=== PATIENT | female | born 1935 | race Caucasian/White ===

== ENCOUNTER 2016-07-21 21:31 | Inpatient (IN) | payer OTHER ==
[~2016-07-21] VITALS: Ht 167.6 cm; Wt 58.0 kg
--- NOTE | 2016-07-21 22:38 | EMERGENCY ROOM VISIT NOTE ---
History Report prepared by Frederick: Claude Sarmiento Under the Supervision of: Dr. Aris Graham M.D. First contact with patient: 22:30 Chief Complaint: GI ASSESSMENT Stated Complaint: BLOOD IN STOOL, HEMORRHOIDS Nursing Triage Summary: pt reports she has been getting pressure to have BM, uses bathroom Reports bright red blood in the toilet. Has hermorrhoids. denies abd pain. History of Present Illness The patient is an 81 year old female who presents to the Emergency Room with complaints of persistent rectal bleeding for the past two weeks. The patient has been noticing bright red blood in her stools and on the toilet paper when she wipes. She denies rectal pain. The patient does have a history of hemorrhoids. The patient had her blood counts checked for a regular checkup two weeks ago, which showed that her hemoglobin dropped from 10 down to 8 range she thinks. The patient is not on any blood thinners. She denies any history of colon or blood problems. The patient denies fevers, chills, shortness of breath , nausea, vomiting, or abdominal pain. She denies increased weakness or fatigue. Source of History: patient, family Onset: two weeks ago Position: other (rectal) Quality: other (right red blood) Timing: other (persistent) Associated Symptoms: No SOB, No abdominal pain, No chills, No fatigue, No fevers, No nausea, No vomiting, No weakness Review of Systems See HPI for pertinent positives & negatives. A total of 10 systems reviewed and were otherwise negative. Past Medical & Surgical Medical Problems: (1) Anemia (2) Broken wrist (3) Rectal bleeding Old medical records were reviewed. Nurse's notes were reviewed and I agree with. Family History Patient reports no known family medical history. Social History Smoking Status: Never Smoker Alcohol Use: none Drug Use: none Occupation Status: retired Current/Historical Medications Scheduled Metoprolol Tartrate (Lopressor) (Lopressor), 50 MG PO BID Allergies Coded Allergies: No Known Allergies (Unverified , 07/21/16) Physical Exam Vital Signs Date Time Temp Pulse Resp B/P Pulse Ox O2 Delivery O2 Flow Rate FiO2 07/22/16 00:22 65 20 150/83 96 Room Air 07/21/16 22:50 84 20 185/110 96 Room Air 07/21/16 21:39 36.7 115 18 205/112 99 Room Air Physical Exam General: Non ill appearing older female in no acute distress, breathing comfortably on room air. Normal speech HEENT: Normal cephalic atraumatic. Pupils are equal round and reactive to light. Sclerae anicteric. Extraocular movements are intact. Oropharynx is pink with moist mucous membranes. No swelling of the mouth lips or tongue. Neck: Supple with a midline trachea. No meningeal signs or stiffness, no JVD or bruits. No Stridor. Chest: Clear to auscultation bilaterally. No wheezes or rhonchi. No increased work of breathing. Heart: Mildly tachycardic, regular rhythm. Abdomen: Soft nontender, nondistended without rebound guarding or rigidity. Extremities: No cyanosis clubbing or edema. No calf tenderness or assymetry Spine/Back. Non tender to palpation. No CVA tenderness Skin: Good turgor without rashes. Neurologic exam: Cranial nerves two through 12 are intact. Motor and sensation are intact and symmetrical throughout. Rectal: External hemorrhoids with no active bleeding at present, nontender. Internal examination reviewed brownish red stool that is guaiac positive. 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 Medical Decision & Procedures Laboratory Results 07/21/16 22:46 Red Blood Count 3.32, Mean Corpuscular Volume 87.3, Mean Corpuscular Hemoglobin 26.5, Mean Corpuscular Hemoglobin Concent 30.3, Mean Platelet Volume 8.6, Neutrophils (%) (Auto) 83.1, Lymphocytes (%) (Auto) 9.9, Monocytes (%) (Auto) 5.9, Eosinophils (%) (Auto) 1.1, Basophils (%) (Auto) 0.0, Neutrophils # (Auto) 3.77, Lymphocytes # (Auto) 0.45, Monocytes # (Auto) 0.27, Eosinophils # (Auto) 0.05, Basophils # (Auto) 0.00 07/21/16 22:46 Test 07/21/16 22:46 White Blood Count 4.54 K/uL (4.8-10.8) Red Blood Count 3.32 M/uL (4.2-5.4) Hemoglobin 8.8 g/dL (12.0-16.0) Hematocrit 29.0 % (37-47) Mean Corpuscular Volume 87.3 fL (80-100) Mean Corpuscular Hemoglobin 26.5 pg (25-34) Mean Corpuscular Hemoglobin Concent 30.3 g/dl (32-36) Platelet Count 171 K/uL (130-400) Mean Platelet Volume 8.6 fL (7.4-10.4) Neutrophils (%) (Auto) 83.1 % Lymphocytes (%) (Auto) 9.9 % Monocytes (%) (Auto) 5.9 % Eosinophils (%) (Auto) 1.1 % Basophils (%) (Auto) 0.0 % Neutrophils # (Auto) 3.77 K/uL (1.4-6.5) Lymphocytes # (Auto) 0.45 K/uL (1.2-3.4) Monocytes # (Auto) 0.27 K/uL (0.11-0.59) Eosinophils # (Auto) 0.05 K/uL (0-0.5) Basophils # (Auto) 0.00 K/uL (0-0.2) RDW Standard Deviation 48.7 fL (36.4-46.3) RDW Coefficient of Variation 15.2 % (11.5-14.5) Immature Granulocyte % (Auto) 0.0 % Immature Granulocyte # (Auto) 0.00 K/uL (0.00-0.02) Tear Drop Cells 1+ Prothrombin Time 10.5 SECONDS (9.0-12.0) Prothromb Time International Ratio 1.0 (0.9-1.1) Activated Partial Thromboplast Time 23.7 SECONDS (21.0-31.0) Partial Thromboplastin Ratio 0.9 Anion Gap 7.0 mmol/L (3-11) Est Creatinine Clear Calc Drug Dose 33.2 ml/min Estimated GFR () 48.4 Estimated GFR (Non- 41.8 BUN/Creatinine Ratio 12.9 (10-20) Calcium Level 9.3 mg/dl (8.5-10.1) Total Bilirubin 0.5 mg/dl (0.2-1) Direct Bilirubin 0.1 mg/dl (0-0.2) Aspartate Amino Transf (AST/SGOT) 12 U/L (15-37) Alanine Aminotransferase (ALT/SGPT) 20 U/L (12-78) Alkaline Phosphatase 133 U/L (45-117) Total Protein 7.3 gm/dl (6.4-8.2) Albumin 3.7 gm/dl (3.4-5.0) Lipase 144 U/L (73-393) Laboratory studies as stated above per my review. ED Course 2231: Past medical records reviewed. The patient was evaluated in room A11b, and a complete history and physical examination were performed. 2354: Rectal examination performed. 0010: Discussed the case with Dr. Ramirez [facility] Hospitalist. The patient will be evaluated. Medical Decision Differential diagnosis includes GI bleed, anemia, hemorrhoids, electrolyte or metabolic abnormality. This patient comes in as described above. She was placed in room A 11. She's been having increasing rectal bleeding. She feels okay at present was concerned. She has some mild rectal discomfort she tells me she hasn't some hemorrhoids however is scheduled for scope and about a week because is concern for further bleeding. On exam, she does have hemorrhoids but stool is actually reddish-brown above the hemorrhoids and I think most likely this is a bleeding source proximal to hemorrhoids. It was guaiac positive. Hemoglobin here is 8.8 which is low. I do not have any documentation of her previous hemoglobins. She was tachycardic initially. She has no electrode or metabolic abnormalities. She is not on any blood thinners and her coags are normal. I do think she needs be admitted for further treatment and evaluation monitoring and GI consultation. I have consulted Dr. Godinez, who saw the patient ER, and will admit her for these measures. Consults Time Called: 0000 Consulting Physician: Dr. Ramirez [facility]. Returned Call: 9 0010: Discussed the case with Dr. Ramirez [facility]. The patient will be evaluated. Impression Primary Impression: GI bleed Scribe Attestation The scribe's documentation has been prepared under my direction and personally reviewed by me in its entirety. I confirm that the note above accurately reflects all work, treatment, procedures, and medical decision making performed by me. Departure Information Dispostion Being Evaluated By Hospitalist Referrals No Doctor, Assigned (PCP) Patient Instructions [facility]
[2016-07-21 23:00] LABS: EOS % 1.1 %; LYMPH % 9.9 %; LYMPH ABS # 0.45 K/uL (1.2-3.4); MEAN CELL VOLUME 87.3 fL (80-100); MEAN CORPUSCULAR HEMOGLOBIN 26.5 pg (25-34); MEAN CORPUSCULAR HGB CONC 30.3 g/dl (32-36); MEAN PLATELET VOLUME 8.6 fL (7.4-10.4); MONO % 5.9 %; NEUT % 83.1 %; PLATELET COUNT 171 K/uL (130-400); RED BLOOD COUNT 3.32 M/uL (4.2-5.4); WHITE BLOOD COUNT 4.54 K/uL (4.8-10.8)
[2016-07-21 23:06] LABS: PARTIAL THROMBOPLASTIN RATIO 0.9; PROTHROMBIN TIME (PATIENT) 10.5 SECONDS (9.0-12.0)
[2016-07-21 23:15] LABS: BUN/CREATININE RATIO 12.9 (10-20); CALCIUM 9.3 mg/dl (8.5-10.1); CREATININE 1.2 mg/dl (0.60-1.20); POTASSIUM 3.9 mmol/L (3.5-5.1)
[2016-07-21 23:27] LABS: COMPLETE YES; TEAR DROP CELLS 1+
[2016-07-22] VITALS (7 sets, daily range): BP systolic 136–187; BP diastolic 67–92; PULSE 82–108; TEMP 36.6; O2SAT 97–98; Ht 167.6 cm; Wt 58.0 kg
[2016-07-22] MEDS ORDERED: NSS + 20MEQ KCL 1000ML 1,000 ML IV SCH (00:05)
[2016-07-22] MEDS ORDERED: ONDANSETRON INJ 2 MG/ML 2 ML VIAL IV PRN (00:15)
[2016-07-22] MEDS ORDERED: ACETAMINOPHEN IV 100 ML IV PRN (00:15)
[2016-07-22] MEDS ORDERED: METO50TA16 PO (00:28)
[2016-07-22 00:57] LABS: HEMATOCRIT 26.5 % (37-47)
[2016-07-22] MEDS ORDERED: IV FLUIDS COMPLETED PRN (01:00)
[2016-07-22] MEDS: SODIUM CHLOR 0.45% + 20MEQ KCL 1,000 ML IV SCH ×3 (02:10→21:19)
--- NOTE | 2016-07-22 05:50 | History and Physical ---
History & Physical Date & Time of Service: Jul 22, 2016 at 05:43 Chief Complaint: Anemia, Rectal Bleeding Primary Care Physician: Ethan Dick History of Present Illness Source: patient, family The patient is a 80-year-old female presents emergency department with complaint of persistent painless rectal bleeding over the past 2-3 weeks. She notes bright red blood in his stools and on the toilet paper when she wipes. She has a known history of hemorrhoids. She reportedly had blood tests done a few weeks ago and had a drop in hemoglobin and she's unsure of the exact number. She is not take any antiplatelet agents for blood thinners. She reports her bowel movements have been normal. Past Medical/Surgical History Medical Problems: (1) Broken wrist Status: Resolved Family History Patient reports no known family medical history. Social History Smoking Status: Never Smoker Smokeless Tobacco Use: No Alcohol Use: none Drug Use: none Marital Status: Occupational Status: retired Multi-Drug Resistant Organisms History of MDRO: No Allergies Coded Allergies: No Known Allergies (Unverified , 07/21/16) Home Medications Scheduled Metoprolol Tartrate (Lopressor) (Lopressor), 50 MG PO BID Review of Systems The patient denies chest pain, palpitations, shortness of breath, cough, lower extremity swelling, vision change, hearing change, sore throat, fevers, chills, sweats, weight change, fatigue, nausea, vomiting, abdominal pain, pelvic pain, blood in urine, dysuria, urinary frequency or urgency, lightheadedness, dizziness, headache, memory loss, rash, abnormal bruising, imbalance, focal or generalized weakness, numbness or tingling in arms or legs, arthralgias or myalgias, back or neck pain, night sweats, or allergy symptoms. The review of systems is otherwise negative other than for that already noted above, and at least 10 systems have been reviewed. Physical Exam Vital Signs Date Time Temp Pulse Resp B/P Pulse Ox O2 Delivery O2 Flow Rate FiO2 07/22/16 02:35 94 161/79 07/22/16 01:48 174/77 07/22/16 01:15 Room Air 07/22/16 01:13 36.6 99 16 187/80 98 Room Air 07/22/16 00:22 65 20 150/83 96 Room Air 07/21/16 22:50 84 20 185/110 96 Room Air 07/21/16 21:39 36.7 115 18 205/112 99 Room Air The patient is awake, well-developed and adequately nourished, alert and oriented 3, normocephalic and atraumatic, lying in bed and in no acute distress. HEENT--PERRL, EOMI, mucous membranes and oropharynx normal. Neck--supple, no JVD or bruits, thyroid normal, trachea midline, no adenopathy. Heart--normal S1 and S2, no extra beats, no murmurs, rubs or gallops. Lungs--clear bilaterally with good air movement, no respiratory distress, no accessory muscle use. Abdomen--normal bowel sounds and soft, nontender and nondistended, no hernias or masses, no organomegaly. Extremities--no cyanosis, clubbing or edema. There are good distal pulses b/l. Dermatologic--normal skin turgor, normal color, warm and dry, no abnormal lymph nodes, no rash. Neurologic--cranial nerves II through XII grossly intact, motor and sensory examination normal. Rheumatologic--normal range of motion, nontender, muscles and joints. Rectal exam per ED--brown stool Hemoccult positive. Psychiatric--normal affect. Diagnostics Laboratory Results Results Past 24 Hours Test 07/21/16 22:46 07/22/16 00:48 Range/Units White Blood Count 4.54 4.8-10.8 K/uL Red Blood Count 3.32 4.2-5.4 M/uL Hemoglobin 8.8 8.0 12.0-16.0 g/dL Hematocrit 29.0 26.5 37-47 % Mean Corpuscular Volume 87.3 80-100 fL Mean Corpuscular Hemoglobin 26.5 25-34 pg Mean Corpuscular Hemoglobin Concent 30.3 32-36 g/dl Platelet Count 171 130-400 K/uL Mean Platelet Volume 8.6 7.4-10.4 fL Neutrophils (%) (Auto) 83.1 % Lymphocytes (%) (Auto) 9.9 % Monocytes (%) (Auto) 5.9 % Eosinophils (%) (Auto) 1.1 % Basophils (%) (Auto) 0.0 % Neutrophils # (Auto) 3.77 1.4-6.5 K/uL Lymphocytes # (Auto) 0.45 1.2-3.4 K/uL Monocytes # (Auto) 0.27 0.11-0.59 K/uL Eosinophils # (Auto) 0.05 0-0.5 K/uL Basophils # (Auto) 0.00 0-0.2 K/uL RDW Standard Deviation 48.7 36.4-46.3 fL RDW Coefficient of Variation 15.2 11.5-14.5 % Immature Granulocyte % (Auto) 0.0 % Immature Granulocyte # (Auto) 0.00 0.00-0.02 K/uL Tear Drop Cells 1+ Prothrombin Time 10.5 9.0-12.0 SECONDS Prothromb Time International Ratio 1.0 0.9-1.1 Activated Partial Thromboplast Time 23.7 21.0-31.0 SECONDS Partial Thromboplastin Ratio 0.9 Sodium Level 146 136-145 mmol/L Potassium Level 3.9 3.5-5.1 mmol/L Chloride Level 110 98-107 mmol/L Carbon Dioxide Level 29 21-32 mmol/L Anion Gap 7.0 3-11 mmol/L Blood Urea Nitrogen 15 7-18 mg/dl Creatinine 1.20 0.60-1.20 mg/dl Est Creatinine Clear Calc Drug Dose 33.2 ml/min Estimated GFR () 48.4 Estimated GFR (Non- 41.8 BUN/Creatinine Ratio 12.9 10-20 Random Glucose 122 70-99 mg/dl Calcium Level 9.3 8.5-10.1 mg/dl Total Bilirubin 0.5 0.2-1 mg/dl Direct Bilirubin 0.1 0-0.2 mg/dl Aspartate Amino Transf (AST/SGOT) 12 15-37 U/L Alanine Aminotransferase (ALT/SGPT) 20 12-78 U/L Alkaline Phosphatase 133 45-117 U/L Total Protein 7.3 6.4-8.2 gm/dl Albumin 3.7 3.4-5.0 gm/dl Lipase 144 73-393 U/L Impression Assessment and Plan Rectal bleeding with known history of hemorrhoids/anemia/ but has never had a colonoscopy--the patient will be admitted to the medical floor and kept nothing by mouth except meds and sips. We'll place her on IV fluids, Zofran IV, Protonix IV and we'll consult gastroenterology. We will follow H&H's every 6 hours for the next 48 hours. Hypertension--continue metoprolol tartrate 50 mg by mouth twice a day with hold parameters. Hypernatremia--sodium was [address] on normal saline with KCl 20 mEq at 100 ML's per hour, and then repeat labs. Level of Care Med/Surg Advanced Directives Existing Advance Directive: No Existing Living Will: Yes Existing Power of [employer] Leak Tester: Yes Resuscitation Status FULL RESUSCITATION VTE Prophylaxis VTE Risk Assessment Done? Y/N: Yes Risk Level: Moderate Given or contraindicated: SCD's
[2016-07-22 06:27] LABS: HEMATOCRIT 24.8 % (37-47)
[2016-07-22] MEDS ORDERED: PNEUMOCOCCAL POLYSACCHARIDES 25 MCG/0.5 ML VIAL/SYR IM. ONE (08:00)
[2016-07-22] MEDS ORDERED: PNEUMOCOCCAL ADMINISTRATION CHARGE ONE (08:00)
[2016-07-22] MEDS ORDERED: INFLUENZA VIRUS QUAD VACCINE 0.5 ML SYR IM. ONE (08:00)
[2016-07-22] MEDS ORDERED: INFLUENZA ADMINISTRATION CHARGE ONE (08:00)
[2016-07-22] MEDS: METOPROLOL TARTRATE 50 MG TAB PO SCH ×2 (09:04→20:52)
[2016-07-22] MEDS: PANTOprazole INJ 40 MG in SYRINGE 0 ML IV SCH (11:32)
[2016-07-22 12:42] LABS: HEMATOCRIT 24.9 % (37-47)
--- NOTE | 2016-07-22 14:10 | Medical Consult ---
Consultation Note Date of Service Jul 22, 2016. Consultation Note Reason for consult: rectal bleeding. HPI: 80 yo F with no PMH admit with painless rectal bleeding for the past several weeks. Pt reports sensation of tenesmus, followed by passage of red blood and clot that stains toilet water. Denies abdominal pain. She denies constipation , straining. She was seen by her PCP recently - told that she had bleeding hemorrhoids, and that she was anemic. She presented to hospital because of continued bleeding. In ER, had brown stool, normal VS, Hgb 8.8, MCV 87 She denies anginal symptoms or symptoms of anemia. Denies NSAIDs, fish oil. Past Medical/Surgical History HTN Family History Patient reports no known family medical history. Social History Smoking Status: Never Smoker Smokeless Tobacco Use: No Alcohol Use: none Drug Use: none Marital Status: Occupational Status: retired Multi-Drug Resistant Organisms History of MDRO: No Allergies Coded Allergies: No Known Allergies (Unverified , 07/21/16) Home Medications Scheduled Metoprolol Tartrate (Lopressor) (Lopressor), 50 MG PO BID Review of Systems The patient denies chest pain, palpitations, shortness of breath, cough, lower extremity swelling, vision change, hearing change, sore throat, fevers, chills, sweats, weight change, fatigue, nausea, vomiting, abdominal pain, pelvic pain, blood in urine, dysuria, urinary frequency or urgency, lightheadedness, dizziness, headache, memory loss, rash, abnormal bruising, imbalance, focal or generalized weakness, numbness or tingling in arms or legs, arthralgias or myalgias, back or neck pain, night sweats, or allergy symptoms. The review of systems is otherwise negative other than for that already noted above, and at least 10 systems have been reviewed. Physical Ex - H&P Physical Exam Date Time Temp Pulse Resp B/P Pulse Ox O2 Delivery O2 Flow Rate FiO2 07/22/16 07:30 Room Air 07/22/16 07:24 36.6 87 18 158/73 97 Room Air 07/22/16 02:35 94 161/79 07/22/16 01:48 174/77 07/22/16 01:15 Room Air 07/22/16 01:13 36.6 99 16 187/80 98 Room Air 07/22/16 00:22 65 20 150/83 96 Room Air 07/21/16 22:50 84 20 185/110 96 Room Air 07/21/16 21:39 36.7 115 18 205/112 99 Room Air HEENT: oc clear, pale, moist CV: RRR Resp: CTA Abd: Mildly protuberant, tympanic Extrem: no edema, 2+ pulses, mild pallor Rectal: NO stool in vault, small hemorrhoids without clot or apparent trauma Diagnostics - H&P Diagnostics Laboratory Results Results Past 24 Hours Test 07/21/16 22:46 07/22/16 00:48 Range/Units White Blood Count 4.54 4.8-10.8 K/uL Red Blood Count 3.32 4.2-5.4 M/uL Hemoglobin 8.8 8.0 12.0-16.0 g/dL Hematocrit 29.0 26.5 37-47 % Mean Corpuscular Volume 87.3 80-100 fL Mean Corpuscular Hemoglobin 26.5 25-34 pg Mean Corpuscular Hemoglobin Concent 30.3 32-36 g/dl Platelet Count 171 130-400 K/uL Mean Platelet Volume 8.6 7.4-10.4 fL Neutrophils (%) (Auto) 83.1 % Lymphocytes (%) (Auto) 9.9 % Monocytes (%) (Auto) 5.9 % Eosinophils (%) (Auto) 1.1 % Basophils (%) (Auto) 0.0 % Neutrophils # (Auto) 3.77 1.4-6.5 K/uL Lymphocytes # (Auto) 0.45 1.2-3.4 K/uL Monocytes # (Auto) 0.27 0.11-0.59 K/uL Eosinophils # (Auto) 0.05 0-0.5 K/uL Basophils # (Auto) 0.00 0-0.2 K/uL RDW Standard Deviation 48.7 36.4-46.3 fL RDW Coefficient of Variation 15.2 11.5-14.5 % Immature Granulocyte % (Auto) 0.0 % Immature Granulocyte # (Auto) 0.00 0.00-0.02 K/uL Tear Drop Cells 1+ Prothrombin Time 10.5 9.0-12.0 SECONDS Prothromb Time International Ratio 1.0 0.9-1.1 Activated Partial Thromboplast Time 23.7 21.0-31.0 SECONDS Partial Thromboplastin Ratio 0.9 Sodium Level 146 136-145 mmol/L Potassium Level 3.9 3.5-5.1 mmol/L Chloride Level 110 98-107 mmol/L Carbon Dioxide Level 29 21-32 mmol/L Anion Gap 7.0 3-11 mmol/L Blood Urea Nitrogen 15 7-18 mg/dl Creatinine 1.20 0.60-1.20 mg/dl Est Creatinine Clear Calc Drug Dose 33.2 ml/min Estimated GFR () 48.4 Estimated GFR (Non- 41.8 BUN/Creatinine Ratio 12.9 10-20 Random Glucose 122 70-99 mg/dl Calcium Level 9.3 8.5-10.1 mg/dl Total Bilirubin 0.5 0.2-1 mg/dl Direct Bilirubin 0.1 0-0.2 mg/dl Aspartate Amino Transf (AST/SGOT) 12 15-37 U/L Alanine Aminotransferase (ALT/SGPT) 20 12-78 U/L Alkaline Phosphatase 133 45-117 U/L Total Protein 7.3 6.4-8.2 gm/dl Albumin 3.7 3.4-5.0 gm/dl Lipase 144 73-393 U/L Impression - H&P Impression Assessment and Plan LGIB - DDX = outlet bleeding, colon cancer. Plan for colonoscopy tomorrow.
[2016-07-22] MEDS ORDERED: BISACODYL 5 MG TABEC PO ONE (14:15)
[2016-07-22] MEDS: LAVAGE SOLUTION 4000ML PO SCH ×7 (15:11→16:40)
--- NOTE | 2016-07-22 15:48 | Progress Note ---
Subjective Date of Service: Jul 22, 2016. Subjective pt is doing well slight slowing of bloody stool has never had a colonoscopy, set for prep tonight and c scope 07/23 Problem List Medical Problems: (1) GI bleed Status: Acute Review of Systems Constitutional: + weakness, No chills, No fever Respiratory: No cough, No sputum Cardiac: No chest pain, No orthopnea Abdomen: No nausea, No pain Female : No dysuria, No urinary frequency Neurologic: No memory loss, No paralysis Objective Vital Signs Date Time Temp Pulse Resp B/P Pulse Ox O2 Delivery O2 Flow Rate FiO2 07/22/16 07:24 36.6 87 18 158/73 97 Room Air 07/22/16 02:35 94 161/79 07/22/16 01:48 174/77 07/22/16 01:15 Room Air 07/22/16 01:13 36.6 99 16 187/80 98 Room Air 07/22/16 00:22 65 20 150/83 96 Room Air 07/21/16 22:50 84 20 185/110 96 Room Air 07/21/16 21:39 36.7 115 18 205/112 99 Room Air Physical Exam General Appearance: WD/WN, + mild distress Neck: supple, no JVD Respiratory/Chest: chest non-tender, lungs clear, normal breath sounds Cardiovascular: regular rate, rhythm, no murmur Abdomen: normal bowel sounds, non tender, soft Extremities: no pedal edema, no calf tenderness Neurologic/Psychiatric: alert, oriented x 3 Laboratory Results Last 24 Hours Test 07/21/16 22:46 07/22/16 00:48 07/22/16 06:00 White Blood Count 4.54 K/uL Red Blood Count 3.32 M/uL Hemoglobin 8.8 g/dL 8.0 g/dL 7.5 g/dL Hematocrit 29.0 % 26.5 % 24.8 % Mean Corpuscular Volume 87.3 fL Mean Corpuscular Hemoglobin 26.5 pg Mean Corpuscular Hemoglobin Concent 30.3 g/dl Platelet Count 171 K/uL Mean Platelet Volume 8.6 fL Neutrophils (%) (Auto) 83.1 % Lymphocytes (%) (Auto) 9.9 % Monocytes (%) (Auto) 5.9 % Eosinophils (%) (Auto) 1.1 % Basophils (%) (Auto) 0.0 % Neutrophils # (Auto) 3.77 K/uL Lymphocytes # (Auto) 0.45 K/uL Monocytes # (Auto) 0.27 K/uL Eosinophils # (Auto) 0.05 K/uL Basophils # (Auto) 0.00 K/uL RDW Standard Deviation 48.7 fL RDW Coefficient of Variation 15.2 % Immature Granulocyte % (Auto) 0.0 % Immature Granulocyte # (Auto) 0.00 K/uL Tear Drop Cells 1+ Prothrombin Time 10.5 SECONDS Prothromb Time International Ratio 1.0 Activated Partial Thromboplast Time 23.7 SECONDS Partial Thromboplastin Ratio 0.9 Sodium Level 146 mmol/L Potassium Level 3.9 mmol/L Chloride Level 110 mmol/L Carbon Dioxide Level 29 mmol/L Anion Gap 7.0 mmol/L Blood Urea Nitrogen 15 mg/dl Creatinine 1.20 mg/dl Est Creatinine Clear Calc Drug Dose 33.2 ml/min Estimated GFR () 48.4 Estimated GFR (Non- 41.8 BUN/Creatinine Ratio 12.9 Random Glucose 122 mg/dl Calcium Level 9.3 mg/dl Total Bilirubin 0.5 mg/dl Direct Bilirubin 0.1 mg/dl Aspartate Amino Transf (AST/SGOT) 12 U/L Alanine Aminotransferase (ALT/SGPT) 20 U/L Alkaline Phosphatase 133 U/L Total Protein 7.3 gm/dl Albumin 3.7 gm/dl Lipase 144 U/L Assessment and Plan Rectal bleeding with known history of hemorrhoids/anemia/ but has never had a colonoscopy- IV fluids, Zofran IV, Protonix IV pending consult gastroenterology. acute blood loss anemia, hgb down to 7.5 will likely transfuse if lower, for colonoscopy 07/23 Hypertension-- metoprolol tartrate 50 mg by mouth twice a day with hold parameters. Hypernatremia--sodium was [address] on normal saline with KCl 20 mEq at 100 ML's per hour, and then repeat labs.
[2016-07-23] VITALS (17 sets, daily range): BP systolic 121–183; BP diastolic 54–83; PULSE 69–109; TEMP 36.4–36.9; O2SAT 94–99
[2016-07-23 06:10] LABS: EOS % 1.1 %; LYMPH ABS # 0.44 K/uL (1.2-3.4); MEAN CELL VOLUME 86.6 fL (80-100); MEAN CORPUSCULAR HEMOGLOBIN 27.1 pg (25-34); MEAN CORPUSCULAR HGB CONC 31.3 g/dl (32-36); MEAN PLATELET VOLUME 8.2 fL (7.4-10.4); MONO % 8.4 %; NEUT % 74.5 %; PLATELET COUNT 116 K/uL (130-400); RED BLOOD COUNT 2.77 M/uL (4.2-5.4); WHITE BLOOD COUNT 2.75 K/uL (4.8-10.8)
[2016-07-23 06:38] LABS: COMPLETE YES; OVALOCYTES 1+; TEAR DROP CELLS 2+
[2016-07-23 06:56] LABS: BUN/CREATININE RATIO 18.9 (10-20); CALCIUM 8.9 mg/dl (8.5-10.1); CREATININE 0.62 mg/dl (0.60-1.20); MAGNESIUM 2.2 mg/dl (1.8-2.4); POTASSIUM 4.4 mmol/L (3.5-5.1)
[2016-07-23] MEDS: SODIUM CHLOR 0.45% + 20MEQ KCL 1,000 ML IV SCH ×2 (07:49→18:11)
[2016-07-23] MEDS: METOPROLOL TARTRATE 50 MG TAB PO SCH ×2 (07:50→21:00)
[2016-07-23] MEDS ORDERED: LIDOCAINE HCL 2% 2 ML VIAL (20MG/ML) ONE (10:09)
[2016-07-23] MEDS ORDERED: PROPOFOL IV EMULSION 10 MG/ML 20 ML VIAL IV ONE (10:09)
[2016-07-23] MEDS ORDERED: PHENYLEPHRINE HCL INJ 10 MG/ML VIAL ONE (10:42)
--- NOTE | 2016-07-23 10:47 | Anesthesiology Progress Note ---
Anesthesia Post Op Note Date & Time Jul 23, 2016 at 10:46 Vital Signs Pain Intensity: 0.0 Vital Signs Past 12 Hours Date Time Temp Pulse Resp B/P Pulse Ox O2 Delivery O2 Flow Rate FiO2 07/23/16 10:38 82 20 126/53 100 Room Air 07/23/16 09:50 36.8 86 20 195/80 98 Room Air 07/23/16 08:57 36.8 90 18 170/77 97 Room Air 07/23/16 07:20 36.8 90 18 170/77 97 Room Air 07/23/16 07:20 Room Air 07/23/16 00:30 Room Air 07/23/16 00:30 Room Air 07/22/16 22:59 36.6 82 16 136/67 97 Room Air Notes Mental Status: alert / awake / arousable, participated in evaluation Pt Amnestic to Procedure: Yes Nausea / Vomiting: adequately controlled Pain: adequately controlled Airway Patency, RR, SpO2: stable & adequate BP & HR: stable & adequate Hydration State: stable & adequate Anesthetic Complications: no major complications apparent
--- NOTE | 2016-07-23 10:51 | GI REPORT ---
Procedure Date: 07/23/2016 9:59 AM Procedure: Colonoscopy Indications: Rectal bleeding, Anemia Medicines: See the Anesthesia note for documentation of the administered medications Complications: No immediate complications. Estimated Blood Loss: Estimated blood loss was minimal. Procedure: Pre-Anesthesia Assessment: - Prior to the procedure, a History and Physical was performed, and patient medications, allergies and sensitivities were reviewed. The patient's tolerance of previous anesthesia was reviewed. - The risks and benefits of the procedure and the sedation options and risks were discussed with the patient. All questions were answered and informed consent was obtained. - Patient identification and proposed procedure were verified prior to the procedure by the physician and the nurse. The procedure was verified in the pre-procedure area. - Pre-procedure physical examination revealed no contraindications to sedation. - After reviewing the risks and benefits, the patient was deemed in satisfactory condition to undergo the procedure. After I obtained informed consent, the scope was passed under direct vision. Throughout the procedure, the patient's blood pressure, pulse, and oxygen saturations were monitored continuously. The scope was introduced through the anus with the intention of advancing to the cecum. The scope was advanced to the sigmoid colon before the procedure was aborted because the scope could not pass through the lesion. Medications were given. The colonoscopy was performed without difficulty. The patient tolerated the procedure well. The quality of the bowel preparation was good. Findings: The perianal and digital rectal examinations were normal. A fungating partially obstructing large mass was found at 15 cm proximal to the anus. The mass was circumferential. Biopsies were taken with a cold forceps for histology. Verification of patient identification for the specimen was done by the physician and nurse using the patient's name and medical record number. Estimated blood loss was minimal. Area was tattooed with an injection of 3 mL of Fannie ink. No additional abnormalities were found on retroflexion. 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 Biopsied. Tattooed. Recommendation: - Await pathology results. - I will contact Dr. Marshall for surgery ( Family requested). - [facility]. Luis Yu M.D. Luis Yu MD 07/23/2016 10:50:20 AM This report has been signed electronically. Note Initiated On: 07/23/2016 9:59 AM I attest to the content of the Intraoperative Record and orders documented therein, exceptions below
[2016-07-23] MEDS ORDERED: ENDOSCOPIC MARKER 5 ML SYR ONE (10:54)
[2016-07-23] MEDS: PANTOprazole INJ 40 MG in SYRINGE 0 ML IV SCH (11:23)
[2016-07-23 12:59] LABS: HEMATOCRIT 25.5 % (37-47)
--- NOTE | 2016-07-23 14:35 | Medical Consult ---
Consultation Date of Consultation: Jul 23, 2016. Attending Physician: Andrey Hernandez M.D. Reason for Consultation: colon cancer History of Present Illness pt adm with ongoing rectal bleeding and significant anemia. EGD today negative for source- colonoscopy showed rectosigmoid tumor path pending. last H/H 7.9 25.5 no other abd operations Past Medical/Surgical History Medical Problems: (1) GI bleed Status: Acute Family History Patient reports no known family medical history. Social History Smoking Status: Never Smoker Smokeless Tobacco Use: No Alcohol Use: none Drug Use: none Marital Status: Occupation Status: retired Allergies Coded Allergies: No Known Allergies (Unverified , 07/21/16) Current Inpatient Medications Current Inpatient Medications Medications (Trade) Dose Ordered Sig/Gladis Route Start Time Stop Time Status Last Admin Dose Admin Ondansetron HCl 4 mg 4 mg Q6H PRN IV 07/22/16 00:15 08/21/16 00:14 Acetaminophen 100 ml @ 400 mls/hr Q8H PRN IV 07/22/16 00:15 08/21/16 00:14 Pantoprazole Sodium/Syringe (Protonix Inj/ Syringe) 10 ml @ 5 mls/min DAILY@11 IV 07/22/16 11:00 08/21/16 10:59 07/23/16 11:23 5 MLS/MIN Metoprolol Tartrate 50 mg 50 mg BID PO 07/22/16 09:00 08/21/16 08:59 07/23/16 07:50 50 MG Potassium Chloride/Sodium Chloride (1/2 Nss + 20meq KCl 1000ml) 1,000 ml @ 100 mls/hr Q10H IV 07/22/16 01:45 08/21/16 01:44 07/23/16 07:49 100 MLS/HR Miscellaneous (Iv Fluids Completed) 1 ea PRN PRN N/A 07/22/16 01:00 07/22/17 00:59 Review of Systems Constitutional: No chills, No fever, No sweats Eyes: No eye pain Respiratory: No cough, No shortness of breath, No sputum Cardiovascular: No chest pain Abdomen: + GI bleeding, No pain Genitourinary - Female: No dysuria Endocrine: No fatigue Integumentary: No rash Physical Exam Date Time Temp Pulse Resp B/P Pulse Ox O2 Delivery O2 Flow Rate FiO2 07/23/16 11:19 36.4 87 16 180/78 94 Room Air 07/23/16 11:00 82 20 147/73 100 Room Air 07/23/16 10:47 88 20 151/70 100 Room Air 07/23/16 10:38 82 20 126/53 100 Room Air 07/23/16 09:50 36.8 86 20 195/80 98 Room Air 07/23/16 08:57 36.8 90 18 170/77 97 Room Air 07/23/16 07:20 36.8 90 18 170/77 97 Room Air 07/23/16 07:20 Room Air 07/23/16 00:30 Room Air 07/23/16 00:30 Room Air 07/22/16 22:59 36.6 82 16 136/67 97 Room Air 07/22/16 20:49 108 175/92 07/22/16 15:47 36.6 93 17 174/81 97 Room Air 07/22/16 15:35 Room Air General Appearance: WD/WN, no apparent distress Head: atraumatic Eyes: sclerae normal ENT: hearing grossly normal Neck: supple Respiratory/Chest: normal breath sounds, no respiratory distress Cardiovascular: regular rate, rhythm Abdomen/GI: non tender, soft Extremities/Musculoskelatal: no pedal edema Neurologic/Psych: alert Skin: warm/dry Laboratory Results Last 24 Hours Test 07/23/16 05:39 07/23/16 12:00 07/23/16 12:12 White Blood Count 2.75 K/uL Red Blood Count 2.77 M/uL Hemoglobin 7.5 g/dL 7.9 g/dL Hematocrit 24.0 % 25.5 % Mean Corpuscular Volume 86.6 fL Mean Corpuscular Hemoglobin 27.1 pg Mean Corpuscular Hemoglobin Concent 31.3 g/dl Platelet Count 116 K/uL Mean Platelet Volume 8.2 fL Neutrophils (%) (Auto) 74.5 % Lymphocytes (%) (Auto) 16.0 % Monocytes (%) (Auto) 8.4 % Eosinophils (%) (Auto) 1.1 % Basophils (%) (Auto) 0.0 % Neutrophils # (Auto) 2.05 K/uL Lymphocytes # (Auto) 0.44 K/uL Monocytes # (Auto) 0.23 K/uL Eosinophils # (Auto) 0.03 K/uL Basophils # (Auto) 0.00 K/uL RDW Standard Deviation 48.7 fL RDW Coefficient of Variation 15.2 % Immature Granulocyte % (Auto) 0.0 % Immature Granulocyte # (Auto) 0.00 K/uL Tear Drop Cells 2+ Ovalocytes 1+ Sodium Level 142 mmol/L Potassium Level 4.4 mmol/L Chloride Level 110 mmol/L Carbon Dioxide Level 24 mmol/L Anion Gap 8.0 mmol/L Blood Urea Nitrogen 12 mg/dl Creatinine 0.62 mg/dl Est Creatinine Clear Calc Drug Dose 64.3 ml/min Estimated GFR () 96.6 Estimated GFR (Non- 83.4 BUN/Creatinine Ratio 18.9 Random Glucose 90 mg/dl Calcium Level 8.9 mg/dl Magnesium Level 2.2 mg/dl Bedside Glucose 79 mg/dl Assessment & Plan colon tumor- likely cancer- discussed with pt/ family need for eventual operation- possibly Wed am. Will order CT abd/ pelvis and also discuss transfusion with medical service- 2 units would be helpful. Will order clear liquids for now to try to avoid additional bowel prep
[2016-07-23] MEDS ORDERED: OPTIRAY 320 IV PRN (17:45)
--- NOTE | 2016-07-23 18:07 | DIAGNOSTIC IMAGING REPORT ---
CT SCAN OF THE ABDOMEN AND PELVIS WITH IV CONTRAST CLINICAL HISTORY: Rectosigmoid tumor. Rectal bleeding. COMPARISON STUDY: No priors. TECHNIQUE: Following the IV administration of 119 cc of Optiray 320, CT scan of the abdomen and pelvis is performed from the lung bases to the proximal femora. Images are reviewed in the axial, sagittal, and coronal planes. IV contrast was administered without complication. Automated dose control exposure was utilized. The examination is significantly degraded by motion artifact. CT DOSE: 271.81 mGy.cm FINDINGS: Lung bases: The heart is normal in size and without pericardial effusion. There is a 3.2 cm groundglass lesion at the left lung base with small central cystic foci seen on image #25. The lung bases are otherwise clear. Liver: Evaluation of the liver is significant degraded by motion artifact. The contrast-enhanced liver is normal in size, contour, and attenuation. There is no intrahepatic biliary ductal dilatation. The hepatic veins and portal veins are patent. There is an indeterminant low-attenuation lesion in the right lobe of liver seen on image #79. This measures approximately 4 x 2.5 cm. At least 2 additional low-density lesions are seen in the right lobe on images #70 and #75. These measure up to 11 mm. A 9 mm hypervascular liver lesion is seen on image #58. Gallbladder: Unremarkable. Spleen: Normal in size and attenuation. Pancreas: Moderately atrophic and grossly unremarkable. Adrenal glands: Unremarkable. Kidneys: The contrast enhanced kidneys are atrophic and without hydronephrosis. The kidneys enhance symmetrically. Numerous parapelvic cysts are seen bilaterally. Abdominal vasculature: The abdominal aorta is normal in course and caliber noting moderate atherosclerotic calcification. Bowel: There is a questionable mucosal lesion within the sigmoid colon on image 3. A 1025. This is not well delineated by CT. No bowel obstruction is seen. The appendix is well-visualized and normal. Peritoneum: There is no intraperitoneal free air or abdominal ascites. Lymphadenopathy: None. Pelvic viscera: The bladder is normal as visualized. The uterus is infiltrated by numerous mixed density mass lesions. There is a right ovarian mass lesion seen on image #340. This measures 3.5 x 3.3 cm. A left ovarian lesion seen on image #327 measures 3.2 x 2.2 cm. Skeletal structures: The skeletal structures are osteopenic. No lytic or blastic lesions are seen. Hemangiomas are seen in the bodies of T9, T10, T12, L2, and L3. IMPRESSION: 1. Motion degraded examination. 2. A mucosal lesion is suggested in the sigmoid colon. This is not well assessed by CT. Correlation with endoscopy results will be required. 3. No bowel obstruction is seen. 4. There are bilateral ovarian mass lesions. These could represent ovarian metastases versus primary ovarian neoplasms. 5. There is a 3.2 cm groundglass lesion at the left lung base with central cystic foci. This should be considered a primary lung cancer until proven otherwise. The appearance is not typical for metastatic disease. 6. There are indeterminant low density liver lesions measuring up to 4 cm. Metastatic disease is not excluded. 7. The uterus is infiltrated by numerous lesions. Although these could represent fibroids, neoplasm is not excluded. 8. Additional findings as above. Electronically signed by: Carlos Adams M.D. 07/23/2016 6:05 PM Dictated Date/Time: 07/23/2016 5:54 PM
--- NOTE | 2016-07-23 19:25 | Hospitalist Progress Note ---
Hospitalist Progress Note Date of Service Jul 23, 2016. Subjective Pt evaluation today including: conversation w/ patient, conversation w/ family , physical exam, chart review, review of studies Underwent colonoscopy today. No abd pain. Objective Vital Signs Date Time Temp Pulse Resp B/P Pulse Ox O2 Delivery O2 Flow Rate FiO2 07/23/16 19:14 36.6 90 16 145/74 96 07/23/16 19:06 155/75 07/23/16 18:57 36.6 109 18 183/83 99 07/23/16 15:40 36.5 95 18 157/74 98 Room Air 07/23/16 11:19 36.4 87 16 180/78 94 Room Air 07/23/16 11:00 82 20 147/73 100 Room Air 07/23/16 10:47 88 20 151/70 100 Room Air 07/23/16 10:38 82 20 126/53 100 Room Air 07/23/16 09:50 36.8 86 20 195/80 98 Room Air 07/23/16 08:57 36.8 90 18 170/77 97 Room Air 07/23/16 07:20 36.8 90 18 170/77 97 Room Air 07/23/16 07:20 Room Air 07/23/16 00:30 Room Air 07/23/16 00:30 Room Air 07/22/16 22:59 36.6 82 16 136/67 97 Room Air 07/22/16 20:49 108 175/92 Physical Exam General Appearance: WD/WN, no apparent distress, + pertinent finding (pale) ENT: normal ENT inspection Neck: supple, no adenopathy, no JVD Respiratory/Chest: chest non-tender, lungs clear, normal breath sounds Cardiovascular: regular rate, rhythm, no edema, no murmur Abdomen: normal bowel sounds, non tender, soft Extremities: normal range of motion 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, alert, normal mood/affect, oriented x 3 Laboratory Results Last 24 Hours Test 07/23/16 05:39 07/23/16 12:00 07/23/16 12:12 White Blood Count 2.75 K/uL Red Blood Count 2.77 M/uL Hemoglobin 7.5 g/dL 7.9 g/dL Hematocrit 24.0 % 25.5 % Mean Corpuscular Volume 86.6 fL Mean Corpuscular Hemoglobin 27.1 pg Mean Corpuscular Hemoglobin Concent 31.3 g/dl Platelet Count 116 K/uL Mean Platelet Volume 8.2 fL Neutrophils (%) (Auto) 74.5 % Lymphocytes (%) (Auto) 16.0 % Monocytes (%) (Auto) 8.4 % Eosinophils (%) (Auto) 1.1 % Basophils (%) (Auto) 0.0 % Neutrophils # (Auto) 2.05 K/uL Lymphocytes # (Auto) 0.44 K/uL Monocytes # (Auto) 0.23 K/uL Eosinophils # (Auto) 0.03 K/uL Basophils # (Auto) 0.00 K/uL RDW Standard Deviation 48.7 fL RDW Coefficient of Variation 15.2 % Immature Granulocyte % (Auto) 0.0 % Immature Granulocyte # (Auto) 0.00 K/uL Tear Drop Cells 2+ Ovalocytes 1+ Sodium Level 142 mmol/L Potassium Level 4.4 mmol/L Chloride Level 110 mmol/L Carbon Dioxide Level 24 mmol/L Anion Gap 8.0 mmol/L Blood Urea Nitrogen 12 mg/dl Creatinine 0.62 mg/dl Est Creatinine Clear Calc Drug Dose 64.3 ml/min Estimated GFR () 96.6 Estimated GFR (Non- 83.4 BUN/Creatinine Ratio 18.9 Random Glucose 90 mg/dl Calcium Level 8.9 mg/dl Magnesium Level 2.2 mg/dl Bedside Glucose 79 mg/dl Diagnostic Results 07/23/16 05:39 Red Blood Count 2.77, Mean Corpuscular Volume 86.6, Mean Corpuscular Hemoglobin 27.1, Mean Corpuscular Hemoglobin Concent 31.3, Mean Platelet Volume 8.2, Neutrophils (%) (Auto) 74.5, Lymphocytes (%) (Auto) 16.0, Monocytes (%) (Auto) 8.4, Eosinophils (%) (Auto) 1.1, Basophils (%) (Auto) 0.0, Neutrophils # (Auto) 2.05, Lymphocytes # (Auto) 0.44, Monocytes # (Auto) 0.23, Eosinophils # (Auto) 0.03, Basophils # (Auto) 0.00 07/23/16 12:12 07/23/16 05:39 Test 07/23/16 05:39 07/23/16 12:00 White Blood Count 2.75 K/uL (4.8-10.8) Red Blood Count 2.77 M/uL (4.2-5.4) Hemoglobin 7.5 g/dL (12.0-16.0) Hematocrit 24.0 % (37-47) Mean Corpuscular Volume 86.6 fL (80-100) Mean Corpuscular Hemoglobin 27.1 pg (25-34) Mean Corpuscular Hemoglobin Concent 31.3 g/dl (32-36) Platelet Count 116 K/uL (130-400) Mean Platelet Volume 8.2 fL (7.4-10.4) Neutrophils (%) (Auto) 74.5 % Lymphocytes (%) (Auto) 16.0 % Monocytes (%) (Auto) 8.4 % Eosinophils (%) (Auto) 1.1 % Basophils (%) (Auto) 0.0 % Neutrophils # (Auto) 2.05 K/uL (1.4-6.5) Lymphocytes # (Auto) 0.44 K/uL (1.2-3.4) Monocytes # (Auto) 0.23 K/uL (0.11-0.59) Eosinophils # (Auto) 0.03 K/uL (0-0.5) Basophils # (Auto) 0.00 K/uL (0-0.2) RDW Standard Deviation 48.7 fL (36.4-46.3) RDW Coefficient of Variation 15.2 % (11.5-14.5) Immature Granulocyte % (Auto) 0.0 % Immature Granulocyte # (Auto) 0.00 K/uL (0.00-0.02) Tear Drop Cells 2+ Ovalocytes 1+ Anion Gap 8.0 mmol/L (3-11) Est Creatinine Clear Calc Drug Dose 64.3 ml/min Estimated GFR () 96.6 Estimated GFR (Non- 83.4 BUN/Creatinine Ratio 18.9 (10-20) Calcium Level 8.9 mg/dl (8.5-10.1) Magnesium Level 2.2 mg/dl (1.8-2.4) Bedside Glucose 79 mg/dl (70-90) Assessment and Plan Rectal bleeding with known history of hemorrhoids/anemia/colonic mass: Appreciate GI and Surgery input. For OR on Saturday (tentative) acute blood loss anemia, hgb down to 7.5. Will transfuse two units of pRBC. Hypertension-- metoprolol tartrate 50 mg by mouth twice a day with hold parameters. Hypernatremia-- Improved serum sodium.
[2016-07-24] VITALS (8 sets, daily range): BP systolic 136–163; BP diastolic 69–80; PULSE 67–93; TEMP 36.5–36.8; O2SAT 96–98
[2016-07-24] MEDS: SODIUM CHLOR 0.45% + 20MEQ KCL 1,000 ML IV SCH ×2 (04:58→21:54)
--- NOTE | 2016-07-24 06:32 | Surgery Progress Note ---
Surgery Progress Note Date of Service Jul 24, 2016. Subjective feels ok, rec [address]- Lt lung mass, Hepatic masses, ovarian masses- likely metastatic disease Objective Vital Signs: Date Time Temp Pulse Resp B/P Pulse Ox O2 Delivery O2 Flow Rate FiO2 07/24/16 03:15 36.8 81 16 156/69 97 Room Air 07/24/16 01:50 36.8 79 18 136/79 96 Room Air 07/24/16 00:41 36.8 79 16 158/80 98 07/24/16 00:39 36.8 81 16 158/80 98 07/24/16 00:30 Room Air 07/23/16 23:55 36.7 79 16 127/71 99 07/23/16 23:24 36.8 78 16 135/69 99 07/23/16 22:50 36.9 71 16 134/54 98 07/23/16 22:35 36.6 78 16 147/55 96 07/23/16 22:16 36.6 70 18 121/69 97 0.0 07/23/16 22:08 36.7 69 16 131/63 96 07/23/16 21:31 36.6 90 16 153/82 98 07/23/16 20:30 36.8 82 14 150/72 97 07/23/16 19:58 36.9 84 16 135/76 97 07/23/16 19:31 36.9 83 16 153/70 97 07/23/16 19:14 36.6 90 16 145/74 96 07/23/16 19:06 155/75 07/23/16 18:57 36.6 109 18 183/83 99 07/23/16 15:45 Room Air 07/23/16 15:40 36.5 95 18 157/74 98 Room Air 07/23/16 11:19 36.4 87 16 180/78 94 Room Air 07/23/16 11:00 82 20 147/73 100 Room Air 07/23/16 10:47 88 20 151/70 100 Room Air 07/23/16 10:38 82 20 126/53 100 Room Air 07/23/16 09:50 36.8 86 20 195/80 98 Room Air 07/23/16 08:57 36.8 90 18 170/77 97 Room Air 07/23/16 07:20 36.8 90 18 170/77 97 Room Air 07/23/16 07:20 Room Air General Appearance: no apparent distress Respiratory/Chest: no respiratory distress Abdomen: soft Laboratory Results: Results Past 24 Hours Test 07/23/16 12:00 07/23/16 12:12 07/24/16 04:44 Range/Units Bedside Glucose 79 70-90 mg/dl Hemoglobin 7.9 12.0-16.0 g/dL Hematocrit 25.5 37-47 % Assessment & Plan 07/24/16- pt with colon tumor- likely cancer- path pending. Possible liver mets and to ovary. Lung mass could be primary vs met. Will ask other services to see pt. Colon operation is not an emergency, tentatively on schedule for tomorrow. Would plan for ureteral stents at operation
[2016-07-24 06:49] LABS: BASO % 0.3 %; BASO ABS # 0.01 K/uL (0-0.2); COMPLETE YES; HEMATOCRIT 31.1 % (37-47); IG% 0.3 %; LYMPH % 12.8 %; LYMPH ABS # 0.51 K/uL (1.2-3.4); MEAN CELL VOLUME 84.7 fL (80-100); MEAN CORPUSCULAR HEMOGLOBIN 27.2 pg (25-34); MEAN CORPUSCULAR HGB CONC 32.2 g/dl (32-36); MEAN PLATELET VOLUME 8.5 fL (7.4-10.4); MONO % 8.5 %; NEUT % 77.1 %; PLATELET COUNT 114 K/uL (130-400); RED BLOOD COUNT 3.67 M/uL (4.2-5.4); WHITE BLOOD COUNT 3.99 K/uL (4.8-10.8)
[2016-07-24 07:45] LABS: BUN/CREATININE RATIO 9.1 (10-20); CALCIUM 8.9 mg/dl (8.5-10.1); CREATININE 0.66 mg/dl (0.60-1.20); MAGNESIUM 2.2 mg/dl (1.8-2.4); POTASSIUM 4.1 mmol/L (3.5-5.1)
--- NOTE | 2016-07-24 08:21 | Urology Consultation ---
History General Date of Service: Jul 24, 2016. Chief Complaint: rectal bleeding Primary Care Physician: Ethan Dick History of Present Illness 81 yo female presents to [facility] with c/o rectal bleeding. Reports she was otherwise healthy with no previous hospital admissions or surgeries in her lifetime. CT showing suspected metastatic disease with colon mass. Scheduled for surgery with Dr. Marshall tomorrow. requested to place bilateral ureteral stents at time of surgery. Pt denies any pain this morning. Imaging Imaging: CT Laboratory Last 24 Hours Test 07/23/16 12:00 07/23/16 12:12 07/24/16 06:10 Bedside Glucose 79 mg/dl Hemoglobin 7.9 g/dL 10.0 g/dL Hematocrit 25.5 % 31.1 % White Blood Count 3.99 K/uL Red Blood Count 3.67 M/uL Mean Corpuscular Volume 84.7 fL Mean Corpuscular Hemoglobin 27.2 pg Mean Corpuscular Hemoglobin Concent 32.2 g/dl Platelet Count 114 K/uL Mean Platelet Volume 8.5 fL Neutrophils (%) (Auto) 77.1 % Lymphocytes (%) (Auto) 12.8 % Monocytes (%) (Auto) 8.5 % Eosinophils (%) (Auto) 1.0 % Basophils (%) (Auto) 0.3 % Neutrophils # (Auto) 3.08 K/uL Lymphocytes # (Auto) 0.51 K/uL Monocytes # (Auto) 0.34 K/uL Eosinophils # (Auto) 0.04 K/uL Basophils # (Auto) 0.01 K/uL RDW Standard Deviation 47.2 fL RDW Coefficient of Variation 15.3 % Immature Granulocyte % (Auto) 0.3 % Immature Granulocyte # (Auto) 0.01 K/uL Sodium Level 143 mmol/L Potassium Level 4.1 mmol/L Chloride Level 113 mmol/L Carbon Dioxide Level 25 mmol/L Anion Gap 5.0 mmol/L Blood Urea Nitrogen 6 mg/dl Creatinine 0.66 mg/dl Est Creatinine Clear Calc Drug Dose 60.4 ml/min Estimated GFR () 94.7 Estimated GFR (Non- 81.7 BUN/Creatinine Ratio 9.1 Random Glucose 92 mg/dl Calcium Level 8.9 mg/dl Magnesium Level 2.2 mg/dl Problem List Medical Problems: (1) GI bleed Status: Acute Past History other (fractured wrist) Past Surgical History: no surgical history Family History Patient reports no known family medical history. Social History Hx Tobacco Use In Past Year?: No Smoking: non-smoker Alcohol: never Drug use: none Marital status: Occupation status: retired History of MDRO No Allergies Coded Allergies: No Known Allergies (Unverified , 07/21/16) Medications Home Medications: Home Meds and Scripts Medications Dose Route/Sig Max Daily Dose Days Date Category Lopressor (Metoprolol Tartrate) 50 Mg Tab 50 Mg PO BID 07/22/16 Reported Inpatient Medications: Current Inpatient Medications Medications (Trade) Dose Ordered Sig/Gladis Route Start Time Stop Time Status Last Admin Dose Admin Ondansetron HCl 4 mg 4 mg Q6H PRN IV 07/22/16 00:15 08/21/16 00:14 Acetaminophen 100 ml @ 400 mls/hr Q8H PRN IV 07/22/16 00:15 08/21/16 00:14 Pantoprazole Sodium/Syringe (Protonix Inj/ Syringe) 10 ml @ 5 mls/min DAILY@11 IV 07/22/16 11:00 08/21/16 10:59 07/23/16 11:23 5 MLS/MIN Metoprolol Tartrate 50 mg 50 mg BID PO 07/22/16 09:00 08/21/16 08:59 07/23/16 21:00 50 MG Potassium Chloride/Sodium Chloride (1/2 Nss + 20meq KCl 1000ml) 1,000 ml @ 50 mls/hr Q20H IV 07/22/16 01:45 07/24/16 04:58 100 MLS/HR Miscellaneous (Iv Fluids Completed) 1 ea PRN PRN N/A 07/22/16 01:00 07/22/17 00:59 Ioversol (Optiray 320) 100 ml UD PRN IV 07/23/16 17:45 07/27/16 17:44 Review of Systems Review of Systems Constitutional: No chills, No fever Eyes: No double vision Neurological: No dizzy Endocrine: No excessive thirst Gastrointestinal: No abdominal pain, No nausea, No vomiting Cardiovascular: No chest pain Respiratory: No shortness of breath Skin: No rash Musculoskeletal: No back pain Female : No blood in urine, No painful urination Physical Exam Vital Signs: Vital Signs Past 12 Hours Date Time Temp Pulse Resp B/P Pulse Ox O2 Delivery O2 Flow Rate FiO2 07/24/16 07:21 36.6 93 18 163/80 96 Room Air 07/24/16 03:15 36.8 81 16 156/69 97 Room Air 07/24/16 01:50 36.8 79 18 136/79 96 Room Air 07/24/16 00:41 36.8 79 16 158/80 98 07/24/16 00:39 36.8 81 16 158/80 98 07/24/16 00:30 Room Air 07/23/16 23:55 36.7 79 16 127/71 99 07/23/16 23:24 36.8 78 16 135/69 99 07/23/16 22:50 36.9 71 16 134/54 98 07/23/16 22:35 36.6 78 16 147/55 96 07/23/16 22:16 36.6 70 18 121/69 97 0.0 07/23/16 22:08 36.7 69 16 131/63 96 07/23/16 21:31 36.6 90 16 153/82 98 07/23/16 20:30 36.8 82 14 150/72 97 Physical Exam: General Appearance: no apparent distress Eyes: bilateral eyes normal inspection ENT: hearing grossly normal Neck: no JVD Respiratory/Chest: no respiratory distress, no accessory muscle use Cardiovascular: no JVD Extremities: normal inspection Neurologic/Psychiatric: alert, normal mood/affect, oriented x 3 Skin: normal color Assessment & Plan Assessment & Plan Treatment Planned: cystoscopy w/ stent Will plan for cysto with bilateral ureteral stent placement at time of surgery with Dr. Marshall tomorrow morning. Risks and benefits of the procedure discussed with the pt. All questions answered. Pt agrees to the procedure at this time. Consent obtained. Thanks for the consult. Will continue to follow along with primary service.
[2016-07-24] MEDS: METOPROLOL TARTRATE 50 MG TAB PO SCH ×2 (08:52→21:51)
--- NOTE | 2016-07-24 09:37 | GYNECOLOGICAL CONSULTATION ---
DATE OF CONSULTATION: 07/24/2016 DATE OF CONSULTATION: 07/24/2016. HISTORY OF PRESENT ILLNESS: I was asked by Dr. Marshall to assess Mrs. Israel for pelvic, specifically ovarian masses. The patient is known to have a colonic problem and is being prepped for surgery tomorrow for colectomy. The finding was incidentally noted on CT scan. The patient clinically reports no significant abdominal pain and no vaginal bleeding. She does report having rectal bleeding and has been anemic and has been treated for this. She says she also has some bloating but really described no other worrisome symptoms at this time. 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 She states her Paps were normal, but has not been seen by a butcher all round in many, many years. 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 PAST MEDICAL HISTORY: Essentially healthy. SOCIAL HISTORY: Nonsmoker, nondrinker. She is . MEDICATIONS: Metoprolol. DRUG ALLERGIES: None. PHYSICAL EXAMINATION: VITAL SIGNS: Stable. She is afebrile. ABDOMINAL EXAMINATION: She is somewhat distended, possibly some ascites as well. On percussion no obvious masses palpated. No hernias and no liver or spleen enlargement. PELVIC EXAMINATION: Is done with nurse Courtney and is a bimanual only. Her external genitalia is normal. The cervix feels smooth without lesion. Bimanual is somewhat difficult as her belly is distended and I actually was unable to palpate either ovary discrete on itself. IMPRESSION AND PLAN: Her bleeding has been going on for the last 2-3 weeks and has been significant. This has been all rectal bleeding. Imaging revealed on CT scan a lesion in the sigmoid colon. There is no bowel obstruction. Bilateral ovarian masses are present. The right ovarian mass is 3.5 x 3.3 cm and left ovarian mass is 3.2 x 2.2 cm. The patient is being prepped for surgery tomorrow for resection of bowel. Dr. Marshall is wishing [employer]ASS RIB[employer] MACHINE OPERATOR ASSISTANT assessment to see if her ovaries need removed and specifically is feeling like they likely do. I will assess with ultrasound as a better tool for assessing the adnexa. The patient is having surgery tomorrow. Did discuss with Dr. 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 Pending the results of the ultrasound too is whether the cysts are even pathological or simple. 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 Reviewed with the patient potential risks of surgery including bleeding, infection, injury to the ureters. Discussed in depth and will make arrangements pending ultrasound. Update, U/S reveals bilateral ovarian cysts. Unlikely the primary issue, but spoke with Dr. Seals who is on tomorrow who agrees to do BSO at time of surgery. WENDY
--- NOTE | 2016-07-24 09:51 | Oncology Consultation ---
Oncology/Heme Consultation Date of Consultation: Jul 24, 2016. Attending Physician: Andrey Hernandez M.D. Reason for Consultation: Rectal bleeding Sigmoid colon mass History of Present Illness Ms. Israel is an otherwise healthy 81 year old woman who presents with worsening rectal bleeding over the last few weeks. She has never had a colonoscopy or mammogram and states she's "not a doctor person." Aside from the rectal bleeding , she has no real complaints. She denies pain, fatigue, weakness, anorexia, weight loss, vaginal bleeding, headaches, nausea, or vomiting. Prior to the last few weeks, she was a very active person. She lives alone and mows her lawn with a push mower. Past Medical/Surgical History Medical Problems: (1) GI bleed Status: Acute Family History Patient reports no known family medical history. Social History Smoking Status: Never Smoker Smokeless Tobacco Use: No Alcohol Use: none Drug Use: none Marital Status: Occupation Status: retired Allergies Coded Allergies: No Known Allergies (Unverified , 07/21/16) Home Medications Scheduled Metoprolol Tartrate (Lopressor) (Lopressor), 50 MG PO BID Current Inpatient Medications Current Inpatient Medications Medications (Trade) Dose Ordered Sig/Gladis Route Start Time Stop Time Status Last Admin Dose Admin Ondansetron HCl 4 mg 4 mg Q6H PRN IV 07/22/16 00:15 08/21/16 00:14 Acetaminophen 100 ml @ 400 mls/hr Q8H PRN IV 07/22/16 00:15 08/21/16 00:14 Pantoprazole Sodium/Syringe (Protonix Inj/ Syringe) 10 ml @ 5 mls/min DAILY@11 IV 07/22/16 11:00 08/21/16 10:59 07/23/16 11:23 5 MLS/MIN Metoprolol Tartrate 50 mg 50 mg BID PO 07/22/16 09:00 08/21/16 08:59 07/24/16 08:52 50 MG Potassium Chloride/Sodium Chloride (1/2 Nss + 20meq KCl 1000ml) 1,000 ml @ 50 mls/hr Q20H IV 07/22/16 01:45 07/24/16 04:58 100 MLS/HR Miscellaneous (Iv Fluids Completed) 1 ea PRN PRN N/A 07/22/16 01:00 07/22/17 00:59 Ioversol (Optiray 320) 100 ml UD PRN IV 07/23/16 17:45 07/27/16 17:44 Review of Systems Constitutional: No chills, No fatigue, No fever, No weight loss Eyes: No worsening of vision Respiratory: No cough, No hemoptysis, No shortness of breath Cardiovascular: No chest pain Abdomen: + GI bleeding, No nausea, No pain, No vomiting Musculoskeletal: No joint pain, No muscle pain Genitourinary - Female: No vaginal bleeding, No vaginal discharge Neurologic: No numbness/tingling, No weakness Hematologic / Lymphatic: No abnormal bleeding/bruising, No swollen lymph nodes Integumentary: No rash Physical Exam Date Time Temp Pulse Resp B/P Pulse Ox O2 Delivery O2 Flow Rate FiO2 07/24/16 07:21 36.6 93 18 163/80 96 Room Air 07/24/16 03:15 36.8 81 16 156/69 97 Room Air 07/24/16 01:50 36.8 79 18 136/79 96 Room Air 07/24/16 00:41 36.8 79 16 158/80 98 07/24/16 00:39 36.8 81 16 158/80 98 07/24/16 00:30 Room Air 07/23/16 23:55 36.7 79 16 127/71 99 07/23/16 23:24 36.8 78 16 135/69 99 07/23/16 22:50 36.9 71 16 134/54 98 07/23/16 22:35 36.6 78 16 147/55 96 07/23/16 22:16 36.6 70 18 121/69 97 0.0 07/23/16 22:08 36.7 69 16 131/63 96 07/23/16 21:31 36.6 90 16 153/82 98 07/23/16 20:30 36.8 82 14 150/72 97 07/23/16 19:58 36.9 84 16 135/76 97 07/23/16 19:31 36.9 83 16 153/70 97 07/23/16 19:14 36.6 90 16 145/74 96 07/23/16 19:06 155/75 07/23/16 18:57 36.6 109 18 183/83 99 07/23/16 15:45 Room Air 07/23/16 15:40 36.5 95 18 157/74 98 Room Air 07/23/16 11:19 36.4 87 16 180/78 94 Room Air 07/23/16 11:00 82 20 147/73 100 Room Air 07/23/16 10:47 88 20 151/70 100 Room Air 07/23/16 10:38 82 20 126/53 100 Room Air 07/23/16 09:50 36.8 86 20 195/80 98 Room Air General Appearance: WD/WN, no apparent distress Eyes: sclerae normal ENT: pharynx normal Respiratory/Chest: chest non-tender, lungs clear Cardiovascular: regular rate, rhythm, no murmur Abdomen/GI: normal bowel sounds, non tender, soft Extremities/Musculoskelatal: no pedal edema, non-tender Neurologic/Psych: alert, oriented x 3 Skin: warm/dry, no rash Lymphatic: no adenopathy Laboratory Results Last 24 Hours Test 07/23/16 12:00 07/23/16 12:12 07/24/16 06:10 Bedside Glucose 79 mg/dl Hemoglobin 7.9 g/dL 10.0 g/dL Hematocrit 25.5 % 31.1 % White Blood Count 3.99 K/uL Red Blood Count 3.67 M/uL Mean Corpuscular Volume 84.7 fL Mean Corpuscular Hemoglobin 27.2 pg Mean Corpuscular Hemoglobin Concent 32.2 g/dl Platelet Count 114 K/uL Mean Platelet Volume 8.5 fL Neutrophils (%) (Auto) 77.1 % Lymphocytes (%) (Auto) 12.8 % Monocytes (%) (Auto) 8.5 % Eosinophils (%) (Auto) 1.0 % Basophils (%) (Auto) 0.3 % Neutrophils # (Auto) 3.08 K/uL Lymphocytes # (Auto) 0.51 K/uL Monocytes # (Auto) 0.34 K/uL Eosinophils # (Auto) 0.04 K/uL Basophils # (Auto) 0.01 K/uL RDW Standard Deviation 47.2 fL RDW Coefficient of Variation 15.3 % Immature Granulocyte % (Auto) 0.3 % Immature Granulocyte # (Auto) 0.01 K/uL Sodium Level 143 mmol/L Potassium Level 4.1 mmol/L Chloride Level 113 mmol/L Carbon Dioxide Level 25 mmol/L Anion Gap 5.0 mmol/L Blood Urea Nitrogen 6 mg/dl Creatinine 0.66 mg/dl Est Creatinine Clear Calc Drug Dose 60.4 ml/min Estimated GFR () 94.7 Estimated GFR (Non- 81.7 BUN/Creatinine Ratio 9.1 Random Glucose 92 mg/dl Calcium Level 8.9 mg/dl Magnesium Level 2.2 mg/dl Assessment & Plan Ms. Israel is a very pleasant 81 year old woman who appears to have a cancer. She has a large mass in the sigmoid colon and Dr. Marshall is concerned both about bleeding and impending obstruction. As a result, I agree that surgery to remove the mass is appropriate. She also has suspicious-appearing CT findings in her ovaries bilaterally, liver, and lung. Dr. Marshall will remove her ovaries during the colon surgery, but doubts he can sample the liver during that procedure. If identifying the origin of the liver disease is diagnostically important, such as multiple primaries, we can arrange a percutaneous biopsy. The lung changes are also somewhat unusual. I will review her scan with radiology and discuss approaches to sample that area.
[2016-07-24] MEDS ORDERED: IV FLUIDS COMPLETED PRN (10:45)
--- NOTE | 2016-07-24 11:05 | DIAGNOSTIC IMAGING REPORT ---
EXAMINATION: PELVIC ULTRASOUND CLINICAL HISTORY: Pelvic mass COMPARISON STUDY: CT scan dated 07/23/2016 FINDINGS: The uterus measured 7.1 x 2.6 x 5.4 cm. There are multiple small fibroids, the largest of which measures 2 cm.. There is fluid within the endometrial cavity measuring 5 mm in thickness. The right ovary measured 36 x 36 x 32 mm. There is a complex 26 mm right ovarian cyst.. The left ovary measured 32 x 25 x 19 mm.. There is no ultrasonographic evidence of ovarian torsion. It should be noted that ovarian torsion can be present with normal Doppler ultrasonographic findings. There was no evidence of pathologic free pelvic fluid. IMPRESSION: 1. Multiple uterine fibroids including a 2 cm exophytic right-sided fibroid 2. Fluid within the endometrial cavity 3. Complex 26 mm right ovarian cyst Electronically signed by: Bebo Reinoso M.D. 07/24/2016 11:03 AM Dictated Date/Time: 07/24/2016 11:01 AM
[2016-07-24] MEDS: PANTOprazole INJ 40 MG in SYRINGE 0 ML IV SCH (11:23)
[2016-07-24] MEDS: NEOMYCIN SULFATE 500 MG TAB PO SCH ×3 (13:07→21:51)
[2016-07-24] MEDS: ERYTHROMYCIN ETHYLSUCCINATE 400 MG TAB PO SCH ×3 (13:07→21:51)
--- NOTE | 2016-07-24 13:09 | Hospitalist Progress Note ---
Hospitalist Progress Note Date of Service Jul 24, 2016. Subjective Pt evaluation today including: conversation w/ patient, physical exam, chart review, lab review No complaints this am. Objective Vital Signs Date Time Temp Pulse Resp B/P Pulse Ox O2 Delivery O2 Flow Rate FiO2 07/24/16 07:50 Room Air 07/24/16 07:21 36.6 93 18 163/80 96 Room Air 07/24/16 03:15 36.8 81 16 156/69 97 Room Air 07/24/16 01:50 36.8 79 18 136/79 96 Room Air 07/24/16 00:41 36.8 79 16 158/80 98 07/24/16 00:39 36.8 81 16 158/80 98 07/24/16 00:30 Room Air 07/23/16 23:55 36.7 79 16 127/71 99 07/23/16 23:24 36.8 78 16 135/69 99 07/23/16 22:50 36.9 71 16 134/54 98 07/23/16 22:35 36.6 78 16 147/55 96 07/23/16 22:16 36.6 70 18 121/69 97 0.0 07/23/16 22:08 36.7 69 16 131/63 96 07/23/16 21:31 36.6 90 16 153/82 98 07/23/16 20:30 36.8 82 14 150/72 97 07/23/16 19:58 36.9 84 16 135/76 97 07/23/16 19:31 36.9 83 16 153/70 97 07/23/16 19:14 36.6 90 16 145/74 96 07/23/16 19:06 155/75 07/23/16 18:57 36.6 109 18 183/83 99 07/23/16 15:45 Room Air 07/23/16 15:40 36.5 95 18 157/74 98 Room Air Physical Exam ENT: normal ENT inspection Neck: supple, no adenopathy Respiratory/Chest: chest non-tender, lungs clear Cardiovascular: regular rate, rhythm, no edema, no murmur Abdomen: normal bowel sounds, non tender, soft Extremities: normal range of motion Neurologic/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: 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, normal mood/affect, oriented x 3 Skin: normal color, + pallor Laboratory Results Last 24 Hours Test 07/24/16 06:10 White Blood Count 3.99 K/uL Red Blood Count 3.67 M/uL Hemoglobin 10.0 g/dL Hematocrit 31.1 % Mean Corpuscular Volume 84.7 fL Mean Corpuscular Hemoglobin 27.2 pg Mean Corpuscular Hemoglobin Concent 32.2 g/dl Platelet Count 114 K/uL Mean Platelet Volume 8.5 fL Neutrophils (%) (Auto) 77.1 % Lymphocytes (%) (Auto) 12.8 % Monocytes (%) (Auto) 8.5 % Eosinophils (%) (Auto) 1.0 % Basophils (%) (Auto) 0.3 % Neutrophils # (Auto) 3.08 K/uL Lymphocytes # (Auto) 0.51 K/uL Monocytes # (Auto) 0.34 K/uL Eosinophils # (Auto) 0.04 K/uL Basophils # (Auto) 0.01 K/uL RDW Standard Deviation 47.2 fL RDW Coefficient of Variation 15.3 % Immature Granulocyte % (Auto) 0.3 % Immature Granulocyte # (Auto) 0.01 K/uL Sodium Level 143 mmol/L Potassium Level 4.1 mmol/L Chloride Level 113 mmol/L Carbon Dioxide Level 25 mmol/L Anion Gap 5.0 mmol/L Blood Urea Nitrogen 6 mg/dl Creatinine 0.66 mg/dl Est Creatinine Clear Calc Drug Dose 60.4 ml/min Estimated GFR () 94.7 Estimated GFR (Non- 81.7 BUN/Creatinine Ratio 9.1 Random Glucose 92 mg/dl Calcium Level 8.9 mg/dl Magnesium Level 2.2 mg/dl Assessment and Plan Rectal bleeding with known history of hemorrhoids/anemia/colonic mass: Appreciate GI, Oncology and Surgery input. For OR on Saturday (tentative). CT scan findings concerning for metastatic disease. acute blood loss anemia, hgb improved s/p prbc transfusion Hypertension-- metoprolol tartrate 50 mg by mouth twice a day with hold parameters. Hypernatremia-- Improved serum sodium.
[2016-07-24] MEDS: CEFOXITIN IV 1,000 MG in DEXTROSE 5% 50ML 50 ML IV SCH ×2 (14:04→21:54)
--- NOTE | 2016-07-24 15:36 | Anesthesiology Progress Note ---
Anesthesia Progress Note Date of Service Jul 24, 2016. Progress Notes Ms. Israel is scheduled for a bowel resection on 07/25/[address] Marshall. She was in her usual state of health until she noted blood per rectum for the last 2-3 weeks. Patient went to ER and found to be anemic and subsequently a colonoscopy confirmed a rectosigmoid tumor. She has NKDA. PSH consisted of left wrist surgery, b/l cataracts and colonoscopy without anesthesia problems. PMH significant for HTN and newly found anemia. She is a never smoker and is able to walk stairs and even mow her lawn (push mower). CT of the abdomen showed b/l ovarian masses, liver lesions and a sigmoid colon mass. Per notes, urology is to place b/l ureteral stents in the OR with Dr. Marshall and patient is also to have a BSO done intraoperatively. EKG showed HR 76, sinus rhythm is occasional PVC's. Labs showed H/H of 10/31 (this is after 2 units pRBC's transfused) with platelets of 114. She has two additional units of pRBC's available. Airway exam MP 2 with upper dentures and lower missing molars. Plan for GETA and +/- invasive monitoring. All questions were answered and consent was obtained. Patient appears optimized prior to surgery tomorrow.
--- NOTE | 2016-07-24 18:31 | HISTORY & PHYSICAL EXAMINATION ---
DATE OF ADMISSION: 07/25/2016 DATE OF ADMISSION: 07/21/2016. DATE OF INITIAL GYNECOLOGIC CONSULTATION: 07/24/2016. PLANNED DATE OF SURGERY: 07/25/2016. CHIEF COMPLAINT ON PRESENTATION: Bright red blood per rectum. HISTORY OF PRESENT ILLNESS: Sofiya Israel is an 81-year-old 3, para 3, all spontaneous vaginal deliveries, who presented to the Emergency Room on the evening of Saturday the with a complaint of persistent rectal bleeding as well as anemia. She was evaluated in the Emergency Department, ultimately admitted and a workup for her GI issues revealed via colonoscopy a rectosigmoid tumor. Dr. 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 Israel in the morning of July 24. Dr. Marshall is planning to perform a laparotomy on the with a colectomy as he is concerned that the patient's mass likely represents a cancer that may in the near future become obstructive and should therefore be removed urgently. Of note, during the patient's workup, on imaging, bilateral ovarian findings were noted on a CAT scan and were further explored by a pelvic ultrasound. That ultrasound done this morning showed a 7 cm uterus with multiple small fibroids up to 2 cm in size. There is a 5 mm wide stripe of fluid within the endometrial cavity. The right ovary which is overall 3.6 cm in size with a complex 2.6 cm cyst and the left ovary which is overall 3.2 cm in size with no abnormal findings. Dr. Marshall expressed to Dr. Montoya, the initial consulting topography technician, his opinion that the ovaries should be removed at the time of surgery and had requested gynecologic assistance in the operating room for removal of same. GYNECOLOGIC HISTORY: Notable for 3 pregnancies and 3 full-term spontaneous vaginal deliveries. 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 PAST MEDICAL HISTORY: Hypertension. PAST SURGICAL HISTORY: Repair of a left wrist fracture with pins and cataract removal bilaterally. SOCIAL HISTORY: This is an extraordinarily pleasant and vital female who currently lives alone in a large home which she feels she is able to maintain by herself. She even mows her own grass with a push mower. She has never been a smoker nor a user of alcohol and she has not used any recreational drugs. She is surrounded in her exam room tonight by her family including her children who are all in good humor and extremely supportive of Sofiya. FAMILY HISTORY: Notable for a mother who is of stomach cancer and a father who is of a myocardial infarction. Additionally, Sofiya has 13 siblings. She notes that although some of them are , none have any known cancers. MEDICATIONS: Currently Toprol 50 mg p.o. b.i.d. She does not take any vitamins or supplements and as her family notes, she is reluctant even to use Tylenol and typically avoids p.r.n. and [id number] medicines. ALLERGIES: She has no known drug or other allergies. PHYSICAL EXAMINATION: CURRENT VITAL SIGNS: Temperature 36.6, pulse 78, respiration rate 18, blood pressure 152/77, pulse ox 96% on room air. GENERAL: She is alert and in no acute distress. I witnessed her ambulate from the bathroom to the bed without assistance successfully. She is pleasantly conversant. LUNGS: Show nonlabored respirations and a normal pulse ox. CARDIOVASCULAR: Shows a regular rhythm and a normal pulse rate. ABDOMEN: Exam is currently deferred as she has items on her lab and I have reviewed her imaging and do not feel the exam will add to my evaluation of the patient at this time. GENITOURINARY: Similarly deferred. Again, I have reviewed her ultrasound. EXTREMITIES: Currently in SCDs which are plugged in and being used appropriately. NEUROLOGICAL: The patient is fluently conversant in Turkmen and does not have any obvious gross motor defects. However, when asked to sign a consent form, the patient had some trouble writing a correct date, initially writing 05/22/2024 for the date. When she was asked what the year is, she correctly responded 2017, laughed and corrected the date she had written on the paper. I did ask the patient's son who is present at the bedside if this appeared consistent with difficulties that the patient has at home and he said that yes, she does occasionally have difficulty remembering things but usually corrects herself quickly. Importantly, he notes that she is currently in her usual state of health and he feels that she is able to make decisions for herself and that she is not currently in a clouded or unusual state of mind. Multiple family members were present through the discussion of the risks and benefits of surgery. The patient asked appropriate questions and I do feel confident that she is making a conscious and well informed decision to proceed. ASSESSMENT AND PLAN: An 81-year-old female with a colonic mass on imaging and bright red rectal bleeding causing anemia with additional incidentally identified ovarian complex cyst. The patient is planned for a laparotomy and colectomy with Dr. Marshall tomorrow morning and he has asked that I provide oophorectomy as well. I have discussed this with the patient. She relates that Dr. Marshall had previously recommended to her the removal of the ovaries and she is in complete agreement with this. She understands that she is already menopausal. She will likely not feel any particular symptoms due to the removal of ovaries at this time. Additionally, I have noted on the patient's consent form possible hysterectomy. As I discussed with Ms. Israel, I have no intentions of performing a hysterectomy, given that the imaging shows a normal uterus with likely fibroids and a small amount of fluid in the canal which is common and not alarming in a woman of her age. However, in the event that we do find metastasis throughout the abdomen involving the uterus at the time of surgery, a decision might best be made intraoperatively to remove the uterus with any disease present upon it. She states understanding of this and feels that if that is considered in her best interest, that she would consent to removal of the uterus at the time of surgery tomorrow as well. She understands that this decision is not expected and will be made intraoperatively. After all the patient's questions were answered, she gave consent for proceeding with bilateral oophorectomy and possible hysterectomy as a part of her surgery with Dr. Marshall tomorrow. Her family members additionally asked appropriate questions, expressed their understanding and her son elected to sign as the witness for her consent. I will look forward to seeing her tomorrow morning. She understands that I may not see her preoperatively, but that I will check in on her postoperatively.
[2016-07-25] VITALS (23 sets, daily range): BP systolic 114–194; BP diastolic 54–89; PULSE 72–114; TEMP 36.3–37; O2SAT 95–100
[2016-07-25] MEDS: CEFOXITIN IV 1,000 MG in DEXTROSE 5% 50ML 50 ML IV SCH ×3 (05:22→22:00)
--- NOTE | 2016-07-25 06:22 | Surgery Progress Note ---
Surgery Progress Note Date of Service Jul 25, 2016. Subjective No nausea, No vomiting awake, alert Objective Vital Signs: Date Time Temp Pulse Resp B/P Pulse Ox O2 Delivery O2 Flow Rate FiO2 07/25/16 00:50 Room Air 07/24/16 23:30 36.5 67 16 137/71 97 Room Air 07/24/16 21:49 84 158/75 07/24/16 15:46 36.6 78 18 152/77 96 Room Air 07/24/16 15:40 Room Air 0.0 07/24/16 07:50 Room Air 07/24/16 07:21 36.6 93 18 163/80 96 Room Air General Appearance: no apparent distress Respiratory/Chest: no respiratory distress Abdomen: normal bowel sounds, soft Laboratory Results: Results Past 24 Hours Test 07/25/16 04:44 Range/Units Assessment & Plan 07/25/16- for OR this am- colon resection, possible oophorectomy. 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 Possible liver mets and to ovary. Lung mass could be primary vs met. Will ask other services to see pt. Colon operation is not an emergency, tentatively on schedule for tomorrow. Would plan for ureteral stents at operation 07/24/16- pt with colon tumor- likely cancer- path pending. Possible liver mets and to ovary. Lung mass could be primary vs met. Will ask other services to see pt. Colon operation is not an emergency, tentatively on schedule for tomorrow. Would plan for ureteral stents at operation
[2016-07-25 06:27] LABS: COMPLETE YES; EOS % 1.8 %; HEMATOCRIT 35.4 % (37-47); IG% 0.3 %; LYMPH % 17.3 %; LYMPH ABS # 0.58 K/uL (1.2-3.4); MEAN CELL VOLUME 85.1 fL (80-100); MEAN CORPUSCULAR HEMOGLOBIN 26.4 pg (25-34); MEAN CORPUSCULAR HGB CONC 31.1 g/dl (32-36); MEAN PLATELET VOLUME 8.6 fL (7.4-10.4); MONO % 7.7 %; NEUT % 72.9 %; PLATELET COUNT 120 K/uL (130-400); RED BLOOD COUNT 4.16 M/uL (4.2-5.4); WHITE BLOOD COUNT 3.36 K/uL (4.8-10.8)
[2016-07-25] MEDS ORDERED: ROCURONIUM BROMIDE 10 MG/ML 5 ML VIAL ONE ×2 (06:47→09:30)
[2016-07-25] MEDS ORDERED: DEXAMETHASONE SOD INJ 4 MG/ML VIAL ONE (06:47)
[2016-07-25] MEDS ORDERED: NEOSTIGMINE METHYLSULFATE 5 MG/5 ML SYR ONE (06:47)
[2016-07-25] MEDS ORDERED: LIDOCAINE HCL 2% 2 ML VIAL (20MG/ML) ONE (06:47)
[2016-07-25] MEDS ORDERED: FENTANYL CITRATE INJ 50 MCG/1 ML 2 ML VIAL ONE (06:47)
[2016-07-25] MEDS ORDERED: GLYCOPYRROLATE INJ 0.2 MG/ML VIAL ONE ×2 (06:47→09:46)
[2016-07-25] MEDS ORDERED: MIDAZOLAM HCL 1 MG/ML 2ML VIAL ONE (06:47)
[2016-07-25] MEDS ORDERED: ONDANSETRON INJ 2 MG/ML 2 ML VIAL ONE (06:47)
[2016-07-25] MEDS ORDERED: PROPOFOL IV EMULSION 10 MG/ML 20 ML VIAL IV ONE (06:47)
[2016-07-25] MEDS ORDERED: CEFOXITIN SOD 2 GM VIAL ONE (06:59)
[2016-07-25] MEDS ORDERED: CONRAY 30% 150ML BOTTLE ONE (06:59)
[2016-07-25 07:04] LABS: BUN/CREATININE RATIO 4.4 (10-20); CALCIUM 9.1 mg/dl (8.5-10.1); CREATININE 1.2 mg/dl (0.60-1.20)
[2016-07-25] MEDS ORDERED: ATROPINE SULFATE 0.1 MG/ML 5ML SYR IV PRN (07:30)
[2016-07-25] MEDS ORDERED: ONDANSETRON INJ 2 MG/ML 2 ML VIAL IV PRN (07:30)
[2016-07-25] MEDS ORDERED: FENTANYL CITRATE INJ 50 MCG/1 ML 2 ML VIAL IV PRN (07:30)
[2016-07-25] MEDS ORDERED: HYDROmorphone INJ 1 MG/ML SYR IV PRN (07:30)
[2016-07-25] MEDS ORDERED: EpHEDrine SULFATE INJ 50 MG/ML AMP IV PRN (07:30)
--- NOTE | 2016-07-25 07:55 | DIAGNOSTIC IMAGING REPORT ---
INTRAOPERATIVE KUB 2 VIEWS CLINICAL HISTORY: Bilateral stents COMPARISON STUDY: No previous studies for comparison. FINDINGS: 2 fluoroscopic spot images are provided for interpretation. The first image demonstrates a catheter within the right ureter with its tip at the level the renal pelvis. There is faint contrast opacification the right renal collecting system. The second film demonstrates a catheter within the left ureter with its tip at the level the renal pelvis. There is partial opacification the left collecting system. There is contrast within colon. 20 seconds of fluoroscopic time was utilized. IMPRESSION: 2 intraoperative fluoroscopic spot images were acquired during placement of bilateral ureteral stents. Electronically signed by: Bebo Reinoso M.D. 07/25/2016 7:53 AM Dictated Date/Time: 07/25/2016 7:51 AM
[2016-07-25] MEDS ORDERED: HYDROmorphone INJ 2 MG/ML SYR/VIAL ONE (07:57)
[2016-07-25] MEDS ORDERED: PHENYLEPHRINE 100MCG/ML 5ML SYR ONE (09:17)
--- NOTE | 2016-07-25 09:48 | OPERATIVE REPORT ---
DATE OF OPERATION: 07/25/2016 PREOPERATIVE DIAGNOSES: Colonic tumor, rectal bleeding, anemia, abnormal ovaries and uterus on imaging, suspected pelvic metastasis. POSTOPERATIVE DIAGNOSES: Same. PROCEDURE: Total abdominal hysterectomy, bilateral salpingo-oophorectomy. SURGEON: Dr. Seals. THERAPEUTIC ACTIVITIES SERVICES WORKER: Rolando. ESTIMATED BLOOD LOSS: For this portion of the total procedure roughly 15 mL FINDINGS: Ovaries grossly enlarged and multicystic bilaterally with a cluster of grapes appearance on their external surface. Uterus with small overall size but palpable lumps consistent with the fibroids seen on ultrasound. A white 1 x 1 cm plaque on the fundus of the uterus, slightly anterior of midline. Once the uterine cavity was entered, a milky white mucoid fluid emitting from the endometrial cavity. SPECIMENS: Uterus, cervix, bilateral fallopian tubes. COMPLICATIONS: None. DISPOSITION: Stable in the operating room under the care of Dr. Marshall. DESCRIPTION: I presented to operating room 7 at 8:[address] Marshall and his certified surgical first assistant opening the patient's abdomen and beginning to pack and mobilize the bowel. I scrubbed in briefly in order to examine the pelvic organs. I was able to identify both ovaries and fallopian tubes which were mobile; however, unfortunately, both ovaries were enlarged with a multicystic cluster of grapes type appearance on their surface, which is abnormal. Additionally, the uterus, while small and overall fairly normally shaped, had a white plaque on its serosal surface, near the fundus, which in the setting of suspected abdominal cancer is concerning for possible metastasis. Dr. Marshall and I discussed the plan for DEE-BSO. I then scrubbed out to allow him to continue working on the upper abdomen. I returned shortly after 8:30 and scrubbed back in. At that point, it was an appropriate place in surgery for the pelvic organs to be addressed. The patient was placed in a Trendelenburg position and the bowel was gently packed out of the field by Dr. Marshall. We began by elevating the right ovary. Two Swathi clamps were applied to the IP ligament. Bovie electrocautery was used to divide the ligament between these clamps and 0 Vicryl pop-off was used as a stick tie with a Swathi suture to ligate the infundibulopelvic and a second free tie was placed to create a double ligature before the Swathi clamp was removed. Dissection proceeded anteriorly to the round ligament where a right-angle clamp was placed. The round ligament was divided using Bovie electrocautery and a free tie was used to ligate the stump of the round ligament. This tie was then held with a hemostat. A right-angle clamp and Metzenbaum scissors were used to dissect the anterior peritoneum to begin creating a bladder flap. Attention was then returned to the patient's left side where the procedure was essentially repeated with placement of 2 Swathi clamps on the IP ligament which was ligated doubly using a pop-off suture and then a free tie and then released. Dissection proceeded to the round ligament which was held with a right-angle clamp while it was divided using Bovie electrocautery and then a tie was applied to the stump which was then held in a hemostat. Dissection of the broad leaflet was then undertaken again with Metzenbaum scissors in order to complete the bladder flap. A sponge on a stick was used to gently mobilize the bladder inferiorly and Bovie electrocautery was used to address a few small surface bleeders created in this process. Posterior peritoneum was skeletonized. Hysterectomy then began in earnest with placement of a straight and curved Swathi along the left lateral aspect of the uterus. A long-handled knife was used to divide the uterine arteries and the cardinal ligament between the clamps and then a pop-off suture was used in a Swathi manner in order to ligate the pedicle. The straight and curved clamps were walked down the left side of the uterus with serial clamping, cutting and ligature, each suture being placed medial to the one before it until the lower portion of the cervix was reached. This procedure was then repeated identically on the right side of the uterus with a straight and curved Swathi being placed, the uterine artery and cardinal ligaments being divided, and then a pop-off suture being used to create a Swathi suture on the pedicle. Once the uterus had been detached and mobilized down to the lower half of the cervix, the decision was made to proceed with a supracervical hysterectomy as there was not felt to be any disease evident on the cervix. Two curved Swathi clamps were placed across the cervix meeting in the middle and electrocautery was used to amputate the cervix, fundus, tubes and ovaries as an en bloc specimen which will be sent for pathology. As the endometrial cavity was encountered, a milky-white mucoid fluid was encountered, which was quickly suctioned and then the area was irrigated. This likely represents the cavitary fluid seen on preop imaging. By the end of the amputation, it was apparent that most, if not all, of the cervix had in fact been removed; some stroma likely remained at the L angle but the cuff appeared essentially open at the R angle. Therefore, the decision was made to close the cuff as for a total abdominal hysterectomy instead of what we intended as a supracervical hysterectomy. Angle sutures were placed at each of the remaining Swathi clamps in a Swathi suture manner. The Heaneys were then removed. Two Allis were used to elevate the anterior and posterior portion of the vaginal cuff and a small amount of remaining cervical stroma and this was oversewn using [id number] pop-off Vicryls from one side to the other to achieve complete closure and hemostasis of the cuff/remaining cervical stroma. All these sutures were then cut. Examination of all working sites in the pelvis was undertaken and good hemostasis was seen at all sites. At this point, my portion of the procedure was completed and I broke scrub, leaving the patient in stable, intubated condition under the care of Dr. Marshall for the remainder of her procedure. I attest to the content of the Intraoperative Record and any orders documented therein. Any exceptions are noted below. WENDY
--- NOTE | 2016-07-25 10:41 | [facility] Post Operative Brief Note ---
Immediate Operative Summary Operative Date Jul 25, 2016. Pre-Operative Diagnosis colon cancer, ovarian masses Post-Operative Diagnosis same Procedure(s) Performed laparotomy, rectosigmoid resection with colorectal anastomosis pelvic washings DEE/BSO- Dr Seals also stent placement- Dr Marquez Surgeon Dr. Augustine Marshall Barge Engineer Surgeon(s) Dr. Leonidas Marquez, Dr. Bruce Seals, and Dony Rabago PA-C Estimated Blood Loss 150 cc Findings Lg colon tumor, abnormal ovaries and uterus Lt hepatic masses- could not visualize- able to palpate Specimens Cytology: pelvic washing out of room to lab at 0809 Permanent Specimen A: rectal sigmoid staple line proximal. sent to pathology for evaluation of gross margins at 0929. B: uterus, cervix, bilateral fallopian tubes and bilateral ovaries Drains [address] BEVERLY to pelvis, oziel to subcu Anesthesia gen Complication(s) None Disposition Recovery Room / PACU
[2016-07-25 11:17] LABS: HEMATOCRIT 31.4 % (37-47); MEAN CELL VOLUME 85.1 fL (80-100); MEAN CORPUSCULAR HEMOGLOBIN 27.1 pg (25-34); MEAN CORPUSCULAR HGB CONC 31.8 g/dl (32-36); RED BLOOD COUNT 3.69 M/uL (4.2-5.4); WHITE BLOOD COUNT 4.96 K/uL (4.8-10.8)
--- NOTE | 2016-07-25 11:21 | Anesthesiology Progress Note ---
Anesthesia Post Op Note Date & Time Jul 25, 2016 at 11:20 Vital Signs Pain Intensity: 0 Vital Signs Past 12 Hours Date Time Temp Pulse Resp B/P Pulse Ox O2 Delivery O2 Flow Rate FiO2 07/25/16 11:10 65 18 166/73 100 Nasal Cannula 2 07/25/16 11:00 68 18 165/76 100 Mask 10 07/25/16 10:50 72 18 163/76 100 Mask 10 07/25/16 10:42 37.0 80 18 176/77 100 Mask 10 07/25/16 06:10 36.6 100 16 194/89 96 Room Air 07/25/16 00:50 Room Air 07/24/16 23:30 36.5 67 16 137/71 97 Room Air Notes Mental Status: alert / awake / arousable, participated in evaluation Pt Amnestic to Procedure: Yes Nausea / Vomiting: adequately controlled Pain: adequately controlled Airway Patency, RR, SpO2: stable & adequate BP & HR: stable & adequate Hydration State: stable & adequate Anesthetic Complications: no major complications apparent
--- NOTE | 2016-07-25 11:43 | OPERATIVE REPORT ---
DATE OF OPERATION: 07/25/2016 NAME OF OPERATION: Laparotomy with rectosigmoid resection, stent placement, colorectal anastomosis and TAHBSO by Dr. Seals. STAFF SURGEON: Dr. Augustine Marshall. STEEL HANGER: LEONOR Hammonds Dr. performed TAHBSO, Dr. Marquez the stent placement and I assisted Dr. Seals with the hysterectomy. ANESTHESIA: General. DESCRIPTION OF PROCEDURE: The patient was brought into the operating room and placed on the operating table in the lithotomy position. Dr. Marquez went ahead with his portion of the procedure, which was bilateral ureteral stent placement. We then prepped her abdomen and perineum. A midline incision was made below the umbilicus, carrying dissection down into the abdomen. The patient did have relatively redundant sigmoid colon and on inspection, she had a relatively large tumor at the rectosigmoid, which did not appear to extend outside the colon. The colon was transected at the mid sigmoid using a GOLDIE stapler and then, the mesentery was dissected with vessels ligated using the LigaSure and 2-0 silk suture and 0 chromic catgut suture down to the level of the rectum. At this point, Dr. Seals came in and performed a hysterectomy with bilateral salpingo-oophorectomy and then, Dony Rabago and I proceeded with the colon resection. We transected the rectum. It appeared that we were 2-3 cm distal to the tumor with good margin. I did have the pathologist checklist and confirm. The rectum and colon were then anastomosed in an end-to-end fashion using 2 layers with a mucosal layer of 2-0 chromic catgut suture in a running fashion and a seromuscular layer of interrupted 3-0 silk suture. The patient had significant adipose tissue in the mesentery and epiploic appendices, which allowed us to cover the anastomosis and it from the area of the hysterectomy dissection. At this point, we were able to continue to identify the ureters using the stents. We placed a #19 round Ryan-Wade drain through the left abdominal wall into the pelvis and secured it using 3-0 nylon suture. The abdomen was irrigated with antibiotic solution and then the posterior fascia and peritoneum were reapproximated using running #1 chromic catgut suture and then, the anterior fascia reapproximated using both running and interrupted #1 PDS suture. Quarter inch Yolie drain placed in the subcutaneous space, secured to the skin using 4-0 nylon suture, and then the skin reapproximated using beata. The stents were removed and the Miller left in place. The patient also had SCDs during the operation and an orogastric tube. I attest to the content of the Intraoperative Record and any orders documented therein. Any exceptio ns are noted below.
[2016-07-25 11:47] LABS: MEAN PLATELET VOLUME 8.1 fL (7.4-10.4); PLATELET COUNT 89 K/uL (130-400)
[2016-07-25 11:54] LABS: BUN/CREATININE RATIO 7.4 (10-20); CALCIUM 8.6 mg/dl (8.5-10.1); CREATININE 0.72 mg/dl (0.60-1.20)
--- NOTE | 2016-07-25 12:23 | Critical Care Consultation ---
Critical Care Consultation Date of Consultation: Jul 25, 2016. Attending Physician: Andrey Hernandez M.D. Reason for Consultation: Postoperative management status post partial colon resection, hysterectomy with bilateral oophorectomy, ureteral stent placement and subsequent removal bilaterally History of Present Illness Patient is an 80-year-old female with significant past medical history for hypertension, hemorrhoids, and anemia. She initially presented on July 22 2 [facility] emergency department for rectal bleeding. She was found to have a colon tumor with possible liver metastases as well as ovarian metastases. There is a lung mass that could be malignancy related as well. She has also been seen by hematology oncology and will likely need to undergo biopsies of the liver as well as possibly the lung. I have been consult did for postoperative management and observation. She had approximately 150 ML's of blood loss, was transfused 2 units prior to the OR, and given about 2 L worth of crystalloid. In the PACU she was complaining of mild pain and recovering uneventfully. Family History Patient reports no known family medical history. Social History Smoking Status: Never Smoker Smokeless Tobacco Use: No Alcohol Use: none Drug Use: none Marital Status: Occupation Status: retired Allergies Coded Allergies: No Known Allergies (Unverified , 07/21/16) Home Medications Scheduled Metoprolol Tartrate (Lopressor) (Lopressor), 50 MG PO BID Current Inpatient Medications Current Inpatient Medications Medications (Trade) Dose Ordered Sig/Gladis Route Start Time Stop Time Status Last Admin Dose Admin Ondansetron HCl 4 mg 4 mg Q6H PRN IV 07/22/16 00:15 08/21/16 00:14 Acetaminophen 100 ml @ 400 mls/hr Q8H PRN IV 07/22/16 00:15 08/21/16 00:14 Pantoprazole Sodium/Syringe (Protonix Inj/ Syringe) 10 ml @ 5 mls/min DAILY@11 IV 07/22/16 11:00 08/21/16 10:59 07/24/16 11:23 5 MLS/MIN Miscellaneous (Iv Fluids Completed) 1 ea PRN PRN N/A 07/22/16 01:00 07/22/17 00:59 Ioversol 100 ml 100 ml UD PRN IV 07/23/16 17:45 07/27/16 17:44 Cefoxitin Sodium/ Dextrose (Mefoxin IV/D5 50ml) 60 ml @ 100 mls/hr Q8 IV 07/24/16 14:00 07/25/16 13:59 07/25/16 05:22 100 MLS/HR Fentanyl Citrate (Fentanyl Inj) 25 mcg Q5M PRN IV 07/25/16 07:30 07/25/16 12:30 Ondansetron HCl (Zofran Inj) 4 mg ONE PRN IV 07/25/16 07:30 07/25/16 12:30 Ephedrine Sulfate (EpHEDrine SULFATE INJ) 5 mg Q5M PRN IV 07/25/16 07:30 07/25/16 12:30 Atropine Sulfate 0.5 mg 0.5 mg Q1M PRN IV 07/25/16 07:30 07/25/16 12:30 Cefoxitin Sodium 1000 mg/Dextrose 60 ml @ 100 mls/hr Q8 IV 07/25/16 14:00 08/04/16 13:59 Potassium Chloride/Dextrose/ Sod Cl (D5W And 1/2nss + 20meq KCl) 1,000 ml @ 125 mls/hr Q8H IV 07/25/16 12:00 08/24/16 11:59 Hydromorphone HCl (Dilaudid Inj) 0.5 mg Q3H PRN IV 07/25/16 10:45 08/08/16 10:44 Hydromorphone HCl (Dilaudid Inj) 1 mg Q3H PRN IV 07/25/16 10:45 08/08/16 10:44 Ondansetron HCl (Zofran Inj) 4 mg Q6H PRN IV 07/25/16 10:45 08/24/16 10:44 Heparin Sodium (Porcine) (Heparin Sq 5000 Unit/0.5ml) 5,000 unit Q12H SQ 07/26/16 08:00 08/25/16 07:59 Physical Exam Date Time Temp Pulse Resp B/P Pulse Ox O2 Delivery O2 Flow Rate FiO2 07/25/16 12:00 36.4 75 18 165/76 100 Nasal Cannula 2 07/25/16 11:45 73 18 161/74 99 Nasal Cannula 2 07/25/16 11:30 88 18 157/77 99 Nasal Cannula 2 07/25/16 11:20 36.4 64 18 170/74 99 Nasal Cannula 2 07/25/16 11:10 65 18 166/73 100 Nasal Cannula 2 07/25/16 11:00 68 18 165/76 100 Mask 10 07/25/16 10:50 72 18 163/76 100 Mask 10 07/25/16 10:42 37.0 80 18 176/77 100 Mask 10 07/25/16 06:10 36.6 100 16 194/89 96 Room Air 07/25/16 00:50 Room Air 07/24/16 23:30 36.5 67 16 137/71 97 Room Air 07/24/16 21:49 84 158/75 07/24/16 15:46 36.6 78 18 152/77 96 Room Air 07/24/16 15:40 Room Air 0.0 General Appearance: uncomfortable Head: normocephalic, atraumatic Neck: no tenderness, trachea midline Respiratory: breath sounds normal, clear to auscultation Cardiovasular: regular rate/rhythm, normal S1S2 Abdomen: other (dressing in place mild shadowing in the inferior aspect) Genitourinary - Female: external genitalia normal (Miller in place with mild hematuria) Upper Extremities: no edema Pulses: radial (R) (2+), radial (L) (2+) Neuro: alert, normal motor exam, normal sensation Laboratory Results Last 24 Hours Test 07/25/16 06:19 07/25/16 11:08 White Blood Count 3.36 K/uL 4.96 K/uL Red Blood Count 4.16 M/uL 3.69 M/uL Hemoglobin 11.0 g/dL 10.0 g/dL Hematocrit 35.4 % 31.4 % Mean Corpuscular Volume 85.1 fL 85.1 fL Mean Corpuscular Hemoglobin 26.4 pg 27.1 pg Mean Corpuscular Hemoglobin Concent 31.1 g/dl 31.8 g/dl Platelet Count 120 K/uL 89 K/uL Mean Platelet Volume 8.6 fL 8.1 fL Neutrophils (%) (Auto) 72.9 % Lymphocytes (%) (Auto) 17.3 % Monocytes (%) (Auto) 7.7 % Eosinophils (%) (Auto) 1.8 % Basophils (%) (Auto) 0.0 % Neutrophils # (Auto) 2.45 K/uL Lymphocytes # (Auto) 0.58 K/uL Monocytes # (Auto) 0.26 K/uL Eosinophils # (Auto) 0.06 K/uL Basophils # (Auto) 0.00 K/uL RDW Standard Deviation 47.0 fL 47.6 fL RDW Coefficient of Variation 15.3 % 15.1 % Immature Granulocyte % (Auto) 0.3 % Immature Granulocyte # (Auto) 0.01 K/uL Sodium Level 143 mmol/L 143 mmol/L Potassium Level 4.0 mmol/L 4.0 mmol/L Chloride Level 113 mmol/L 112 mmol/L Carbon Dioxide Level 24 mmol/L 24 mmol/L Anion Gap 6.0 mmol/L 7.0 mmol/L Blood Urea Nitrogen 5 mg/dl 5 mg/dl Creatinine 1.20 mg/dl 0.72 mg/dl Est Creatinine Clear Calc Drug Dose 33.2 ml/min 55.4 ml/min Estimated GFR () 48.4 89.8 Estimated GFR (Non- 41.8 77.4 BUN/Creatinine Ratio 4.4 7.4 Random Glucose 101 mg/dl 130 mg/dl Calcium Level 9.1 mg/dl 8.6 mg/dl Diagnostic Results CT SCAN OF THE ABDOMEN AND PELVIS WITH IV CONTRAST CLINICAL HISTORY: Rectosigmoid tumor. Rectal bleeding. COMPARISON STUDY: No priors. TECHNIQUE: Following the IV administration of 119 cc of Optiray 320, CT scan of the abdomen and pelvis is performed from the lung bases to the proximal femora. Images are reviewed in the axial, sagittal, and coronal planes. IV contrast was administered without complication. Automated dose control exposure was utilized. The examination is significantly degraded by motion artifact. CT DOSE: 271.81 mGy.cm FINDINGS: Lung bases: The heart is normal in size and without pericardial effusion. There is a 3.2 cm groundglass lesion at the left lung base with small central cystic foci seen on image #25. The lung bases are otherwise clear. Liver: Evaluation of the liver is significant degraded by motion artifact. The contrast-enhanced liver is normal in size, contour, and attenuation. There is no intrahepatic biliary ductal dilatation. The hepatic veins and portal veins are patent. There is an indeterminant low-attenuation lesion in the right lobe of liver seen on image #79. This measures approximately 4 x 2.5 cm. At least 2 additional low-density lesions are seen in the right lobe on images #70 and #75. These measure up to 11 mm. A 9 mm hypervascular liver lesion is seen on image #58. Gallbladder: Unremarkable. Spleen: Normal in size and attenuation. Pancreas: Moderately atrophic and grossly unremarkable. Adrenal glands: Unremarkable. Kidneys: The contrast enhanced kidneys are atrophic and without hydronephrosis. The kidneys enhance symmetrically. Numerous parapelvic cysts are seen bilaterally. Abdominal vasculature: The abdominal aorta is normal in course and caliber noting moderate atherosclerotic calcification. Bowel: There is a questionable mucosal lesion within the sigmoid colon on image 3. A 1025. This is not well delineated by CT. No bowel obstruction is seen. The appendix is well-visualized and normal. Peritoneum: There is no intraperitoneal free air or abdominal ascites. Lymphadenopathy: None. Pelvic viscera: The bladder is normal as visualized. The uterus is infiltrated by numerous mixed density mass lesions. There is a right ovarian mass lesion seen on image #340. This measures 3.5 x 3.3 cm. A left ovarian lesion seen on image #327 measures 3.2 x 2.2 cm. Skeletal structures: The skeletal structures are osteopenic. No lytic or blastic lesions are seen. Hemangiomas are seen in the bodies of T9, T10, T12, L2, and L3. IMPRESSION: 1. Motion degraded examination. 2. A mucosal lesion is suggested in the sigmoid colon. This is not well assessed by CT. Correlation with endoscopy results will be required. 3. No bowel obstruction is seen. 4. There are bilateral ovarian mass lesions. These could represent ovarian metastases versus primary ovarian neoplasms. 5. There is a 3.2 cm groundglass lesion at the left lung base with central cystic foci. This should be considered a primary lung cancer until proven otherwise. The appearance is not typical for metastatic disease. 6. There are indeterminant low density liver lesions measuring up to 4 cm. Metastatic disease is not excluded. 7. The uterus is infiltrated by numerous lesions. Although these could represent fibroids, neoplasm is not excluded. 8. Additional findings as above. Electronically signed by: Carlos Adams M.D. 07/23/2016 6:05 PM Dictated Date/Time: 07/23/2016 5:54 PM Assessment & Plan (1) HTN (hypertension) (2) Colonic mass (3) Lesion of liver (4) Lesion of uterus (5) Left pulmonary lesion (6) Anemia (7) GI bleed Reason Critically Ill: Patient critically ill due to multiple staged surgery, concern for fluid and electrolyte shifts in setting of resolving acute kidney injury. PLAN: Neuro: Pain control status post laparotomy Resp: Tolerating nasal cannula CV: Attention controlled with 50 mg metoprolol twice a day Fluids/Renal: Continue IV fluids, mild hyperchloremia, resolving acute kidney injury ID: Continue cefoxitin per Dr. Marshall GI/Nutrition: Nothing by mouth Heme: Acute blood loss anemia Endocrine: But sugars within acceptable range I have personally spent 40 minutes of critical care time in the direct management of this patient. This is a life/limb threatening event. This includes time spent evaluating patient, direct bedside care, chart review, placing orders, interpretation of diagnostic studies, discussion with consultants, patient, and family members, as well as other required patient management activities. This time is exclusive of all separately billable procedures, and teaching time and separate from and in addition to any other critical care service time. CODE STATUS: Full
[2016-07-25] MEDS: PANTOprazole INJ 40 MG in SYRINGE 0 ML IV SCH (12:42)
[2016-07-25] MEDS: D5W AND 1/2NSS + 20MEQ KCL 1,000 ML IV SCH ×2 (12:43→20:51)
[2016-07-25] MEDS: HYDROmorphone INJ 0.5 MG/0.5 ML SYR IV PRN (12:45)
--- NOTE | 2016-07-25 12:48 | OPERATIVE REPORT ---
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 POSTOPERATIVE DIAGNOSIS: Same. PROCEDURES: Cystoscopy, bilateral retrograde pyelograms, placement of bilateral blunt-tipped ureteral stents. FINDINGS: Cystoscopic exam revealed normal urethra. Bladder showed no mucosal abnormalities. Retrograde showed no hydronephrosis. SURGEON: Edi Marquez MD ANESTHESIA: General. DRAINS: Miller catheter in the bladder and two 5-Belgian blunt-tipped stents in the left ureter and right ureter. COMPLICATIONS: None. SPECIMENS: None. INDICATIONS: The patient is an 81-year-old white female who is going to be undergoing what appears to be a sigmoid resection by the general surgeons. They asked that we place preoperative stents to help identify the ureter. DESCRIPTION OF PROCEDURE: After the induction of adequate general anesthetic and appropriate time-out, patient was placed in the dorsal lithotomy position, lower abdomen and genitalia were prepped with Hibiclens and draped in sterile fashion. Using a 22-Belgian cystoscope, routine cystoscopic exam was performed with the above noted findings with the 30 and 70 degree lenses. Next, a blunt-tipped stent was passed up the ureter on the right side under fluoroscopic guidance. A retrograde was then performed to identify the renal pelvis. The stent was advanced to the level of the renal pelvis. An identical procedure was then performed on the right hand side after placing both blunt-tipped stents. The cystoscope was removed. A Miller catheter was inserted per urethra and hooked to gravity drainage. The externalized stents were then tied to the Miller so that they would not slip out. After completing this, the case was handed over to the general surgeon. I attest to the content of the Intraoperative Record and any orders documented therein. Any exceptio ns are noted below.
--- NOTE | 2016-07-25 14:19 | Hospitalist Progress Note ---
Hospitalist Progress Note Date of Service Jul 25, 2016. Subjective Pt evaluation today including: conversation w/ patient, conversation w/ family , physical exam, chart review Returned from OR. Medications Medications (Trade) Dose Ordered Sig/Gladis Route Start Time Stop Time Status Last Admin Dose Admin Iothalamate Meglumine (Conray 30%) 150 ml STK-MED ONCE .ROUTE 07/25/16 06:59 07/25/16 07:00 DC 07/25/16 07:36 16 ML Cefoxitin Sodium 2000 mg 2,000 mg STK-MED ONCE .ROUTE 07/25/16 06:59 07/25/16 07:00 DC 07/25/16 10:00 2,000 MG Cefoxitin Sodium 1000 mg/Dextrose 60 ml @ 100 mls/hr Q8 IV 07/25/16 14:00 08/04/16 13:59 07/25/16 13:55 100 MLS/HR Potassium Chloride/Dextrose/ Sod Cl (D5W And 1/2nss + 20meq KCl) 1,000 ml @ 125 mls/hr Q8H IV 07/25/16 12:00 08/24/16 11:59 07/25/16 12:43 125 MLS/HR Hydromorphone HCl (Dilaudid Inj) 0.5 mg Q3H PRN IV 07/25/16 10:45 08/08/16 10:44 07/25/16 12:45 0.5 MG Objective Vital Signs Date Time Temp Pulse Resp B/P Pulse Ox O2 Delivery O2 Flow Rate FiO2 07/25/16 12:26 100 Nasal Cannula 2.0 07/25/16 12:26 36.3 72 18 170/77 100 Nasal Cannula 2.0 07/25/16 12:00 36.4 75 18 165/76 100 Nasal Cannula 2 07/25/16 11:45 73 18 161/74 99 Nasal Cannula 2 07/25/16 11:30 88 18 157/77 99 Nasal Cannula 2 07/25/16 11:20 36.4 64 18 170/74 99 Nasal Cannula 2 07/25/16 11:10 65 18 166/73 100 Nasal Cannula 2 07/25/16 11:00 68 18 165/76 100 Mask 10 07/25/16 10:50 72 18 163/76 100 Mask 10 07/25/16 10:42 37.0 80 18 176/77 100 Mask 10 07/25/16 06:10 36.6 100 16 194/89 96 Room Air 07/25/16 00:50 Room Air 07/24/16 23:30 36.5 67 16 137/71 97 Room Air 07/24/16 21:49 84 158/75 07/24/16 15:46 36.6 78 18 152/77 96 Room Air 07/24/16 15:40 Room Air 0.0 Physical Exam Neck: supple, no adenopathy Respiratory/Chest: chest non-tender, lungs clear Cardiovascular: + tachycardia, + systolic murmur Abdomen: + pertinent finding (dressing over the center of the abdomen, (+) drain.) Extremities: no pedal edema Neurologic/Psychiatric: alert, oriented x 3 Skin: normal color Laboratory Results Last 24 Hours Test 07/25/16 06:19 07/25/16 11:08 White Blood Count 3.36 K/uL 4.96 K/uL Red Blood Count 4.16 M/uL 3.69 M/uL Hemoglobin 11.0 g/dL 10.0 g/dL Hematocrit 35.4 % 31.4 % Mean Corpuscular Volume 85.1 fL 85.1 fL Mean Corpuscular Hemoglobin 26.4 pg 27.1 pg Mean Corpuscular Hemoglobin Concent 31.1 g/dl 31.8 g/dl Platelet Count 120 K/uL 89 K/uL Mean Platelet Volume 8.6 fL 8.1 fL Neutrophils (%) (Auto) 72.9 % Lymphocytes (%) (Auto) 17.3 % Monocytes (%) (Auto) 7.7 % Eosinophils (%) (Auto) 1.8 % Basophils (%) (Auto) 0.0 % Neutrophils # (Auto) 2.45 K/uL Lymphocytes # (Auto) 0.58 K/uL Monocytes # (Auto) 0.26 K/uL Eosinophils # (Auto) 0.06 K/uL Basophils # (Auto) 0.00 K/uL RDW Standard Deviation 47.0 fL 47.6 fL RDW Coefficient of Variation 15.3 % 15.1 % Immature Granulocyte % (Auto) 0.3 % Immature Granulocyte # (Auto) 0.01 K/uL Sodium Level 143 mmol/L 143 mmol/L Potassium Level 4.0 mmol/L 4.0 mmol/L Chloride Level 113 mmol/L 112 mmol/L Carbon Dioxide Level 24 mmol/L 24 mmol/L Anion Gap 6.0 mmol/L 7.0 mmol/L Blood Urea Nitrogen 5 mg/dl 5 mg/dl Creatinine 1.20 mg/dl 0.72 mg/dl Est Creatinine Clear Calc Drug Dose 33.2 ml/min 55.4 ml/min Estimated GFR () 48.4 89.8 Estimated GFR (Non- 41.8 77.4 BUN/Creatinine Ratio 4.4 7.4 Random Glucose 101 mg/dl 130 mg/dl Calcium Level 9.1 mg/dl 8.6 mg/dl Assessment and Plan Rectal bleeding with known history of hemorrhoids/anemia/colonic mass: Now s/p laparotomy, rectosigmoid resection with colorectal anastomosis pelvic washings DEE/BSO- Dr Seals also stent placement- Dr Marquez Appreciate GI, Oncology and Surgery input. Await pathology report acute blood loss anemia, hgb improved s/p prbc transfusion Hypertension-- was on metoprolol tartrate 50 mg by mouth twice a day with hold parameters.Will switch to IV lopressor while Npo. Hypernatremia-- Improved serum sodium.
[2016-07-25 17:27] LABS: HEMATOCRIT 32.5 % (37-47)
[2016-07-25] MEDS: ONDANSETRON INJ 2 MG/ML 2 ML VIAL IV PRN (18:24)
[2016-07-25] MEDS: HYDROmorphone INJ 1 MG/ML SYR IV PRN (18:54)
[2016-07-26] VITALS (12 sets, daily range): BP systolic 123–168; BP diastolic 54–90; PULSE 88–116; TEMP 36.7–37.2; O2SAT 93–98
[2016-07-26] MEDS: ONDANSETRON INJ 2 MG/ML 2 ML VIAL IV PRN ×2 (02:55→12:11)
[2016-07-26] MEDS: HYDROmorphone INJ 0.5 MG/0.5 ML SYR IV PRN ×3 (02:55→18:30)
[2016-07-26] MEDS: D5W AND 1/2NSS + 20MEQ KCL 1,000 ML IV SCH ×2 (05:10→13:43)
[2016-07-26] MEDS: CEFOXITIN IV 1,000 MG in DEXTROSE 5% 50ML 50 ML IV SCH ×3 (05:45→22:09)
[2016-07-26 06:03] LABS: BUN/CREATININE RATIO 9.7 (10-20); CALCIUM 8.6 mg/dl (8.5-10.1); CREATININE 0.78 mg/dl (0.60-1.20); MAGNESIUM 1.8 mg/dl (1.8-2.4); PHOSPHORUS 2.7 mg/dl (2.5-4.9); POTASSIUM 4.4 mmol/L (3.5-5.1)
--- NOTE | 2016-07-26 06:06 | Surgery Progress Note ---
Surgery Progress Note Date of Service Jul 26, 2016. Subjective No nausea, No vomiting pt is awake, alert, in no distress afeb, BP stable, HR- tachy, UO- 575cc overnight, pink tinged drain- mostly serous, normal expected amount labs came back- H/H with no chg from last pm Objective Vital Signs: Date Time Temp Pulse Resp B/P Pulse Ox O2 Delivery O2 Flow Rate FiO2 07/26/16 04:00 Nasal Cannula 2.0 07/26/16 04:00 37.1 116 23 123/54 97 Nasal Cannula 2.0 07/26/16 01:55 36.8 110 17 153/73 96 Nasal Cannula 2.0 07/26/16 01:00 112 19 157/70 96 Nasal Cannula 2.0 07/26/16 00:00 Nasal Cannula 2.0 07/26/16 00:00 36.8 114 22 137/61 96 Nasal Cannula 2.0 07/25/16 23:00 112 19 114/55 95 Nasal Cannula 2.0 07/25/16 22:00 114 16 115/54 97 Nasal Cannula 2.0 07/25/16 20:00 100 Nasal Cannula 2.0 07/25/16 20:00 37.0 102 16 132/57 100 Nasal Cannula 2.0 07/25/16 18:00 106 18 170/78 100 Nasal Cannula 2.0 07/25/16 16:00 36.8 89 20 171/80 100 Nasal Cannula 2.0 07/25/16 16:00 100 Nasal Cannula 2.0 07/25/16 14:11 88 19 97 07/25/16 14:02 91 18 159/68 97 07/25/16 14:00 36.4 72 18 159/68 100 Nasal Cannula 2.0 07/25/16 13:56 98 19 98 07/25/16 13:47 91 18 157/70 98 07/25/16 13:41 85 18 97 07/25/16 13:32 85 18 162/72 98 07/25/16 13:26 94 17 97 07/25/16 13:17 96 21 154/76 95 07/25/16 13:11 87 19 97 07/25/16 13:02 83 19 162/72 97 07/25/16 12:56 80 19 96 07/25/16 12:47 100 16 168/84 97 07/25/16 12:41 73 20 97 07/25/16 12:32 78 23 170/77 97 07/25/16 12:30 74 19 168/82 97 07/25/16 12:26 100 Nasal Cannula 2.0 07/25/16 12:26 36.3 72 18 170/77 100 Nasal Cannula 2.0 07/25/16 12:00 36.4 75 18 165/76 100 Nasal Cannula 2 07/25/16 11:45 73 18 161/74 99 Nasal Cannula 2 07/25/16 11:30 88 18 157/77 99 Nasal Cannula 2 07/25/16 11:20 36.4 64 18 170/74 99 Nasal Cannula 2 07/25/16 11:10 65 18 166/73 100 Nasal Cannula 2 07/25/16 11:00 68 18 165/76 100 Mask 10 07/25/16 10:50 72 18 163/76 100 Mask 10 07/25/16 10:42 37.0 80 18 176/77 100 Mask 10 07/25/16 06:10 36.6 100 16 194/89 96 Room Air General Appearance: no apparent distress Respiratory/Chest: no respiratory distress Cardiovascular: + tachycardia Abdomen: + distended (some pain to palpation) Incision(s): intact, drainage (has subcu oziel) Extremities: no pedal edema (extremities- warm, dry) Laboratory Results: Results Past 24 Hours Test 07/25/16 06:19 07/25/16 11:08 07/25/16 17:20 07/26/16 05:12 Range/Units White Blood Count 3.36 4.96 4.8-10.8 K/uL Red Blood Count 4.16 3.69 4.2-5.4 M/uL Hemoglobin 11.0 10.0 10.6 12.0-16.0 g/dL Hematocrit 35.4 31.4 32.5 37-47 % Mean Corpuscular Volume 85.1 85.1 80-100 fL Mean Corpuscular Hemoglobin 26.4 27.1 25-34 pg Mean Corpuscular Hemoglobin Concent 31.1 31.8 32-36 g/dl Platelet Count 120 89 130-400 K/uL Mean Platelet Volume 8.6 8.1 7.4-10.4 fL Neutrophils (%) (Auto) 72.9 % Lymphocytes (%) (Auto) 17.3 % Monocytes (%) (Auto) 7.7 % Eosinophils (%) (Auto) 1.8 % Basophils (%) (Auto) 0.0 % Neutrophils # (Auto) 2.45 1.4-6.5 K/uL Lymphocytes # (Auto) 0.58 1.2-3.4 K/uL Monocytes # (Auto) 0.26 0.11-0.59 K/uL Eosinophils # (Auto) 0.06 0-0.5 K/uL Basophils # (Auto) 0.00 0-0.2 K/uL RDW Standard Deviation 47.0 47.6 36.4-46.3 fL RDW Coefficient of Variation 15.3 15.1 11.5-14.5 % Immature Granulocyte % (Auto) 0.3 % Immature Granulocyte # (Auto) 0.01 0.00-0.02 K/uL Sodium Level 143 143 136-145 mmol/L Potassium Level 4.0 4.0 3.5-5.1 mmol/L Chloride Level 113 112 98-107 mmol/L Carbon Dioxide Level 24 24 21-32 mmol/L Anion Gap 6.0 7.0 3-11 mmol/L Blood Urea Nitrogen 5 5 7-18 mg/dl Creatinine 1.20 0.72 0.60-1.20 mg/dl Est Creatinine Clear Calc Drug Dose 33.2 55.4 ml/min Estimated GFR () 48.4 89.8 Estimated GFR (Non- 41.8 77.4 BUN/Creatinine Ratio 4.4 7.4 10-20 Random Glucose 101 130 70-99 mg/dl Calcium Level 9.1 8.6 8.5-10.1 mg/dl Test 07/26/16 05:20 Range/Units Assessment & Plan 07/26/16- s/p laparotomy, rectosigmoid resection, DEE/BSO- pt is tachy- check H/H - clinically doesn't appear to be acutely bleeding- alert, extrem warm, good urine output pt normally on Beta blockers. pts H/H may drift down and she may need 1-2 u RBCs H/H stable, HR now 97, monitor for now , may be related to pt normally on Metoprolol will leave addn of IV med to med/ICU team PT 07/25/16- for OR this am- colon resection, possible oophorectomy. 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 Possible liver mets and to ovary. Lung mass could be primary vs met. Will ask other services to see pt. Colon operation is not an emergency, tentatively on schedule for tomorrow. Would plan for ureteral stents at operation 07/25/16- for OR this am- colon resection, possible oophorectomy. 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 Possible liver mets and to ovary. Lung mass could be primary vs met. Will ask other services to see pt. Colon operation is not an emergency, tentatively on schedule for tomorrow. Would plan for ureteral stents at operation
[2016-07-26 06:16] LABS: HEMATOCRIT 31.5 % (37-47); MEAN CELL VOLUME 85.1 fL (80-100); MEAN CORPUSCULAR HEMOGLOBIN 27.6 pg (25-34); MEAN CORPUSCULAR HGB CONC 32.4 g/dl (32-36); PLATELET COUNT 138 K/uL (130-400); WHITE BLOOD COUNT 8.98 K/uL (4.8-10.8)
--- NOTE | 2016-07-26 07:31 | Progress Note ---
Subjective Date of Service: Jul 26, 2016. Subjective Pt evaluation today including: conversation w/ patient, physical exam Pain: "I don't have much pain." PO Intake: "I was very happy to have ice chips." Voiding: kilpatrick catheter in place (Feels urge to void and wants catheter out jai.) Problem List Medical Problems: (1) GI bleed Status: Acute Review of Systems Constitutional: No chills, No fever Respiratory: No cough, No shortness of breath Cardiac: No chest pain Abdomen: No nausea, No pain, No vomiting Female : No problem reported Objective Vital Signs Date Time Temp Pulse Resp B/P Pulse Ox O2 Delivery O2 Flow Rate FiO2 07/26/16 06:00 37.2 114 14 144/90 96 Nasal Cannula 2.0 07/26/16 04:00 Nasal Cannula 2.0 07/26/16 04:00 37.1 116 23 123/54 97 Nasal Cannula 2.0 07/26/16 01:55 36.8 110 17 153/73 96 Nasal Cannula 2.0 07/26/16 01:00 112 19 157/70 96 Nasal Cannula 2.0 07/26/16 00:00 Nasal Cannula 2.0 07/26/16 00:00 36.8 114 22 137/61 96 Nasal Cannula 2.0 07/25/16 23:00 112 19 114/55 95 Nasal Cannula 2.0 07/25/16 22:00 114 16 115/54 97 Nasal Cannula 2.0 07/25/16 20:00 100 Nasal Cannula 2.0 07/25/16 20:00 37.0 102 16 132/57 100 Nasal Cannula 2.0 07/25/16 18:00 106 18 170/78 100 Nasal Cannula 2.0 07/25/16 16:00 36.8 89 20 171/80 100 Nasal Cannula 2.0 07/25/16 16:00 100 Nasal Cannula 2.0 07/25/16 14:11 88 19 97 07/25/16 14:02 91 18 159/68 97 07/25/16 14:00 36.4 72 18 159/68 100 Nasal Cannula 2.0 07/25/16 13:56 98 19 98 07/25/16 13:47 91 18 157/70 98 07/25/16 13:41 85 18 97 07/25/16 13:32 85 18 162/72 98 4/26/17 13:26 94 17 97 07/25/16 13:17 96 21 154/76 95 07/25/16 13:11 87 19 97 07/25/16 13:02 83 19 162/72 97 07/25/16 12:56 80 19 96 07/25/16 12:47 100 16 168/84 97 07/25/16 12:41 73 20 97 07/25/16 12:32 78 23 170/77 97 07/25/16 12:30 74 19 168/82 97 07/25/16 12:26 100 Nasal Cannula 2.0 07/25/16 12:26 36.3 72 18 170/77 100 Nasal Cannula 2.0 07/25/16 12:00 36.4 75 18 165/76 100 Nasal Cannula 2 07/25/16 11:45 73 18 161/74 99 Nasal Cannula 2 07/25/16 11:30 88 18 157/77 99 Nasal Cannula 2 07/25/16 11:20 36.4 64 18 170/74 99 Nasal Cannula 2 07/25/16 11:10 65 18 166/73 100 Nasal Cannula 2 07/25/16 11:00 68 18 165/76 100 Mask 10 07/25/16 10:50 72 18 163/76 100 Mask 10 07/25/16 10:42 37.0 80 18 176/77 100 Mask 10 Physical Exam General Appearance: WD/WN, no apparent distress (resting supine, moving well in bed) ENT: hearing grossly normal Neck: supple Respiratory/Chest: normal breath sounds, no respiratory distress, no accessory muscle use Cardiovascular: no edema (SCD's in place) Abdomen: non tender, soft (Largely obscured by ABD pads and tape of dressing, which is c/d/i.) Extremities: non-tender Neurologic/Psychiatric: alert, normal mood/affect Skin: normal color Comments: Kilpatrick in place Laboratory Results Last 24 Hours Test 07/25/16 11:08 07/25/16 17:20 07/26/16 05:12 07/26/16 05:20 White Blood Count 4.96 K/uL 8.98 K/uL Red Blood Count 3.69 M/uL 3.70 M/uL Hemoglobin 10.0 g/dL 10.6 g/dL 10.2 g/dL Hematocrit 31.4 % 32.5 % 31.5 % Mean Corpuscular Volume 85.1 fL 85.1 fL Mean Corpuscular Hemoglobin 27.1 pg 27.6 pg Mean Corpuscular Hemoglobin Concent 31.8 g/dl 32.4 g/dl RDW Standard Deviation 47.6 fL 46.5 fL RDW Coefficient of Variation 15.1 % 15.1 % Platelet Count 89 K/uL 138 K/uL Mean Platelet Volume 8.1 fL 9.0 fL Sodium Level 143 mmol/L 139 mmol/L Potassium Level 4.0 mmol/L 4.4 mmol/L Chloride Level 112 mmol/L 109 mmol/L Carbon Dioxide Level 24 mmol/L 26 mmol/L Anion Gap 7.0 mmol/L 4.0 mmol/L Blood Urea Nitrogen 5 mg/dl 8 mg/dl Creatinine 0.72 mg/dl 0.78 mg/dl Est Creatinine Clear Calc Drug Dose 55.4 ml/min 51.1 ml/min Estimated GFR () 89.8 81.5 Estimated GFR (Non- 77.4 70.3 BUN/Creatinine Ratio 7.4 9.7 Random Glucose 130 mg/dl 130 mg/dl Calcium Level 8.6 mg/dl 8.6 mg/dl Phosphorus Level 2.7 mg/dl Magnesium Level 1.8 mg/dl Assessment and Plan POD#1 from DEE/BSO during laparotomy for colectomy with Dr. Marshall. Patient informed this morning of my intraoperative findings and the decision to remove both ovaries and uterus. She is aware I do not have final pathology to share yet. Appears to have well-controlled pain, incisional dressing intact and dry, and appetite is present. Postoperative management of diet, activity, drains, etc will be per primary surgical team and would not require specific adjustments from the standpoint of the DEE/BSO portion of her procedure. We will sign off of her care at this point and remain available if any further assistance is needed.
[2016-07-26] MEDS ORDERED: METOPROLOL TARTRATE 1 MG/ML VIAL IV STA (08:28)
[2016-07-26] MEDS: HEPARIN SOD 5000 UNIT/0.5 ML CARP SQ SCH ×2 (09:54→19:43)
--- NOTE | 2016-07-26 10:14 | Critical Care Progress Note ---
Critical Care Progress Note Date of Service Jul 26, 2016. Attending Subjective I spoke with Dr. Marshall. Surgery went well. Preoperatively required beta edwar. Given the NPO status will dose with Metoprolol. Pain control is good. PT/OT consults to implement. Assessment & Plan (1) HTN (hypertension) Metoprolol 5mg IV every 4 (2) Colonic mass (3) Lesion of liver (4) Lesion of uterus (5) Left pulmonary lesion (6) Anemia (7) GI bleed Consults & Procedures Consultants: none Procedures: none Data Medications: Current Inpatient Medications Medications (Trade) Dose Ordered Sig/Gladis Route Start Time Stop Time Status Last Admin Dose Admin Acetaminophen 100 ml @ 400 mls/hr Q8H PRN IV 07/22/16 00:15 08/21/16 00:14 07/26/16 09:07 400 MLS/HR Pantoprazole Sodium/Syringe (Protonix Inj/ Syringe) 10 ml @ 5 mls/min DAILY@11 IV 07/22/16 11:00 08/21/16 10:59 07/25/16 12:42 5 MLS/MIN Miscellaneous (Iv Fluids Completed) 1 ea PRN PRN N/A 07/22/16 01:00 07/22/17 00:59 Ioversol 100 ml 100 ml UD PRN IV 07/23/16 17:45 07/27/16 17:44 Cefoxitin Sodium 1000 mg/Dextrose 60 ml @ 100 mls/hr Q8 IV 07/25/16 14:00 08/04/16 13:59 07/26/16 05:45 100 MLS/HR Potassium Chloride/Dextrose/ Sod Cl (D5W And 1/2nss + 20meq KCl) 1,000 ml @ 100 mls/hr Q10H IV 07/25/16 12:00 08/24/16 11:59 07/26/16 05:10 125 MLS/HR Hydromorphone HCl (Dilaudid Inj) 0.5 mg Q3H PRN IV 07/25/16 10:45 08/08/16 10:44 07/26/16 02:55 0.5 MG Hydromorphone HCl (Dilaudid Inj) 1 mg Q3H PRN IV 07/25/16 10:45 08/08/16 10:44 4/26/17 18:54 1 MG Ondansetron HCl (Zofran Inj) 4 mg Q6H PRN IV 07/25/16 10:45 08/24/16 10:44 07/26/16 02:55 4 MG Heparin Sodium (Porcine) (Heparin Sq 5000 Unit/0.5ml) 5,000 unit Q12H SQ 07/26/16 08:00 08/25/16 07:59 07/26/16 09:54 5,000 UNIT Metoprolol Tartrate (Lopressor Iv) 5 mg Q4 IV. 07/26/16 12:00 08/25/16 11:59 I & O: 24-Hour Column 07/26/16 08:00 Intake Total 4727 ml Output Total 2255 ml Balance 2472 ml Vital Signs: Date Time Temp Pulse Resp B/P Pulse Ox O2 Delivery O2 Flow Rate FiO2 07/26/16 09:36 108 140/69 07/26/16 06:00 37.2 114 14 144/90 96 Nasal Cannula 2.0 07/26/16 04:00 Nasal Cannula 2.0 07/26/16 04:00 37.1 116 23 123/54 97 Nasal Cannula 2.0 07/26/16 01:55 36.8 110 17 153/73 96 Nasal Cannula 2.0 07/26/16 01:00 112 19 157/70 96 Nasal Cannula 2.0 07/26/16 00:00 Nasal Cannula 2.0 07/26/16 00:00 36.8 114 22 137/61 96 Nasal Cannula 2.0 07/25/16 23:00 112 19 114/55 95 Nasal Cannula 2.0 07/25/16 22:00 114 16 115/54 97 Nasal Cannula 2.0 07/25/16 20:00 100 Nasal Cannula 2.0 07/25/16 20:00 37.0 102 16 132/57 100 Nasal Cannula 2.0 07/25/16 18:00 106 18 170/78 100 Nasal Cannula 2.0 07/25/16 16:00 36.8 89 20 171/80 100 Nasal Cannula 2.0 07/25/16 16:00 100 Nasal Cannula 2.0 07/25/16 14:11 88 19 97 07/25/16 14:02 91 18 159/68 97 07/25/16 14:00 36.4 72 18 159/68 100 Nasal Cannula 2.0 07/25/16 13:56 98 19 98 07/25/16 13:47 91 18 157/70 98 07/25/16 13:41 85 18 97 07/25/16 13:32 85 18 162/72 98 07/25/16 13:26 94 17 97 07/25/16 13:17 96 21 154/76 95 07/25/16 13:11 87 19 97 07/25/16 13:02 83 19 162/72 97 07/25/16 12:56 80 19 96 07/25/16 12:47 100 16 168/84 97 07/25/16 12:41 73 20 97 07/25/16 12:32 78 23 170/77 97 07/25/16 12:30 74 19 168/82 97 07/25/16 12:26 100 Nasal Cannula 2.0 07/25/16 12:26 36.3 72 18 170/77 100 Nasal Cannula 2.0 07/25/16 12:00 36.4 75 18 165/76 100 Nasal Cannula 2 07/25/16 11:45 73 18 161/74 99 Nasal Cannula 2 07/25/16 11:30 88 18 157/77 99 Nasal Cannula 2 07/25/16 11:20 36.4 64 18 170/74 99 Nasal Cannula 2 07/25/16 11:10 65 18 166/73 100 Nasal Cannula 2 07/25/16 11:00 68 18 165/76 100 Mask 10 07/25/16 10:50 72 18 163/76 100 Mask 10 07/25/16 10:42 37.0 80 18 176/77 100 Mask 10 Laboratory Results: Last 24 Hours Test 07/25/16 11:08 07/25/16 17:20 07/26/16 05:12 07/26/16 05:20 White Blood Count 4.96 K/uL 8.98 K/uL Red Blood Count 3.69 M/uL 3.70 M/uL Hemoglobin 10.0 g/dL 10.6 g/dL 10.2 g/dL Hematocrit 31.4 % 32.5 % 31.5 % Mean Corpuscular Volume 85.1 fL 85.1 fL Mean Corpuscular Hemoglobin 27.1 pg 27.6 pg Mean Corpuscular Hemoglobin Concent 31.8 g/dl 32.4 g/dl RDW Standard Deviation 47.6 fL 46.5 fL RDW Coefficient of Variation 15.1 % 15.1 % Platelet Count 89 K/uL 138 K/uL Mean Platelet Volume 8.1 fL 9.0 fL Sodium Level 143 mmol/L 139 mmol/L Potassium Level 4.0 mmol/L 4.4 mmol/L Chloride Level 112 mmol/L 109 mmol/L Carbon Dioxide Level 24 mmol/L 26 mmol/L Anion Gap 7.0 mmol/L 4.0 mmol/L Blood Urea Nitrogen 5 mg/dl 8 mg/dl Creatinine 0.72 mg/dl 0.78 mg/dl Est Creatinine Clear Calc Drug Dose 55.4 ml/min 51.1 ml/min Estimated GFR () 89.8 81.5 Estimated GFR (Non- 77.4 70.3 BUN/Creatinine Ratio 7.4 9.7 Random Glucose 130 mg/dl 130 mg/dl Calcium Level 8.6 mg/dl 8.6 mg/dl Phosphorus Level 2.7 mg/dl Magnesium Level 1.8 mg/dl
[2016-07-26] MEDS: PANTOprazole INJ 40 MG in SYRINGE 0 ML IV SCH (12:32)
[2016-07-26] MEDS: METOPROLOL TARTRATE 1 MG/ML VIAL IV. SCH ×3 (13:41→19:32)
--- NOTE | 2016-07-26 13:55 | Progress Note ---
Subjective Date of Service: Jul 26, 2016. Subjective Pt evaluation today including: conversation w/ patient, chart review, lab review Voiding: kilpatrick catheter in place (patent, draining yellow urine) 81 yo female s/p colon resection and TAHBSO. Bilateral ureteral stents placed by Dr. Marquez during the procedure. Removed at the end of the case. Kilpatrick draining yellow urine this morning. Pt denies pain, and reports she feels well this afternoon. Problem List Medical Problems: (1) GI bleed Status: Acute Review of Systems Constitutional: No chills, No fever Respiratory: No shortness of breath Cardiac: No chest pain Abdomen: No nausea, No pain, No vomiting Female : No hematuria Heme: No abnormal bleeding/bruising Objective Vital Signs Date Time Temp Pulse Resp B/P Pulse Ox O2 Delivery O2 Flow Rate FiO2 07/26/16 13:41 101 128/71 07/26/16 12:00 Room Air 07/26/16 10:00 95 21 135/63 95 Room Air 07/26/16 09:36 108 140/69 07/26/16 08:00 Nasal Cannula 2.0 07/26/16 08:00 36.8 102 16 139/68 98 Nasal Cannula 2.0 07/26/16 06:00 37.2 114 14 144/90 96 Nasal Cannula 2.0 07/26/16 04:00 Nasal Cannula 2.0 07/26/16 04:00 37.1 116 23 123/54 97 Nasal Cannula 2.0 07/26/16 01:55 36.8 110 17 153/73 96 Nasal Cannula 2.0 07/26/16 01:00 112 19 157/70 96 Nasal Cannula 2.0 07/26/16 00:00 Nasal Cannula 2.0 07/26/16 00:00 36.8 114 22 137/61 96 Nasal Cannula 2.0 07/25/16 23:00 112 19 114/55 95 Nasal Cannula 2.0 07/25/16 22:00 114 16 115/54 97 Nasal Cannula 2.0 07/25/16 20:00 100 Nasal Cannula 2.0 07/25/16 20:00 37.0 102 16 132/57 100 Nasal Cannula 2.0 07/25/16 18:00 106 18 170/78 100 Nasal Cannula 2.0 07/25/16 16:00 36.8 89 20 171/80 100 Nasal Cannula 2.0 07/25/16 16:00 100 Nasal Cannula 2.0 07/25/16 14:11 88 19 97 07/25/16 14:02 91 18 159/68 97 07/25/16 14:00 36.4 72 18 159/68 100 Nasal Cannula 2.0 07/25/16 13:56 98 19 98 Physical Exam General Appearance: no apparent distress Eyes: normal inspection ENT: hearing grossly normal Neck: no JVD Respiratory/Chest: no respiratory distress, no accessory muscle use Cardiovascular: no JVD Abdomen: + pertinent finding (abdominal incisions c/d/i; BEVERLY draining sanguinous fluid) Extremities: normal inspection Neurologic/Psychiatric: alert, normal mood/affect, oriented x 3 Skin: normal color Laboratory Results Last 24 Hours Test 07/25/16 17:20 07/26/16 05:12 07/26/16 05:20 Hemoglobin 10.6 g/dL 10.2 g/dL Hematocrit 32.5 % 31.5 % Sodium Level 139 mmol/L Potassium Level 4.4 mmol/L Chloride Level 109 mmol/L Carbon Dioxide Level 26 mmol/L Anion Gap 4.0 mmol/L Blood Urea Nitrogen 8 mg/dl Creatinine 0.78 mg/dl Est Creatinine Clear Calc Drug Dose 51.1 ml/min Estimated GFR () 81.5 Estimated GFR (Non- 70.3 BUN/Creatinine Ratio 9.7 Random Glucose 130 mg/dl Calcium Level 8.6 mg/dl Phosphorus Level 2.7 mg/dl Magnesium Level 1.8 mg/dl White Blood Count 8.98 K/uL Red Blood Count 3.70 M/uL Mean Corpuscular Volume 85.1 fL Mean Corpuscular Hemoglobin 27.6 pg Mean Corpuscular Hemoglobin Concent 32.4 g/dl RDW Standard Deviation 46.5 fL RDW Coefficient of Variation 15.1 % Platelet Count 138 K/uL Mean Platelet Volume 9.0 fL Assessment and Plan POD #1 s/p colon resection with TAHBSO and bilateral ureteral stent placement AFVSS. Stents removed at end of procedure. No further management at this time. Trial of void per primary service. Will sign off for now. Recall PRN issues. Thanks for allowing us to participate in this pt's care.
--- NOTE | 2016-07-26 16:47 | Hospitalist Progress Note ---
Hospitalist Progress Note Date of Service Jul 26, 2016. Subjective Pt evaluation today including: conversation w/ patient, physical exam, chart review Doing fairly well. No CP or SOB. Started on ice chips by Gen.Surg Objective Vital Signs Date Time Temp Pulse Resp B/P Pulse Ox O2 Delivery O2 Flow Rate FiO2 07/26/16 16:27 102 156/67 07/26/16 14:00 88 18 147/67 94 Room Air 07/26/16 13:41 101 128/71 07/26/16 12:00 36.7 96 19 163/75 97 Room Air 07/26/16 12:00 Room Air 07/26/16 10:00 95 21 135/63 95 Room Air 07/26/16 09:36 108 140/69 07/26/16 08:00 Nasal Cannula 2.0 07/26/16 08:00 36.8 102 16 139/68 98 Nasal Cannula 2.0 07/26/16 06:00 37.2 114 14 144/90 96 Nasal Cannula 2.0 07/26/16 04:00 Nasal Cannula 2.0 07/26/16 04:00 37.1 116 23 123/54 97 Nasal Cannula 2.0 07/26/16 01:55 36.8 110 17 153/73 96 Nasal Cannula 2.0 07/26/16 01:00 112 19 157/70 96 Nasal Cannula 2.0 07/26/16 00:00 Nasal Cannula 2.0 07/26/16 00:00 36.8 114 22 137/61 96 Nasal Cannula 2.0 07/25/16 23:00 112 19 114/55 95 Nasal Cannula 2.0 07/25/16 22:00 114 16 115/54 97 Nasal Cannula 2.0 07/25/16 20:00 100 Nasal Cannula 2.0 07/25/16 20:00 37.0 102 16 132/57 100 Nasal Cannula 2.0 07/25/16 18:00 106 18 170/78 100 Nasal Cannula 2.0 Physical Exam General Appearance: WD/WN Eyes: normal inspection ENT: normal ENT inspection Neck: supple Respiratory/Chest: chest non-tender, normal breath sounds Cardiovascular: regular rate, rhythm, no edema, + systolic murmur Abdomen: normal bowel sounds, soft, + pertinent finding (Incision in dressing. 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, normal mood/affect, oriented x 3 Skin: normal color Laboratory Results Last 24 Hours Test 07/25/16 17:20 07/26/16 05:12 07/26/16 05:20 Hemoglobin 10.6 g/dL 10.2 g/dL Hematocrit 32.5 % 31.5 % Sodium Level 139 mmol/L Potassium Level 4.4 mmol/L Chloride Level 109 mmol/L Carbon Dioxide Level 26 mmol/L Anion Gap 4.0 mmol/L Blood Urea Nitrogen 8 mg/dl Creatinine 0.78 mg/dl Est Creatinine Clear Calc Drug Dose 51.1 ml/min Estimated GFR () 81.5 Estimated GFR (Non- 70.3 BUN/Creatinine Ratio 9.7 Random Glucose 130 mg/dl Calcium Level 8.6 mg/dl Phosphorus Level 2.7 mg/dl Magnesium Level 1.8 mg/dl White Blood Count 8.98 K/uL Red Blood Count 3.70 M/uL Mean Corpuscular Volume 85.1 fL Mean Corpuscular Hemoglobin 27.6 pg Mean Corpuscular Hemoglobin Concent 32.4 g/dl RDW Standard Deviation 46.5 fL RDW Coefficient of Variation 15.1 % Platelet Count 138 K/uL Mean Platelet Volume 9.0 fL Assessment and Plan Rectal bleeding with known history of hemorrhoids/anemia/colonic mass: s/p laparotomy, rectosigmoid resection with colorectal anastomosis pod#1 pelvic washings DEE/BSO- Dr Seals also stent placement- Dr Marquez Doing fairly well post op. Appreciate GI, Oncology and Surgery input. Await pathology report acute blood loss anemia, hgb improved s/p prbc transfusion Hypertension-- was on metoprolol tartrate 50 mg by mouth twice a day with hold parameters.Will switch to IV lopressor while Npo. Hypernatremia-- Improved serum sodium.
[2016-07-27] MEDS: D5W AND 1/2NSS + 20MEQ KCL 1,000 ML IV SCH ×3 (00:05→20:29)
[2016-07-27] MEDS: METOPROLOL TARTRATE 1 MG/ML VIAL IV. SCH ×7 (00:06→23:43)
[2016-07-27] MEDS: HYDROmorphone INJ 0.5 MG/0.5 ML SYR IV PRN ×3 (02:58→20:28)
[2016-07-27 03:07] VITALS: BP 149/72; PULSE 85; TEMP 36.8; O2SAT 95
[2016-07-27 05:19] LABS: HEMATOCRIT 28.9 % (37-47); MEAN CELL VOLUME 86.5 fL (80-100); MEAN CORPUSCULAR HEMOGLOBIN 27.2 pg (25-34); MEAN CORPUSCULAR HGB CONC 31.5 g/dl (32-36); RED BLOOD COUNT 3.34 M/uL (4.2-5.4); WHITE BLOOD COUNT 4.64 K/uL (4.8-10.8)
[2016-07-27] MEDS: CEFOXITIN IV 1,000 MG in DEXTROSE 5% 50ML 50 ML IV SCH ×3 (05:39→21:48)
[2016-07-27 05:49] LABS: BUN/CREATININE RATIO 9.3 (10-20); CALCIUM 8.5 mg/dl (8.5-10.1); CREATININE 0.67 mg/dl (0.60-1.20); MAGNESIUM 2.1 mg/dl (1.8-2.4)
[2016-07-27 05:53] LABS: MEAN PLATELET VOLUME 8.9 fL (7.4-10.4); PLATELET COUNT 109 K/uL (130-400); PLT ESTIMATE NORMAL
[2016-07-27 05:57] LABS: PHOSPHORUS 1.6 mg/dl (2.5-4.9)
--- NOTE | 2016-07-27 06:08 | Surgery Progress Note ---
Surgery Progress Note Date of Service Jul 27, 2016. Subjective No bowel movement, No flatus, No nausea, No vomiting alert, no acute chgs- HR- mild tachy-receiving IV betablocker expected drop in H/H Objective Vital Signs: Date Time Temp Pulse Resp B/P Pulse Ox O2 Delivery O2 Flow Rate FiO2 07/27/16 04:00 Room Air 07/27/16 03:07 36.8 85 20 149/72 95 Room Air 07/27/16 00:01 Room Air 07/26/16 23:58 36.8 101 18 168/80 96 Room Air 07/26/16 20:00 Room Air 07/26/16 19:32 112 153/72 07/26/16 19:00 37.1 105 18 168/73 93 Room Air 07/26/16 16:27 102 156/67 07/26/16 16:15 Room Air 07/26/16 16:00 36.7 96 18 156/67 96 Room Air 07/26/16 14:00 88 18 147/67 94 Room Air 07/26/16 13:41 101 128/71 07/26/16 12:00 36.7 96 19 163/75 97 Room Air 07/26/16 12:00 Room Air 07/26/16 10:00 95 21 135/63 95 Room Air 07/26/16 09:36 108 140/69 07/26/16 08:00 Nasal Cannula 2.0 07/26/16 08:00 36.8 102 16 139/68 98 Nasal Cannula 2.0 General Appearance: no apparent distress Respiratory/Chest: no respiratory distress Abdomen: + distended (softer, some bowel sounds) Incision(s): intact, drainage (serosang BEVERLY output) Laboratory Results: Results Past 24 Hours Test 07/26/16 18:08 07/27/16 05:00 Range/Units Bedside Glucose 117 70-90 mg/dl White Blood Count 4.64 4.8-10.8 K/uL Red Blood Count 3.34 4.2-5.4 M/uL Hemoglobin 9.1 12.0-16.0 g/dL Hematocrit 28.9 37-47 % Mean Corpuscular Volume 86.5 80-100 fL Mean Corpuscular Hemoglobin 27.2 25-34 pg Mean Corpuscular Hemoglobin Concent 31.5 32-36 g/dl RDW Standard Deviation 47.2 36.4-46.3 fL RDW Coefficient of Variation 15.1 11.5-14.5 % Platelet Count 109 130-400 K/uL Mean Platelet Volume 8.9 7.4-10.4 fL Platelet Estimate NORMAL Sodium Level 140 136-145 mmol/L Potassium Level 4.0 3.5-5.1 mmol/L Chloride Level 108 98-107 mmol/L Carbon Dioxide Level 28 21-32 mmol/L Anion Gap 4.0 3-11 mmol/L Blood Urea Nitrogen 6 7-18 mg/dl Creatinine 0.67 0.60-1.20 mg/dl Est Creatinine Clear Calc Drug Dose 57.5 ml/min Estimated GFR () 94.2 Estimated GFR (Non- 81.3 BUN/Creatinine Ratio 9.3 10-20 Random Glucose 133 70-99 mg/dl Calcium Level 8.5 8.5-10.1 mg/dl Phosphorus Level 1.6 2.5-4.9 mg/dl Magnesium Level 2.1 1.8-2.4 mg/dl Assessment & Plan 07/27/16- overall stable, cont PCU status- monitor HR, H/H may drift down over weekend- may need 1-2 u RBCs- will monitor. Cont ice only today- possible sips tomorrow. Leave kilpatrick for now. mobilize 07/26/16- s/p laparotomy, rectosigmoid resection, DEE/BSO- pt is tachy- check H/H - clinically doesn't appear to be acutely bleeding- alert, extrem warm, good urine output pt normally on Beta blockers. pts H/H may drift down and she may need 1-2 u RBCs H/H stable, HR now 97, monitor for now , may be related to pt normally on Metoprolol will leave addn of IV med to med/ICU team PT 07/25/16- for OR this am- colon resection, possible oophorectomy. 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 Possible liver mets and to ovary. Lung mass could be primary vs met. Will ask other services to see pt. Colon operation is not an emergency, tentatively on schedule for tomorrow. Would plan for ureteral stents at operation 07/26/16- s/p laparotomy, rectosigmoid resection, DEE/BSO- pt is tachy- check H/H - clinically doesn't appear to be acutely bleeding- alert, extrem warm, good urine output pt normally on Beta blockers. pts H/H may drift down and she may need 1-2 u RBCs H/H stable, HR now 97, monitor for now , may be related to pt normally on Metoprolol will leave addn of IV med to med/ICU team PT 07/25/16- for OR this am- colon resection, possible oophorectomy. 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 Possible liver mets and to ovary. Lung mass could be primary vs met. Will ask other services to see pt. Colon operation is not an emergency, tentatively on schedule for tomorrow. Would plan for ureteral stents at operation
[2016-07-27] MEDS ORDERED: SODIUM PHOSPHATE INJ 15 MMOL in SODIUM CHLORIDE 0.9% 250ML 250 ML IV ONE (06:30)
[2016-07-27] MEDS: HEPARIN SOD 5000 UNIT/0.5 ML CARP SQ SCH ×2 (07:33→20:30)
[2016-07-27 07:36] VITALS: BP 148/66; PULSE 96; TEMP 36.8; O2SAT 96
[2016-07-27] MEDS: ONDANSETRON INJ 2 MG/ML 2 ML VIAL IV PRN ×2 (07:50→20:28)
[2016-07-27] MEDS: PANTOprazole INJ 40 MG in SYRINGE 0 ML IV SCH (10:31)
[2016-07-27 11:25] VITALS: BP 166/78; PULSE 108; TEMP 36.9; O2SAT 93
--- NOTE | 2016-07-27 13:59 | Hospitalist Progress Note ---
Hospitalist Progress Note Date of Service Jul 27, 2016. Subjective Pt evaluation today including: conversation w/ patient, physical exam, chart review Doing OK. No fever;chills. On IVFs. Medications Medications (Trade) Dose Ordered Sig/Gladis Route Start Time Stop Time Status Last Admin Dose Admin Metoprolol Tartrate 5 mg 5 mg Q4 IV. 07/26/16 12:00 08/25/16 11:59 07/27/16 07:33 5 MG Sodium Phosphate/ Sodium Chloride (Sodium Phosphate Inj/Nss 250ml) 255 ml @ 100 mls/hr TODAY@0630 ONCE IV 07/27/16 06:30 07/27/16 09:02 07/27/16 07:31 100 MLS/HR Objective Vital Signs Date Time Temp Pulse Resp B/P Pulse Ox O2 Delivery O2 Flow Rate FiO2 07/27/16 07:36 36.8 96 18 148/66 96 Room Air 07/27/16 07:33 102 07/27/16 04:00 Room Air 07/27/16 03:07 36.8 85 20 149/72 95 Room Air 07/27/16 00:01 Room Air 07/26/16 23:58 36.8 101 18 168/80 96 Room Air 07/26/16 20:00 Room Air 07/26/16 19:32 112 153/72 07/26/16 19:00 37.1 105 18 168/73 93 Room Air 07/26/16 16:27 102 156/67 07/26/16 16:15 Room Air 07/26/16 16:00 36.7 96 18 156/67 96 Room Air 07/26/16 14:00 88 18 147/67 94 Room Air 07/26/16 13:41 101 128/71 07/26/16 12:00 36.7 96 19 163/75 97 Room Air 07/26/16 12:00 Room Air 07/26/16 10:00 95 21 135/63 95 Room Air 07/26/16 09:36 108 140/69 Physical Exam General Appearance: WD/WN Eyes: normal inspection ENT: normal ENT inspection Neck: supple Respiratory/Chest: chest non-tender, normal breath sounds Cardiovascular: regular rate, rhythm, no edema, no murmur Abdomen: normal bowel sounds, non tender, soft, + pertinent finding (dressing over incision site in the lower abdomen) 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, alert, oriented x 3 Skin: + pallor Laboratory Results Last 24 Hours Test 07/26/16 18:08 07/27/16 05:00 Bedside Glucose 117 mg/dl White Blood Count 4.64 K/uL Red Blood Count 3.34 M/uL Hemoglobin 9.1 g/dL Hematocrit 28.9 % Mean Corpuscular Volume 86.5 fL Mean Corpuscular Hemoglobin 27.2 pg Mean Corpuscular Hemoglobin Concent 31.5 g/dl RDW Standard Deviation 47.2 fL RDW Coefficient of Variation 15.1 % Platelet Count 109 K/uL Mean Platelet Volume 8.9 fL Platelet Estimate NORMAL Sodium Level 140 mmol/L Potassium Level 4.0 mmol/L Chloride Level 108 mmol/L Carbon Dioxide Level 28 mmol/L Anion Gap 4.0 mmol/L Blood Urea Nitrogen 6 mg/dl Creatinine 0.67 mg/dl Est Creatinine Clear Calc Drug Dose 57.5 ml/min Estimated GFR () 94.2 Estimated GFR (Non- 81.3 BUN/Creatinine Ratio 9.3 Random Glucose 133 mg/dl Calcium Level 8.5 mg/dl Phosphorus Level 1.6 mg/dl Magnesium Level 2.1 mg/dl Assessment and Plan Rectal bleeding with known history of hemorrhoids/anemia/colonic mass: s/p laparotomy, rectosigmoid resection with colorectal anastomosis pod#1 pelvic washings DEE/BSO- Dr Seals also stent placement- Dr Marquez Doing fairly well post op. Advance diet per Surgical recommendations Appreciate GI, Oncology and Surgery input. Await pathology report acute blood loss anemia, hgb improved s/p prbc transfusion Hypertension-- was on metoprolol tartrate 50 mg by mouth twice a day with hold parameters.Will switch to IV lopressor while Npo. Hypernatremia-- Improved serum sodium.
[2016-07-27 15:21] VITALS: BP 148/71; PULSE 93; TEMP 36.9; O2SAT 96
[2016-07-27 19:27] VITALS: BP 172/76; PULSE 96; TEMP 36.7; O2SAT 96
[2016-07-27 23:41] VITALS: BP 173/71; PULSE 95; TEMP 36.7; O2SAT 97
[2016-07-28] VITALS (7 sets, daily range): BP systolic 139–164; BP diastolic 70–87; PULSE 85–112; TEMP 36.6–36.8; O2SAT 93–99
[2016-07-28] MEDS: METOPROLOL TARTRATE 1 MG/ML VIAL IV. SCH ×5 (04:15→19:37)
[2016-07-28 05:20] LABS: HEMATOCRIT 28.5 % (37-47); MEAN CELL VOLUME 86.4 fL (80-100); MEAN CORPUSCULAR HEMOGLOBIN 27.6 pg (25-34); MEAN CORPUSCULAR HGB CONC 31.9 g/dl (32-36); MEAN PLATELET VOLUME 8.2 fL (7.4-10.4); PLATELET COUNT 101 K/uL (130-400); WHITE BLOOD COUNT 3.63 K/uL (4.8-10.8)
[2016-07-28 05:38] LABS: BUN/CREATININE RATIO 7.3 (10-20); CALCIUM 8.8 mg/dl (8.5-10.1); CREATININE 0.68 mg/dl (0.60-1.20); MAGNESIUM 2.1 mg/dl (1.8-2.4); POTASSIUM 4.1 mmol/L (3.5-5.1)
[2016-07-28] MEDS: CEFOXITIN IV 1,000 MG in DEXTROSE 5% 50ML 50 ML IV SCH ×3 (06:04→22:38)
[2016-07-28] MEDS: D5W AND 1/2NSS + 20MEQ KCL 1,000 ML IV SCH ×2 (06:05→17:17)
[2016-07-28] MEDS: HEPARIN SOD 5000 UNIT/0.5 ML CARP SQ SCH ×2 (08:18→19:38)
[2016-07-28] MEDS: HYDROmorphone INJ 0.5 MG/0.5 ML SYR IV PRN (08:28)
--- NOTE | 2016-07-28 09:02 | SURGERY PROGRESS NOTE ---
DATE: 07/28/2016 COVERING FOR: Dr. Marshall. Sofiya is third postoperative day of sigmoid resection, total abdominal hysterectomy, and bilateral salpingo-oophorectomy. Overall, she is saying that she is feeling comfortable in no acute distress. Her last temperature showed a 36.8, pulse 85, respirations 18, blood pressure 148/75 and O2 sats 98%. She has been up and around and does not feel lightheaded. Her I\T\O; she had 925 urine overnight, 3 liters yesterday. Laboratory [place], her hemoglobin is stable at 9.1, WBC is 3.63. BUN is 5, creatinine 0.68. The abdomen is softly distended, it is nontender. The dressing is dry. The Jayesh drainage had 20 mL of serosanguineous. At this point, we will go slow with oral intake, increase her activity and leave with the medical service as far as transferring her to the floor at their discretion.
--- NOTE | 2016-07-28 11:29 | Hematology/Oncology Prog Note ---
Hematology/Onc Progress Note Date of Service Jul 28, 2016. Diagnoses Colon adenocarcinoma CT evidence of possible liver and lung metastases Medications Medications Administered Medications (Trade) Dose Ordered Sig/Gladis Route Start Time Stop Time Status Last Admin Dose Admin Ondansetron HCl 4 mg 4 mg Q6H PRN IV 07/22/16 00:15 07/25/16 15:22 DC 07/25/16 12:48 4 MG Acetaminophen 100 ml @ 400 mls/hr Q8H PRN IV 07/22/16 00:15 08/21/16 00:14 07/26/16 09:07 400 MLS/HR Pantoprazole Sodium/Syringe (Protonix Inj/ Syringe) 10 ml @ 5 mls/min DAILY@11 IV 07/22/16 11:00 08/21/16 10:59 07/27/16 10:31 5 MLS/MIN Metoprolol Tartrate 50 mg 50 mg BID PO 07/22/16 09:00 07/25/16 10:47 DC 07/24/16 21:51 50 MG Potassium Chloride/Sodium Chloride (1/2 Nss + 20meq KCl 1000ml) 1,000 ml @ 50 mls/hr Q20H IV 07/22/16 01:45 07/25/16 10:47 DC 07/24/16 21:54 50 MLS/HR Polyethylene Glycol/ Electrolytes (Golytely Soln) 1 dose Q15M PO 07/22/16 14:30 07/22/16 17:00 DC 07/22/16 16:40 1 DOSE Neomycin Sulfate (Neomycin Sulfate Tab) 500 mg TID@1300,1400,2200 PO 07/24/16 13:00 07/24/16 23:59 DC 07/24/16 21:51 500 MG Erythromycin Ethylsuccinate 400 mg 400 mg TID@1300,1400,2200 PO 07/24/16 13:00 07/24/16 23:59 DC 07/24/16 21:51 400 MG Cefoxitin Sodium/ Dextrose (Mefoxin IV/D5 50ml) 60 ml @ 100 mls/hr Q8 IV 07/24/16 14:00 07/25/16 13:59 DC 07/25/16 05:22 100 MLS/HR Iothalamate Meglumine (Conray 30%) 150 ml STK-MED ONCE .ROUTE 07/25/16 06:59 07/25/16 07:00 DC 07/25/16 07:36 16 ML Cefoxitin Sodium 2000 mg 2,000 mg STK-MED ONCE .ROUTE 07/25/16 06:59 07/25/16 07:00 DC 07/25/16 10:00 2,000 MG Cefoxitin Sodium 1000 mg/Dextrose 60 ml @ 100 mls/hr Q8 IV 07/25/16 14:00 08/04/16 13:59 07/28/16 06:04 100 MLS/HR Potassium Chloride/Dextrose/ Sod Cl (D5W And 1/2nss + 20meq KCl) 1,000 ml @ 100 mls/hr Q10H IV 07/25/16 12:00 08/24/16 11:59 07/28/16 06:05 100 MLS/HR Hydromorphone HCl (Dilaudid Inj) 0.5 mg Q3H PRN IV 07/25/16 10:45 08/08/16 10:44 07/28/16 08:28 0.5 MG Hydromorphone HCl (Dilaudid Inj) 1 mg Q3H PRN IV 07/25/16 10:45 08/08/16 10:44 07/25/16 18:54 1 MG Ondansetron HCl (Zofran Inj) 4 mg Q6H PRN IV 07/25/16 10:45 08/24/16 10:44 07/27/16 20:28 4 MG Heparin Sodium (Porcine) (Heparin Sq 5000 Unit/0.5ml) 5,000 unit Q12H SQ 07/26/16 08:00 08/25/16 07:59 07/28/16 08:18 5,000 UNIT Metoprolol Tartrate (Lopressor Iv) 5 mg Q4 IV. 07/26/16 12:00 08/25/16 11:59 07/28/16 08:18 5 MG Metoprolol Tartrate 5 mg 5 mg NOW STAT IV 07/26/16 08:28 07/26/16 08:29 DC 07/26/16 09:36 5 MG Sodium Phosphate/ Sodium Chloride (Sodium Phosphate Inj/Nss 250ml) 255 ml @ 100 mls/hr TODAY@0630 ONCE IV 07/27/16 06:30 07/27/16 09:02 DC 07/27/16 07:31 100 MLS/HR Subjective Ms. Israel is resting comfortably today. She has no pain or other complaints. Review of Systems: Constitutional: No chills, No fever Respiratory: No cough, No hemoptysis Cardiovascular: No chest pain Abdomen: No nausea, No pain, No vomiting Musculoskeletal: No joint pain, No muscle pain Heme: No abnormal bleeding/bruising Vital Signs Vital Signs Past 12 Hours Date Time Temp Pulse Resp B/P Pulse Ox O2 Delivery O2 Flow Rate FiO2 07/28/16 10:51 Room Air 07/28/16 08:18 85 148/75 07/28/16 08:00 Room Air 07/28/16 07:31 36.8 85 18 148/75 98 07/28/16 04:15 97 164/82 07/28/16 04:05 36.7 97 18 164/82 94 Room Air 07/28/16 04:00 Room Air 07/27/16 23:59 Room Air 07/27/16 23:43 95 173/71 07/27/16 23:41 36.7 95 17 173/71 97 Room Air Physical Exam Constitutional: General Apperance: heathly-appearing Level of Distress: NAD Psychiatric: Mental Status: active & alert Orientation: oriented except where noted Lungs: Respiratory Effort: no dyspnea Auscuitation: CTA except as noted Cardiovascular: Heart Auscultation: RRR, no murmurs Abdomen: Inspection & Palpation: soft, no tenderness, guarding & rebound Extremities: no edema Laboratory Last 24 Hours Test 07/28/16 05:04 White Blood Count 3.63 K/uL Red Blood Count 3.30 M/uL Hemoglobin 9.1 g/dL Hematocrit 28.5 % Mean Corpuscular Volume 86.4 fL Mean Corpuscular Hemoglobin 27.6 pg Mean Corpuscular Hemoglobin Concent 31.9 g/dl RDW Standard Deviation 46.7 fL RDW Coefficient of Variation 15.0 % Platelet Count 101 K/uL Mean Platelet Volume 8.2 fL Sodium Level 142 mmol/L Potassium Level 4.1 mmol/L Chloride Level 107 mmol/L Carbon Dioxide Level 28 mmol/L Anion Gap 7.0 mmol/L Blood Urea Nitrogen 5 mg/dl Creatinine 0.68 mg/dl Est Creatinine Clear Calc Drug Dose 58.7 ml/min Estimated GFR () 93.8 Estimated GFR (Non- 80.9 BUN/Creatinine Ratio 7.3 Random Glucose 124 mg/dl Calcium Level 8.8 mg/dl Phosphorus Level 2.0 mg/dl Magnesium Level 2.1 mg/dl Pathology FINAL DIAGNOSIS A. COLON, RECTOSIGMOID, PARTIAL COLECTOMY: 1. INVASIVE ADENOCARCINOMA. SEE COMMENT AND SYNOPTIC REPORT. 2. TUMOR MEASURES 5 X 3.5 X 1 CM. 3. TUMOR INFILTRATES THROUGH ENTIRE THICKNESS OF BOWEL WALL INTO PERICOLIC SOFT TISSUE. 4. LYMPH-VASCULAR INVASION: NOT IDENTIFIED. 5. EXAMINED MARGINS OF RESECTION NEGATIVE FOR TUMOR. 6. NINE BENIGN LYMPH NODES IDENTIFIED. NEGATIVE FOR METASTATIC CARCINOMA (0/9). B. UTERUS, BILATERAL FALLOPIAN TUBES AND OVARIES; DEE, BSO: 1. LEFT OVARIAN SEROUS CYSTADENOMA. 2. RIGHT OVARIAN SEROUS CYSTADENOMA. 3. LOW-GRADE SEROUS PROLIFERATION CONSISTENT WITH ENDOSALPINGIOSIS INVOLVING LEFT OVARIAN LIGAMENT AND RIGHT MESOSALPINX. 4. BILATERAL FALLOPIAN TUBES WITHOUT PATHOLOGIC CHANGE. 5. CYSTIC ATROPHY OF ENDOMETRIUM. 6. LEIOMYOMATA. 7. ADENOMYOSIS. 8. SEROSAL ADHESIONS. 9. NEGATIVE FOR MALIGNANCY. Assessment & Plan Ms. Steven colon cancer, if the other radiographic findings do not represent malignancy, would be a stage II (pT3 pN0). Her only high risk feature is that a suboptimal number of lymph nodes were removed. As a result, in the absence of metastasis, she would not even require adjuvant chemotherapy. This makes determining her staging absolutely critical. I reviewed her scans with Dr. Alas from pulmonology and he suspects he could biopsy the lung lesion bronchoscopically. He will arrange to see her as an outpatient to discuss this further. Please order a high-res CT chest with contrast to better delineate this lesion and to identify any others. As far as the hepatic hypodensities, they represent more of a challenge. They are deep and in [id number] areas. She will likely need IR for biopsy, so we will need to make arrangements for this. However, this too does not need to take place in the hospital. Once she is stable and appropriate for discharge, she can follow up with me in clinic to arrange a PET/CT and a diagnostic procedure for her liver.
--- NOTE | 2016-07-28 12:00 | Hospitalist Progress Note ---
Hospitalist Progress Note Date of Service Jul 28, 2016. 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 Drain is still in place Surgery is following the patient The patient currently has no acute complaints and denies further bleeding The patient's daughter is present at bedside and understands need for follow-up to rule out metastatic disease Constitutional: No chills, No fever Respiratory: No cough, No hemoptysis, No sputum Cardiovascular: No chest pain Abdomen: No nausea, No vomiting Female : No hematuria, No vaginal discharge Psychiatric: No depression symptoms Skin: No itch, No rash All Other Systems: Reviewed and Negative (Carlos Wahl PA-C) Medications Current Inpatient Medications Medications (Trade) Dose Ordered Sig/Gladis Route Start Time Stop Time Status Last Admin Dose Admin Acetaminophen 100 ml @ 400 mls/hr Q8H PRN IV 07/22/16 00:15 08/21/16 00:14 07/26/16 09:07 400 MLS/HR Pantoprazole Sodium/Syringe (Protonix Inj/ Syringe) 10 ml @ 5 mls/min DAILY@11 IV 07/22/16 11:00 08/21/16 10:59 07/28/16 12:50 5 MLS/MIN Miscellaneous 1 ea 1 ea PRN PRN N/A 07/22/16 01:00 07/22/17 00:59 Cefoxitin Sodium 1000 mg/Dextrose 60 ml @ 100 mls/hr Q8 IV 07/25/16 14:00 08/04/16 13:59 07/28/16 14:40 100 MLS/HR Potassium Chloride/Dextrose/ Sod Cl (D5W And 1/2nss + 20meq KCl) 1,000 ml @ 100 mls/hr Q10H IV 07/25/16 12:00 08/24/16 11:59 07/28/16 17:17 100 MLS/HR Hydromorphone HCl (Dilaudid Inj) 0.5 mg Q3H PRN IV 07/25/16 10:45 08/08/16 10:44 07/28/16 08:28 0.5 MG Hydromorphone HCl (Dilaudid Inj) 1 mg Q3H PRN IV 07/25/16 10:45 08/08/16 10:44 07/25/16 18:54 1 MG Ondansetron HCl (Zofran Inj) 4 mg Q6H PRN IV 07/25/16 10:45 08/24/16 10:44 07/27/16 20:28 4 MG Heparin Sodium (Porcine) (Heparin Sq 5000 Unit/0.5ml) 5,000 unit Q12H SQ 07/26/16 08:00 08/25/16 07:59 07/28/16 19:38 5,000 UNIT Metoprolol Tartrate (Lopressor Iv) 5 mg Q4 IV. 07/26/16 12:00 08/25/16 11:59 07/28/16 19:37 5 MG Ioversol (Optiray 320) 100 ml UD PRN IV 07/28/16 13:00 08/01/16 12:59 (Carlos Wahl PA-C) Objective Vital Signs Date Time Temp Pulse Resp B/P Pulse Ox O2 Delivery O2 Flow Rate FiO2 07/28/16 11:15 36.7 87 16 139/70 99 07/28/16 10:51 Room Air 07/28/16 08:18 85 148/75 07/28/16 08:00 Room Air 07/28/16 07:31 36.8 85 18 148/75 98 07/28/16 04:15 97 164/82 07/28/16 04:05 36.7 97 18 164/82 94 Room Air 07/28/16 04:00 Room Air 07/27/16 23:59 Room Air 07/27/16 23:43 95 173/71 07/27/16 23:41 36.7 95 17 173/71 97 Room Air 07/27/16 20:29 107 172/76 07/27/16 20:00 Room Air 07/27/16 19:27 36.7 96 17 172/76 96 Room Air 07/27/16 16:00 Room Air 07/27/16 15:52 98 07/27/16 15:21 36.9 93 18 148/71 96 Room Air 07/27/16 12:00 Room Air (Carlos Wahl PA-C) Physical Exam Notes: GENERAL : No acute distress EYES: No icterus, gaze conjugate NOSE: No evidence of epistaxis MOUTH: No lesions or candidiasis NECK: Supple LUNGS: CTA B/L, no wheezes, rales or rhonchi HEART: Regular, rate controlled ABDOMEN: Soft, NT, ND, BS Present EXTREMITIES: No LE edema, pedal pulses intact NEURO: A&OX3 (Carlos Wahl PA-C) Laboratory Results Last 24 Hours Test 07/28/16 05:04 White Blood Count 3.63 K/uL Red Blood Count 3.30 M/uL Hemoglobin 9.1 g/dL Hematocrit 28.5 % Mean Corpuscular Volume 86.4 fL Mean Corpuscular Hemoglobin 27.6 pg Mean Corpuscular Hemoglobin Concent 31.9 g/dl RDW Standard Deviation 46.7 fL RDW Coefficient of Variation 15.0 % Platelet Count 101 K/uL Mean Platelet Volume 8.2 fL Sodium Level 142 mmol/L Potassium Level 4.1 mmol/L Chloride Level 107 mmol/L Carbon Dioxide Level 28 mmol/L Anion Gap 7.0 mmol/L Blood Urea Nitrogen 5 mg/dl Creatinine 0.68 mg/dl Est Creatinine Clear Calc Drug Dose 58.7 ml/min Estimated GFR () 93.8 Estimated GFR (Non- 80.9 BUN/Creatinine Ratio 7.3 Random Glucose 124 mg/dl Calcium Level 8.8 mg/dl Phosphorus Level 2.0 mg/dl Magnesium Level 2.1 mg/dl (Carlos Wahl-Arnold) Diagnostic Results CHEST CT WITH CONTRAST CT DOSE: 184.56 mGy.cm HISTORY: Left lower lobe nodule. TECHNIQUE: Multiaxial CT images of the chest were performed following the intravenous administration of contrast. COMPARISON: Abdomen and pelvis CT 07/23/2016. FINDINGS: The central airways are patent. No pneumothorax. Trace bilateral pleural effusions with associated densities suggesting compressive atelectasis. Punctate calcified granuloma within the right lower lobe. There are 2 subcentimeter nodules within the right middle lobe on image 201. The larger nodule measures 4 mm. Groundglass lesion within the central left lower lobe measures 3 cm. No mediastinal or hilar lymphadenopathy. Hepatic lesions are again noted. Calcification within the right breast. No pericardial effusion. The central pulmonary arteries are patent. Normal caliber thoracic aorta. 3.5 cm low-density lesion within the anterior mediastinum. This measures Hounsfield units consistent with a cyst. No suspicious lytic or blastic osseous lesions. IMPRESSION: 1. There is again noted a 3 cm groundglass focal opacity within the left lower lobe. This is considered a primary bronchus malignancy until proven otherwise. 2. Interval development of trace bilateral pleural effusions with mild compressive atelectasis within the lower lobes. 3. There are 2 subcentimeter indeterminate pulmonary nodule within the right middle lobe with the largest measuring 4 mm. 4. Hepatic lesions are better appreciated on the prior abdomen and pelvis CT. Electronically signed by: Sebastian Geiger M.D. 07/28/2016 1:43 PM Dictated Date/Time: 07/28/2016 1:34 PM (Carlos Wahl PA-C) Assessment and Plan GI BLEED S/P laparotomy with Dr. Marshall Sigmoid resection with pathology consistent with adenocarcinoma No further bleeding Last transfusion of packed red blood cells 07/23/16 Hemodynamically stable COLONIC MASS Pathology consistent with adenocarcinoma Dr. Jimenez consulted - appreciate his input Resection with Dr. Marshall Drain still in place Seen by Dr. Carbajal this morning Advance diet slowly per surgery No further intervention with the colon Patient with flatus but no bowel movement yet LEFT LOWER LOBE PULMONARY LESION No prior CT scans to compare Pulmonary consulted Suggests PET CT as an outpatient before further intervention as patient just had colectomy Appreciate Dr. Alas's input LIVER LESIONS Would require interventional radiology for further evaluation This point proceed with PET CT as an outpatient TACHYCARDIA Resume IV beta edwar Continue on telemetry HYPERNATREMIA Sodium 146 on admission Now stable at 142 Follow serial labs GI PROPHYLAXIS Continue pantoprazole daily DVT PROPHYLAXIS Heparin subcutaneous Thank you for including us in the care of this patient. Please refer to Dr. Lange's addendum for further recommendations Continued [facility] stay due to: other (postsurgical) Discharge planning: uncertain (Carlos Wahl PA-C) Reviewed: Pt Seen/Exam by Me (Marissa Lange MD) History Physician Director Of Creative Services Supervision Note: I interviewed and examined the patient. Discussed with DEWAYNE Wahl and agree with findings and plan as documented in the note. Any exceptions or clarifications are listed here: Patient doing well, pain controlled, passing some flatus but no stool. On ice chips and sips. Vitals reviewed, sinus tachycardia NAD, AAO 3 Tachycardia with regular rhythm, no murmurs gallops or rubs Clear to auscultation bilaterally, breathing unlabored Abdomen hypoactive bowel sounds, soft, minimal tenderness without guarding or rebound, large dressing in place is clean dry and intact Extremities no edema bilaterally Skin no rashes 81-year-old female here with anemia, rectal bleeding found to have colon cancer with possible metastases to the liver as well as a possible primary lung malignancy. -Postop surgical care as per surgery team is appreciated -Follow hemoglobin -PET/CT as an outpatient follow-up with pulmonology and oncology Documented By: Marissa Lange (Marissa Lange MD)
[2016-07-28] MEDS: PANTOprazole INJ 40 MG in SYRINGE 0 ML IV SCH (12:50)
[2016-07-28] MEDS ORDERED: OPTIRAY 320 IV PRN (13:00)
--- NOTE | 2016-07-28 13:44 | DIAGNOSTIC IMAGING REPORT ---
CHEST CT WITH CONTRAST CT DOSE: 184.56 mGy.cm HISTORY: Left lower lobe nodule. TECHNIQUE: Multiaxial CT images of the chest were performed following the intravenous administration of contrast. COMPARISON: Abdomen and pelvis CT 07/23/2016. FINDINGS: The central airways are patent. No pneumothorax. Trace bilateral pleural effusions with associated densities suggesting compressive atelectasis. Punctate calcified granuloma within the right lower lobe. There are 2 subcentimeter nodules within the right middle lobe on image 201. The larger nodule measures 4 mm. Groundglass lesion within the central left lower lobe measures 3 cm. No mediastinal or hilar lymphadenopathy. Hepatic lesions are again noted. Calcification within the right breast. No pericardial effusion. The central pulmonary arteries are patent. Normal caliber thoracic aorta. 3.5 cm low-density lesion within the anterior mediastinum. This measures Hounsfield units consistent with a cyst. No suspicious lytic or blastic osseous lesions. IMPRESSION: 1. There is again noted a 3 cm groundglass focal opacity within the left lower lobe. This is considered a primary bronchus malignancy until proven otherwise. 2. Interval development of trace bilateral pleural effusions with mild compressive atelectasis within the lower lobes. 3. There are 2 subcentimeter indeterminate pulmonary nodule within the right middle lobe with the largest measuring 4 mm. 4. Hepatic lesions are better appreciated on the prior abdomen and pelvis CT. Electronically signed by: Sebastian Geiger M.D. 07/28/2016 1:43 PM Dictated Date/Time: 07/28/2016 1:34 PM
[2016-07-28] MEDS: HYDROmorphone INJ 1 MG/ML SYR IV PRN (22:42)
[2016-07-29] MEDS: METOPROLOL TARTRATE 1 MG/ML VIAL IV. SCH ×4 (00:20→12:24)
[2016-07-29 03:28] VITALS: BP 135/74; PULSE 88; TEMP 36.5; O2SAT 97
[2016-07-29] MEDS: D5W AND 1/2NSS + 20MEQ KCL 1,000 ML IV SCH ×2 (04:25→12:24)
[2016-07-29] MEDS: CEFOXITIN IV 1,000 MG in DEXTROSE 5% 50ML 50 ML IV SCH (05:41)
[2016-07-29 07:29] VITALS: BP 148/79; PULSE 92; TEMP 36.7; O2SAT 93
[2016-07-29] MEDS: HEPARIN SOD 5000 UNIT/0.5 ML CARP SQ SCH ×2 (07:58→19:12)
[2016-07-29] MEDS ORDERED: OXYCODONE/ACETAMINOPHEN 5-325 TAB PO PRN (09:45)
[2016-07-29 11:40] VITALS: BP 164/81; PULSE 103; TEMP 36.5; O2SAT 95
[2016-07-29] MEDS: PANTOprazole INJ 40 MG in SYRINGE 0 ML IV SCH (12:25)
--- NOTE | 2016-07-29 12:27 | SURGERY PROGRESS NOTE ---
DATE: 07/29/2016 DATE: 07/29/2016. Sofiya is fourth postoperative day status post colon resection, total abdominal hysterectomy, bilateral salpingo-oophorectomy. She feels much better than she had. Last vitals showed temperature of 36.7, pulse 92, respirations 16, blood pressure 148/79, O2 sat 93 on 2 liters. Her abdomen is soft. She had multiple bowel movements. Laboratory [place] hemoglobin has been stable about 9.1, BUN 5, creatinine 0.68 yesterday. At this point we will advance a full liquid diet and decrease her IV fluids and increase more activity. I will leave it up to the medical service to transfer her to a regular floor. WENDY
--- NOTE | 2016-07-29 14:38 | Hospitalist Progress Note ---
Hospitalist Progress Note Date of Service Jul 29, 2016. (Carlos Wahl PA-C) Subjective Pt evaluation today including: conversation w/ patient, physical exam, chart review, lab review, review of studies Pain: none PO Intake: advanced to clear liquid diet today and tolerating well Patient is postoperative day #5 from a laparotomy with sigmoid colon resection, DEE/BSO, ureteral stent placement. She has a BEVERLY drain in place which is draining decreasing amounts daily. Surgery has been following daily and advance her diet to clear liquids today. She states that she is tolerating liquids well. She has no nausea or vomiting. She is having some flatus but no solid bowel movements but is having some liquid stool in scant amounts. She has no abdominal pain. She denies shortness of breath. She has no chest pain. She has no acute complaints. Additional Comments: A total of 12 systems was reviewed and is negative other than as listed above in the HPI All Other Systems: Reviewed and Negative (Carlos Wahl PA-C) Medications Current Inpatient Medications Medications (Trade) Dose Ordered Sig/Gladis Route Start Time Stop Time Status Last Admin Dose Admin Acetaminophen 100 ml @ 400 mls/hr Q8H PRN IV 07/22/16 00:15 08/21/16 00:14 07/26/16 09:07 400 MLS/HR Pantoprazole Sodium/Syringe (Protonix Inj/ Syringe) 10 ml @ 5 mls/min DAILY@11 IV 07/22/16 11:00 08/21/16 10:59 07/29/16 12:25 5 MLS/MIN Miscellaneous 1 ea 1 ea PRN PRN N/A 07/22/16 01:00 07/22/17 00:59 Potassium Chloride/Dextrose/ Sod Cl (D5W And 1/2nss + 20meq KCl) 1,000 ml @ 50 mls/hr Q20H IV 07/25/16 12:00 07/29/16 12:24 50 MLS/HR Hydromorphone HCl (Dilaudid Inj) 0.5 mg Q3H PRN IV 07/25/16 10:45 08/08/16 10:44 07/28/16 08:28 0.5 MG Hydromorphone HCl (Dilaudid Inj) 1 mg Q3H PRN IV 07/25/16 10:45 08/08/16 10:44 07/28/16 22:42 1 MG Ondansetron HCl (Zofran Inj) 4 mg Q6H PRN IV 07/25/16 10:45 08/24/16 10:44 07/27/16 20:28 4 MG Heparin Sodium (Porcine) (Heparin Sq 5000 Unit/0.5ml) 5,000 unit Q12H SQ 07/26/16 08:00 08/25/16 07:59 07/29/16 07:58 5,000 UNIT Metoprolol Tartrate (Lopressor Iv) 5 mg Q4 IV. 07/26/16 12:00 08/25/16 11:59 07/29/16 12:24 5 MG Ioversol (Optiray 320) 100 ml UD PRN IV 07/28/16 13:00 08/01/16 12:59 Oxycodone/ Acetaminophen (Percocet 5-325mg Tab) 1 tab Q4H PRN PO 07/29/16 09:45 08/12/16 09:44 (Carlos Wahl PA-C) Objective Vital Signs Date Time Temp Pulse Resp B/P Pulse Ox O2 Delivery O2 Flow Rate FiO2 07/29/16 12:24 103 164/81 07/29/16 11:40 36.5 103 16 164/81 95 Room Air 07/29/16 07:56 92 148/79 07/29/16 07:50 Room Air 07/29/16 07:29 36.7 92 16 148/79 93 Room Air 07/29/16 04:26 88 135/74 07/29/16 04:00 Room Air 07/29/16 03:28 36.5 88 16 135/74 97 Room Air 07/29/16 00:20 99 151/82 07/28/16 23:59 Room Air 07/28/16 23:50 36.7 99 17 151/82 94 Room Air 07/28/16 20:00 Room Air 07/28/16 19:45 36.7 20 93 Room Air 07/28/16 19:37 95 154/80 07/28/16 19:35 95 154/80 07/28/16 17:17 112 160/87 07/28/16 16:00 Room Air 07/28/16 16:00 36.6 112 20 160/87 96 Room Air (Carlos Wahl PA-C) Physical Exam Notes: Vital Signs - as noted below Laboratory Data - as noted below Physical Exam: General - NAD. Pleasant Eyes - No icterus, gaze conjugate ENT - Mucosa moist, no lesions or candidiasis. Neck - Supple, No JVD Lungs - No bronchospasm, rales, or rhonchi. Heart - Regular, rate controlled Abdomen - Soft, NT, ND, BS present. BEVERLY drain in place draining serous sanguinous fluid Extremities - No edema, pedal pulses intact Neuro - A&OX3 (Carlos Wahl PA-C) Assessment and Plan GI BLEED S/P laparotomy with Dr. Marshall. POD #5 Sigmoid resection with pathology consistent with adenocarcinoma No further bleeding Last transfusion of packed red blood cells 07/23/16 Hemodynamically stable COLONIC MASS Pathology consistent with adenocarcinoma Dr. Jimenez consulted - appreciate his input Resection with Dr. Marshall. POD #[address] and draining serosanguineous fluid Seen by Dr. Carbajal this weekend Advance diet slowly per surgery - advanced to clear liquids 07/29/16 No further intervention with the colon Patient with flatus and now reporting some liquid stool Postsurgical pain well controlled LEFT LOWER LOBE PULMONARY LESION No prior CT scans to compare Pulmonary consulted Suggests PET CT as an outpatient before further intervention as patient just had colectomy Appreciate Dr. Alas's input Outpatient follow-up with Dr. Alas's office suggested LIVER LESIONS Would require interventional radiology for further evaluation At this point will proceed with PET CT as an outpatient TACHYCARDIA Resumed IV beta edwar 07/28/16 Diet advanced today by surgery Resume oral beta edwar and transfer to [facility] floor HYPERNATREMIA Resolved GI PROPHYLAXIS Continue pantoprazole daily DVT PROPHYLAXIS Heparin subcutaneous Please refer to Dr. Lange's addendum for further recommendations Continued [facility] stay due to: inadequate po fluid intake Discharge planning: uncertain (Carlos Wahl PA-C) Reviewed: Pt Seen/Exam by Me (Marissa Lange MD) History Physician Waiter And Cashier Supervision Note: I interviewed and examined the patient. Discussed with DEWAYNE Wahl and agree with findings and plan as documented in the note. Any exceptions or clarifications are listed here: Patient doing well, pain controlled, passing stool. Tolerating a clear liquid diet, remains mildly tachycardic Vitals reviewed, mild sinus tachycardia NAD, AAO 3 Tachycardia with regular rhythm, no murmurs gallops or rubs Clear to auscultation bilaterally, breathing unlabored Abdomen hypoactive bowel sounds, soft, minimal tenderness without guarding or rebound, large dressing in place is clean dry and intact Extremities no edema bilaterally Skin no rashes 81-year-old female here with anemia, rectal bleeding found to have colon cancer with possible metastases to the liver as well as a possible primary lung malignancy. -Postop surgical care as per surgery team is appreciated -Follow hemoglobin -PET/CT as an outpatient follow-up with pulmonology and oncology-if liver and lung masses beater out leveling machine to not be metastases from the colon, she is considered cured. However, she may have a second primary malignancy in the lung as well as metastases from colon cancer to the liver. This will be further explored as an outpatient. Documented By: Marissa Lange (Marissa Lange MD)
[2016-07-29 15:47] VITALS: BP 121/74; PULSE 109; TEMP 37; O2SAT 95
[2016-07-29 15:52] VITALS: BP 164/81; PULSE 103; TEMP 36.5; O2SAT 95
[2016-07-29 16:32] VITALS: BP 121/76; PULSE 100; TEMP 37; O2SAT 93
[2016-07-29] MEDS: METOPROLOL TARTRATE 50 MG TAB PO SCH (18:57)
[2016-07-30 00:08] VITALS: BP 134/83; PULSE 91; TEMP 36.8; O2SAT 95
[2016-07-30] MEDS ORDERED: OXYCODONE/ACETAMINOPHEN 5-325 TAB PO PRN ×2 (06:15)
[2016-07-30] MEDS ORDERED: HYDROCODONE/ACETAMOPHEN 5/325MG TAB PO PRN ×2 (06:15)
--- NOTE | 2016-07-30 06:27 | Surgery Progress Note ---
Surgery Progress Note Date of Service July 30, 2016. Subjective + bowel movement, + flatus, No nausea, No vomiting alert, no acute changes, on po beta edwar kilpatrick still in place, good ur output Objective Vital Signs: Date Time Temp Pulse Resp B/P Pulse Ox O2 Delivery O2 Flow Rate FiO2 07/30/16 00:08 36.8 91 20 134/83 95 Room Air 07/30/16 00:00 Room Air 07/29/16 16:32 37.0 100 20 121/76 93 Room Air 07/29/16 16:32 93 Room Air 07/29/16 15:52 36.5 103 16 95 2.0 07/29/16 15:47 37.0 109 20 121/74 95 Room Air 07/29/16 12:24 103 164/81 07/29/16 12:05 Room Air 07/29/16 11:40 36.5 103 16 164/81 95 Room Air 07/29/16 07:56 92 148/79 07/29/16 07:50 Room Air 07/29/16 07:29 36.7 92 16 148/79 93 Room Air General Appearance: no apparent distress Respiratory/Chest: no respiratory distress Cardiovascular: + tachycardia Abdomen: + distended (softer) Incision(s): drainage (serous) Laboratory Results: Results Past 24 Hours Test 07/30/16 06:09 Range/Units Assessment & Plan 07/30/16- tolerating some liquids- full liquids ordered- d/c kilpatrick, hep lock IV po meds as tolerated, leave drain for now, atbx stopped check labs 07/27/16- overall stable, cont PCU status- monitor HR, H/H may drift down over weekend- may need 1-2 u RBCs- will monitor. Cont ice only today- possible sips tomorrow. Leave kilpatrick for now. mobilize 07/26/16- s/p laparotomy, rectosigmoid resection, DEE/BSO- pt is tachy- check H/H - clinically doesn't appear to be acutely bleeding- alert, extrem warm, good urine output pt normally on Beta blockers. pts H/H may drift down and she may need 1-2 u RBCs H/H stable, HR now 97, monitor for now , may be related to pt normally on Metoprolol will leave addn of IV med to med/ICU team PT 07/25/16- for OR this am- colon resection, possible oophorectomy. 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 Possible liver mets and to ovary. Lung mass could be primary vs met. Will ask other services to see pt. Colon operation is not an emergency, tentatively on schedule for tomorrow. Would plan for ureteral stents at operation 07/27/16- overall stable, cont PCU status- monitor HR, H/H may drift down over weekend- may need 1-2 u RBCs- will monitor. Cont ice only today- possible sips tomorrow. Leave kilpatrick for now. mobilize 07/26/16- s/p laparotomy, rectosigmoid resection, DEE/BSO- pt is tachy- check H/H - clinically doesn't appear to be acutely bleeding- alert, extrem warm, good urine output pt normally on Beta blockers. pts H/H may drift down and she may need 1-2 u RBCs H/H stable, HR now 97, monitor for now , may be related to pt normally on Metoprolol will leave addn of IV med to med/ICU team PT 07/25/16- for OR this am- colon resection, possible oophorectomy. 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 Possible liver mets and to ovary. Lung mass could be primary vs met. Will ask other services to see pt. Colon operation is not an emergency, tentatively on schedule for tomorrow. Would plan for ureteral stents at operation
[2016-07-30 07:02] LABS: HEMATOCRIT 31.2 % (37-47); MEAN CELL VOLUME 86.2 fL (80-100); MEAN CORPUSCULAR HEMOGLOBIN 27.9 pg (25-34); MEAN CORPUSCULAR HGB CONC 32.4 g/dl (32-36); MEAN PLATELET VOLUME 8.5 fL (7.4-10.4); PLATELET COUNT 134 K/uL (130-400); RED BLOOD COUNT 3.62 M/uL (4.2-5.4); WHITE BLOOD COUNT 3.79 K/uL (4.8-10.8)
[2016-07-30 07:27] VITALS: BP 118/72; PULSE 93; TEMP 36.5; O2SAT 94
[2016-07-30 07:51] LABS: BUN/CREATININE RATIO 10.7 (10-20); CALCIUM 9.3 mg/dl (8.5-10.1); CREATININE 0.64 mg/dl (0.60-1.20); MAGNESIUM 2.1 mg/dl (1.8-2.4)
[2016-07-30] MEDS: METOPROLOL TARTRATE 50 MG TAB PO SCH ×2 (08:01→19:53)
[2016-07-30] MEDS: HEPARIN SOD 5000 UNIT/0.5 ML CARP SQ SCH ×2 (08:04→19:54)
[2016-07-30 08:08] LABS: PHOSPHORUS 2.8 mg/dl (2.5-4.9)
--- NOTE | 2016-07-30 10:34 | Hematology/Oncology Prog Note ---
Hematology/Onc Progress Note Date of Service July 30, 2016. Diagnoses Colon carcinoma Medications A gym we be a Medications Administered Medications (Trade) Dose Ordered Sig/Gladis Route Start Time Stop Time Status Last Admin Dose Admin Ondansetron HCl 4 mg 4 mg Q6H PRN IV 07/22/16 00:15 07/25/16 15:22 DC 07/25/16 12:48 4 MG Acetaminophen 100 ml @ 400 mls/hr Q8H PRN IV 07/22/16 00:15 08/21/16 00:14 07/26/16 09:07 400 MLS/HR Pantoprazole Sodium/Syringe (Protonix Inj/ Syringe) 10 ml @ 5 mls/min DAILY@11 IV 07/22/16 11:00 08/21/16 10:59 07/29/16 12:25 5 MLS/MIN Metoprolol Tartrate 50 mg 50 mg BID PO 07/22/16 09:00 07/25/16 10:47 DC 07/24/16 21:51 50 MG Potassium Chloride/Sodium Chloride (1/2 Nss + 20meq KCl 1000ml) 1,000 ml @ 50 mls/hr Q20H IV 07/22/16 01:45 07/25/16 10:47 DC 07/24/16 21:54 50 MLS/HR Polyethylene Glycol/ Electrolytes (Golytely Soln) 1 dose Q15M PO 07/22/16 14:30 07/22/16 17:00 DC 07/22/16 16:40 1 DOSE Neomycin Sulfate (Neomycin Sulfate Tab) 500 mg TID@1300,1400,2200 PO 07/24/16 13:00 07/24/16 23:59 DC 07/24/16 21:51 500 MG Erythromycin Ethylsuccinate 400 mg 400 mg TID@1300,1400,2200 PO 07/24/16 13:00 07/24/16 23:59 DC 07/24/16 21:51 400 MG Cefoxitin Sodium/ Dextrose (Mefoxin IV/D5 50ml) 60 ml @ 100 mls/hr Q8 IV 07/24/16 14:00 07/25/16 13:59 DC 07/25/16 05:22 100 MLS/HR Iothalamate Meglumine (Conray 30%) 150 ml STK-MED ONCE .ROUTE 07/25/16 06:59 07/25/16 07:00 DC 07/25/16 07:36 16 ML Cefoxitin Sodium 2000 mg 2,000 mg STK-MED ONCE .ROUTE 07/25/16 06:59 07/25/16 07:00 DC 07/25/16 10:00 2,000 MG Cefoxitin Sodium 1000 mg/Dextrose 60 ml @ 100 mls/hr Q8 IV 07/25/16 14:00 07/29/16 09:39 DC 07/29/16 05:41 100 MLS/HR Potassium Chloride/Dextrose/ Sod Cl (D5W And 1/2nss + 20meq KCl) 1,000 ml @ 50 mls/hr Q20H IV 07/25/16 12:00 07/30/16 06:24 DC 07/29/16 12:24 50 MLS/HR Hydromorphone HCl (Dilaudid Inj) 0.5 mg Q3H PRN IV 07/25/16 10:45 08/08/16 10:44 07/28/16 08:28 0.5 MG Hydromorphone HCl (Dilaudid Inj) 1 mg Q3H PRN IV 07/25/16 10:45 08/08/16 10:44 07/28/16 22:42 1 MG Ondansetron HCl (Zofran Inj) 4 mg Q6H PRN IV 07/25/16 10:45 08/24/16 10:44 07/27/16 20:28 4 MG Heparin Sodium (Porcine) (Heparin Sq 5000 Unit/0.5ml) 5,000 unit Q12H SQ 07/26/16 08:00 08/25/16 07:59 07/30/16 08:04 5,000 UNIT Metoprolol Tartrate (Lopressor Iv) 5 mg Q4 IV. 07/26/16 12:00 07/29/16 14:42 DC 07/29/16 12:24 5 MG Metoprolol Tartrate 5 mg 5 mg NOW STAT IV 07/26/16 08:28 07/26/16 08:29 DC 07/26/16 09:36 5 MG Sodium Phosphate/ Sodium Chloride (Sodium Phosphate Inj/Nss 250ml) 255 ml @ 100 mls/hr TODAY@0630 ONCE IV 07/27/16 06:30 07/27/16 09:02 DC 07/27/16 07:31 100 MLS/HR Metoprolol Tartrate (Lopressor Tab) 50 mg BID PO 07/29/16 20:00 08/28/16 20:59 07/30/16 08:01 50 MG Subjective She seems to be doing well. Anticipate discharge very soon Review of Systems: Constitutional: Negative for night sweats, or fever Eyes: Negative for event change of vision ENT: Negative for epistaxis, nasal discharge, sore throat, or deafness Cardiovascular: Negative for chest pain, palpitations, dizziness, diaphoresis Respiratory: Negative for new shortness of breath,hemoptysis, or purulent cough Gastrointestinal: Negative for diarrhea, hematemesis, melena, nausea, vomiting , or dyspepsia Integumentary (skin): Negative for rash or jaundice discoloration Genitourinary: Negative for urinary frequency, hematuria, or dysuria Neurological: Negative for weakness, seizure activity, headache, or dizziness Lymphatic/Hematologic: Negative for petechiae, bleeding or new adenopathy Musculoskeletal: Negative for new joint or back pain Allergic/Immunologic: Negative for unusual rash or pruritis. Vital Signs Vital Signs Past 12 Hours Date Time Temp Pulse Resp B/P Pulse Ox O2 Delivery O2 Flow Rate FiO2 07/30/16 08:00 Room Air 07/30/16 07:27 36.5 93 16 118/72 94 Room Air 07/30/16 00:08 36.8 91 20 134/83 95 Room Air 07/30/16 00:00 Room Air Physical Exam Constitutional: vitals are stable. Eyes: Eyes are AASHISH EOMI without conjuctival erythema or icterus. ENT: External examination was negative for masses. Neck: Negative for masses or palpable thyromegaly Respiratory: Lung sounds were generally clear bilaterally Cardiovascular: Heart was tachycardic without significant murmur, gallops or rubs Gastrointestinal: No palpable hepatic or splenomegaly. The abdomen was soft with normal bowel sounds. Lymphatic system: there was no palpable peripheral lymphadenopathy Musculoskeletal System: The musculoskeletal system seemed concordant with age. Skin: The skin was negative for jaundice. Neurologic exam: The exam was negative for any focal findings. Deep tendon reflexes were equal and symmetrical. Psychiatric exam: Was essentially negative with normal mood and effect. Breast exam: Not done Extremities: Negative for significant edema Constitutional: General Apperance: heathly-appearing Level of Distress: NAD Psychiatric: Mental Status: active & alert Orientation: oriented except where noted Lungs: Respiratory Effort: no dyspnea Auscuitation: CTA except as noted Cardiovascular: Heart Auscultation: RRR, no murmurs Abdomen: Inspection & Palpation: soft, no tenderness, guarding & rebound Extremities: no edema Laboratory Last 24 Hours Test 07/30/16 06:44 White Blood Count 3.79 K/uL Red Blood Count 3.62 M/uL Hemoglobin 10.1 g/dL Hematocrit 31.2 % Mean Corpuscular Volume 86.2 fL Mean Corpuscular Hemoglobin 27.9 pg Mean Corpuscular Hemoglobin Concent 32.4 g/dl RDW Standard Deviation 46.6 fL RDW Coefficient of Variation 14.9 % Platelet Count 134 K/uL Mean Platelet Volume 8.5 fL Sodium Level 141 mmol/L Potassium Level 4.0 mmol/L Chloride Level 107 mmol/L Carbon Dioxide Level 28 mmol/L Anion Gap 6.0 mmol/L Blood Urea Nitrogen 7 mg/dl Creatinine 0.64 mg/dl Est Creatinine Clear Calc Drug Dose 61.0 ml/min Estimated GFR () 95.6 Estimated GFR (Non- 82.5 BUN/Creatinine Ratio 10.7 Random Glucose 111 mg/dl Calcium Level 9.3 mg/dl Phosphorus Level 2.8 mg/dl Magnesium Level 2.1 mg/dl Assessment & Plan Colon carcinoma status post resection. She seems to be almost ready for discharge. She will have a follow-up in our clinic. We will sign off for now but please reconsult us as needed.
[2016-07-30] MEDS: PANTOprazole INJ 40 MG in SYRINGE 0 ML IV SCH (11:21)
--- NOTE | 2016-07-30 13:12 | Hospitalist Progress Note ---
Hospitalist Progress Note Date of Service July 30, 2016. (Nicole La ., LEONOR) Subjective Pt evaluation today including: conversation w/ patient, conversation w/ family , physical exam, chart review, lab review, review of studies, review of inpatient medication list Patient states she is feeling well. Pain is well controlled. She is beginning feel hungry- surgery is slowing advancing diet. Patient denies any fever, chills , sweats, lightheadedness, dizziness, vision changes, CP, palpitations, edema, SOB, wheezing, cough, abdominal pain, nausea, vomiting, diarrhea, urinary symptoms, melena, numbness/tingling, weakness, muscle/joint pain, anxiety/ depression, active bleeding, or new skin discoloration/changes. (Nicole La ., WALLYC) Medications Current Inpatient Medications Medications (Trade) Dose Ordered Sig/Gladis Route Start Time Stop Time Status Last Admin Dose Admin Acetaminophen 100 ml @ 400 mls/hr Q8H PRN IV 07/22/16 00:15 08/21/16 00:14 07/26/16 09:07 400 MLS/HR Pantoprazole Sodium/Syringe (Protonix Inj/ Syringe) 10 ml @ 5 mls/min DAILY@11 IV 07/22/16 11:00 08/21/16 10:59 07/30/16 11:21 5 MLS/MIN Miscellaneous (Iv Fluids Completed) 1 ea PRN PRN N/A 07/22/16 01:00 07/22/17 00:59 Hydromorphone HCl (Dilaudid Inj) 0.5 mg Q3H PRN IV 07/25/16 10:45 08/08/16 10:44 07/28/16 08:28 0.5 MG Hydromorphone HCl (Dilaudid Inj) 1 mg Q3H PRN IV 07/25/16 10:45 08/08/16 10:44 07/28/16 22:42 1 MG Ondansetron HCl (Zofran Inj) 4 mg Q6H PRN IV 07/25/16 10:45 08/24/16 10:44 07/27/16 20:28 4 MG Heparin Sodium (Porcine) (Heparin Sq 5000 Unit/0.5ml) 5,000 unit Q12H SQ 07/26/16 08:00 08/25/16 07:59 5/1/17 08:04 5,000 UNIT Ioversol (Optiray 320) 100 ml UD PRN IV 07/28/16 13:00 08/01/16 12:59 Metoprolol Tartrate (Lopressor Tab) 50 mg BID PO 07/29/16 20:00 08/28/16 20:59 07/30/16 08:01 50 MG Oxycodone/ Acetaminophen (Percocet 5-325mg Tab) 2 tab Q4H PRN PO 07/30/16 06:15 08/13/16 06:14 Oxycodone/ Acetaminophen (Percocet 5-325mg Tab) 1 tab Q4H PRN PO 07/30/16 06:15 08/13/16 06:14 (Nicole La PA-C) Objective Vital Signs Date Time Temp Pulse Resp B/P Pulse Ox O2 Delivery O2 Flow Rate FiO2 07/30/16 08:00 Room Air 07/30/16 07:27 36.5 93 16 118/72 94 Room Air 07/30/16 00:08 36.8 91 20 134/83 95 Room Air 07/30/16 00:00 Room Air 07/29/16 16:32 37.0 100 20 121/76 93 Room Air 07/29/16 16:32 93 Room Air 07/29/16 15:52 36.5 103 16 95 2.0 07/29/16 15:47 37.0 109 20 121/74 95 Room Air (Nicole La PA-C) Physical Exam General Appearance: no apparent distress Eyes: normal inspection, PERRL ENT: hearing grossly normal Neck: supple Respiratory/Chest: lungs clear, no respiratory distress, no accessory muscle use Cardiovascular: regular rate, rhythm Abdomen: normal bowel sounds, soft Extremities: no pedal edema, no calf tenderness Neurologic/Psychiatric: alert, normal mood/affect, oriented x 3 Skin: normal color, warm/dry, no rash (Nicole La PA-C) Laboratory Results Last 24 Hours Test 07/30/16 06:44 White Blood Count 3.79 K/uL Red Blood Count 3.62 M/uL Hemoglobin 10.1 g/dL Hematocrit 31.2 % Mean Corpuscular Volume 86.2 fL Mean Corpuscular Hemoglobin 27.9 pg Mean Corpuscular Hemoglobin Concent 32.4 g/dl RDW Standard Deviation 46.6 fL RDW Coefficient of Variation 14.9 % Platelet Count 134 K/uL Mean Platelet Volume 8.5 fL Sodium Level 141 mmol/L Potassium Level 4.0 mmol/L Chloride Level 107 mmol/L Carbon Dioxide Level 28 mmol/L Anion Gap 6.0 mmol/L Blood Urea Nitrogen 7 mg/dl Creatinine 0.64 mg/dl Est Creatinine Clear Calc Drug Dose 61.0 ml/min Estimated GFR () 95.6 Estimated GFR (Non- 82.5 BUN/Creatinine Ratio 10.7 Random Glucose 111 mg/dl Calcium Level 9.3 mg/dl Phosphorus Level 2.8 mg/dl Magnesium Level 2.1 mg/dl (Nicole La, LEONOR) Assessment and Plan The patient is a 80-year-old female presents emergency department with complaint of persistent painless rectal bleeding over the past 2-3 weeks. She notes bright red blood in his stools and on the toilet paper when she wipes. She has a known history of hemorrhoids. She reportedly had blood tests done a few weeks ago and had a drop in hemoglobin and she's unsure of the exact number. She is not take any antiplatelet agents for blood thinners. She reports her bowel movements have been normal. GI BLEED with transfusion of 2 unit PRBC on 07/24: - H&H stable - s/p colonscopy on 07/24- Malignant partially obstructing tumor at 15 cm proximal to the anus. Biopsied- CONSISTENT WITH INFILTRATIVE ADENOCARCINOMA Colonic mass: - s/p laparotomy, rectosigmoid resection with colorectal anastomosis by Dr. Marshall on 07/25 -- Pathology consistent w/ adenocarcinoma -- Advance diet/surgical management per surgery - s/p cystoscopy, bilateral retrograde pyelograms, placement of bilateral blunt- tipped ureteral stents w/ removal of stents at end of surgery by Dr. Marquez on 42 - Oncology consulted, appreciate recommendations Bilateral ovarian masses: s/p total abdominal hysterectomy, bilateral salpingo- oophorectomy by Dr. Seals on 07/25 Left lower lobe pulmonary lesion identified on CT: - Pulmonary consulted, appreciate recommendations -- Follow-up outpt for PET scan/biopsy outpt Liver lesion identified on CT: Oncology recommends outpt f/u to arrange a PET/ CT and a diagnostic procedure for her liver HTN: Metoprolol 50 mg BID Hypernatremia- RESOLVED: Treated w/ IVF GI Prophylaxis: Protonix DVT Prophylaxis: Heparin Code Status: LEVEL I, FULL Dispo: Discharge uncertain at this time- home vs inpatient rehab; PT/OT- case management following (Nicole La ., LEONOR) PA Physician Supervision Note: I interviewed and examined the patient. Discussed with Nicole La PAC and agree with findings and plan as documented in the note. Any exceptions or clarifications are listed here: None pt with colonic resection for sigmoid malignancy found on colonoscopy, is tolerating advancing diet. vitals stable car is regular lungs are clear abdomen is soft advance diet with caution, will have out pt follow up with PCP, new pt apt in [place], also follow up with Dr Marshall with lung change seen, hysterectomy for uterine changes, will have outpt PET scan and follow up as outpt with oncology Documented By: Andrey Hernandez (Andrey eHrnandez M.D.)
[2016-07-30 15:28] VITALS: BP 116/75; PULSE 97; TEMP 36.6; O2SAT 96
[2016-07-30] MEDS ORDERED: HYDROmorphone INJ 1 MG/ML SYR IV PRN ×2 (17:30)
[2016-07-30 23:17] VITALS: BP 113/72; PULSE 73; TEMP 36.5; O2SAT 96
[2016-07-31 06:07] LABS: HEMATOCRIT 31.5 % (37-47); MEAN CELL VOLUME 85.8 fL (80-100); MEAN CORPUSCULAR HGB CONC 31.4 g/dl (32-36); MEAN PLATELET VOLUME 8.9 fL (7.4-10.4); PLATELET COUNT 153 K/uL (130-400); RED BLOOD COUNT 3.67 M/uL (4.2-5.4); WHITE BLOOD COUNT 4.13 K/uL (4.8-10.8)
[2016-07-31 07:40] VITALS: BP 112/71; PULSE 90; TEMP 36.6; O2SAT 93
[2016-07-31] MEDS: METOPROLOL TARTRATE 50 MG TAB PO SCH ×2 (08:32→20:16)
--- NOTE | 2016-07-31 08:34 | Surgery Progress Note ---
Surgery Progress Note Date of Service July 31, 2016. Subjective + bowel movement, + flatus, No nausea, No vomiting awake, alert, no acute chgs- voiding tolerating Full liquids, loose bms Objective Vital Signs: Date Time Temp Pulse Resp B/P Pulse Ox O2 Delivery O2 Flow Rate FiO2 07/31/16 07:40 36.6 90 18 112/71 93 Room Air 07/31/16 00:00 Room Air 07/30/16 23:17 36.5 73 20 113/72 96 Room Air 07/30/16 16:00 Room Air 07/30/16 15:28 36.6 97 18 116/75 96 Room Air General Appearance: no apparent distress Respiratory/Chest: no respiratory distress Abdomen: soft Incision(s): intact, drainage (drains in place) Laboratory Results: Results Past 24 Hours Test 07/31/16 05:40 Range/Units White Blood Count 4.13 4.8-10.8 K/uL Red Blood Count 3.67 4.2-5.4 M/uL Hemoglobin 9.9 12.0-16.0 g/dL Hematocrit 31.5 37-47 % Mean Corpuscular Volume 85.8 80-100 fL Mean Corpuscular Hemoglobin 27.0 25-34 pg Mean Corpuscular Hemoglobin Concent 31.4 32-36 g/dl RDW Standard Deviation 46.6 36.4-46.3 fL RDW Coefficient of Variation 15.0 11.5-14.5 % Platelet Count 153 130-400 K/uL Mean Platelet Volume 8.9 7.4-10.4 fL Assessment & Plan 07/31/16- doing well- loose bms expected- will adv to low residue diet- d/c drains. for probable d/c home tomorrow with daughter- dressing chgs as needed 07/30/16- tolerating some liquids- full liquids ordered- d/c kilpatrick, hep lock IV po meds as tolerated, leave drain for now, atbx stopped check labs 07/27/16- overall stable, cont PCU status- monitor HR, H/H may drift down over weekend- may need 1-2 u RBCs- will monitor. Cont ice only today- possible sips tomorrow. Leave kilpatrick for now. mobilize 07/26/16- s/p laparotomy, rectosigmoid resection, DEE/BSO- pt is tachy- check H/H - clinically doesn't appear to be acutely bleeding- alert, extrem warm, good urine output pt normally on Beta blockers. pts H/H may drift down and she may need 1-2 u RBCs H/H stable, HR now 97, monitor for now , may be related to pt normally on Metoprolol will leave addn of IV med to med/ICU team PT 07/25/16- for OR this am- colon resection, possible oophorectomy. 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 Possible liver mets and to ovary. Lung mass could be primary vs met. Will ask other services to see pt. Colon operation is not an emergency, tentatively on schedule for tomorrow. Would plan for ureteral stents at operation 07/30/16- tolerating some liquids- full liquids ordered- d/c kilpatrick, hep lock IV po meds as tolerated, leave drain for now, atbx stopped check labs 07/27/16- overall stable, cont PCU status- monitor HR, H/H may drift down over weekend- may need 1-2 u RBCs- will monitor. Cont ice only today- possible sips tomorrow. Leave kilpatrick for now. mobilize 07/26/16- s/p laparotomy, rectosigmoid resection, DEE/BSO- pt is tachy- check H/H - clinically doesn't appear to be acutely bleeding- alert, extrem warm, good urine output pt normally on Beta blockers. pts H/H may drift down and she may need 1-2 u RBCs H/H stable, HR now 97, monitor for now , may be related to pt normally on Metoprolol will leave addn of IV med to med/ICU team PT 07/25/16- for OR this am- colon resection, possible oophorectomy. 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 Possible liver mets and to ovary. Lung mass could be primary vs met. Will ask other services to see pt. Colon operation is not an emergency, tentatively on schedule for tomorrow. Would plan for ureteral stents at operation
[2016-07-31] MEDS: HEPARIN SOD 5000 UNIT/0.5 ML CARP SQ SCH ×2 (08:37→20:17)
[2016-07-31] MEDS ORDERED: HYDR-5688 PO (08:41)
--- NOTE | 2016-07-31 08:44 | Discharge Instructions ---
Discharge Instructions Date of Service July 31, 2016. Admission Reason for Admission: Anemia, Rectal Bleeding Discharge Discharge Diagnosis / Problem: colon cancer Discharge Goals Goal(s): Decrease discomfort, Improve function, Improve disease control Activity Recommendations Activity Limitations: as noted below Lifting Limitations: no more than 10 pounds Exercise/Sports Limitations: until after follow-up appointment May Resume Sexual Activity: after follow-up appointment Shower/Bathe: no limitations (may shower, no bath until beata removed) Driving or Machine Use: SPECIAL CARE INSTRUCTIONS: * Cover incisions and change daily for comfort/drainage. may leave uncovered if dry. * May use ibuprofen for pain as tolerated. * Expect some swelling and bruising. Call your doctor if: * Temperature above 101 degrees * Pain not relieved by pain medicine ordered * There is increased drainage or redness from any incision * You have any unanswered questions or concerns [phone]. FOLLOW UP VISIT: If not already scheduled, please call the office for a follow-up visit. for next week- staple removal OFFICE PHONE NUMBER: Dr. Marshall Office . Current Hospital Diet Patient's current hospital diet: Low Fiber Diet Discharge Diet Recommended Diet: Low Fiber Diet Procedures Procedures Performed: Rectosigmoid resection with anastomosis; total abdominal hysterectomy with bilateral salingooopherectomy; Temporary Ureteral Stent Placment Pending Studies Studies pending at discharge: no Medical Emergencies . Who to Call and When: Medical Emergencies: If at any time you feel your situation is an emergency, please call 911 immediately. . Non-Emergent Contact Non-Emergency issues call your: Primary Care Provider, Surgeon . "Provider Documentation" section prepared by Augustine Marshall. . VTE Core Measure Inpt VTE Proph given/why not?: Unfractionated heparin SQ, SCD's
--- NOTE | 2016-07-31 09:49 | Hospitalist Progress Note ---
Hospitalist Progress Note Date of Service July 31, 2016. (Nicole La ., LEONOR) Subjective Pt evaluation today including: conversation w/ patient, physical exam, chart review, lab review, review of inpatient medication list Voiding: no voiding problems Patient states she is feeling well this morning. Pain is well-controlled. Surgery advancing diet- tolerating well. Continues to have loose BMs. Patient denies any fever, chills, sweats, lightheadedness, dizziness, vision changes, CP , palpitations, edema, SOB, wheezing, cough, abdominal pain, nausea, vomiting, urinary symptoms, melena, numbness/tingling, weakness, muscle/joint pain, anxiety/depression, active bleeding, or new skin discoloration/changes. (Nicole La ., WALLYC) Medications Current Inpatient Medications Medications (Trade) Dose Ordered Sig/Gladis Route Start Time Stop Time Status Last Admin Dose Admin Acetaminophen 100 ml @ 400 mls/hr Q8H PRN IV 07/22/16 00:15 08/21/16 00:14 07/26/16 09:07 400 MLS/HR Pantoprazole Sodium/Syringe (Protonix Inj/ Syringe) 10 ml @ 5 mls/min DAILY@11 IV 07/22/16 11:00 08/21/16 10:59 07/30/16 11:21 5 MLS/MIN Miscellaneous (Iv Fluids Completed) 1 ea PRN PRN N/A 07/22/16 01:00 07/22/17 00:59 Ondansetron HCl (Zofran Inj) 4 mg Q6H PRN IV 07/25/16 10:45 08/24/16 10:44 07/27/16 20:28 4 MG Heparin Sodium (Porcine) (Heparin Sq 5000 Unit/0.5ml) 5,000 unit Q12H SQ 07/26/16 08:00 08/25/16 07:59 07/31/16 08:37 5,000 UNIT Ioversol (Optiray 320) 100 ml UD PRN IV 07/28/16 13:00 08/01/16 12:59 Metoprolol Tartrate (Lopressor Tab) 50 mg BID PO 07/29/16 20:00 08/28/16 20:59 07/31/16 08:32 50 MG Oxycodone/ Acetaminophen (Percocet 5-325mg Tab) 2 tab Q4H PRN PO 07/30/16 06:15 08/13/16 06:14 Oxycodone/ Acetaminophen (Percocet 5-325mg Tab) 1 tab Q4H PRN PO 07/30/16 06:15 08/13/16 06:14 Hydromorphone HCl (Dilaudid Inj) FOR PAIN 0.5-1MG 0.5MG ... Q3H PRN IV 07/30/16 17:30 08/13/16 17:29 (Nicole La, DEWAYNE-C) Objective Vital Signs Date Time Temp Pulse Resp B/P Pulse Ox O2 Delivery O2 Flow Rate FiO2 07/31/16 07:40 36.6 90 18 112/71 93 Room Air 07/31/16 00:00 Room Air 07/30/16 23:17 36.5 73 20 113/72 96 Room Air 07/30/16 16:00 Room Air 07/30/16 15:28 36.6 97 18 116/75 96 Room Air (Nicole La, DEWAYNE-C) Physical Exam General Appearance: no apparent distress Eyes: normal inspection, PERRL ENT: hearing grossly normal Neck: supple Respiratory/Chest: lungs clear, no respiratory distress, no accessory muscle use Cardiovascular: regular rate, rhythm Abdomen: normal bowel sounds, non tender, soft Extremities: no pedal edema, no calf tenderness Neurologic/Psychiatric: alert, normal mood/affect, oriented x 3 Skin: normal color, warm/dry, no rash (Nicole La PA-C) Laboratory Results Last 24 Hours Test 07/31/16 05:40 White Blood Count 4.13 K/uL Red Blood Count 3.67 M/uL Hemoglobin 9.9 g/dL Hematocrit 31.5 % Mean Corpuscular Volume 85.8 fL Mean Corpuscular Hemoglobin 27.0 pg Mean Corpuscular Hemoglobin Concent 31.4 g/dl RDW Standard Deviation 46.6 fL RDW Coefficient of Variation 15.0 % Platelet Count 153 K/uL Mean Platelet Volume 8.9 fL (Nicole La, DEWAYNE-C) Assessment and Plan The patient is a 80-year-old female presents emergency department with complaint of persistent painless rectal bleeding over the past 2-3 weeks. She notes bright red blood in his stools and on the toilet paper when she wipes. She has a known history of hemorrhoids. She reportedly had blood tests done a few weeks ago and had a drop in hemoglobin and she's unsure of the exact number. She is not take any antiplatelet agents for blood thinners. She reports her bowel movements have been normal. GI BLEED with transfusion of 2 unit PRBC on 07/24: - H&H stable - s/p colonscopy on 07/24- Malignant partially obstructing tumor at 15 cm proximal to the anus. Biopsied- CONSISTENT WITH INFILTRATIVE ADENOCARCINOMA Colonic mass: - s/p laparotomy, rectosigmoid resection with colorectal anastomosis by Dr. Marshall on 07/25 -- Pathology consistent w/ adenocarcinoma -- Advance diet/surgical management per surgery -- f/u outpatient w/ Dr. Marshall - s/p cystoscopy, bilateral retrograde pyelograms, placement of bilateral blunt- tipped ureteral stents w/ removal of stents at end of surgery by Dr. Marquez on 42 - Oncology consulted, appreciate recommendations Bilateral ovarian masses: s/p total abdominal hysterectomy, bilateral salpingo- oophorectomy by Dr. Seals on 07/25 Left lower lobe pulmonary lesion identified on CT: - Pulmonary consulted, appreciate recommendations -- Follow-up outpt for PET scan/biopsy outpt Liver lesion identified on CT: Oncology recommends outpt f/u to arrange a PET/ CT and a diagnostic procedure for her liver HTN: Metoprolol 50 mg BID Hypernatremia- RESOLVED: Treated w/ IVF GI Prophylaxis: Protonix DVT Prophylaxis: Heparin Code Status: LEVEL I, FULL Dispo: Hopeful discharge to ?home on 08/01 - pending PT/OT evaluations today - PCP appointment scheduled for 08/06 - Will need outpatient follow-up with Dr. Marshall, pulmonary, and oncology (Nicole La ., PA-C) PA Physician Supervision Note: I interviewed and examined the patient. Discussed with Nicole La PAC and agree with findings and plan as documented in the note. Any exceptions or clarifications are listed here: None pt with colonic resection for sigmoid malignancy found on colonoscopy, surgery is advancing diet. vitals stable, physical exam remains unchanged, no pain despite recent surgery car is regular lungs are clear abdomen is soft will have out pt follow up with PCP, new pt apt in [place], also follow up with Dr Marshall with lung change seen, hysterectomy for uterine changes, will have outpt PET scan and follow up as outpt with oncology htn on metoprolol Documented By: Andrey Hernandez (Andrey Hernandez M.D.)
[2016-07-31] MEDS: PANTOprazole INJ 40 MG in SYRINGE 0 ML IV SCH (11:09)
--- NOTE | 2016-07-31 15:02 | Pharmacy Progress Note ---
Automatic IV to PO Conversion Date of Service: July 31, 2016. [facility] identified patient as an appropriate candidate for automatic intravenous to oral conversion. Eligible medication: Protonix 40 mg IV every 24 hours. Day # 10 of IV therapy. Subjective The patient is a 81 year old female admitted on Jul 24, 2016 at 09:38 for Anemia , Rectal Bleeding. Objective Vital Signs: Vital Signs Past 12 Hours Date Time Temp Pulse Resp B/P Pulse Ox O2 Delivery O2 Flow Rate FiO2 07/31/16 08:00 Room Air 07/31/16 07:40 36.6 90 18 112/71 93 Room Air White Blood Count: Test 07/31/16 05:40 White Blood Count 4.13 K/uL (4.8-10.8) Height (Feet): 5 Height (Inches): 6.00 Weight (Kilograms): 58.000 Type of Diet: Soft Low Fiber Assessment & Plan The Infectious Disease Society and the [place] [employer] recommend conversion to oral therapy once a patient is determined to be clinically stable and are able to tolerate oral medications. Patient identified as appropriate candidate for IV to PO conversion of pantoprazole based on the following criteria: * Receiving oral medications and/or tolerating oral diet for greater than 24 hours * Patient does not meet criteria for use of intravenous proton pump inhibitors ( GI bleed has resolved (H&H stable), hypersecretory conditions, GERD associated with erosive esophagitis & unable to take PO) Automatic conversion to: Protonix 40 mg PO every 24 hours
[2016-07-31 15:29] VITALS: BP 129/80; PULSE 101; TEMP 36.4; O2SAT 97
[2016-07-31 16:11] VITALS: O2SAT 97
[2016-07-31 23:48] VITALS: BP 121/75; PULSE 85; TEMP 36.5; O2SAT 97
--- NOTE | 2016-08-01 06:27 | Surgery Progress Note ---
Surgery Progress Note Date of Service August 01, 2016. Subjective resting comfortably tolerating diet Objective Vital Signs: Date Time Temp Pulse Resp B/P Pulse Ox O2 Delivery O2 Flow Rate FiO2 08/01/16 00:00 Room Air 07/31/16 23:48 36.5 85 16 121/75 97 Room Air 07/31/16 16:11 97 Room Air 07/31/16 15:29 36.4 101 20 129/80 97 Room Air 07/31/16 08:00 Room Air 07/31/16 07:40 36.6 90 18 112/71 93 Room Air General Appearance: no apparent distress Respiratory/Chest: no respiratory distress Abdomen: soft Incision(s): intact Assessment & Plan 08/01/16- progressing well- ok for d/c from surgical standpoint- to come to office next week. Has visiting nurse for wound checks. 07/31/16- doing well- loose bms expected- will adv to low residue diet- d/c drains. for probable d/c home tomorrow with daughter- dressing chgs as needed 07/30/16- tolerating some liquids- full liquids ordered- d/c kilpatrick, hep lock IV po meds as tolerated, leave drain for now, atbx stopped check labs 07/27/16- overall stable, cont PCU status- monitor HR, H/H may drift down over weekend- may need 1-2 u RBCs- will monitor. Cont ice only today- possible sips tomorrow. Leave kilpatrick for now. mobilize 07/26/16- s/p laparotomy, rectosigmoid resection, DEE/BSO- pt is tachy- check H/H - clinically doesn't appear to be acutely bleeding- alert, extrem warm, good urine output pt normally on Beta blockers. pts H/H may drift down and she may need 1-2 u RBCs H/H stable, HR now 97, monitor for now , may be related to pt normally on Metoprolol will leave addn of IV med to med/ICU team PT 07/25/16- for OR this am- colon resection, possible oophorectomy. 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 Possible liver mets and to ovary. Lung mass could be primary vs met. Will ask other services to see pt. Colon operation is not an emergency, tentatively on schedule for tomorrow. Would plan for ureteral stents at operation 07/31/16- doing well- loose bms expected- will adv to low residue diet- d/c drains. for probable d/c home tomorrow with daughter- dressing chgs as needed 07/30/16- tolerating some liquids- full liquids ordered- d/c kilpatrick, hep lock IV po meds as tolerated, leave drain for now, atbx stopped check labs 07/27/16- overall stable, cont PCU status- monitor HR, H/H may drift down over weekend- may need 1-2 u RBCs- will monitor. Cont ice only today- possible sips tomorrow. Leave kilpatrick for now. mobilize 07/26/16- s/p laparotomy, rectosigmoid resection, DEE/BSO- pt is tachy- check H/H - clinically doesn't appear to be acutely bleeding- alert, extrem warm, good urine output pt normally on Beta blockers. pts H/H may drift down and she may need 1-2 u RBCs H/H stable, HR now 97, monitor for now , may be related to pt normally on Metoprolol will leave addn of IV med to med/ICU team PT 07/25/16- for OR this am- colon resection, possible oophorectomy. 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 Possible liver mets and to ovary. Lung mass could be primary vs met. Will ask other services to see pt. Colon operation is not an emergency, tentatively on schedule for tomorrow. Would plan for ureteral stents at operation
[2016-08-01 07:24] VITALS: BP 128/60; PULSE 78; TEMP 36.7; O2SAT 94
[2016-08-01] MEDS: HEPARIN SOD 5000 UNIT/0.5 ML CARP SQ SCH (08:00)
[2016-08-01] MEDS ORDERED: PANTOprazole SOD 40 MG TAB PO SCH (08:00)
[2016-08-01] MEDS: METOPROLOL TARTRATE 50 MG TAB PO SCH (08:01)
--- NOTE | 2016-08-01 08:03 | Discharge Instructions ---
Discharge Instructions Date of Service August 01, 2016. Admission Reason for Admission: Anemia, Rectal Bleeding Discharge Discharge Diagnosis / Problem: GI bleed; cancer Discharge Goals Goal(s): Decrease discomfort, Improve function, Learn about illness, Diagnostic testing, Therapeutic intervention, Prevent Disease Progression Activity Recommendations Activity Limitations: per Instructions/Follow-up section (As per Surgery's recommendations ) . Instructions / Follow-Up Instructions / Follow-Up Dr. Marshall has given you a prescription for Oxycodone 1-2 tablets every 6 hours as needed for pain control Resume all regular home medications as prescribed Please follow Dr. Marshall's instructions for continued surgical management Home Health services has been setup for you to continue to help with surgical wounds Please keep scheduled follow-up with your PCP on 08/06 Please call to schedule a follow-up with pulmonary and oncology to further evaluate/manage lesions found on your lung and liver Pulmonary- Dr. Alas; Office # [phone] Oncology- Dr. Jimenez; Office # [phone] Please follow-up/keep all of your subspecialty appointments Current Hospital Diet Patient's current hospital diet: Low Fiber Diet Discharge Diet Recommended Diet: Regular Diet Procedures Procedures Performed: Rectosigmoid resection with anastomosis; total abdominal hysterectomy with bilateral salingooopherectomy; Temporary Ureteral Stent Placment Pending Studies Studies pending at discharge: no Laboratory Results Test 07/21/16 22:46 07/23/16 05:39 07/25/16 06:19 07/26/16 18:08 Range/Units Prothrombin Time 10.5 9.0-12.0 SECONDS Prothromb Time International Ratio 1.0 0.9-1.1 Activated Partial Thromboplast Time 23.7 21.0-31.0 SECONDS Partial Thromboplastin Ratio 0.9 Total Bilirubin 0.5 0.2-1 mg/dl Direct Bilirubin 0.1 0-0.2 mg/dl Aspartate Amino Transf (AST/SGOT) 12 15-37 U/L Alanine Aminotransferase (ALT/SGPT) 20 12-78 U/L Alkaline Phosphatase 133 45-117 U/L Total Protein 7.3 6.4-8.2 gm/dl Albumin 3.7 3.4-5.0 gm/dl Lipase 144 73-393 U/L Tear Drop Cells 2+ Ovalocytes 1+ Immature Granulocyte % (Auto) 0.3 % White Blood Count 3.36 4.8-10.8 K/uL Red Blood Count 4.16 4.2-5.4 M/uL Hemoglobin 11.0 12.0-16.0 g/dL Hematocrit 35.4 37-47 % Mean Corpuscular Volume 85.1 80-100 fL Mean Corpuscular Hemoglobin 26.4 25-34 pg Mean Corpuscular Hemoglobin Concent 31.1 32-36 g/dl Platelet Count 120 130-400 K/uL Mean Platelet Volume 8.6 7.4-10.4 fL Neutrophils (%) (Auto) 72.9 % Lymphocytes (%) (Auto) 17.3 % Monocytes (%) (Auto) 7.7 % Eosinophils (%) (Auto) 1.8 % Basophils (%) (Auto) 0.0 % Neutrophils # (Auto) 2.45 1.4-6.5 K/uL Lymphocytes # (Auto) 0.58 1.2-3.4 K/uL Monocytes # (Auto) 0.26 0.11-0.59 K/uL Eosinophils # (Auto) 0.06 0-0.5 K/uL Basophils # (Auto) 0.00 0-0.2 K/uL Immature Granulocyte # (Auto) 0.01 0.00-0.02 K/uL Bedside Glucose 117 70-90 mg/dl Test 07/27/16 05:00 07/30/16 06:44 07/31/16 05:40 Range/Units Platelet Estimate NORMAL Sodium Level 141 136-145 mmol/L Potassium Level 4.0 3.5-5.1 mmol/L Chloride Level 107 98-107 mmol/L Carbon Dioxide Level 28 21-32 mmol/L Anion Gap 6.0 3-11 mmol/L Blood Urea Nitrogen 7 7-18 mg/dl Creatinine 0.64 0.60-1.20 mg/dl Est Creatinine Clear Calc Drug Dose 61.0 ml/min Estimated GFR () 95.6 Estimated GFR (Non- 82.5 BUN/Creatinine Ratio 10.7 10-20 Random Glucose 111 70-99 mg/dl Calcium Level 9.3 8.5-10.1 mg/dl Phosphorus Level 2.8 2.5-4.9 mg/dl Magnesium Level 2.1 1.8-2.4 mg/dl White Blood Count 4.13 4.8-10.8 K/uL Red Blood Count 3.67 4.2-5.4 M/uL Hemoglobin 9.9 12.0-16.0 g/dL Hematocrit 31.5 37-47 % Mean Corpuscular Volume 85.8 80-100 fL Mean Corpuscular Hemoglobin 27.0 25-34 pg Mean Corpuscular Hemoglobin Concent 31.4 32-36 g/dl RDW Standard Deviation 46.6 36.4-46.3 fL RDW Coefficient of Variation 15.0 11.5-14.5 % Platelet Count 153 130-400 K/uL Mean Platelet Volume 8.9 7.4-10.4 fL Medical Emergencies . Who to Call and When: Medical Emergencies: If at any time you feel your situation is an emergency, please call 911 immediately. . Non-Emergent Contact Non-Emergency issues call your: Primary Care Provider . . "Provider Documentation" section prepared by Nicole La. . VTE Core Measure Inpt VTE Proph given/why not?: Unfractionated heparin SQ, SCD's
--- NOTE | 2016-08-01 08:15 | Discharge Summary ---
Discharge Summary Date of Service August 01, 2016. (Nicole La, LEONOR) Discharge Summary Admission Date: Jul 24, 2016 at 09:38 Discharge Date: August 01, 2016 Discharge Disposition: Home with services Principal Diagnosis: GI bleed; colonic mass Problems/Secondary Diagnoses: GI BLEED Colonic mass Bilateral ovarian masses Left lower lobe pulmonary lesion identified on CT Liver lesion identified on CT HTN Hypernatremia Procedures: CT SCAN OF THE ABDOMEN AND PELVIS WITH IV CONTRAST CLINICAL HISTORY: Rectosigmoid tumor. Rectal bleeding. COMPARISON STUDY: No priors. TECHNIQUE: Following the IV administration of 119 cc of Optiray 320, CT scan of the abdomen and pelvis is performed from the lung bases to the proximal femora. Images are reviewed in the axial, sagittal, and coronal planes. IV contrast was administered without complication. Automated dose control exposure was utilized. The examination is significantly degraded by motion artifact. CT DOSE: 271.81 mGy.cm FINDINGS: Lung bases: The heart is normal in size and without pericardial effusion. There is a 3.2 cm groundglass lesion at the left lung base with small central cystic foci seen on image #25. The lung bases are otherwise clear. Liver: Evaluation of the liver is significant degraded by motion artifact. The contrast-enhanced liver is normal in size, contour, and attenuation. There is no intrahepatic biliary ductal dilatation. The hepatic veins and portal veins are patent. There is an indeterminant low-attenuation lesion in the right lobe of liver seen on image #79. This measures approximately 4 x 2.5 cm. At least 2 additional low-density lesions are seen in the right lobe on images #70 and #75. These measure up to 11 mm. A 9 mm hypervascular liver lesion is seen on image #58. Gallbladder: Unremarkable. Spleen: Normal in size and attenuation. Pancreas: Moderately atrophic and grossly unremarkable. Adrenal glands: Unremarkable. Kidneys: The contrast enhanced kidneys are atrophic and without hydronephrosis. The kidneys enhance symmetrically. Numerous parapelvic cysts are seen bilaterally. Abdominal vasculature: The abdominal aorta is normal in course and caliber noting moderate atherosclerotic calcification. Bowel: There is a questionable mucosal lesion within the sigmoid colon on image 3. A 1025. This is not well delineated by CT. No bowel obstruction is seen. The appendix is well-visualized and normal. Peritoneum: There is no intraperitoneal free air or abdominal ascites. Lymphadenopathy: None. Pelvic viscera: The bladder is normal as visualized. The uterus is infiltrated by numerous mixed density mass lesions. There is a right ovarian mass lesion seen on image #340. This measures 3.5 x 3.3 cm. A left ovarian lesion seen on image #327 measures 3.2 x 2.2 cm. Skeletal structures: The skeletal structures are osteopenic. No lytic or blastic lesions are seen. Hemangiomas are seen in the bodies of T9, T10, T12, L2, and L3. IMPRESSION: 1. Motion degraded examination. 2. A mucosal lesion is suggested in the sigmoid colon. This is not well assessed by CT. Correlation with endoscopy results will be required. 3. No bowel obstruction is seen. 4. There are bilateral ovarian mass lesions. These could represent ovarian metastases versus primary ovarian neoplasms. 5. There is a 3.2 cm groundglass lesion at the left lung base with central cystic foci. This should be considered a primary lung cancer until proven otherwise. The appearance is not typical for metastatic disease. 6. There are indeterminant low density liver lesions measuring up to 4 cm. Metastatic disease is not excluded. 7. The uterus is infiltrated by numerous lesions. Although these could represent fibroids, neoplasm is not excluded. 8. Additional findings as above. Electronically signed by: Carlos Adams M.D. 07/23/2016 6:05 PM Dictated Date/Time: 07/23/2016 5:54 PM The status of this report is Signed. Draft = Not yet reviewed or approved by Radiologist. Signed = Reviewed and approved by Radiologist. EXAMINATION: PELVIC ULTRASOUND CLINICAL HISTORY: Pelvic mass COMPARISON STUDY: CT scan dated 07/23/2016 FINDINGS: The uterus measured 7.1 x 2.6 x 5.4 cm. There are multiple small fibroids, the largest of which measures 2 cm.. There is fluid within the endometrial cavity measuring 5 mm in thickness. The right ovary measured 36 x 36 x 32 mm. There is a complex 26 mm right ovarian cyst.. The left ovary measured 32 x 25 x 19 mm.. There is no ultrasonographic evidence of ovarian torsion. It should be noted that ovarian torsion can be present with normal Doppler ultrasonographic findings. There was no evidence of pathologic free pelvic fluid. IMPRESSION: 1. Multiple uterine fibroids including a 2 cm exophytic right-sided fibroid 2. Fluid within the endometrial cavity 3. Complex 26 mm right ovarian cyst Electronically signed by: Bebo Reinoso M.D. 07/24/2016 11:03 AM Dictated Date/Time: 07/24/2016 11:01 AM The status of this report is Signed. Draft = Not yet reviewed or approved by Radiologist. Signed = Reviewed and approved by Radiologist. INTRAOPERATIVE KUB 2 VIEWS CLINICAL HISTORY: Bilateral stents COMPARISON STUDY: No previous studies for comparison. FINDINGS: 2 fluoroscopic spot images are provided for interpretation. The first image demonstrates a catheter within the right ureter with its tip at the level the renal pelvis. There is faint contrast opacification the right renal collecting system. The second film demonstrates a catheter within the left ureter with its tip at the level the renal pelvis. There is partial opacification the left collecting system. There is contrast within colon. 20 seconds of fluoroscopic time was utilized. IMPRESSION: 2 intraoperative fluoroscopic spot images were acquired during placement of bilateral ureteral stents. Electronically signed by: Bebo Reinoso M.D. 07/25/2016 7:53 AM Dictated Date/Time: 07/25/2016 7:51 AM The status of this report is Signed. Draft = Not yet reviewed or approved by Radiologist. Signed = Reviewed and approved by Radiologist. CHEST CT WITH CONTRAST CT DOSE: 184.56 mGy.cm HISTORY: Left lower lobe nodule. TECHNIQUE: Multiaxial CT images of the chest were performed following the intravenous administration of contrast. COMPARISON: Abdomen and pelvis CT 07/23/2016. FINDINGS: The central airways are patent. No pneumothorax. Trace bilateral pleural effusions with associated densities suggesting compressive atelectasis. Punctate calcified granuloma within the right lower lobe. There are 2 subcentimeter nodules within the right middle lobe on image 201. The larger nodule measures 4 mm. Groundglass lesion within the central left lower lobe measures 3 cm. No mediastinal or hilar lymphadenopathy. Hepatic lesions are again noted. Calcification within the right breast. No pericardial effusion. The central pulmonary arteries are patent. Normal caliber thoracic aorta. 3.5 cm low-density lesion within the anterior mediastinum. This measures Hounsfield units consistent with a cyst. No suspicious lytic or blastic osseous lesions. IMPRESSION: 1. There is again noted a 3 cm groundglass focal opacity within the left lower lobe. This is considered a primary bronchus malignancy until proven otherwise. 2. Interval development of trace bilateral pleural effusions with mild compressive atelectasis within the lower lobes. 3. There are 2 subcentimeter indeterminate pulmonary nodule within the right middle lobe with the largest measuring 4 mm. 4. Hepatic lesions are better appreciated on the prior abdomen and pelvis CT. Electronically signed by: Sebastian Geiger M.D. 07/28/2016 1:43 PM Dictated Date/Time: 07/28/2016 1:34 PM The status of this report is Signed. Draft = Not yet reviewed or approved by Radiologist. Signed = Reviewed and approved by Radiologist. CC: Lata Seals MD [facility] DICTATED BY: Lata Seals MD DATE OF OPERATION: 07/25/2016 PREOPERATIVE DIAGNOSES: Colonic tumor, rectal bleeding, anemia, abnormal ovaries and uterus on imaging, suspected pelvic metastasis. POSTOPERATIVE DIAGNOSES: Same. PROCEDURE: Total abdominal hysterectomy, bilateral salpingo-oophorectomy. SURGEON: Dr. Seals. QUALITY TESTER: Rolando. ESTIMATED BLOOD LOSS: For this portion of the total procedure roughly 15 mL FINDINGS: Ovaries grossly enlarged and multicystic bilaterally with a cluster of grapes appearance on their external surface. Uterus with small overall size but palpable lumps consistent with the fibroids seen on ultrasound. A white 1 x 1 cm plaque on the fundus of the uterus, slightly anterior of midline. Once the uterine cavity was entered, a milky white mucoid fluid emitting from the endometrial cavity. SPECIMENS: Uterus, cervix, bilateral fallopian tubes. COMPLICATIONS: None. DISPOSITION: Stable in the operating room under the care of Dr. Marshall. DESCRIPTION: I presented to operating room 7 at 8:[address] Marshall and his surgical instrument technician opening the patient's abdomen and beginning to pack and mobilize the bowel. I scrubbed in briefly in order to examine the pelvic organs. I was able to identify both ovaries and fallopian tubes which were mobile; however, unfortunately, both ovaries were enlarged with a multicystic cluster of grapes type appearance on their surface, which is abnormal. Additionally, the uterus, while small and overall fairly normally shaped, had a white plaque on its serosal surface, near the fundus, which in the setting of suspected abdominal cancer is concerning for possible metastasis. Dr. Marshall and I discussed the plan for DEE-BSO. I then scrubbed out to allow him to continue working on the upper abdomen. I returned shortly after 8:30 and scrubbed back in. At that point, it was an appropriate place in surgery for the pelvic organs to be addressed. The patient was placed in a Trendelenburg position and the bowel was gently packed out of the field by Dr. Marshall. We began by elevating the right ovary. Two Swathi clamps were applied to the IP ligament. Bovie electrocautery was used to divide the ligament between these clamps and 0 Vicryl pop-off was used as a stick tie with a Swathi suture to ligate the infundibulopelvic and a second free tie was placed to create a double ligature before the Swathi clamp was removed. Dissection proceeded anteriorly to the round ligament where a right-angle clamp was placed. The round ligament was divided using Bovie electrocautery and a free tie was used to ligate the stump of the round ligament. This tie was then held with a hemostat. A right-angle clamp and Metzenbaum scissors were used to dissect the anterior peritoneum to begin creating a bladder flap. Attention was then returned to the patient's left side where the procedure was essentially repeated with placement of 2 Swathi clamps on the IP ligament which was ligated doubly using a pop-off suture and then a free tie and then released. Dissection proceeded to the round ligament which was held with a right-angle clamp while it was divided using Bovie electrocautery and then a tie was applied to the stump which was then held in a hemostat. Dissection of the broad leaflet was then undertaken again with Metzenbaum scissors in order to complete the bladder flap. A sponge on a stick was used to gently mobilize the bladder inferiorly and Bovie electrocautery was used to address a few small surface bleeders created in this process. Posterior peritoneum was skeletonized. Hysterectomy then began in earnest with placement of a straight and curved Swathi along the left lateral aspect of the uterus. A long-handled knife was used to divide the uterine arteries and the cardinal ligament between the clamps and then a pop-off suture was used in a Swathi manner in order to ligate the pedicle. The straight and curved clamps were walked down the left side of the uterus with serial clamping, cutting and ligature, each suture being placed medial to the one before it until the lower portion of the cervix was reached. This procedure was then repeated identically on the right side of the uterus with a straight and curved Swathi being placed, the uterine artery and cardinal ligaments being divided, and then a pop-off suture being used to create a Swathi suture on the pedicle. Once the uterus had been detached and mobilized down to the lower half of the cervix, the decision was made to proceed with a supracervical hysterectomy as there was not felt to be any disease evident on the cervix. Two curved Swathi clamps were placed across the cervix meeting in the middle and electrocautery was used to amputate the cervix, fundus, tubes and ovaries as an en bloc specimen which will be sent for pathology. As the endometrial cavity was encountered, a milky-white mucoid fluid was encountered, which was quickly suctioned and then the area was irrigated. This likely represents the cavitary fluid seen on preop imaging. By the end of the amputation, it was apparent that most, if not all, of the cervix had in fact been removed; some stroma likely remained at the L angle but the cuff appeared essentially open at the R angle. Therefore, the decision was made to close the cuff as for a total abdominal hysterectomy instead of what we intended as a supracervical hysterectomy. Angle sutures were placed at each of the remaining Swathi clamps in a Swathi suture manner. The Heaneys were then removed. Two Allis were used to elevate the anterior and posterior portion of the vaginal cuff and a small amount of remaining cervical stroma and this was oversewn using [id number] pop-off Vicryls from one side to the other to achieve complete closure and hemostasis of the cuff/remaining cervical stroma. All these sutures were then cut. Examination of all working sites in the pelvis was undertaken and good hemostasis was seen at all sites. At this point, my portion of the procedure was completed and I broke scrub, leaving the patient in stable, intubated condition under the care of Dr. Marshall for the remainder of her procedure. I attest to the content of the Intraoperative Record and any orders documented therein. Any exceptions are noted below. Dictated: 07/25/16915 Transcribed: 07/25/16 0947 <Electronically signed by Lata Seals MD> Signed: 07/25/16 0955 ES Lata Seals MD The status of this report is Signed. Draft = Not yet reviewed or approved by Medical Physician. Signed = Reviewed and approved by Medical Physician. Operative Date Jul 25, 2016. Pre-Operative Diagnosis colon cancer, ovarian masses Post-Operative Diagnosis same Procedure(s) Performed laparotomy, rectosigmoid resection with colorectal anastomosis pelvic washings DEE/BSO- Dr Seals also stent placement- Dr Marquez Surgeon Dr. Augustine Marshall Emergency Department Surgeon(s) Dr. Leonidas Marquez, Dr. Bruce Seals, and WALLY HammondsC Estimated Blood Loss 150 cc Findings Lg colon tumor, abnormal ovaries and uterus Lt hepatic masses- could not visualize- able to palpate Specimens Cytology: pelvic washing out of room to lab at 0809 Permanent Specimen A: rectal sigmoid staple line proximal. sent to pathology for evaluation of gross margins at 0929. B: uterus, cervix, bilateral fallopian tubes and bilateral ovaries Drains [address] BEVER[place] to pelvis, oziel to subcu Anesthesia gen Complication(s) None Disposition Recovery Room / PACU <Electronically signed by Augustine Marshall M.D.> Signed: 07/25/16 1041 Signed: The status of this report is Signed Colonoscopy Impression: - Malignant partially obstructing tumor at 15 cm proximal to the anus. Biopsied. Tattooed. 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 CLERK (Nicole La, PA-C) Medication Reconciliation New Medications: Hydrocodone/Acetaminophen 5MG/325MG (Pryor 5MG/325MG) Tab 1-2 TABLET PO q 6 hrs PRN for Pain, #30 TAB PRN PAIN Continued Medications: Metoprolol Tartrate (Lopressor) (Lopressor) 50 Mg Tab 50 MG PO BID, TAB Referrals At Discharge Follow up Referrals: Oncology/Hematology Referral - Within a Month with Bang Jimenez MD Airborne Electronics Analyst Referral - Within a Month with Andrey Alas MD Discharge Exam Review of Systems: Constitutional: No chills, No fatigue, No fever, No sweats, No weakness Respiratory: No cough, No hemoptysis, No shortness of breath Cardiovascular: No chest pain, No edema, No palpitations Abdomen: + diarrhea, No constipation, No nausea, No pain, No vomiting Musculoskeletal: No calf pain, No joint pain, No muscle pain, No swelling Genitourinary - Female: No dysuria, No hematuria Neurologic: No numbness/tingling, No weakness Psychiatric: No anxiety, No depression symptoms Hematologic / Lymphatic: No abnormal bleeding/bruising Integumentary: No itch, No new/changing skin lesions, No rash Physical Exam: General Appearance: no apparent distress Eyes: normal inspection, PERRL ENT: hearing grossly normal Neck: supple Respiratory/Chest: lungs clear, no respiratory distress, no accessory muscle use Cardiovascular: regular rate, rhythm Abdomen / GI: normal bowel sounds, soft Extremities: no calf tenderness, no pedal edema Neurologic/Psychiatric: alert, normal mood/affect, oriented x 3 Skin: normal color, warm/dry, no rash (Nicole La, PAMargaritaC) Review of Systems: Constitutional: No chills, No fever Respiratory: No cough, No dyspnea on exertion, No shortness of breath, No sputum Cardiovascular: No chest pain, No edema, No orthopnea Abdomen: No diarrhea, No nausea, No pain, No vomiting Musculoskeletal: No joint pain, No muscle pain, No swelling Genitourinary - Female: No dysuria, No urinary frequency Psychiatric: No anhedonism, No depression symptoms Physical Exam: General Appearance: WD/WN, no apparent distress Neck: supple, no JVD Respiratory/Chest: chest non-tender, lungs clear, normal breath sounds Cardiovascular: regular rate, rhythm, no murmur Abdomen / GI: normal bowel sounds, non tender, soft (Andrey Hernandez M.D.) Hospital Course The patient is a 80-year-old female presents emergency department with complaint of persistent painless rectal bleeding over the past 2-3 weeks. She notes bright red blood in his stools and on the toilet paper when she wipes. She has a known history of hemorrhoids. She reportedly had blood tests done a few weeks ago and had a drop in hemoglobin and she's unsure of the exact number. She is not take any antiplatelet agents for blood thinners. She reports her bowel movements have been normal. GI BLEED with transfusion of 2 unit PRBC on 07/24: - H&H stable - s/p colonscopy on 07/24- Malignant partially obstructing tumor at 15 cm proximal to the anus. Biopsied- CONSISTENT WITH INFILTRATIVE ADENOCARCINOMA Colonic mass: - s/p laparotomy, rectosigmoid resection with colorectal anastomosis by Dr. Marshall on 07/25 -- Pathology consistent w/ adenocarcinoma -- Advance diet/surgical management per surgery -- f/u outpatient w/ Dr. Marshall - s/p cystoscopy, bilateral retrograde pyelograms, placement of bilateral blunt- tipped ureteral stents w/ removal of stents at end of surgery by Dr. Marquez on 426 - Oncology consulted, appreciate recommendations Bilateral ovarian masses: s/p total abdominal hysterectomy, bilateral salpingo- oophorectomy by Dr. Seals on 07/25 Left lower lobe pulmonary lesion identified on CT: - Pulmonary consulted, appreciate recommendations -- Follow-up outpt for PET scan/biopsy outpt Liver lesion identified on CT: Oncology recommends outpt f/u to arrange a PET/ CT and a diagnostic procedure for her liver HTN: Metoprolol 50 mg BID Hypernatremia- RESOLVED: Treated w/ IVF GI Prophylaxis: Protonix DVT Prophylaxis: Heparin Code Status: LEVEL I, FULL Dispo: Discharge to home w/ [facility] - PT/OT evaluations- return to home Total Time Spent: Greater than 30 minutes This includes examination of the patient, discharge planning, medication reconciliation, and communication with other providers. (Nicole La ., PA-C) PA Physician Supervision Note: I interviewed and examined the patient. Discussed with Nicole La PAC and agree with findings and plan as documented in the note. Any exceptions or clarifications are listed here: None pt with colonic resection for sigmoid malignancy found on colonoscopy, has done very well with post op diet and pain control, vitals stable, physical exam no pain despite recent surgery car is regular lungs are clear abdomen is soft will have out pt follow up with PCP, new pt apt in patten, also follow up with Dr Marshall with lung change seen, hysterectomy for uterine changes, will have outpt PET scan and follow up as outpt with oncology htn on metoprolol Documented By: Andrey Hernandez Total Time Spent: Greater than 30 minutes (Andrey Hernandez M.D.) Discharge Instructions Please refer to the electronic Patient Visit Report (Discharge Instructions) for additional information. (Nicole La ., PA-C) Follow-Up Please follow-up with your PCP as scheduled for you on 08/06 Please follow-up with Dr. Marshall as instructed by him Please call to schedule follow-up appointments with oncology and pulmonary Please follow-up/keep all of your subspecialty appointments (Nicole La ., PA-C) Additional Copies To Francia Wheeler ., WALLYC
[2016-08-01 10:45] VITALS: BP 128/60; PULSE 78; TEMP 36.7; O2SAT 94
== END 2016-08-01 12:20 | disposition home health service (06) | DRG 330 ==
LOC: ENRESERVTM → ENRESERVDT → C.EDB 21:35 → C.MSW 07-22 00:39 → OBSVTOIN 07-24 09:38 → C.MSICU 07-25 10:47 → EDBEDREQSVC 07-25 11:32 → C.MED 07-26 18:52 → C.2T 07-26 18:56 → C.4E 07-29 16:35 → UNDODISIN 07-31 15:10
PROVIDERS: ADMIT Hospitalist; ATTEND Family Medicine
PROC: 0DBN8ZX Excision of Sigmoid Colon, Via Natural or Artificial Opening Endoscopic, Diagnostic (ICD-10-PCS; 2016-07-23)
PROC: 0DBN0ZZ Excision of Sigmoid Colon, Open Approach (ICD-10-PCS; principal; 2016-07-25 07:00)
PROC: 0DBP0ZZ Excision of Rectum, Open Approach (ICD-10-PCS; principal; 2016-07-25 07:00)
PROC: 0UT20ZZ Resection of Bilateral Ovaries, Open Approach (ICD-10-PCS; 2016-07-25 07:00)
PROC: 0UT90ZZ Resection of Uterus, Open Approach (ICD-10-PCS; 2016-07-25 07:00)
PROC: 0UT70ZZ Resection of Bilateral Fallopian Tubes, Open Approach (ICD-10-PCS; 2016-07-25 07:00)
PROC: 0T788DZ Dilation of Bilateral Ureters with Intraluminal Device, Via Natural or Artificial Opening Endoscopic (ICD-10-PCS; 2016-07-25 07:00)
DX: C18.7 Malignant neoplasm of sigmoid colon (principal); D62 Acute posthemorrhagic anemia; E87.0 Hyperosmolality and hypernatremia; C79.89 Secondary malignant neoplasm of other specified sites; I10 Essential (primary) hypertension; D25.9 Leiomyoma of uterus, unspecified; R91.1 Solitary pulmonary nodule; K64.9 Unspecified hemorrhoids; K76.9 Liver disease, unspecified

== ENCOUNTER → 2016-08-20 | Outpatient (CLI) | payer OTHER ==
[~2016-08-20] MED LIST: HYDR-5688 PO; METO50TA16 PO
--- NOTE | 2016-08-20 11:18 | DIAGNOSTIC IMAGING REPORT ---
PET/CT HISTORY: Colorectal cancer. TECHNIQUE: PET/CT was performed from the base of the skull through the pelvis following the intravenous administration of 12.2 mCi of F18-FDG. Non-contrast CT imaging was performed over the same range without breath-hold for attenuation correction of PET images and anatomic correlation, but not for primary interpretation as it is not of standard diagnostic quality. CT DOSE: COMPARISON: Chest CT 07/28/2016. Abdomen and pelvis CT 07/23/2016. FINDINGS: HEAD AND NECK: Small fluid level within the left maxillary sinus with mild FDG uptake. This is consistent with acute sinusitis. No FDG avid or enlarged cervical lymph nodes. CHEST: There is again noted a 3 cm irregular groundglass masslike opacity within the left lower lobe. This demonstrates faint FDG uptake with an SUV max of 1. The subcentimeter pulmonary nodules within the right middle lobe are not well visualized due to motion artifact. No FDG avid or enlarged mediastinal hilar lymph nodes. Stable anterior mediastinal cyst. This does not demonstrate abnormal FDG uptake. ABDOMEN/PELVIS: Hypodense lesions within the right hepatic lobe do not demonstrate significant FDG uptake are likely benign. Mild splenomegaly which has increased in size. No adrenal gland nodules. Bilateral peripelvic renal cysts. No FDG avid or enlarged retroperitoneal lymphadenopathy. Patient is status post hysterectomy and bilateral oophorectomy. Multifocal areas of FDG uptake at the vaginal cuff and at the bilateral adnexa are nonspecific but favor postoperative change. These areas demonstrate an SUV max of 5.7. Moderate FDG uptake associated with the midline anterior abdominal wall incision also favors postoperative change. Small focus of fluid within the right perirectal space which does not demonstrate abnormal FDG uptake. This is likely postoperative. Mild FDG uptake within the pericolonic location at the rectosigmoid junction. This likely corresponds with the adjacent pericolonic fat stranding. This also favors postoperative change. There is a single focus of moderate FDG uptake within the right side of the abdomen fusing to a short segment of small bowel best seen on image 167. No corresponding abnormality by CT. Therefore, this is likely physiologic. MUSCULOSKELETAL: There is no FDG-avid or destructive bone lesion. IMPRESSION: 1. Minimal FDG uptake associated with the 3 cm irregular groundglass masslike opacity within the left lower lobe. Therefore, this is considered to be neoplastic until otherwise. Bronchoscopy should be considered for further evaluation. 2. Status post total hysterectomy and bilateral oophorectomy. Multifocal areas of moderate FDG uptake at the vaginal cuff, bilateral adnexa, and the distal pericolonic location favors postoperative change. Follow-up should be performed to ensure resolution of these findings. 3. No abnormal FDG uptake associated with the hypodense lesions within the right hepatic lobe. Therefore, these are likely benign. 4. Mild splenomegaly which has increased in size. This may be reactive. Electronically signed by: Sebastian Geiger M.D. 08/20/2016 11:16 AM Dictated Date/Time: 08/20/2016 10:43 AM
== END | disposition home or self-care (01) ==
LOC: C.PET 07:49
PROVIDERS: ATTEND Internal Medicine Hematology & Oncology
DX: C18.9 Malignant neoplasm of colon, unspecified (principal)

== ENCOUNTER → 2016-09-06 | Outpatient (CLI) | payer OTHER ==
[~2016-09-06] MED LIST changes: +GADOXETATE DISODIUM (NON-WT BASED PROCEDURE) IV PRN
--- NOTE | 2016-09-07 08:22 | DIAGNOSTIC IMAGING REPORT ---
MRI OF THE ABDOMEN WITH AND WITHOUT CONTRAST LIVER PROTOCOL CLINICAL HISTORY: Colon cancer. Hepatic mass. COMPARISON STUDY: CT of the abdomen and pelvis July 23, 2016 and PET/CT August 20, 2016. TECHNIQUE: Utilizing a 1.5 Marsha magnet and dedicated coil, multiplanar, multiecho imaging of the abdomen was performed pre and postcontrast administration. Injection of 10 cc of Eovist IV was uneventful. Post contrast imaging was performed utilizing dynamic enhancement with 20 minute delayed phase imaging. FINDINGS: Liver morphology is normal. There are multiple T2 hyperintense lesions within the liver which correspond to the lesions shown on prior CT and PET/CT. The largest is a 3.8 x 2.2 cm right hepatic lobe lesion. There are at least 7 hepatic lesions. The post contrast images are compromised by motion artifact. These lesions are hypointense on the 20 minute delayed phase images. The largest lesion demonstrates no definite enhancement. A few smaller lesions enhance on the more delayed phases and favor hemangiomas. These lesions are hyperintense on the diffusion-weighted sequences and also have increased signal intensity on the ADC map which favors T2 shinethrough. Proton splenomegaly is noted. There is no abdominal lymphadenopathy. Parapelvic cysts within the kidneys are noted. Suspected hemangiomas within the spine are noted. IMPRESSION: No change in multiple hepatic lesions since prior imaging studies. This exam is compromised by motion artifact which makes evaluation of these lesions difficult. Several smaller lesions appear to reflect hemangiomas while the largest right hepatic lobe lesion demonstrates no definite enhancement. This lesion remains indeterminate and could reflect a hemangioma. A metastasis is considered less likely given the lack of FDG uptake on recent PET but remains within the differential and short-term imaging follow-up to ensure stability is recommended. Electronically signed by: Sameer Sanz M.D. 09/07/2016 8:20 AM Dictated Date/Time: 09/06/2016 9:31 AM
== END | disposition home or self-care (01) ==
LOC: C.MRI 07:46
PROVIDERS: ATTEND Internal Medicine Hematology & Oncology
DX: C18.7 Malignant neoplasm of sigmoid colon (principal); K76.3 Infarction of liver; R91.8 Other nonspecific abnormal finding of lung field

== ENCOUNTER → 2016-09-06 | Outpatient (CLI) | payer OTHER ==
[~2016-09-06] MED LIST changes: -GADOXETATE DISODIUM (NON-WT BASED PROCEDURE) IV PRN
[2016-09-06 17:25] LABS: COMPLETE YES; HEMATOCRIT 34.5 % (37-47); LYMPH % 7.9 %; LYMPH ABS # 0.36 K/uL (1.2-3.4); MEAN CELL VOLUME 89.8 fL (80-100); MEAN CORPUSCULAR HEMOGLOBIN 27.9 pg (25-34); MEAN PLATELET VOLUME 8.9 fL (7.4-10.4); MONO % 4.2 %; NEUT % 87.9 %; PLATELET COUNT 193 K/uL (130-400); RED BLOOD COUNT 3.84 M/uL (4.2-5.4); WHITE BLOOD COUNT 4.54 K/uL (4.8-10.8)
[2016-09-06 17:43] LABS: PARTIAL THROMBOPLASTIN RATIO 1.1; PROTHROMBIN TIME (PATIENT) 10.7 SECONDS (9.0-12.0)
[2016-09-06 17:44] LABS: ALT/SGPT 14 U/L (12-78); AST/SGOT 12 U/L (15-37); BLOOD UREA NITROGEN 14 mg/dl (7-18); BUN/CREATININE RATIO 18.8 (10-20); CALCIUM 9.4 mg/dl (8.5-10.1); CARBON DIOXIDE 27 mmol/L (21-32); CHLORIDE 111 mmol/L (98-107); CREATININE 0.72 mg/dl (0.60-1.20); GLUCOSE 115 mg/dl (70-99); POTASSIUM 4.2 mmol/L (3.5-5.1); SODIUM 144 mmol/L (136-145)
[2016-09-06 17:46] LABS: ALB/GLOB RATIO 1.2 (0.9-2); ALKALINE PHOSPHATASE 137 U/L (45-117)
== END | disposition home or self-care (01) ==
LOC: C.LABPBG 12:00
PROVIDERS: ATTEND Physician Assistant
DX: R91.8 Other nonspecific abnormal finding of lung field (principal)

== ENCOUNTER → 2016-09-13 | Day surgery (SDC) | payer OTHER ==
[2016-09-13] VITALS (15 sets, daily range): BP systolic 130–205; BP diastolic 59–102; PULSE 69–100; TEMP 36.2–36.7; O2SAT 96–100; Ht 167.6 cm; Wt 58.5 kg
[~2016-09-13] VITALS: Ht 167.6 cm; Wt 58.5 kg
[~2016-09-13] MED LIST changes: +FENTANYL CITRATE INJ 50 MCG/1 ML 2 ML VIAL IV ONE; +FENTANYL CITRATE INJ 50 MCG/1 ML 2 ML VIAL IV SCH; +LIDOCAINE 4% INH SOLN 4 ML BTL ONE; +LIDOCAINE HCL 2% LOCAL 50ML VIAL INFIL ONE; +MIDAZOLAM HCL 5 MG/ML 1 ML VIAL IV ONE; +MIDAZOLAM HCL 5 MG/ML 1 ML VIAL IV SCH; +NURSING VERBAL MED ORDER ONE
--- NOTE | 2016-09-13 09:36 | History and Physical ---
History & Physical Date Sep 13, 2016. Chief Complaint GGO of the LLL History of Present Illness The patient is a 81 year old female with complaints of LLL GGO This is an 81-year-old female who presents the office for the 1st time. She was referred here by her PCP office. Apparently patient has a history of colon cancer. She was found to have a mass in the colon. She states that Dr. Marshall did the resection. This was done following a colonoscopy done by Dr. Yu for rectal bleeding and anemia. During the colonoscopy a fungating partially obstructing large mass was found at 15 centimeters proximal to the anus. Biopsies were taken with cold forceps at the time. The pathology showed changes consistent with infiltrate of adenocarcinoma. Patient then had surgical resection of the mass by Dr. Marshall. With cytology showing invasive adenocarcinoma the tumor infiltrates through the entire thickness of the bowel wall in the pericolic soft tissue. There is no identify the lymph vascular invasion. The exam a margins of resection were negative for tumor. There were 9 benign lymph nodes identified all negative for metastatic carcinoma. 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 During workup for this mass patient did have a CT of the abdomen which did pickle sorter a 3.2 centimeter ground-glass lesion at the left lung base with a central cystic foci with radiologist interpretation does not typical for metastatic disease patient subsequently had a CT of the chest which showed the 3 centimeter ground-glass focal opacity within the left lower lobe with radiologist feeling this consider primary bronchus malignancy until proven otherwise. There is also interval development trace bilateral pleural effusions. There is also a to subcentimeter indeterminate pulmonary nodules in the right middle lobe with the largest measuring 4 millimeters. Patient then underwent PET scan on August 20, 2016. PET scan showed minimal FDG uptake associated with the 3 centimeter regular ground-glass masslike opacity within the left lower lobe with recommendation for bronchoscopy for further evaluation. PET scan also showed multifocal areas of moderate FDG uptake at the vaginal cuff, bilateral adnexa, and the distal pericolonic location favoring postoperative changes. Therefore patient was referred to our office. Patient states that she did see Dr. oneil last week who wonder evaluated for the spot in her lung. Apparently there month the lung valuation prior to determining treatment. Patient reports that she has not really had any pulmonary problems. She states that she will have a cough on occasion. She states that is mostly seasonal. She states that it is typically nonproductive. She has had this for several years. She states that occasionally will take her breath away. She states that otherwise she feels good. She denies any wheezing. No increased shortness of breath. No dyspnea on exertion. She states that she is able to do steps without difficulty. She states that she has never been diagnosed or had any breathing problems prior to her current situation. She denies any cardiac issues. She has not had any previous problems with chest pain. No palpitations. No chest pressure heaviness. She states that she has not had any fever. No chills. No night sweats. She states that her weight is been stable prior to the procedures. She states that she is currently on metoprolol due to blood pressure she denies any GI issues. No nausea or vomiting. She states her appetite is doing well. States that is going back to normal following her recent colon resection partial colon resection. States her bowels are moving normally. There is no blood in her stool. She has no belly pain. She has no trouble voiding. She states that very occasionally she will have some swelling in her ankles which goes down over night. She denies any numbness, tingling, or weakness in her extremities. She is not sure if she snores or not. She states that she does feel rested in the a.m. when she gets up. Past medical history includes hypertension and colon cancer. Surgical history includes colon resection, complete hysterectomy with bilateral oophorectomy, 3 pins placed in her left wrist for fracture, and cataract surgery. Family history includes gallbladder and stomach cancer in her mother. PA in her father. Social history: No history of tobacco use. No history of alcohol use. 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 Past Medical/Surgical History Medical Problems: (1) Anemia (2) Broken wrist (3) Colonic mass (4) HTN (hypertension) (5) Left pulmonary lesion (6) Lesion of liver (7) Lesion of uterus (8) Rectal bleeding Additional History Endocrine Disorder: No Kidney Disease: No Hypertension: Yes Heart Disease: No Bleeding Tendencies: No Infectious Diseases: No Allergies Coded Allergies: No Known Allergies (Unverified , 6/15/17) Home Medications Scheduled Metoprolol Tartrate (Lopressor) (Lopressor), 50 MG PO BID Physical Examination Skin: warm/dry, no rash Eyes: normal inspection, EOMI, sclerae normal ENT: normal ENT inspection, pharynx normal Head: normocephalic, atraumatic Neck: supple, no adenopathy, trachea midline Respiratory/Chest: lungs clear, normal breath sounds, no respiratory distress Cardiovascular: regular rate, rhythm, no edema, no murmur Abdomen / GI: normal bowel sounds, non tender Back: normal inspection Extremities: normal inspection, normal range of motion Neurologic/Psych: no motor/sensory deficits, alert, normal reflexes, oriented x 3 Diagnosis LLL GGO ASA Classification: ASA Class III Plan of Treatment Bronchoscopy with BAL of the LLL and possible intra-bronchial bx and cytology brushing.
--- NOTE | 2016-09-13 09:37 | History & Physical Bridge Note ---
H&P Re-Evaluation Bridge Note: I have examined the patient, reviewed the History & Physical and in the interval since the performance of the History & Physical I have noted the following changes of clinical significance: No changes noted
--- NOTE | 2016-09-13 09:37 | Procedure Note ---
Pre-Mod Sedation Assessment General Date of Moderate Sedation: Sep 13, 2016. Vital Signs: Vital Signs Past 12 Hours Date Time Temp Pulse Resp B/P (MAP) Pulse Ox O2 Delivery O2 Flow Rate FiO2 09/13/16 08:35 36.4 100 18 167/61 (96) 96 Room Air Review Cardiovascular: regular rate, rhythm, no edema, no gallop, no JVD, no murmur, normal peripheral pulses Abdomen: normal bowel sounds, non tender, soft, no organomegaly, no pulsatile mass, normal rectal exam, occult blood negative Lungs: chest non-tender, lungs clear, normal breath sounds, no respiratory distress, no accessory muscle use Airway Class: II Pre-Sedation Airway Assessment Oral Cavity: Dentures Able to Visualize Vocal Cords: Yes Short Thick Neck: No Hx of Sleep Apnea: No Smoking Status: Never Smoker Mallampati Classification: Class II ASA Classification: Class III Procedure Planning Contraindications-for Mod Sed: None Yes Notes The planned sedation has been discussed with the patient and consent obtained. I have identified the patient, determined the appropriateness of sedation and have assessed the patient immediately prior to the procedure. All medicine(s) and interventions are by my order.
--- NOTE | 2016-09-13 10:42 | Bronchoscopy Procedure Note ---
Bronchoscopy Procedure Note Procedure: Bronchoscopy, conscious sedation, BAL (LLL) Consent: Obtained through the patient placed into the chart Pre-procedural diagnosis: LLL GGO with hx of Colonic Ca Post-procedural diagnosis: LLL GGO with hx of Colonic Ca Start time: 1014 End time: 1027 Total time: 13 minutes Analgesia: 2% liquid lidocaine: Via nebulizer 4% gel lidocaine: Via right naris 2% liquid lidocaine: Via bronchoscopy Sedation: Versed IV: 3 mg Fentanyl IV: 75 g Procedure: The Guide video bronchoscope was used for this procedure and passed down through the right naris Right naris/posterior naris/posterior oropharynx: Anatomically within normal limits Glottis: Anatomically within normal limits Vocal cords: Proper abduction and abduction, anatomically within normal limits Subglottis/trachea/Marlyn: Anatomically within normal limits Right bronchial tree: Right mainstem bronchus: Anatomically within normal limits Right upper lobe: Anatomically within normal limits Bronchus intermedius: Anatomically within normal limits Right middle lobe: Anatomically within normal limits Right lower lobe: Anatomically within normal limits Findings: No significant findings noted Left bronchial tree: Left mainstem bronchus: Anatomically within normal limits Left upper lobe: Anatomically within normal limits Lingula: Anatomically within normal limits Left lower lobe: Anatomically within normal limits Findings: No significant findings noted Bronchial alveolar lavage: LLL 80cc with 30cc returned EBL: none Complications: None Follow-up: In the [facility]
--- NOTE | 2016-09-13 10:42 | Procedure Note ---
Post-Moderate Sedation Plan General Date of Moderate Sedation Sep 13, 2016. Vital Signs: Vital Signs Past 12 Hours Date Time Temp Pulse Resp B/P (MAP) Pulse Ox O2 Delivery O2 Flow Rate FiO2 09/13/16 10:35 86 20 130/71 97 Mask 6.0 09/13/16 10:30 79 19 148/75 97 Mask 6.0 09/13/16 10:25 86 18 165/83 100 Mask 6.0 09/13/16 10:20 81 18 174/82 100 Mask 6.0 09/13/16 10:15 99 18 205/102 100 Mask 6.0 09/13/16 10:10 81 18 174/82 100 Mask 6.0 09/13/16 10:00 84 18 175/86 100 Mask 6.0 09/13/16 09:51 36.4 100 18 167/61 96 Room Air 09/13/16 08:35 36.4 100 18 167/61 (96) 96 Room Air Review - Discharge Plan Post Moderate Sedation Plan: On clinical assessment, the patient appears to have tolerated the conscious sedation without complications. Patient is recovering as anticipated. Patient will continue to be monitored by nursing and may be discharged when conscious sedation discharge criteria are met.
--- NOTE | 2016-09-13 10:46 | Discharge Instructions ---
Discharge Instructions Date of Service Sep 13, 2016. Admission Reason for Admission: Lung Mass, Chronic Cough, Adenocarcinoma Discharge Discharge Diagnosis / Problem: Left Lower lobe ground glass nodule Discharge Goals Goal(s): Diagnostic testing Activity Recommendations Activity Limitations: resume your previous activity . Instructions / Follow-Up Instructions / Follow-Up Follow-up in the [facility] Current Hospital Diet Patient's current hospital diet: Discharge Diet Recommended Diet: Regular Diet Procedures Procedures Performed: Bornchoscopy with conscious sedation and bronchial lavage of the left lower lobe Pending Studies Studies pending at discharge: yes List of pending studies: micorbiology and cytoligic analysis of the fluid Medical Emergencies . Who to Call and When: Medical Emergencies: If at any time you feel your situation is an emergency, please call 911 immediately. . Non-Emergent Contact Non-Emergency issues call your: Senior [employer] Adf Developer Call Non-Emergent contact if: temperature is above 101.5 . . "Provider Documentation" section prepared by Andrey Alas. . VTE Core Measure Inpt VTE Proph given/why not?: Treatment not indicated
[2016-10-11 16:18] LABS: HERPES SIMPLEX CULT SOURCE OTHER-BAL LLL; HERPES SIMPLEX VIRUS CULT ISOLATED (NOT ISOLATED)
[2016-10-12 17:01] LABS: HSVTYPE1REFLEX ONLY!DON'T ORDR ISOLATED (NOT ISOLATED); HSVTYPE2REFLEX ONLY!DON'T ORDR NOT ISOLATED (NOT ISOLATED)
== END | disposition home or self-care (01) ==
LOC: C.ACU 08:06
PROVIDERS: ATTEND Internal Medicine Critical Care Medicine
DX: R91.8 Other nonspecific abnormal finding of lung field (principal); Z85.038 Personal history of other malignant neoplasm of large intestine; I10 Essential (primary) hypertension; Z98.49 Cataract extraction status, unspecified eye; Z98.890 Other specified postprocedural states; Z90.710 Acquired absence of both cervix and uterus; Z90.722 Acquired absence of ovaries, bilateral; Z80.9 Family history of malignant neoplasm, unspecified; Z82.49 Family history of ischemic heart disease and other diseases of the circulatory system; Z80.0 Family history of malignant neoplasm of digestive organs

== ENCOUNTER → 2016-10-01 | Outpatient (CLI) | payer OTHER ==
[~2016-10-01] MED LIST changes: -FENTANYL CITRATE INJ 50 MCG/1 ML 2 ML VIAL IV ONE; -FENTANYL CITRATE INJ 50 MCG/1 ML 2 ML VIAL IV SCH; -HYDR-5688 PO; -LIDOCAINE 4% INH SOLN 4 ML BTL ONE; -LIDOCAINE HCL 2% LOCAL 50ML VIAL INFIL ONE; -MIDAZOLAM HCL 5 MG/ML 1 ML VIAL IV ONE; -MIDAZOLAM HCL 5 MG/ML 1 ML VIAL IV SCH; -NURSING VERBAL MED ORDER ONE
[2016-10-01 12:19] LABS: BASO % 0.3 %; BASO ABS # 0.01 K/uL (0-0.2); COMPLETE YES; EOS % 1.6 %; HEMATOCRIT 31.8 % (37-47); IG% 0.3 %; LYMPH % 19.7 %; LYMPH ABS # 0.61 K/uL (1.2-3.4); MEAN CELL VOLUME 90.1 fL (80-100); MEAN CORPUSCULAR HEMOGLOBIN 28.3 pg (25-34); MEAN CORPUSCULAR HGB CONC 31.4 g/dl (32-36); MEAN PLATELET VOLUME 8.4 fL (7.4-10.4); MONO % 7.4 %; NEUT % 70.7 %; PLATELET COUNT 154 K/uL (130-400); RED BLOOD COUNT 3.53 M/uL (4.2-5.4)
[2016-10-01 12:51] LABS: ALT/SGPT 13 U/L (12-78); AST/SGOT 13 U/L (15-37); BLOOD UREA NITROGEN 14 mg/dl (7-18); BUN/CREATININE RATIO 18.5 (10-20); CARBON DIOXIDE 27 mmol/L (21-32); CHLORIDE 110 mmol/L (98-107); CREATININE 0.76 mg/dl (0.60-1.20); GLUCOSE 94 mg/dl (70-99); POTASSIUM 4.1 mmol/L (3.5-5.1); SODIUM 142 mmol/L (136-145)
[2016-10-01 12:54] LABS: ALB/GLOB RATIO 1.2 (0.9-2); ALKALINE PHOSPHATASE 115 U/L (45-117)
== END | disposition home or self-care (01) ==
LOC: C.LABPBG 08:18
PROVIDERS: ATTEND Internal Medicine Hematology & Oncology
DX: C18.7 Malignant neoplasm of sigmoid colon (principal)

== ENCOUNTER → 2016-12-06 | Outpatient (CLI) | payer OTHER ==
[~2016-12-06] MED LIST changes: +GADOXETATE DISODIUM (NON-WT BASED PROCEDURE) IV PRN
[2016-12-06 08:58] LABS: ISTAT CREATININE 0.6 mg/dl (0.6-1.3); ISTAT HEMOGLOBIN 9.5 g/dl (12.0-16.0); ISTAT IONIZED CALCIUM 1.34 mmol/l (1.12-1.32)
--- NOTE | 2016-12-06 09:40 | DIAGNOSTIC IMAGING REPORT ---
LIVER COMBO CLINICAL HISTORY: Liver lesion. COMPARISON STUDY: 09/06/2016. TECHNIQUE: MRI of the abdomen is performed transverse T1 and T2-weighted sequences in the axial and coronal planes. Contrast enhanced sequences were acquired following the IV administration of 10 cc U list. FINDINGS: Lower chest: No pleural effusion is identified. The heart is normal in size. Liver.: Multiple hepatic foci of increased signal on T2-weighted images are identical compared to the prior study. Partial postcontrast enhancement. Both of these are consistent with that of benign hemangiomas. There are no new or interval findings. Mild stable splenomegaly. No evidence for biliary ductal distention. Gallbladder appears unremarkable. Signal characteristics of the pancreas are unremarkable. Kidneys negative for hydronephrosis. Several small peripelvic cysts are present. . IMPRESSION: 1. Stable exam with no change from the prior study. 2. Multiple hepatic lesions remain essentially unchanged suggestive of hemangiomas. 3. Moderate stable splenomegaly. 4. Several small renal parapelvic cysts unchanged from the prior exam. The above report was generated using voice recognition software. It may contain grammatical, syntax or spelling errors. Electronically signed by: Heriberto Moran M.D. 12/06/2016 9:38 AM Dictated Date/Time: 12/06/2016 9:33 AM
[2016-12-06 09:41] LABS: COMPLETE YES; EOS % 1.4 %; HEMATOCRIT 30.5 % (37-47); IG% 0.7 %; LYMPH % 19.3 %; LYMPH ABS # 0.57 K/uL (1.2-3.4); MEAN CORPUSCULAR HEMOGLOBIN 28.3 pg (25-34); MEAN CORPUSCULAR HGB CONC 31.5 g/dl (32-36); MEAN PLATELET VOLUME 8.9 fL (7.4-10.4); MONO % 6.4 %; NEUT % 72.2 %; PLATELET COUNT 130 K/uL (130-400); RED BLOOD COUNT 3.39 M/uL (4.2-5.4); WHITE BLOOD COUNT 2.95 K/uL (4.8-10.8)
[2016-12-06 10:02] LABS: ALT/SGPT 14 U/L (12-78); BLOOD UREA NITROGEN 10 mg/dl (7-18); BUN/CREATININE RATIO 12.7 (10-20); CALCIUM 9.4 mg/dl (8.5-10.1); CARBON DIOXIDE 25 mmol/L (21-32); CHLORIDE 109 mmol/L (98-107); CREATININE 0.79 mg/dl (0.60-1.20); GLUCOSE 103 mg/dl (70-99); POTASSIUM 4.2 mmol/L (3.5-5.1); SODIUM 141 mmol/L (136-145)
[2016-12-06 10:05] LABS: ALB/GLOB RATIO 1.2 (0.9-2); ALKALINE PHOSPHATASE 126 U/L (45-117); AST/SGOT 15 U/L (15-37)
== END | disposition home or self-care (01) ==
LOC: C.MRI 08:07
PROVIDERS: ATTEND Internal Medicine Hematology & Oncology
DX: C18.7 Malignant neoplasm of sigmoid colon (principal); K76.3 Infarction of liver; R16.1 Splenomegaly, not elsewhere classified

== ENCOUNTER → 2016-12-21 | Outpatient (CLI) | payer OTHER ==
[~2016-12-21] MED LIST changes: -GADOXETATE DISODIUM (NON-WT BASED PROCEDURE) IV PRN; +OPTIRAY 320 IV PRN
--- NOTE | 2016-12-21 14:45 | DIAGNOSTIC IMAGING REPORT ---
CT SCAN OF THE CHEST WITH IV CONTRAST CLINICAL HISTORY: Lung mass. COMPARISON STUDY: Chest CT dated 07/28/2016 PET/CT dated 08/20/2016. MRI of the liver dated 12/06/2016. TECHNIQUE: Following the IV administration of 93 cc of Optiray 320, CT scan of the thorax was performed from the thoracic inlet to the upper abdomen. Images are reviewed in the axial, sagittal, and coronal planes. IV contrast was administered without complication. A dose lowering technique was utilized adhering to the principles of ALARA. CT DOSE: 182.72 mGy.cm FINDINGS: Thyroid: Imaged portions of the thyroid gland are normal in size and attenuation. Thoracic aorta: There is atherosclerotic calcification of the thoracic aorta, which is normal in caliber and demonstrates standard 3-vessel arch anatomy. No dissection is seen. Pulmonary vasculature: The pulmonary trunk is normal in caliber. There are no filling defects identified in the central pulmonary vessels to indicate pulmonary embolus. Note that this examination was not protocoled for evaluation of the pulmonary arteries. Heart: The heart is top normal in size and without pericardial effusion. There are coronary artery calcifications. Lungs and pleural spaces: A small fat-containing Bochdalek hernia is seen at the right lung base. Biapical scarring is observed. The trachea and central airways are patent. There is an approximately 2.5 x 3 cm ill-defined groundglass lesion in the left lower lobe. This is similar to previous and contains central cystic foci. No additional pulmonary lesions are identified. There is no airspace consolidation typical for pneumonia or pleural effusion. Mediastinum: A 2.0 x 3.5 cm lobulated water attenuation lesion in the anterior mediastinum is unchanged from previous. This was not FDG avid on the 08/20/2016 PET examination and is of doubtful significance. There is no mediastinal lymphadenopathy. Lola: Clear. Axillae: There is no axillary lymphadenopathy. Upper abdomen: There is a tiny hiatal hernia. At least 5 low-attenuation hepatic lesions are unchanged from prior studies. These were better assessed by MRI on 12/06/2016 and may represent hemangiomas. Skeletal structures: The skeletal structures are osteopenic. No lytic or blastic bony lesions are seen. Hemangiomas are noted in the bodies of T5, T8, T12, and L1. IMPRESSION: 1. There is unchanged appearance of an approximately 2.5 x 3 cm ill-defined groundglass lesion in the left lower lobe. This should be considered low-grade neoplasm until proven otherwise. 2. No additional pulmonary lesions are identified. 3. There is no airspace consolidation or pleural effusion. 4. Low-attenuation hepatic lesions are unchanged from prior studies. 5. Additional findings as above. Electronically signed by: Carlos Adams M.D. 12/21/2016 2:43 PM Dictated Date/Time: 12/21/2016 2:35 PM
== END | disposition home or self-care (01) ==
LOC: C.CTS 14:08
PROVIDERS: ATTEND Physician Assistant
DX: R91.8 Other nonspecific abnormal finding of lung field (principal); R91.1 Solitary pulmonary nodule

== ENCOUNTER → 2016-12-27 | Outpatient (CLI) | payer OTHER ==
[~2016-12-27] MED LIST changes: -OPTIRAY 320 IV PRN
[2016-12-27 12:16] LABS: COMPLETE YES; EOS % 1.6 %; HEMATOCRIT 31.3 % (37-47); IG% 0.3 %; LYMPH % 19.8 %; LYMPH ABS # 0.61 K/uL (1.2-3.4); MEAN CELL VOLUME 88.7 fL (80-100); MEAN CORPUSCULAR HGB CONC 31.6 g/dl (32-36); MEAN PLATELET VOLUME 8.5 fL (7.4-10.4); MONO % 5.2 %; NEUT % 73.1 %; PLATELET COUNT 159 K/uL (130-400); RED BLOOD COUNT 3.53 M/uL (4.2-5.4); WHITE BLOOD COUNT 3.08 K/uL (4.8-10.8)
[2016-12-27 12:52] LABS: ALT/SGPT 15 U/L (12-78); BLOOD UREA NITROGEN 15 mg/dl (7-18); CALCIUM 9.4 mg/dl (8.5-10.1); CARBON DIOXIDE 25 mmol/L (21-32); CHLORIDE 109 mmol/L (98-107); CREATININE 0.83 mg/dl (0.60-1.20); GLUCOSE 96 mg/dl (70-99); POTASSIUM 4.4 mmol/L (3.5-5.1); SODIUM 140 mmol/L (136-145)
[2016-12-27 12:55] LABS: ALB/GLOB RATIO 1.1 (0.9-2); ALKALINE PHOSPHATASE 123 U/L (45-117); AST/SGOT 15 U/L (15-37)
== END | disposition home or self-care (01) ==
LOC: C.LABPBG 08:07
PROVIDERS: ATTEND Internal Medicine Hematology & Oncology
DX: C18.7 Malignant neoplasm of sigmoid colon (principal); R91.8 Other nonspecific abnormal finding of lung field

== ENCOUNTER → 2017-04-08 | Outpatient (CLI) | payer OTHER ==
[2017-04-08 13:03] LABS: EOS % 1.4 %; EOS ABS # 0.04 K/uL (0-0.5); HEMATOCRIT 29.7 % (37-47); IG# 0.02 K/uL (0.00-0.02); LYMPH % 19.1 %; LYMPH ABS # 0.56 K/uL (1.2-3.4); MEAN CELL VOLUME 91.4 fL (80-100); MEAN CORPUSCULAR HEMOGLOBIN 27.7 pg (25-34); MEAN CORPUSCULAR HGB CONC 30.3 g/dl (32-36); MEAN PLATELET VOLUME 8.9 fL (7.4-10.4); MONO % 5.8 %; MONO ABS # 0.17 K/uL (0.11-0.59); NEUT ABS # 2.14 K/uL (1.4-6.5); PLATELET COUNT 163 K/uL (130-400); RED CELL DISTRIBUTION WIDTH CV 14.9 % (11.5-14.5); RED CELL DISTRIBUTION WIDTH SD 50.2 fL (36.4-46.3); WHITE BLOOD COUNT 2.93 K/uL (4.8-10.8)
[2017-04-08 13:30] LABS: ALBUMIN 3.6 gm/dl (3.4-5.0); ALT/SGPT 16 U/L (12-78); BLOOD UREA NITROGEN 15 mg/dl (7-18); CARBON DIOXIDE 26 mmol/L (21-32); CREATININE 0.81 mg/dl (0.60-1.20); GLUCOSE 100 mg/dl (70-99); POTASSIUM 4.6 mmol/L (3.5-5.1); SODIUM 141 mmol/L (136-145)
[2017-04-08 13:33] LABS: ALKALINE PHOSPHATASE 126 U/L (45-117); AST/SGOT 15 U/L (15-37); TOTAL PROTEIN 6.9 gm/dl (6.4-8.2)
== END | disposition home or self-care (01) ==
LOC: C.LABPBG 08:03
PROVIDERS: ATTEND Internal Medicine Hematology & Oncology
DX: C18.7 Malignant neoplasm of sigmoid colon (principal)

== ENCOUNTER → 2017-07-04 | Outpatient (CLI) | payer OTHER ==
[~2017-07-04] MED LIST changes: +OPTIRAY 320 IV PRN
--- NOTE | 2017-07-04 15:07 | DIAGNOSTIC IMAGING REPORT ---
CT ABD/PELVIS IV AND ORAL CONT CLINICAL HISTORY: COLON CA COMPARISON STUDY: 07/23/2016, MRI the liver dated 12/06/2016 TECHNIQUE: Following the IV administration of 92 mL of Optiray-320, CT scan of the abdomen and pelvis was performed from the lung bases to the proximal femurs. Images are reviewed in the axial, sagittal, and coronal planes. IV contrast was administered without complication. A dose lowering technique was utilized adhering to the principles of ALARA. CT DOSE: FINDINGS: Lower chest: There is a 3 cm left lower lobe groundglass nodule, unchanged in size from the preceding study. Despite the stability, the lesion must be viewed as suspicious for a low-grade neoplasm Liver: There is a stable 3.5 cm right lobe hepatic hypodense lesion. There is a stable 1 cm lesion within the liver near the junction of the right and left lobe. Gallbladder: Unremarkable. Spleen: The spleen is borderline enlarged measuring 11.6 cm in length Pancreas: Unremarkable. Adrenal glands: Unremarkable. Kidneys: Parapelvic cysts remain similar to the prior study. No solid renal masses are visualized. There is no hydronephrosis. Bowel: There are no transition zones indicate bowel obstruction. There is no acute diverticulitis. The appendix appears normal. Peritoneum: There is no intraperitoneal free air or abdominal ascites. Vasculature: The abdominal aorta is normal in course and caliber. Adenopathy: None. Pelvic viscera: The previous identified ovarian lesions are no longer visualized. The patient appears to be status post a interval bilateral oophorectomy. Skeletal structures: There is a T12 vertebral body hemangioma. IMPRESSION: 1. No convincing evidence of intra-abdominal or pelvic metastatic disease. 2. Stable x1 year hypodense hepatic lesions. The largest reveal no evidence of pathologic FDG activity on a PET scan performed July 2016 3. Stable x1 year 3 cm left lower lobe groundglass pulmonary nodule. A low-grade carcinoma remains the diagnosis of exclusion. Electronically signed by: Beob Reinoso M.D. 07/04/2017 3:05 PM Dictated Date/Time: 07/04/2017 2:56 PM
--- NOTE | 2017-07-04 15:13 | DIAGNOSTIC IMAGING REPORT ---
CHEST CT WITH CONTRAST CT DOSE: 720.31 mGy.cm HISTORY: Colon cancer. TECHNIQUE: Multiaxial CT images of the chest were performed following the intravenous administration of contrast. A dose lowering technique was utilized adhering to the principles of ALARA. COMPARISON: Chest CT 12/21/2016. FINDINGS: Rest or motion artifact. 3.1 cm left lower lobe groundglass lesion is again noted. This is similar to the prior study. No pneumothorax. No pleural effusions. Linear density left lung base likely represent subsegmental atelectasis. Stable 2 mm pulmonary nodule within the right upper lobe on image 52. This is likely benign given the stability. No new pulmonary nodules identified. Punctate calcified granuloma within the right lower lobe. No suspicious lytic or blastic osseous lesions. No mediastinal or hilar lymphadenopathy. Normal caliber thoracic aorta. The central pulmonary arteries are patent. Stable low density circumscribed lesion within the anterior mediastinum. This measures 4.0 x 2.0 cm. This favors a thymic cyst. IMPRESSION: 1. No significant change in the 3 cm groundglass lesion within the left lower lobe. This is consistent with a low-grade primary bronchogenic malignancy. 2. No new pulmonary nodules to suggest metastatic disease. Electronically signed by: Sebastian Geiger M.D. 07/04/2017 3:12 PM Dictated Date/Time: 07/04/2017 3:05 PM
== END | disposition home or self-care (01) ==
LOC: C.CTS 12:33
PROVIDERS: ATTEND Internal Medicine Hematology & Oncology
DX: C18.7 Malignant neoplasm of sigmoid colon (principal); K76.9 Liver disease, unspecified; R91.1 Solitary pulmonary nodule

== ENCOUNTER → 2017-07-10 | Outpatient (CLI) | payer OTHER ==
[~2017-07-10] MED LIST changes: +ACETAMINOPHEN 325 MG TAB ONE; -OPTIRAY 320 IV PRN
[2017-07-10 12:56] LABS: ALBUMIN 3.6 gm/dl (3.4-5.0); ALT/SGPT 17 U/L (12-78); AST/SGOT 11 U/L (15-37); BLOOD UREA NITROGEN 14 mg/dl (7-18); CALCIUM 9.4 mg/dl (8.5-10.1); CARBON DIOXIDE 25 mmol/L (21-32); CREATININE 0.83 mg/dl (0.60-1.20); GLUCOSE 104 mg/dl (70-99); POTASSIUM 4.3 mmol/L (3.5-5.1); SODIUM 139 mmol/L (136-145)
[2017-07-10 12:57] LABS: ALKALINE PHOSPHATASE 131 U/L (45-117)
[2017-07-10 13:02] LABS: HEMOGLOBIN 7.2 g/dL (12.0-16.0); MEAN CELL VOLUME 87.3 fL (80-100); MEAN CORPUSCULAR HEMOGLOBIN 26.2 pg (25-34); MEAN PLATELET VOLUME 8.2 fL (7.4-10.4); PLATELET COUNT 162 K/uL (130-400); RED CELL DISTRIBUTION WIDTH SD 51.1 fL (36.4-46.3); WHITE BLOOD COUNT 2.66 K/uL (4.8-10.8)
[2017-07-10 13:04] LABS: EOS % 1.5 %; EOS ABS # 0.04 K/uL (0-0.5); IG# 0.01 K/uL (0.00-0.02); LYMPH ABS # 0.48 K/uL (1.2-3.4); MONO ABS # 0.16 K/uL (0.11-0.59); NEUT % 74.1 %; NEUT ABS # 1.97 K/uL (1.4-6.5)
== END | disposition home or self-care (01) ==
LOC: C.LABPBG 08:00
PROVIDERS: ATTEND Internal Medicine Hematology & Oncology
DX: C18.7 Malignant neoplasm of sigmoid colon (principal)

== ENCOUNTER 2019-03-11 11:32 | Inpatient (IN) ==
[2019-03-11] MEDS ORDERED: ONDANSETRON INJ 2 MG/ML 2 ML VIAL IV STA (12:11)
[2019-03-11] MEDS: HYDROmorphone INJ 0.5 MG/0.5 ML SYR IV PRN ×2 (12:23→13:07)
[2019-03-11 12:29] LABS: Eosinophils # (auto) 0.02 K/uL (0-0.5); Eosinophils % (auto) 0.8 %; Hematocrit (blood only) 24.4 % (37-47); Hemoglobin 7.4 g/dL (12.0-16.0); Immature Granulocytes # (auto) 0.03 K/uL (0.00-0.02); Immature Granulocytes % (auto) 1.2 %; Lymphocytes # (auto) 0.46 K/uL (1.2-3.4); Lymphocytes % (auto) 17.8 %; Mean Corpuscular Hemoglobin 26.6 pg (25-34); Mean Corpuscular Hgb Conc 30.3 g/dL (32-36); Mean Corpuscular Volume 87.8 fL (80-100); Mean Platelet Volume 8.7 fL (7.4-10.4); Monocytes # (auto) 0.12 K/uL (0.11-0.59); Monocytes % (auto) 4.6 %; Neutrophils # (auto) 1.96 K/uL (1.4-6.5); Neutrophils % (auto) 75.6 %; Platelet Count 137 K/uL (130-400); RDW Coefficient of Variation 14.8 % (11.5-14.5); RDW Standard Deviation 47.3 fL (36.4-46.3); Red Blood Count 2.78 M/uL (4.2-5.4); White Blood Count 2.59 K/uL (4.8-10.8)
[2019-03-11 12:37] LABS: BUN Creatinine Ratio 19.3 (10-20); Calcium 9.3 mg/dl (8.5-10.1); Est GFR (African American) 79.1; Est GFR (Non-African American) 68.3; Potassium 3.9 mmol/L (3.5-5.1)
[2019-03-11 12:45] LABS: INR 1.1 (0.9-1.1); Partial Thromboplastin Ratio 0.8; Partial Thromboplastin Time 21.5 Seconds (21.0-31.0); Prothrombin Time 10.8 Seconds (9.0-12.0)
[2019-03-11] MEDS ORDERED: SODIUM CHLORIDE 0.9% 250 ML IV PRN ×3 (12:50→17:04)
--- NOTE | 2019-03-11 12:50 | XRay Report ---
XR chest 1V portable CLINICAL HISTORY: 83 years-old Female presenting with Pt rt hip pain. TECHNIQUE: Portable upright AP view of the chest was obtained. COMPARISON: 02/12/[address] chest from 07/24/2018. FINDINGS: Atherosclerosis of the aortic arch. Cardiac silhouette borderline enlarged. Minimal basilar opacities . The underlying left lower lobe groundglass nodule is not apparent by radiograph. No pleural effusio n or pneumothorax. Osseous structures normal. Upper abdomen normal. IMPRESSION: 1. Minimal bibasilar opacities likely atelectasis or scarring. No acute cardiopulmonary disease. 2. Known underlying groundglass left lower lobe nodule not apparent by radiograph. Electronically signed by: Nilson Santiago M.D. 03/11/2019 12:49 PM
--- NOTE | 2019-03-11 12:50 | XRay Report ---
XR pelvis 1-2V routine CLINICAL HISTORY: Pt rt hip fracture TRAUMA COMPARISON: None. DISCUSSION: The bones are osteopenic. There is a subcapital right hip fracture. There is no dislocati on. No fractures are visualized on the left. There are soft tissue calcifications located lateral to the greater trochanter. IMPRESSION: Subcapital right hip fracture. Electronically signed by: Bebo Reinoso M.D. 03/11/2019 12:49 PM
[2019-03-11 12:52] LABS: Ovalocytes 1+
--- NOTE | 2019-03-11 12:52 | XRay Report ---
XR femur RT 2V routine CLINICAL HISTORY: Pt rt hip fracture COMPARISON: None. DISCUSSION: The bones are osteopenic. There is a subcapital right hip fracture. There is no dislocati on. There is a trace joint effusion at the level the knee. There are soft tissue calcifications locat ed lateral to the greater trochanter. IMPRESSION: Subcapital right hip fracture. Electronically signed by: Bebo Reinoso M.D. 03/11/2019 12:50 PM
--- NOTE | 2019-03-11 13:15 | Emergency Department Note ---
Entered by Deepti Hunt acting as a scribe for History of Present Illness General Chief complaint: Fall Time Seen by Provider: 03/11/19 11:58 Source: patient History of Present Illness Provider complaint: Fall Onset (ago): hour(s) 1 Location: hip and right Radiation: non-radiation Maximum Pain Intensity: 7 Relieved By: + none Exacerbated By: + movement The patient is a 83 year old female who presents to the Emergency Room with complaints of a fall on her right hip that occurred about 1 hour ago. The patient states the pain does not radiate anywhere else on her body and is exacerbated by movement but not relieved by anything specific. The patient denies hitting her head and notes that she is on blood pressure medication. 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 s/p resection in June 2016 possible metastatic disease to lung and liver. Anemia HX OF Cancer COLON CANCER; LAPAROTOMY WITH RECTOSIGMOID RESECTION, STENT PLACEMENT, COLORECTAL ANASTOMOSIS AND DEE BSO BY DR. CHAMBERS 07/25/16 DR. VILLAR, COUNTER ROLLER INGA LEY PA-C HTN (hypertension) Surgical History History of bowel resection History of cataract surgery RT/LEFT 2011 History of colonoscopy History of open reduction and internal fixation (ORIF) procedure LEFT WRIST (HARDWARE REMOVAL) History of tooth extraction History of total abdominal hysterectomy and bilateral salpingo-oophorectomy DURING BOWEL RESECTION Family History Father Cardiac disorder Myocardial infarction Family/Other Cardiac disorder PATERNAL COUSIN Cancer PATERNAL COUSIN Myocardial infarction PATERNAL COUSIN Mother Cancer Social History Preferred Language: Ukrainian Communication Ability: Impaired Visual Impairment: No Limitations Hearing Ability: Normal Transit Proof Machine Operator Required: No Beliefs That Will Affect Care: None marital status: / Current Living Situation: Alone Current Living Situation Comment: 2 story house, 20-25 steps stair current occupational status: retired Feels Safe at Home: Yes Smoking Status: Never smoker Second Hand Exposure: No ; Hx Alcohol Use: No Hx Substance Use: No Childhood Exposure to Second-Hand Smoke: No Dental Care, Regularly: No Physical Activity Frequency: Daily Review of Systems See HPI for pertinent positives & negatives. and A total of 10 systems reviewed and were otherwise negative Physical Exam Vital Signs Vital Signs - 24 hr 03/11/19 11:38 03/11/19 11:50 03/11/19 12:35 Temperature 36.4 C L Temperature Source Oral Pulse Rate 82 81 81 Pulse Rate from SpO2 Sensor 83 81 Respiratory Rate 16 20 16 Respiratory Effort / Characteristics Non-Labored Respiratory Depth Normal Blood Pressure 171/77 H 171/77 H Blood Pressure Mean 101 108 Blood Pressure Position Pulse Oximetry 96 98 93 Oxygen Delivery Method Room Air Sepsis Recent Fever Within 48 Hours No Sepsis Action Taken by Nursing No Action Required 03/11/19 12:40 03/11/19 12:50 03/11/19 13:00 Temperature Temperature Source Pulse Rate 90 83 82 Pulse Rate from SpO2 Sensor 90 82 Respiratory Rate 14 22 18 Respiratory Effort / Characteristics Respiratory Depth Blood Pressure Blood Pressure Mean Blood Pressure Position Pulse Oximetry 94 95 Oxygen Delivery Method Sepsis Recent Fever Within 48 Hours Sepsis Action Taken by Nursing 03/11/19 13:10 03/11/19 13:20 03/11/19 13:41 Temperature Temperature Source Pulse Rate 93 H 83 96 H Pulse Rate from SpO2 Sensor 93 H 82 Respiratory Rate 16 16 17 Respiratory Effort / Characteristics Respiratory Depth Blood Pressure Blood Pressure Mean Blood Pressure Position Pulse Oximetry 95 93 Oxygen Delivery Method Sepsis Recent Fever Within 48 Hours Sepsis Action Taken by Nursing 03/11/19 13:50 03/11/19 13:51 03/11/19 14:00 Temperature Temperature Source Pulse Rate 97 H 98 H 92 H Pulse Rate from SpO2 Sensor 98 H 98 H 92 H Respiratory Rate 21 17 15 Respiratory Effort / Characteristics Respiratory Depth Blood Pressure 174/78 H 160/77 H Blood Pressure Mean 124 113 Blood Pressure Position Pulse Oximetry 90 91 93 Oxygen Delivery Method Sepsis Recent Fever Within 48 Hours Sepsis Action Taken by Nursing 03/11/19 14:01 03/11/19 14:10 03/11/19 14:18 Temperature 36.7 C Temperature Source Oral Pulse Rate 88 93 H 94 H Pulse Rate from SpO2 Sensor 88 92 H 95 H Respiratory Rate 14 24 21 Respiratory Effort / Characteristics Respiratory Depth Blood Pressure 167/81 H Blood Pressure Mean 98 Blood Pressure Position Lying Pulse Oximetry 95 94 92 Oxygen Delivery Method Sepsis Recent Fever Within 48 Hours Sepsis Action Taken by Nursing 03/11/19 14:20 03/11/19 14:30 03/11/19 14:37 Temperature 36.8 C Temperature Source Oral Pulse Rate 96 H 90 87 Pulse Rate from SpO2 Sensor 97 H Respiratory Rate 16 18 24 Respiratory Effort / Characteristics Respiratory Depth Blood Pressure 162/75 H Blood Pressure Mean 104 Blood Pressure Position Pulse Oximetry 92 100 Oxygen Delivery Method Sepsis Recent Fever Within 48 Hours Sepsis Action Taken by Nursing 03/11/19 14:39 03/11/19 14:40 03/11/19 14:50 Temperature Temperature Source Pulse Rate 86 86 101 H Pulse Rate from SpO2 Sensor 86 86 101 H Respiratory Rate 18 18 25 H Respiratory Effort / Characteristics Respiratory Depth Blood Pressure 162/75 H Blood Pressure Mean 116 Blood Pressure Position Pulse Oximetry 100 100 100 Oxygen Delivery Method Sepsis Recent Fever Within 48 Hours Sepsis Action Taken by Nursing 03/11/19 14:52 03/11/19 14:58 03/11/19 15:00 Temperature 36.8 C Temperature Source Oral Pulse Rate 89 101 H 97 H Pulse Rate from SpO2 Sensor 101 H 98 H Respiratory Rate 20 21 22 Respiratory Effort / Characteristics Respiratory Depth Blood Pressure 165/91 H 165/91 H 178/85 H Blood Pressure Mean 115 100 135 Blood Pressure Position Lying Pulse Oximetry 100 98 98 Oxygen Delivery Method Sepsis Recent Fever Within 48 Hours Sepsis Action Taken by Nursing 03/11/19 15:01 03/11/19 15:10 03/11/19 15:20 Temperature Temperature Source Pulse Rate 94 H 95 H 95 H Pulse Rate from SpO2 Sensor 94 H 95 H 93 H Respiratory Rate 21 20 17 Respiratory Effort / Characteristics Respiratory Depth Blood Pressure Blood Pressure Mean Blood Pressure Position Pulse Oximetry 100 100 96 Oxygen Delivery Method Sepsis Recent Fever Within 48 Hours Sepsis Action Taken by Nursing 03/11/19 15:22 03/11/19 15:25 03/11/19 15:30 Temperature 36.8 C Temperature Source Oral Pulse Rate 90 94 H 94 H Pulse Rate from SpO2 Sensor 95 H 94 H Respiratory Rate 21 22 25 H Respiratory Effort / Characteristics Respiratory Depth Blood Pressure 173/84 H 173/84 H 164/77 H Blood Pressure Mean 113 137 95 Blood Pressure Position Pulse Oximetry 99 96 100 Oxygen Delivery Method Sepsis Recent Fever Within 48 Hours Sepsis Action Taken by Nursing 03/11/19 15:31 03/11/19 15:40 Temperature Temperature Source Pulse Rate 90 95 H Pulse Rate from SpO2 Sensor 90 95 H Respiratory Rate 18 24 Respiratory Effort / Characteristics Respiratory Depth Blood Pressure Blood Pressure Mean Blood Pressure Position Pulse Oximetry 100 100 Oxygen Delivery Method Sepsis Recent Fever Within 48 Hours Sepsis Action Taken by Nursing GENERAL: Awake, alert, well-appearing, in no acute distress HENT: Normocephalic, atraumatic. Oropharynx unremarkable. EYES: Normal conjunctiva. Sclera non-icteric. NECK: Supple. No nuchal rigidity. FROM. No JVD. RESPIRATORY: Clear to auscultation. CARDIAC: Regular rate, normal rhythm. Extremities warm and well perfused. Pulses equal. ABDOMEN: Soft, non-distended. No tenderness to palpation. No rebound or guarding. No masses. RECTAL: Deferred. MUSCULOSKELETAL: Chest examination reveals no tenderness. The back is symmetrical on inspection without obvious abnormality. There is no CVA tenderness to palpation. No joint edema. LOWER EXTREMITIES: Calves are equal size bilaterally and non-tender. No edema. No discoloration. Right leg is shortened and externally rotated. Neurovascularly intact right foot. RECTAL: Brown stool on exam that is heme positive. NEURO: Normal sensorium. No sensory or motor deficits noted. SKIN: No rash or jaundice noted. Course Course 1213: Past medical records reviewed. The patient was evaluated in room C07. A complete history and physical exam was performed. 1258: I spoke with Dr. Mitchell about the patient's case and he recommends we admit the patient to medicine. 1432: I spoke with Dr. Webster- Hospitalist about the patient's case and he will accept the patient for further evaluation. Administered Medications Pantoprazole Sodium 40 mg/ (Dextrose) 100 mls @ 20 mls/hr IV Q5H RAN Stop: 04/10/19 14:29 Last Admin: 03/11/19 15:26 Dose: 20 mls/hr Documented by: [id number] Potassium Chloride/Sodium Chloride (Normal Saline W/20 Meq Kcl) 20 meq in 1,000 mls @ 60 mls/hr IV .[id number] RAN Stop: 04/10/19 17:29 Last Admin: 03/11/19 17:59 Dose: 60 mls/hr Documented by: [id number] Ioversol (Optiray 320 100ml) 94 ml IV ONCE PRN PRN Reason: Interaction Checking Stop: 03/15/19 13:35 Last Admin: 03/11/19 13:36 Dose: 94 ml Documented by: [id number] Metoprolol Tartrate (Lopressor) 50 mg PO BID RAN Stop: 04/10/19 20:59 Last Admin: 03/11/19 20:03 Dose: 50 mg Documented by: [id number] Pantoprazole Sodium (Protonix) 40 mg PO DAILY RAN Stop: 04/10/19 15:59 Last Admin: 03/11/19 18:07 Dose: Not Given Documented by: [id number] Senna/Docusate Sodium (Senokot S) 2 tab PO HS RAN Stop: 04/10/19 20:59 Last Admin: 03/11/19 20:05 Dose: 2 tab Documented by: [id number] Discontinued Medications Furosemide (Lasix) 20 mg IV NOW ONE Stop: 03/11/19 17:13 Last Admin: 03/11/19 18:55 Dose: 20 mg Documented by: [id number] Hydromorphone HCl (Dilaudid) 0.25 mg IV Q20M PRN PRN Reason: Moderate Pain (Rating 3,4,5,6) Stop: 03/25/19 12:09 Last Admin: 03/11/19 13:07 Dose: 0.25 mg Documented by: [id number] Admin: 03/11/19 12:23 Dose: 0.25 mg Documented by: [id number] Pantoprazole Sodium 80 mg/ (Dextrose) 120 mls @ 480 mls/hr IV NOW STA Stop: 03/11/19 14:36 Last Infusion: 03/11/19 15:28 Dose: 0 mls/hr Documented by: [id number] Admin: 03/11/19 15:01 Dose: 480 mls/hr Documented by: [id number] Ondansetron HCl (Zofran) 4 mg IV NOW STA Stop: 03/11/19 12:12 Last Admin: 03/11/19 12:22 Dose: 4 mg Documented by: [id number] Critical Care Time I have personally spent greater than 90 minutes of critical care time in the direct management of this patient. This includes bedside care, interpretation of diagnostic studies, and testing, discussion with consultants, patient, and family members, and other required patient management activities. This 90 minutes is in excess of all separately billable procedures. Medical Decision Making Differential Diagnosis Differential diagnosis: Etiologies such as fracture, cervical/vertebral injury, dislocation, intra- abdominal process, pneumothorax, intrathoracic trauma, intracranial injury, soft tissue injury, neurologic process, as well as other traumatic pathologies were entertained. Medical Records Attestation: I reviewed the patient's medical records. Home Medications Current Medication List: was personally reviewed by me Laboratory Data Attestation: I reviewed the patient's lab results. Result diagrams: 03/11/19 11:46 03/11/19 11:46 Lab Results 03/11/19 03/11/19 03/11/19 Range/Units 11:46 11:46 11:46 WBC 2.59 L (4.8-10.8) K/uL RBC 2.78 L (4.2-5.4) M/uL Hgb 7.4 L (12.0-16.0) g/dL Hct 24.4 L (37-47) % MCV 87.8 (80-100) fL MCH 26.6 (25-34) pg MCHC 30.3 L (32-36) g/dL RDW Std Deviation 47.3 H (36.4-46.3) fL RDW Coeff of Ashwin 14.8 H (11.5-14.5) % Plt Count 137 (130-400) K/uL MPV 8.7 (7.4-10.4) fL Immature Gran % (Auto) 1.2 % Neut % (Auto) 75.6 % Lymph % (Auto) 17.8 % Mcdowell % (Auto) 4.6 % Eos % (Auto) 0.8 % Baso % (Auto) 0.0 % Reticulocyte % (Auto) (0.5-2.0) % Immature Gran # (Auto) 0.03 H (0.00-0.02) K/uL Neut # (Auto) 1.96 (1.4-6.5) K/uL Lymph # (Auto) 0.46 L (1.2-3.4) K/uL Mcdowell # (Auto) 0.12 (0.11-0.59) K/uL Eos # (Auto) 0.02 (0-0.5) K/uL Baso # (Auto) 0.00 (0-0.2) K/uL Reticulocyte # (0.02-0.10) 10^6/uL Ovalocytes 1+ PT 10.8 (9.0-12.0) Seconds INR 1.1 (0.9-1.1) APTT 21.5 (21.0-31.0) Seconds PTT Ratio 0.8 Sodium 142 (136-145) mmol/L Potassium 3.9 (3.5-5.1) mmol/L Chloride 113 H (98-107) mmol/L Carbon Dioxide 21 (21-32) mmol/L Anion Gap 8.0 (3-11) BUN 15 (7-18) mg/dl Creatinine 0.79 (0.6-1.2) mg/dl Est Cr Clr Drug Dosing 45.0 ml/min Est GFR ( Amer) 79.1 Est GFR (Non-Af Amer) 68.3 BUN/Creatinine Ratio 19.3 (10-20) Glucose 153 H (70-99) mg/dl Calcium 9.3 (8.5-10.1) mg/dl Iron (35-150) mcg/dl TIBC (250-450) mcg/dl Ferritin (8-388) ng/ml Urine Color Urine Appearance (Clear) Urine pH (4.5-7.5) Ur Specific [place] (1.000-1.030) Urine Protein (Negative) Urine Glucose (UA) (Negative) Urine Ketones (Negative) Urine Blood (Negative) Urine Nitrite (Negative) Urine Bilirubin (Negative) Urine Urobilinogen (Negative) Ur Leukocyte Esterase (Negative) Blood Type Antibody Screen Crossmatch 03/11/19 03/11/19 03/11/19 Range/Units 11:46 11:46 13:09 WBC (4.8-10.8) K/uL RBC (4.2-5.4) M/uL Hgb (12.0-16.0) g/dL Hct (37-47) % MCV (80-100) fL MCH (25-34) pg MCHC (32-36) g/dL RDW Std Deviation (36.4-46.3) fL RDW Coeff of Ashwin (11.5-14.5) % Plt Count (130-400) K/uL MPV (7.4-10.4) fL Immature Gran % (Auto) % Neut % (Auto) % Lymph % (Auto) % Mcdowell % (Auto) % Eos % (Auto) % Baso % (Auto) % Reticulocyte % (Auto) 1.2 (0.5-2.0) % Immature Gran # (Auto) (0.00-0.02) K/uL Neut # (Auto) (1.4-6.5) K/uL Lymph # (Auto) (1.2-3.4) K/uL Mcdowell # (Auto) (0.11-0.59) K/uL Eos # (Auto) (0-0.5) K/uL Baso # (Auto) (0-0.2) K/uL Reticulocyte # 0.03 (0.02-0.10) 10^6/uL Ovalocytes PT (9.0-12.0) Seconds INR (0.9-1.1) APTT (21.0-31.0) Seconds PTT Ratio Sodium (136-145) mmol/L Potassium (3.5-5.1) mmol/L Chloride (98-107) mmol/L Carbon Dioxide (21-32) mmol/L Anion Gap (3-11) BUN (7-18) mg/dl Creatinine (0.6-1.2) mg/dl Est Cr Clr Drug Dosing ml/min Est GFR ( Amer) Est GFR (Non-Af Amer) BUN/Creatinine Ratio (10-20) Glucose (70-99) mg/dl Calcium (8.5-10.1) mg/dl Iron 29 L (35-150) mcg/dl TIBC 389 (250-450) mcg/dl Ferritin 13.6 (8-388) ng/ml Urine Color Urine Appearance (Clear) Urine pH (4.5-7.5) Ur Specific [place] (1.000-1.030) Urine Protein (Negative) Urine Glucose (UA) (Negative) Urine Ketones (Negative) Urine Blood (Negative) Urine Nitrite (Negative) Urine Bilirubin (Negative) Urine Urobilinogen (Negative) Ur Leukocyte Esterase (Negative) Blood Type A Positive Antibody Screen NEGATIVE Crossmatch See Detail 03/11/19 Range/Units 15:04 WBC (4.8-10.8) K/uL RBC (4.2-5.4) M/uL Hgb (12.0-16.0) g/dL Hct (37-47) % MCV (80-100) fL MCH (25-34) pg MCHC (32-36) g/dL RDW Std Deviation (36.4-46.3) fL RDW Coeff of Ashwin (11.5-14.5) % Plt Count (130-400) K/uL MPV (7.4-10.4) fL Immature Gran % (Auto) % Neut % (Auto) % Lymph % (Auto) % Mcdowell % (Auto) % Eos % (Auto) % Baso % (Auto) % Reticulocyte % (Auto) (0.5-2.0) % Immature Gran # (Auto) (0.00-0.02) K/uL Neut # (Auto) (1.4-6.5) K/uL Lymph # (Auto) (1.2-3.4) K/uL Mcdowell # (Auto) (0.11-0.59) K/uL Eos # (Auto) (0-0.5) K/uL Baso # (Auto) (0-0.2) K/uL Reticulocyte # (0.02-0.10) 10^6/uL Ovalocytes PT (9.0-12.0) Seconds INR (0.9-1.1) APTT (21.0-31.0) Seconds PTT Ratio Sodium (136-145) mmol/L Potassium (3.5-5.1) mmol/L Chloride (98-107) mmol/L Carbon Dioxide (21-32) mmol/L Anion Gap (3-11) BUN (7-18) mg/dl Creatinine (0.6-1.2) mg/dl Est Cr Clr Drug Dosing ml/min Est GFR ( Amer) Est GFR (Non-Af Amer) BUN/Creatinine Ratio (10-20) Glucose (70-99) mg/dl Calcium (8.5-10.1) mg/dl Iron (35-150) mcg/dl TIBC (250-450) mcg/dl Ferritin (8-388) ng/ml Urine Color Yellow Urine Appearance Clear (Clear) Urine pH 7.0 (4.5-7.5) Ur Specific [place] 1.025 (1.000-1.030) Urine Protein Negative (Negative) Urine Glucose (UA) Negative (Negative) Urine Ketones Negative (Negative) Urine Blood Negative (Negative) Urine Nitrite Negative (Negative) Urine Bilirubin Negative (Negative) Urine Urobilinogen Negative (Negative) Ur Leukocyte Esterase Negative (Negative) Blood Type Antibody Screen Crossmatch Imaging Data Radiologist's Impression: Radiology results as stated below per my review and the radiologist's interpretation: XR chest 1V portable CLINICAL HISTORY: 83 years-old Female presenting with Pt rt hip pain. TECHNIQUE: Portable upright AP view of the chest was obtained. COMPARISON: 02/12/[address] chest from 07/24/2018. FINDINGS: Atherosclerosis of the aortic arch. Cardiac silhouette borderline enlarged. Minimal basilar opacities. The underlying left lower lobe groundglass nodule is not apparent by radiograph. No pleural effusion or pneumothorax. Osseous structures normal. Upper abdomen normal. IMPRESSION: 1. Minimal bibasilar opacities likely atelectasis or scarring. No acute cardiopulmonary disease. 2. Known underlying groundglass left lower lobe nodule not apparent by radiograph. Electronically signed by: Nilson Santiago M.D. 03/11/2019 12:49 PM XR femur RT 2V routine CLINICAL HISTORY: Pt rt hip fracture COMPARISON: None. DISCUSSION: The bones are osteopenic. There is a subcapital right hip fracture. There is no dislocation. There is a trace joint effusion at the level the knee. There are soft tissue calcifications located lateral to the greater trochanter. IMPRESSION: Subcapital right hip fracture. Electronically signed by: Bebo Reinoso M.D. 03/11/2019 12:50 PM XR pelvis 1-2V routine CLINICAL HISTORY: Pt rt hip fracture TRAUMA COMPARISON: None. DISCUSSION: The bones are osteopenic. There is a subcapital right hip fracture. There is no dislocation. No fractures are visualized on the left. There are soft tissue calcifications located lateral to the greater trochanter. IMPRESSION: Subcapital right hip fracture. Electronically signed by: Bebo Reinoso M.D. 03/11/2019 12:[address] OF THE ABDOMEN AND PELVIS WITH CONTRAST CLINICAL HISTORY: Fall. Right hip pain. Colon cancer. COMPARISON STUDY: CT of the abdomen and pelvis July 24, 2018. TECHNIQUE: Following IV administration of 94 mL of Optiray-320, axial images of the abdomen and pelvis were obtained from the lung bases to the proximal femurs. Images were reviewed in the axial, sagittal, and coronal planes. IV contrast was administered without complication. Automated exposure control was utilized for the study. A dose lowering technique was utilized adhering to the principles of ALARA. CT DOSE: 309.21 mGy.cm FINDINGS: Several hepatic lesions are unchanged since initial CT of July 23, 2016. These are benign given stability. Mild splenomegaly is unchanged. There is no evidence for traumatic injury to the liver, spleen, adrenal glands, kidneys or pancreas. Bilateral renal parapelvic cysts are noted. The bladder is moderately distended. No pneumatosis, free air or portal venous gas is present. There has been interval development of mild perirectal infiltration since CT of July 24, 2018. A 3.5 x 2.7 cm irregular mass along the left aspect of the proximal rectum has increased in size since CT of July 24, 2018 with measured 2.4 x 1.8 cm. There is no evidence for a bowel obstruction. Note is made of an acute displaced right femoral subcapital fracture. Associated angulation is noted. No additional fractures are noted on the study. Small gallstones are noted within the gallbladder. There is no biliary or pancreatic ductal dilatation. IMPRESSION: 1. Acute displaced right femoral subcapital fracture. 2. No additional traumatic findings within the abdomen or pelvis. 3. Increase in size of a 3.5 x 2.7 cm irregular mass along the left aspect of t he proximal rectum since CT of July 24, 2018. This is consistent with a neoplastic process and metastatic disease is favored given the history of colon cancer. 4. Interval development of mild nonspecific perirectal infiltration. Electronically signed by: Sameer Sanz M.D. 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 Patient was sent for x-rays which was concerning for right femoral neck fracture. In addition the patient was found to be anemic with a hemoglobin of 7. Based on her past medical history of colonic mass the patient was then sent for CAT scan of the abdomen pelvis. This is concerning for a large rectal mass. She is also heme positive on my physical examination. Based on this I did discuss the case with the hospitalist as well as the orthopedic service. The patient was started on a Protonix bolus and drip and given 1 unit of packed red blood cells. Patient signed blood consent and was placed on the chart. Patient and family were in agreement with the treatment plan. Impression & Plan Closed hip fracture, Anemia, Acute GI bleeding, Mass in rectum Discharge Plan Visit Data *Final* Discharge Date/Time: 03/11/19 16:42 Chief Complaint: Fall ED Provider: Leroy Gusman Discharge Problem: Closed hip fracture, Anemia, Acute GI bleeding, Mass in rectum Patient Disposition: Admitted As Inpatient Discharge Instructions Interventions: ED Discharge Assessment Last Done: 03/11/19 16:42 Discharge Problem: Closed hip fracture Qualifiers: Encounter type: initial encounter Laterality: right Qualified Code(s): S72.001A - Fracture of unspecified part of neck of right femur, initial encounter for bahman sed fracture Anemia Qualifiers: Anemia type: unspecified type Qualified Code(s): D64.9 - Anemia, unspecified The scribe's documentation has been prepared under my direction and personally reviewed by me in its entirety. I confirm that the note above accurately reflects all work, treatment, procedures, and medical decision making performed by me.
[2019-03-11] MEDS ORDERED: IOVERSOL 100ml IV PRN (13:36)
--- NOTE | 2019-03-11 14:07 | CT Scan Report ---
CT OF THE ABDOMEN AND PELVIS WITH CONTRAST CLINICAL HISTORY: Fall. Right hip pain. Colon cancer. COMPARISON STUDY: CT of the abdomen and pelvis July 24, 2018. TECHNIQUE: Following IV administration of 94 mL of Optiray-320, axial images of the abdomen and pelvi s were obtained from the lung bases to the proximal femurs. Images were reviewed in the axial, sagitt al, and coronal planes. IV contrast was administered without complication. Automated exposure contro l was utilized for the study. A dose lowering technique was utilized adhering to the principles of A BOYD. CT DOSE: 309.21 mGy.cm FINDINGS: Several hepatic lesions are unchanged since initial CT of July 23, 2016. These are benign given stability. Mild splenomegaly is unchanged. There is no evidence for traumatic injury to the garrett er, spleen, adrenal glands, kidneys or pancreas. Bilateral renal parapelvic cysts are noted. The blad dana is moderately distended. No pneumatosis, free air or portal venous gas is present. There has been interval development of mild perirectal infiltration since CT of July 24, 2018. A 3.5 x 2.7 cm irre gular mass along the left aspect of the proximal rectum has increased in size since CT of July 24 019 with measured 2.4 x 1.8 cm. There is no evidence for a bowel obstruction. Note is made of an acut e displaced right femoral subcapital fracture. Associated angulation is noted. No additional fracture s are noted on the study. Small gallstones are noted within the gallbladder. There is no biliary or p ancreatic ductal dilatation. IMPRESSION: 1. Acute displaced right femoral subcapital fracture. 2. No additional traumatic findings within the abdomen or pelvis. 3. Increase in size of a 3.5 x 2.7 cm irregular mass along the left aspect of the proximal rectum sin ce CT of July 24, 2018. This is consistent with a neoplastic process and metastatic disease is favor ed given the history of colon cancer. 4. Interval development of mild nonspecific perirectal infiltration. Electronically signed by: Sameer Sanz M.D. 03/11/2019 2:05 PM
[2019-03-11] MEDS ORDERED: PANTOprazole 80 MG in DEXTROSE 5% 100 ML IV STA (14:22)
[2019-03-11 15:20] LABS: Appearance Urine Clear (Clear); Bilirubin Urine Negative (Negative); Blood Urine Negative (Negative); Color Urine Yellow; Glucose Urine UA Negative (Negative); Ketones Urine Negative (Negative); Leukocyte Esterase Urine Negative (Negative); Nitrite Urine Negative (Negative); Protein Urine Negative (Negative); Specific Gravity Urine 1.025 (1.000-1.030); Urobilinogen Urine Negative (Negative)
[2019-03-11] MEDS: PANTOprazole 40 MG in DEXTROSE 5% 100 ML IV SCH ×2 (15:26→20:43)
--- NOTE | 2019-03-11 15:32 | Orthopedic Consultation ---
Date of Consultation March 11, 2019 Assessment & Plan (1) Fracture of femoral neck, right: She was seen and examined by Dr. Latham today in the emergency room as well. Her family was with her at this time as well. We educated her and her family on this type fracture and treatment for it. We did recommend a hemiarthroplasty of the right hip. She is being admitted by the hospitalist service today. She did have a CT scan of her abdomen and pelvis which did show a irregular lesion in her proximal rectum which is changed from previous CT scan concern for metastatic lesion. She was anemic with a hemoglobin of 7.4 and was receiving a blood transfusion when we saw her. We will make her n.p.o. after midnight for possible surgery tomorrow 03/12/[address] Mitchell and the patient was informed of this. Present on Admission?: Yes History of Present Illness Reason for Consultation: Right hip fracture History of Present Illness Sofiya is an 83-year-old female who we are asked to see for evaluation of her right hip. She was seen and examined in the emergency department today. She states she was ambulating at home today, became dizzy, and she did fall as she was trying to sit down. She injured her right hip. She denies any other injuries. She was brought to the emergency department by ambulance. X-rays were obtained she is found to have a right femoral neck fracture. She denies any hip pain prior to this fall. She lives alone and ambulates independently. She does have a history of vertigo as well as a history of colon cancer which she underwent a partial colectomy approximately 2 years ago. She denies any other complaints at this time besides her right hip pain. 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 s/p resection in June 2016 possible metastatic disease to lung and liver. Anemia HX OF Cancer COLON CANCER; LAPAROTOMY WITH RECTOSIGMOID RESECTION, STENT PLACEMENT, COLORECTAL ANASTOMOSIS AND DEE BSO BY DR. CHAMBERS 07/25/16 DR. VILLAR, FRONT END ARCHITECT INGA LEY PA-C HTN (hypertension) Surgical History History of bowel resection History of cataract surgery RT/LEFT 2011 History of colonoscopy History of open reduction and internal fixation (ORIF) procedure LEFT WRIST (HARDWARE REMOVAL) History of tooth extraction History of total abdominal hysterectomy and bilateral salpingo-oophorectomy DURING BOWEL RESECTION Family History Father Cardiac disorder Myocardial infarction Family/Other Cardiac disorder PATERNAL COUSIN Cancer PATERNAL COUSIN Myocardial infarction PATERNAL COUSIN Mother Cancer Social History Preferred Language: Faroese Communication Ability: Effective Visual Impairment: No Limitations Hearing Ability: Normal Relay Operator Required: No Beliefs That Will Affect Care: None marital status: / Current Living Situation: Alone current occupational status: retired Feels Safe at Home: Yes Smoking Status: Former smoker Second Hand Exposure: No ; Hx Alcohol Use: No Hx Substance Use: No Childhood Exposure to Second-Hand Smoke: No Dental Care, Regularly: No Physical Activity Frequency: Daily Review of Systems 2 Respiratory: no dyspnea Cardiovascular: no chest pain Musculoskeletal: as per Subjective / HPI Neurologic: no loss of sensation, no tingling and no numbness Physical Exam Physical Exam: She is alert and oriented. She is in no distress. Vital signs stable. She has no pain with range of motion of bilateral upper extremities. She has no pain with gentle motion of her left hip today. No swelling of her left lower extremity today. She is no tenderness palpation throughout her left leg. She is able dorsiflex plantarflex appropriately she is neurovascularly intact. I did not do any range of motion of her right hip today. Her right leg is shortened and externally rotated. She has tenderness around the right hip. Her skin is warm dry and intact around her right hip. She is able to dorsiflex plantarflex on this side as well and is neurovascular intact. Results & Data Vital Signs (Past 12 Hours) Vital Signs Temp Pulse Resp BP Pulse Ox 03/11/19 14:52 36.8 C 89 20 165/91 H 100 03/11/19 14:37 36.8 C 87 24 162/75 H 100 03/11/19 14:30 90 18 03/11/19 14:20 96 H 16 92 03/11/19 14:18 36.7 C 94 H 21 167/81 H 92 03/11/19 14:10 93 H 24 94 03/11/19 14:01 88 14 95 03/11/19 14:00 92 H 15 160/77 H 93 03/11/19 13:51 98 H 17 91 03/11/19 13:50 97 H 21 174/78 H 90 03/11/19 13:41 96 H 17 03/11/19 13:20 83 16 93 03/11/19 13:10 93 H 16 95 03/11/19 13:00 82 18 03/11/19 12:50 83 22 95 03/11/19 12:40 90 14 94 03/11/19 12:35 81 16 93 03/11/19 11:50 36.4 C L 81 20 171/77 H 98 03/11/19 11:38 82 16 171/77 H 96 Diagnostic Findings X-rays were reviewed today and show a displaced right femoral neck fracture. PG Care Time/CCT Total # of Minutes Spent Total Time Spent with Patient: Total time spent is greater than 50% in coordination of care (as documented) at patient's floor/unit and/or counseling patient:
[2019-03-11] MEDS ORDERED: NALOXONE HCL 0.4 MG/1 ML VIAL/CARP IV PRN (15:42)
[2019-03-11] MEDS ORDERED: MAGNESIUM HYDROXIDE SUSP 30 ML UDC PO PRN ×2 (15:42)
[2019-03-11] MEDS ORDERED: ALUMINUM/MAGNESIUM SUSP 30 ML UDC PO PRN (15:42)
[2019-03-11] MEDS ORDERED: ONDANSETRON INJ 2 MG/ML 2 ML VIAL IV PRN (15:42)
[2019-03-11] MEDS ORDERED: ZOLPIDEM TARTRATE 5 MG TAB PO PRN (15:42)
[2019-03-11] MEDS ORDERED: POLYETHYLENE (MIRALAX) 17 GM PACK PO PRN (15:42)
[2019-03-11] MEDS ORDERED: VANCOMYCIN CONSULT ACTIVE PRN (15:42)
[2019-03-11] MEDS ORDERED: bisacodyL 10 MG SUPP PR PRN (15:42)
[2019-03-11] MEDS ORDERED: HYDROmorphone INJ 0.5 MG/0.5 ML SYR IV PRN (15:42)
[2019-03-11] MEDS ORDERED: OXYCODONE HCL IR 5 MG TAB (IMMEDIATE RELEASE) PO PRN (15:42)
--- NOTE | 2019-03-11 16:03 | History & Physical Report ---
Date of Service March 11, 2019 Assessment & Plan (1) Fracture of femoral neck, right: Admit patient to telemetry Imaging reviewed and revealed hip fracture as mentioned above in HPI Consult orthopedic IV fluid hydration Pain management DVT prophylaxis and physical therapy as per orthopedic team Continue home medications as appropriate Based on discussion with patient and family, patient is made full code. Patient has no history of chest pain or shortness of breath on exertion, report ed ability to walk up to 2 blocks and to go up to 2 flights of stairs without any chest pain or shortness of breath, patient and family understands despite of risk of surgery, benefits outweighs risk, hence patient is medically cleared for surgical intervention. (2) Iron deficiency anemia: Acute on chronic blood loss iron deficiency anemia likely secondary to below Ordered 2 units of blood transfusion Ordered full anemia work-up Including B12/folic acid/iron study (3) Adenocarcinoma, colon: Worsening 3.5 x 2.7 cm irregular mass along the left aspect of proximal rectum since June 2018 consistent with neoplastic process. Positive occult blood in stool might represent recurrence of her colon cancer Consult Dr. Jimenez (4) HTN (hypertension): Continue metoprolol Hydralazine IV as needed systolic pressure more than 180 History of Present Illness Chief Complaint: fall / dizziness Primary Care Provider: Shayy Hardin DO 83 years old female with past medical history of essential hypertension, colon cancer in 2016 status post resection with clear margins, she did not require any chemotherapy or radiation at that time, she did have a small lung nodule and liver lesion at that time, lung nodule was biopsied and was not cancer, liver lesion was followed up and was stable, thought to be hemangioma. Patient was in her regular state of health until today she got severely dizzy and fell on the chair. She did not hit her head but hit the right side of her hip at the edge of the chair. Presented to the hospital with right hip pain and right lower extremity decreased range of motion. Imaging showed right hip fracture. But also her blood work showed severe anemia hemoglobin of 7.4, last hemoglobin was 12.2, 8 months ago. Occult blood in stool was positive in the ED, she had a CT scan abdomen and pelvis that showed, increase in size of a 3.5 x 2.7 cm irregular mass along the left aspect of the proximal rectum, it was shown previously on CT scan on [facility] report stated as follow at that time ; avidly enhancing irregular solid 2.2 cm nodule along the left superior pelvic sidewall with vague infiltration of the root of the small bowel mesentery likely mesenteric panniculitis. Clearly appears to be larger in size this time, not sure if it is the cause of her anemia, but certainly cannot rule out any recurrence of her colon cancer. Patient denies any chest pain or shortness of breath, stated that she has no cardiovascular disease. Patient can walk up to 2 blocks or go up to 2 flights of stairs was without having any shortness of breath or chest pain Denies any blood in the stool or in the urine, denies any melena, denies any dizziness prior to today. 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 s/p resection in June 2016 possible metastatic disease to lung and liver. Anemia HX OF Cancer COLON CANCER; LAPAROTOMY WITH RECTOSIGMOID RESECTION, STENT PLACEMENT, COLORECTAL ANASTOMOSIS AND DEE BSO BY DR. CHAMBERS 07/25/16 DR. 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 INGA LEY PA-C HTN (hypertension) Surgical History History of bowel resection History of cataract surgery RT/LEFT 2011 History of colonoscopy History of open reduction and internal fixation (ORIF) procedure LEFT WRIST (HARDWARE REMOVAL) History of tooth extraction History of total abdominal hysterectomy and bilateral salpingo-oophorectomy DURING BOWEL RESECTION Family History Father Cardiac disorder Myocardial infarction Family/Other Cardiac disorder PATERNAL COUSIN Cancer PATERNAL COUSIN Myocardial infarction PATERNAL COUSIN Mother Cancer Social History Preferred Language: Kenyan Communication Ability: Effective Visual Impairment: No Limitations Hearing Ability: Normal Child Nutrition Assistant Required: No Beliefs That Will Affect Care: None marital status: / Current Living Situation: Alone current occupational status: retired Feels Safe at Home: Yes Smoking Status: Former smoker Second Hand Exposure: No ; Hx Alcohol Use: No Hx Substance Use: No Childhood Exposure to Second-Hand Smoke: No Dental Care, Regularly: No Physical Activity Frequency: Daily Review of Systems Review of Systems: Review of system Aside from the dizziness and the fall mentioned in HPI the rest of the review of system was negative Constitutional: No fever / no chills / no sweats / no weakness / no fatigue Eyes: no blurring of vision / no eye pain / no discharge / no redness ENT: no hearing loss / no epistaxis /no swallowing problems Respiratory: no cough / no wheezing / no SOB / no hemoptysis Cardiovascular: no Chest pain / no lower extremity edema / no palpitation Abdomen: no pain / no nausea / no vomiting / no constipation Musculoskeletal: no joint pain / no muscle pain / no joint swelling Genitourinary: no dysuria / no incontinence / no urinary retention Neurologic: no focal weakness / no numbness/tingling / no ataxia Psychiatric: no depression symptoms / no anxiety / no insomnia Endocrine: no excessive thirst / no excessive urination Hematologic: no abnormal bleeding / no bruising / no LN swelling Skin: No rash / no pallor Physical Exam Physical Exam: Physical examination General frail elderly female, appears to be pale, appears to be comfortable, not in acute distress HEENT: Atraumatic , normocephalic /no jaundice /positive for pallor r /anicteric /no dry mucous membrane /normal external ear inspection Neck: Supple /no swelling /central trach Heart: S1/S2 normal/regular rate and rhythm/no gallop /no rub /no murmur Lungs: Clear to auscultation bilaterally/normal chest with expansion/no rhonchi/no rales/no wheezing/no use of accessory muscles of respiration Abdomen: Soft/nontender/no guarding/no rebound/no organomegaly/no pulsatile mass Musculoskeletal: No swelling/no edema/right hip tenderness and decreased range of motion Neuro exam: Awake alert oriented 3/cranial nerves II through XII appear to be intact/sensation intact/moves all extremities/no abnormal movements Psychiatric evaluation: No depressed mood/normal affect Skin: No rash on exposed skin area/no erythema Extremity: Normal pulse/no pitting edema/no clubbing or cyanosis Results & Data Vital Signs (Past 12 Hours) Vital Signs Temp Pulse Resp BP Pulse Ox 03/11/19 15:22 36.8 C 90 21 173/84 H 99 03/11/19 14:52 36.8 C 89 20 165/91 H 100 03/11/19 14:37 36.8 C 87 24 162/75 H 100 03/11/19 14:30 90 18 03/11/19 14:20 96 H 16 92 03/11/19 14:18 36.7 C 94 H 21 167/81 H 92 03/11/19 14:10 93 H 24 94 03/11/19 14:01 88 14 95 03/11/19 14:00 92 H 15 160/77 H 93 03/11/19 13:51 98 H 17 91 03/11/19 13:50 97 H 21 174/78 H 90 03/11/19 13:41 96 H 17 03/11/19 13:20 83 16 93 03/11/19 13:10 93 H 16 95 03/11/19 13:00 82 18 03/11/19 12:50 83 22 95 03/11/19 12:40 90 14 94 03/11/19 12:35 81 16 93 03/11/19 11:50 36.4 C L 81 20 171/77 H 98 03/11/19 11:38 82 16 171/77 H 96 Code Status & VTE Plan Code Status Based on discussion with patient and family she appears to be full code VTE Prophylaxis Plan VTE Prophylaxis will be ordered: Yes PG Care Time/CCT Total # of Minutes Spent Total Time Spent with Patient: 35 minutes total time spent is greater than 50% in coordination of care (as documented) at patient's floor/unit and/or counseling patient/family discussion of care with nursing staff
[2019-03-11] MEDS ORDERED: HydrALAZINE HCL 20 MG/ML VIAL IV PRN (17:04)
[2019-03-11] MEDS ORDERED: FUROSEMIDE 40 MG/4 ML VIAL IV ONE (17:12)
[2019-03-11 17:43] LABS: Reticulocyte % 1.2 % (0.5-2.0); Reticulocytes # 0.03 10^6/uL (0.02-0.10)
[2019-03-11] MEDS: NSS + 20MEQ KCL 20 MEQ/1,000 ML BAG IV SCH (17:59)
[2019-03-11 18:06] LABS: Ferritin 13.6 ng/ml (8-388)
[2019-03-11] MEDS: PANTOprazole 40 MG TAB PO SCH (18:07)
[2019-03-11] MEDS: METOPROLOL TARTRATE 50 MG TAB PO SCH (20:03)
[2019-03-11] MEDS: DOCUSATE SODIUM/SENNA 50/8.6MG TAB PO SCH (20:05)
[2019-03-12] MEDS ORDERED: CEFAZOLIN 3000MG 65 ML IV SCH (06:00)
[2019-03-12] MEDS ORDERED: VANCOMYCIN HCL 1,000 MG in SODIUM CHLORIDE 0.9% 250 ML IV SCH (06:00)
[2019-03-12] MEDS ORDERED: ROPIVACAINE 0.5% HCL/PF 150 MG, BUPIVACAINE 0.5% MPF 30 ML, EPINEPHrine 30MG/30ML (OR U... INFIL SCH (06:00)
--- NOTE | 2019-03-12 06:30 | Orthopedic Progress Note ---
Date of Service March 12, 2019 Assessment & Plan (1) Closed hip fracture: We will proceed with a right hip hemiarthroplasty later this afternoon. She received 2 units of blood yesterday and were awaiting her H&H today. She is currently n.p.o. I will probably take her to the OR later this afternoon around 3-4 o'clock. Present on Admission?: Yes Subjective Sofiya was seen and examined at bedside this morning. She is an independent ambulator who lives alone. She has family who lives nearby. She is having a lot of pain in her right hip. She is looking forward to operative fixation later today. Review of Systems Review of Systems: All systems reviewed & are unremarkable except as noted in HPI & below Physical Exam Musculoskeletal: On physical examination of the right hip, she has pain with logroll. Her right leg is shortened and externally rotated. She has pain in her groin. Results & Data Vital Signs (Past 12 Hours) Vital Signs Temp Pulse Pulse Resp BP BP Pulse Ox 03/12/19 04:36 36.7 C 81 17 140/66 94 03/11/19 23:35 36.8 C 81 14 136/64 95 03/11/19 22:56 36.9 C 81 14 138/65 96 03/11/19 21:56 37 C 72 14 130/68 94 03/11/19 21:26 37 C 72 14 134/65 94 03/11/19 21:11 37.1 C 72 12 127/66 95 03/11/19 20:45 37.2 C 78 12 136/65 95 03/11/19 19:00 36.7 C 81 125/68 99 Diagnostic Findings X-rays of the right hip do show a displaced right proximal femoral neck fracture. PG Care Time/CCT Total # of Minutes Spent Total Time Spent with Patient: Total time spent is greater than 50% in coordination of care (as documented) at patient's floor/unit and/or counseling patient: (1) Closed hip fracture Encounter type: initial encounter Laterality: right Qualified Code(s): S72.001A - Fracture of unspecified part of neck of right femur, initial en counter for closed fracture
[2019-03-12 06:52] LABS: Hematocrit (blood only) 30.8 % (37-47); Hemoglobin 9.9 g/dL (12.0-16.0); Mean Corpuscular Hemoglobin 27.6 pg (25-34); Mean Corpuscular Hgb Conc 32.1 g/dL (32-36); Mean Corpuscular Volume 85.8 fL (80-100); Mean Platelet Volume 9.5 fL (7.4-10.4); Platelet Count 104 K/uL (130-400); RDW Coefficient of Variation 14.4 % (11.5-14.5); RDW Standard Deviation 45.3 fL (36.4-46.3); Red Blood Count 3.59 M/uL (4.2-5.4); White Blood Count 6.88 K/uL (4.8-10.8)
[2019-03-12] MEDS ORDERED: INFLUENZA Vaccine HIGH DOSE 65+yrs 0.5 mL Syr IM ONE (07:00)
[2019-03-12 07:20] LABS: Albumin Level 3.1 gm/dl (3.4-5.0); Creatinine Clr Calc Pharmacy 37.4 ml/min; Est GFR (African American) 63.3; Est GFR (Non-African American) 54.6; Magnesium 1.7 mg/dl (1.8-2.4); Potassium 3.8 mmol/L (3.5-5.1)
[2019-03-12 07:23] LABS: Bilirubin,Total 0.9 mg/dl (0.2-1); Globulin 3.2 gm/dl (2.5-4.0); Total Protein 6.3 gm/dl (6.4-8.2)
[2019-03-12] MEDS: PANTOprazole 40 MG TAB PO SCH (08:31)
[2019-03-12] MEDS: METOPROLOL TARTRATE 50 MG TAB PO SCH ×2 (08:31→20:49)
[2019-03-12] MEDS: NSS + 20MEQ KCL 20 MEQ/1,000 ML BAG IV SCH (08:32)
[2019-03-12] MEDS: ACETAMINOPHEN 325 MG TAB PO PRN (08:32)
--- NOTE | 2019-03-12 11:20 | Anesthesiology Consultation ---
Date of Service March 12, 2019 Assessment & Plan (1) Encounter for pre-operative examination: Chart Review Chart Review: Acceptable Risk for Surgery History Surgery Operation Date: 03/12/19 09:20 Proposed Procedures p Right Hip Anterior Hemiarthroplasty - Aris Mitchell DO Height/Weight Height: 5 ft 4 in Weight: 57.5 kg Allergies Allergy/AdvReac Type Severity Reaction Status Date / Time No Known Allergies Allergy Verified 10/06/18 08:04 Medications Home Medications Medication Instructions Recorded Confirmed Last Taken meclizine 25 mg tablet 25 mg PO TID PRN #30 tab 10/27/18 03/11/19 02/09/19 metoprolol succinate 25 mg 25 mg PO QAM #90 tab 02/17/19 03/11/19 03/11/19 tablet,extended release 24 hr metoprolol tartrate 50 mg tablet 50 mg PO BID #180 tab 02/17/19 03/11/19 03/11/19 Active Medications Generic Name Dose Route Start Last Admin Trade Name Freq PRN Reason Stop Dose Admin Acetaminophen 650 mg 03/11/19 15:42 03/12/19 08:32 Tylenol PO 04/10/19 15:41 650 mg Q4H PRN Administration Pain or Fever Potassium Chloride/Sodium Chloride 20 meq in 1,000 mls @ 60 mls/hr 03/11/19 1 7:30 03/12/19 08:32 Normal Saline W/20 Meq Kcl IV 04/10/19 17:29 60 mls/hr .[id number] RAN Administration Vancomycin HCl 1,000 mg/ 270 mls @ 125 mls/hr 03/12/19 06:00 03/12/19 08:29 Sodium Chloride IV 03/12/19 18:00 Infused PREOP RAN Infusion Cefazolin Sodium 65 mls @ 130 mls/hr 03/12/19 06:00 03/12/19 06:23 Ancef 3000mg IV 03/12/19 18:00 Infused PREOP RAN Infusion Protocol Ioversol 94 ml 03/11/19 13:36 03/11/19 13:36 Optiray 320 100ml IV 03/15/19 13:35 94 ml ONCE PRN Administration Interaction Checking Metoprolol Tartrate 50 mg 03/11/19 21:00 03/12/19 08:31 Lopressor PO 04/10/19 20:59 50 mg BID RAN Administration Pantoprazole Sodium 40 mg 03/11/19 16:00 03/12/19 08:31 Protonix PO 04/10/19 15:59 40 mg DAILY RAN Administration Senna/Docusate Sodium 2 tab 03/11/19 21:00 03/11/19 20:05 Senokot S PO 04/10/19 20:59 2 tab HS RAN Administration Past Medical History Medical History Adenocarcinoma, 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 s/p resection in June 2016 possible metastatic disease to lung and liver. Anemia HX OF Cancer COLON CANCER; LAPAROTOMY WITH RECTOSIGMOID RESECTION, STENT PLACEMENT, COLORECTAL ANASTOMOSIS AND DEE BSO BY DR. CHAMBERS 07/25/16 DR. 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 INGA LEY PA-C HTN (hypertension) Past Family History Family History Father Cardiac disorder Myocardial infarction Family/Other Cardiac disorder PATERNAL COUSIN Cancer PATERNAL COUSIN Myocardial infarction PATERNAL COUSIN Mother Cancer Past Surgical History Surgical History History of bowel resection History of cataract surgery RT/LEFT 2011 History of colonoscopy History of open reduction and internal fixation (ORIF) procedure LEFT WRIST (HARDWARE REMOVAL) History of tooth extraction History of total abdominal hysterectomy and bilateral salpingo-oophorectomy DURING BOWEL RESECTION Social History Smoking Status: Never smoker Hx Alcohol Use: No Hx Substance Use: No substance use type: does not use Physical Exam Vital Signs Last Vital Signs Temp 36.9 C 03/12/19 11:07 Pulse 73 03/12/19 11:07 Resp 20 03/12/19 11:07 BP 141/64 H 03/12/19 11:07 Pulse Ox 93 03/12/19 11:07 Testing Laboratory Results 03/12/19 06:34 03/12/19 06:34 PT 10.8 Seconds (9.0-12.0) 03/11/19 11:46 INR 1.1 (0.9-1.1) 03/11/19 11:46 APTT 21.5 Seconds (21.0-31.0) 03/11/19 11:46 Urine Color Yellow 03/11/19 15:04 Urine Appearance Clear (Clear) 03/11/19 15:04 Urine pH 7.0 (4.5-7.5) 03/11/19 15:04 Ur Specific [place] 1.025 (1.000-1.030) 03/11/19 15:04 Urine Protein Negative (Negative) 03/11/19 15:04 Urine Glucose (UA) Negative (Negative) 03/11/19 15:04 Urine Ketones Negative (Negative) 03/11/19 15:04 Urine Nitrite Negative (Negative) 03/11/19 15:04 Ur Leukocyte Esterase Negative (Negative) 03/11/19 15:04 Blood Type A Positive 03/11/19 13:09 Antibody Screen NEGATIVE 03/11/19 13:09 Electrocardiogram Date: 03/11/19 Findings: + NSR @ (74), + poor R wave progression and + no change from (Jan 2018) Chest X-Ray Date: 03/11/19 Findings: + NAD and + atelectasis (mild)
--- NOTE | 2019-03-12 14:54 | History & Physical Bridge Note ---
Date of Service March 12, 2019 History & Physical Bridge Note I have examined the patient, reviewed the History & Physical and in the interval since the performance of the History & Physical I have noted the following changes of clinical significance: no changes noted
[2019-03-12] MEDS ORDERED: fentaNYL citrate 100 MCG/2 ML VIAL ONE (15:06)
[2019-03-12] MEDS ORDERED: ONDANSETRON INJ 2 MG/ML 2 ML VIAL ONE (15:06)
[2019-03-12] MEDS ORDERED: PROPOFOL IV EMULSION 10 MG/ML 20 ML VIAL IV ONE (15:06)
[2019-03-12] MEDS ORDERED: LIDOCAINE HCL 2% 2 ML VIAL/AMP(20MG/ML) INFIL ONE (15:06)
[2019-03-12] MEDS ORDERED: CEFAZOLIN 1,000 MG/7.5 ML IV PUSH IV ONE (15:21)
[2019-03-12] MEDS ORDERED: ONDANSETRON INJ 2 MG/ML 2 ML VIAL IV PRN (15:34)
[2019-03-12] MEDS ORDERED: ATROPINE SULFATE 0.1 MG/ML 10ML SYR IV PRN (15:34)
[2019-03-12] MEDS ORDERED: KETAMINE HCL INJ 50 MG/ML 10 ML VIAL ONE (15:34)
[2019-03-12] MEDS ORDERED: LABETALOL HCL IV 5 MG/ML 20ML IV PRN (15:34)
[2019-03-12] MEDS ORDERED: PHENYLEPHRINE 100MCG/ML 5ML SYR IV PRN (15:34)
[2019-03-12] MEDS ORDERED: ePHEDrine sulfate 50 MG/ML AMP IV PRN (15:34)
[2019-03-12] MEDS ORDERED: HYDROmorphone INJ 1 MG/ML SYRINGE IV PRN (15:34)
[2019-03-12] MEDS ORDERED: fentaNYL citrate 100 MCG/2 ML VIAL IV PRN (15:34)
[2019-03-12] MEDS ORDERED: BUPIVACAINE 0.5 % 5 MG/1 ML PF 10ML VIAL ONE (15:37)
--- NOTE | 2019-03-12 15:56 | Hospitalist Progress Note ---
Date of Service March 12, 2019 Assessment & Plan (1) Fracture of femoral neck, right: closed fracture right femoral neck s/p hemiarthroplasty of right hip on 03/12, tolerated well, go to surgical floor post op will need PT/OT anticipate needing rehab DVT prophylaxis and pain control per orthopedic surgery check labs in the AM (2) Iron deficiency anemia: Acute on chronic blood loss iron deficiency anemia likely secondary to below Hb < 8 on admission transfused two units on admission, Hb up to 9.9 this morning will repeat tomorrow patient not having any bright red bleeding from rectum with colon mass, certainly possible that she is having a slow bleed (3) Adenocarcinoma, colon: Worsening 3.5 x 2.7 cm irregular mass along the left aspect of proximal rectum since June 2018 consistent with neoplastic process. discussed with Dr. Jimenez this morning, he has been aware of mass as has patient for the past year she was offered biopsy and possible chemo she has stated in the past and confirms today that she would NOT want any type of chemotherapy would only intervene on the mass if it causes obstruction or GI bleeding can follow up with Dr. Jimenez in a few months (4) HTN (hypertension): Continue metoprolol Hydralazine IV as needed systolic pressure more than 180 (5) Osteoporosis: likely osteoporosis with pathological fracture due to ground level fall will treat with vitamin D Subjective patient resting in bed comfortably this morning, minimal pain if laying still, getting sharp pain if she moves no chest pain, no dyspnea, no fever/chills, no cough had some nausea this AM but resolved with Zofran reviewed labs, Hb up to 9.9 this morning after two units transfused, WBC normal, BMP normal updated family at the bedside discussed with RN, reyes for patient to go to the surgical floor after surgery discussed colon mass with Dr. Jimenez, it has been there for a few months, perhaps a few years not causing obstruction or gross bleeding patient was offered colonoscopy, biopsy and possible chemo as outpatient, she refused and still refuses for now the plan is to monitor her for any change in symptoms reviewed op report, patient with successful right hemiarthroplasty Review of Systems 2 Review of Systems: All systems reviewed & are unremarkable except as noted in HPI & below Constitutional: + fatigue and + weakness; no fever Respiratory: no cough and no dyspnea Cardiovascular: no chest pain Gastrointestinal: + nausea; no abdominal pain, no vomiting, no constipation and no diarrhea/loose stools Musculoskeletal: + joint pain (right hip) Physical Exam Constitutional: WD/WN, vitals as above Eyes: PERRL, conjunctivae normal, anicteric sclerae ENMT: external ear and nose normal, oropharynx normal Neck: trachea midline, no thyromegaly Respiratory: normal respiratory effort, lungs clear to auscultation Cardiovascular: RRR, no murmur, no edema Gastrointestinal (Abdomen): normal bowel sounds, soft, nontender, no hepatosplenomegaly Musculoskeletal: Head/Neck/Chest: normocephalic and head atraumatic Extremities: + limited ROM of extremities (right hip due to pain) and strength 5/5 throughout Hip: + ecchymosis, + limited ROM of hip, + joint line tenderness and + log roll test positive Skin: no rashes, warm and dry Neurologic: patellar DTR's 2+ bilat, sensation intact and PERRL, EOMI, accommodation nl, no face palsy, no dysarthria Psychiatric: A+Ox3, euthymic affect Lymphatic: no cervical or axillary lymphadenopathy Results & Data Vital Signs (Past 12 Hours) Vital Signs Temp Pulse Pulse Resp BP BP Pulse Ox 03/12/19 15:30 36.4 C L 88 16 165/71 H 93 03/12/19 15:00 73 03/12/19 11:07 36.9 C 73 20 141/64 H 93 03/12/19 08:12 37.0 C 83 20 144/69 H 93 03/12/19 08:00 73 03/12/19 04:36 36.7 C 81 17 140/66 94 Laboratory Results Laboratory Results - last 24 hr 03/11/19 03/11/19 03/11/19 11:46 11:46 13:09 WBC RBC Hgb Hct MCV MCH MCHC RDW Std Deviation RDW Coeff of Ashwin Plt Count MPV Reticulocyte % (Auto) 1.2 Reticulocyte # 0.03 Sodium Potassium Chloride Carbon Dioxide Anion Gap BUN Creatinine Est Cr Clr Drug Dosing Est GFR ( Amer) Est GFR (Non-Af Amer) BUN/Creatinine Ratio Glucose Calcium Magnesium Iron 29 L TIBC 389 Ferritin 13.6 Total Bilirubin AST ALT Alkaline Phosphatase Total Protein Albumin Globulin Albumin/Globulin Ratio Vitamin B12 25-OH Vitamin D Total Folate Blood Type A Positive Antibody Screen NEGATIVE Crossmatch See Detail 03/11/19 03/11/19 03/11/19 17:02 17:02 17:02 WBC RBC Hgb Hct MCV MCH MCHC RDW Std Deviation RDW Coeff of Ashwin Plt Count MPV Reticulocyte % (Auto) Reticulocyte # Sodium Potassium Chloride Carbon Dioxide Anion Gap BUN Creatinine Est Cr Clr Drug Dosing Est GFR ( Amer) Est GFR (Non-Af Amer) BUN/Creatinine Ratio Glucose Calcium Magnesium Iron TIBC Ferritin Total Bilirubin AST ALT Alkaline Phosphatase Total Protein Albumin Globulin Albumin/Globulin Ratio Vitamin B12 275 25-OH Vitamin D Total 20.9 L Folate 18.95 Blood Type Antibody Screen Crossmatch 03/12/19 03/12/19 06:34 06:34 WBC 6.88 RBC 3.59 L Hgb 9.9 L Hct 30.8 L MCV 85.8 MCH 27.6 MCHC 32.1 RDW Std Deviation 45.3 RDW Coeff of Ashwin 14.4 Plt Count 104 L MPV 9.5 Reticulocyte % (Auto) Reticulocyte # Sodium 140 Potassium 3.8 Chloride 109 H Carbon Dioxide 24 Anion Gap 6.0 BUN 12 Creatinine 0.95 Est Cr Clr Drug Dosing 37.4 Est GFR ( Amer) 63.3 Est GFR (Non-Af Amer) 54.6 BUN/Creatinine Ratio 13.0 Glucose 133 H Calcium 9.0 Magnesium 1.7 L Iron TIBC Ferritin Total Bilirubin 0.9 AST 15 ALT 17 Alkaline Phosphatase 106 Total Protein 6.3 L Albumin 3.1 L Globulin 3.2 Albumin/Globulin Ratio 1.0 Vitamin B12 25-OH Vitamin D Total Folate Blood Type Antibody Screen Crossmatch Medications Administered Current Inpatient Medications Acetaminophen (Tylenol) 650 mg PO Q4H PRN PRN Reason: Pain or Fever Stop: 04/10/19 15:41 Last Admin: 03/12/19 08:32 Dose: 650 mg Documented by: Al Hydrox/Mg Hydrox/Simethicone (Maalox) 15 ml PO Q4H PRN PRN Reason: Dyspepsia Stop: 04/10/19 15:41 Atropine Sulfate (Atropine Sulfate) 0.5 mg IV Q1M PRN PRN Reason: PACU Use-HR<40 &/or Bradycardi Stop: 03/12/19 20:34 Bisacodyl (Dulcolax) 10 mg MI DAILY PRN PRN Reason: Constipation Stop: 04/10/19 15:41 Ephedrine Sulfate (Ephedrine Sulfate) 5 mg IV Q5M PRN PRN Reason: PACU Use Only-SBP<90 mmHg Stop: 03/12/19 20:34 Fentanyl Citrate (Fentanyl Citrate) 25 mcg IV Q5M PRN PRN Reason: PACU Use Only-Pain Stop: 03/12/19 20:34 Hydralazine HCl (Hydralazine Hcl) 10 mg IV Q8H PRN PRN Reason: SBP > 180 Stop: 04/10/19 17:03 Hydromorphone HCl (Dilaudid) 0.25 - 0.5 mg IV Q20M PRN PRN Reason: Moderate/Severe Pain Stop: 03/25/19 15:41 Hydromorphone HCl (Dilaudid) 0.25 mg IV Q5M PRN PRN Reason: PACU Use Only-Pain Stop: 03/12/19 20:34 Potassium Chloride/Sodium Chloride (Normal Saline W/20 Meq Kcl) 20 meq in 1,000 mls @ 60 mls/hr IV .[id number] [facility] Stop: 04/10/19 17:29 Last Admin: 03/12/19 08:32 Dose: 60 mls/hr Documented by: Vancomycin HCl 1,000 mg/ (Sodium Chloride) 270 mls @ 125 mls/hr IV PREOP RAN Stop: 03/12/19 18:00 Last Infusion: 03/12/19 08:29 Dose: Infused Documented by: Cefazolin Sodium (Ancef 3000mg) 65 mls @ 130 mls/hr IV PREOP [facility]; Protocol Stop: 03/12/19 18:00 Last Infusion: 03/12/19 06:23 Dose: Infused Documented by: Ropivacaine 150 mg/Bupivacaine HCl 30 ml/Epinephrine HCl 0.15 mg/Ketorolac Tromethamine 30 mg/Dexamethasone 4 mg/ Ketamine HCl 10 mg/ Clonidine HCl 100 mcg/ Sodium Chloride 93.35 mls @ 0 mls/hr INFIL TODAY@0600 [facility] Stop: 03/12/19 18:00 Ioversol (Optiray 320 100ml) 94 ml IV ONCE PRN PRN Reason: Interaction Checking Stop: 03/15/19 13:35 Last Admin: 03/11/19 13:36 Dose: 94 ml Documented by: Labetalol HCl (Normodyne) 5 mg IV Q5M PRN PRN Reason: PACU Use-SBP>160 or DBP>100 Stop: 03/12/19 20:34 Magnesium Hydroxide (Milk Of Magnesia) 30 ml PO Q12H PRN PRN Reason: Constipation Stop: 04/10/19 15:41 Metoprolol Tartrate (Lopressor) 50 mg PO BID [facility] Stop: 04/10/19 20:59 Last Admin: 03/12/19 08:31 Dose: 50 mg Documented by: Naloxone HCl (Narcan) 0.1 mg IV UD PRN PRN Reason: Opiate Overdose Stop: 04/10/19 15:41 Ondansetron HCl (Zofran) 4 mg IV Q6H PRN PRN Reason: Nausea Stop: 04/10/19 15:41 Ondansetron HCl (Zofran) 4 mg IV ONCE PRN PRN Reason: PACU Use Only-Nausea/Vomiting Stop: 03/12/19 20:34 Oxycodone HCl (Roxicodone Immediate Rel) 5 mg PO Q4H PRN PRN Reason: MODERATE Pain (Scale 4,5,6) Stop: 03/25/19 15:41 Pantoprazole Sodium (Protonix) 40 mg PO DAILY [facility] Stop: 04/10/19 15:59 Last Admin: 03/12/19 08:31 Dose: 40 mg Documented by: Phenylephrine HCl (Timothy-Synephrine 500mcg/5ml) 100 mcg IV Q5M PRN PRN Reason: PACU Use Only-SBP<90 or HR>70 Stop: 03/12/19 20:34 Polyethylene Glycol (Miralax Powder Packet) 17 gm PO DAILY PRN PRN Reason: Constipation Stop: 04/10/19 15:41 Senna/Docusate Sodium (Senokot S) 2 tab PO HS [facility] Stop: 04/10/19 20:59 Last Admin: 03/11/19 20:05 Dose: 2 tab Documented by: Zolpidem Tartrate (Ambien) 5 mg PO HS PRN PRN Reason: Sleep Stop: 04/10/19 15:41 PG Care Time/CCT Total # of Minutes Spent Total Time Spent with Patient: Total time spent is greater than 50% in coordination of care (as documented) at patient's floor/unit and/or counseling patient:
--- NOTE | 2019-03-12 16:57 | Operative Report ---
PG Post Operative Report Pre & Post Diagnosis Operation Date: 03/12/19 09:20 Pre-Op Diagnosis: Closed hip fracture. Post-Op Diagnosis: Closed hip fracture. I identified the patient and participated in the time-out.: Yes Procedure Operation Date: 03/12/19 09:20 Actual Procedures p Right Hip Anterior Hemiarthroplasty(Right) - Aris Mitchell DO Surgeon Aris Mitchell DO Waist Fitter Aris Slaughter PAC Estimated Blood Loss 200 Findings Consistent with Post-Op Diagnosis Specimens Right femoral head Complications none Disposition Disposition: Recovery Room Indications Sofiya is a pleasant 83-year-old female who tripped and fell yesterday sustaining a right femoral neck fracture. She was admitted to the hospital. After discussions with her and her family, she elected to proceed with a right hip hemiarthroplasty. Description of Procedure Implants used: I used a Biomet Taperloc total hip arthroplasty system with a size 12 high offset Taperloc stem, a 46 mm bipolar cup, and a -6 neck On March 12, 2019 Sfoiya was brought down from the hospital room to the preoperative holding area. The operative extremity was identified and signed. She was given a preoperative antibiotic and a spinal anesthetic. She was taken back to the operating room and laid on the table in the supine position. She was given basic sedation. The right hip was then brought out to the Purist leg positioner. The right hip was then prepped and draped in sterile fashion. A timeout was done. The patient and the operative extremity was properly identified. An anterior approach was used. An incision was made just distal to the anterior iliac crest. Dissection was taken down through the fascia. The tensor was retracted laterally and the sartorius was retracted medially. The capsule was then exposed. Circumflex vessels were ligated. The capsule was then opened up and tagged for later repair. The femoral neck cut was then freshened up. The femoral head was removed. Acetabulum was then exposed. A little bit of incarcerated labrum was removed. The femoral head measured to be a size 46. The proximal femur was then exposed. Sequential broaching up to a size 12 broach was done. Off that broach a 46 mm bipolar cup with a -6 neck was trialed. The hip was reduced. Fluoroscopic images showed anatomic alignment of the hip. The hip was then dislocated. The trials were removed. The final size 12 high offset stem was then impacted into place. A 28 mm head and a 46 mm cup were then snapped into place. The hip was then reduced. Final fluoroscopic images showed anatomic alignment. The capsule was then closed with #1 Vicryl suture. Surrounding soft tissues were then injected with an orthopedic pain control cocktail. A Betadine lavage was then used for 3 minutes. The wound was then irrigated. The fascia was closed with Prolene suture. Skin was closed with 2-0 Vicryl and beata. A Helen VAC dressing was then applied. She was then taken to the postanesthesia care unit in stable condition. She tolerated the procedure well. I attest to the content of the Intraoperative Record and any orders documented therein. Any exceptions are noted below.
[2019-03-12] MEDS ORDERED: PHENYLEPHRINE 100MCG/ML 5ML SYR ONE (17:04)
--- NOTE | 2019-03-12 17:04 | Oncology Consultation ---
Date of Consultation March 12, 2019 Assessment & Plan (1) Adenocarcinoma, colon: Ms. Israel's pelvic mass has grown modestly in the 8 months since I last imaged her. She is totally asymptomatic from her disease and she has no other evidence of metastatic disease. We had a lengthy discussion when we first identified this mass and she refused a workup, primarily because she does not want chemotherapy. The appearance of the lesion now does not materially change the circumstances. It remains very highly suspicious for a malignancy and she continues to not want to pursue a diagnosis because she does not want chemotherapy. At this point, she needs to recover from the hip fracture. If at some point that lesion becomes symptomatic, or if she develops other symptomatic lesions, we could consider a biopsy and possibly palliative intervention, like a stent or even RT. However, that would depend on the context. Present on Admission?: Yes History of Present Illness Reason for Consultation: Colon cancer Pelvic mass Attending Physician: Garrett Balderas, DO History of Present Illness Ms. Israel is an 83 year old woman who was diagnosed in 2017 with a well- differentiated adenocarcinoma of the sigmoid colon that is MSI-stable. Her initial staging scans revealed multiple findings concerning for metastatic disease, including numerous lesions in her uterus and ovaries, low-density lesions in her liver, and a ground-glass opacity in her lung. Given her bleeding and possible impending obstruction, she was taken for surgery on 07/25/16. She had a partial colectomy with anastomosis, along with a DEE/BSO and a ureteral stent placement. The tubes and ovaries were negative for cancer. The colon tumor was a stage II (pT3 pN0), though with a suboptimal number of lymph nodes (9). Subsequent PET/CT revealed no FDG uptake in the liver hypodensities and only faint (max SUV 1) uptake in the lung GGO. 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 With regard to the lung nodule, she refused a more invasive diagnostic procedure, so she underwent a simple bronchoscopy with washings that was non-diagnostic. She refused further workup. We followed her in surveillance until 07/28/18. Scans at that time revealed a new, highly suspicious enhancing nodule in her left pelvic side wall. We discussed options for a diagnostic procedure, but she declined any further workup. She presents now after a slip and fall that led to a right hip fracture. CT in the ER revealed progression of the pelvic side wall mass, but no other evidence of disease. She denies any obstructive symptoms, hematochezia, bloating, abdominal pain, cough, or shortness of breath. 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 s/p resection in June 2016 possible metastatic disease to lung and liver. Anemia HX OF Cancer COLON CANCER; LAPAROTOMY WITH RECTOSIGMOID RESECTION, STENT PLACEMENT, COLORECTAL ANASTOMOSIS AND DEE BSO BY DR. CHAMBERS 07/25/16 DR. VILLAR, DIRECTOR [employer] INGA LEY PA-C HTN (hypertension) Surgical History History of bowel resection History of cataract surgery RT/LEFT 2011 History of colonoscopy History of open reduction and internal fixation (ORIF) procedure LEFT WRIST (HARDWARE REMOVAL) History of tooth extraction History of total abdominal hysterectomy and bilateral salpingo-oophorectomy DURING BOWEL RESECTION Family History Father Cardiac disorder Myocardial infarction Family/Other Cardiac disorder PATERNAL COUSIN Cancer PATERNAL COUSIN Myocardial infarction PATERNAL COUSIN Mother Cancer Social History Preferred Language: Belarusian Communication Ability: Effective Visual Impairment: No Limitations Hearing Ability: Normal Scabbler Required: No Beliefs That Will Affect Care: None marital status: / Current Living Situation: Alone Current Living Situation Comment: 2 story house, 20-25 steps stair current occupational status: retired Feels Safe at Home: Yes Smoking Status: Never smoker Second Hand Exposure: No ; Hx Alcohol Use: No Hx Substance Use: No Childhood Exposure to Second-Hand Smoke: No Dental Care, Regularly: No Physical Activity Frequency: Daily Review of Systems Review of Systems: All systems reviewed & are unremarkable except as noted in HPI & below Physical Exam Constitutional: + thin and + frail appearing; no acute distress ENMT: external ear and nose normal, oropharynx normal Respiratory: normal respiratory effort, lungs clear to auscultation Cardiovascular: RRR, no murmur, no edema Gastrointestinal (Abdomen): Inspection/Auscultation: normal bowel sounds; abdomen not distended Percussion/Palpation: abdomen soft; abdomen nontender Skin: no rashes, warm and dry Psychiatric: A+Ox3, euthymic affect Lymphatic: no cervical or axillary lymphadenopathy Results & Data Vital Signs (Past 12 Hours) Vital Signs Temp Pulse Pulse Resp BP BP Pulse Ox 03/12/19 15:30 36.4 C L 88 16 165/71 H 93 03/12/19 15:00 73 03/12/19 11:07 36.9 C 73 20 141/64 H 93 03/12/19 08:12 37.0 C 83 20 144/69 H 93 03/12/19 08:00 73 Laboratory Results Laboratory Tests 03/11/19 03/11/19 03/11/19 11:46 11:46 11:46 WBC 2.59 L Hgb 7.4 L Plt Count 137 Creatinine 0.79 Iron 29 L TIBC [address] A/P, 03/11/19: IMPRESSION: 1. Acute displaced right femoral subcapital fracture. 2. No additional traumatic findings within the abdomen or pelvis. 3. Increase in size of a 3.5 x 2.7 cm irregular mass along the left aspect of the proximal rectum since CT of July 24, 2018. 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 4. Interval development of mild nonspecific perirectal infiltration.
--- NOTE | 2019-03-12 17:55 | Anesthesiology Progress Note ---
Date of Service March 12, 2019 Anesthesia Post Procedure Vital Signs Vital Signs: Temp Pulse Pulse Pulse Resp BP BP 03/12/19 17:40 86 17 138/69 03/12/19 17:30 78 18 133/63 03/12/19 17:22 37.6 C H 91 H 14 138/57 L 03/12/19 15:30 36.4 C L 88 16 165/71 H 03/12/19 15:00 73 03/12/19 11:07 36.9 C 73 20 141/64 H 03/12/19 08:12 37.0 C 83 20 03/12/19 08:00 73 03/12/19 04:36 36.7 C 81 17 140/66 03/11/19 23:35 36.8 C 81 14 136/64 03/11/19 22:56 36.9 C 81 14 138/65 03/11/19 21:56 37 C 72 14 130/68 03/11/19 21:26 37 C 72 14 134/65 03/11/19 21:11 37.1 C 72 12 127/66 03/11/19 20:45 37.2 C 78 12 136/65 03/11/19 19:00 36.7 C 81 125/68 BP Pulse Ox 03/12/19 17:40 138/57 L 96 03/12/19 17:30 138/57 L 98 03/12/19 17:22 138/57 L 96 03/12/19 15:30 93 03/12/19 15:00 03/12/19 11:07 93 03/12/19 08:12 144/69 H 93 03/12/19 08:00 03/12/19 04:36 94 03/11/19 23:35 95 03/11/19 22:56 96 03/11/19 21:56 94 03/11/19 21:26 94 03/11/19 21:11 95 03/11/19 20:45 95 03/11/19 19:00 99 Transfer of Care Handoff Completed per policy Notes Mental Status: alert / awake / arousable Patient Amnestic to Procedure: Yes Nausea / Vomiting: adequately controlled Pain: adequately controlled Airway Patency, RR, SpO2: stable & adequate BP & HR: stable & adequate Hydration State: stable & adequate Neuraxial Anesthesia: was administered and sensory block is resolving Anesthetic Complications: no major complications apparent and Pt Satisfied with anesthetic care Notes: The patient is awake and stable at her baseline.
[2019-03-12] MEDS ORDERED: NALOXONE HCL 0.4 MG/1 ML VIAL/CARP IV PRN (18:35)
[2019-03-12] MEDS ORDERED: D5W AND 1/2NSS 1,000 ML IV SCH (18:35)
--- NOTE | 2019-03-12 19:03 | Fluoroscopy Report ---
FL hip RT 1V CLINICAL HISTORY: RT ANTERIOR TOTAL COMPARISON STUDY: None. FLUOROSCOPY TIME: 10 seconds. FINDINGS: 4 fluoroscopic spot images of the right hip demonstrate a right hip hemiarthroplasty. Hardw are appears intact. IMPRESSION: Fluoroscopy provided for right hip hemiarthroplasty. Electronically signed by: Sebastian Geiger M.D. 03/12/2019 7:01 PM
--- NOTE | 2019-03-12 19:03 | XRay Report ---
AP PELVIS, CROSSTABLE LATERAL RIGHT HIP History: Right hip hemiarthroplasty. Degenerative arthritis. Postop. FINDINGS: The patient is status post a right hip hemiarthroplasty. The hardware is intact. No fractur e or dislocation. Skin beata and surgical drains are in place. IMPRESSION: Right hip hemiarthroplasty. No evidence for hardware complication Electronically signed by: Sebastian Geiger M.D. 03/12/2019 7:02 PM
[2019-03-12] MEDS: DOCUSATE SODIUM/SENNA 50/8.6MG TAB PO SCH (20:56)
[2019-03-12] MEDS: ASPIRIN 81 MG ECTAB PO SCH (20:59)
[2019-03-13] MEDS: NSS + 20MEQ KCL 20 MEQ/1,000 ML BAG IV SCH (01:33)
[2019-03-13 06:32] LABS: Hematocrit (blood only) 26.2 % (37-47); Hemoglobin 8.4 g/dL (12.0-16.0); Mean Corpuscular Hemoglobin 27.6 pg (25-34); Mean Corpuscular Hgb Conc 32.1 g/dL (32-36); Mean Corpuscular Volume 86.2 fL (80-100); RDW Coefficient of Variation 14.9 % (11.5-14.5); RDW Standard Deviation 46.3 fL (36.4-46.3); Red Blood Count 3.04 M/uL (4.2-5.4); White Blood Count 5.71 K/uL (4.8-10.8)
[2019-03-13 07:03] LABS: BUN Creatinine Ratio 21.7 (10-20); Calcium 8.5 mg/dl (8.5-10.1); Creatinine Clr Calc Pharmacy 47.4 ml/min; Est GFR (African American) 84.2; Est GFR (Non-African American) 72.7
[2019-03-13 07:12] LABS: Mean Platelet Volume 9.7 fL (7.4-10.4); Platelet Count 96 K/uL (130-400)
[2019-03-13 07:14] LABS: Eosinophils # (auto) 0.01 K/uL (0-0.5); Eosinophils % (auto) 0.2 %; Immature Granulocytes # (auto) 0.02 K/uL (0.00-0.02); Immature Granulocytes % (auto) 0.4 %; Lymphocytes # (auto) 0.28 K/uL (1.2-3.4); Lymphocytes % (auto) 4.9 %; Monocytes # (auto) 0.48 K/uL (0.11-0.59); Monocytes % (auto) 8.4 %; Neutrophils # (auto) 4.92 K/uL (1.4-6.5); Neutrophils % (auto) 86.1 %; Ovalocytes 1+; Platelet Estimate Decreased (Normal); Tear Drop Cells 1+
[2019-03-13] MEDS: PANTOprazole 40 MG TAB PO SCH (07:45)
[2019-03-13] MEDS: ASPIRIN 81 MG ECTAB PO SCH ×2 (07:45→20:27)
[2019-03-13] MEDS: ACETAMINOPHEN 325 MG TAB PO PRN (07:45)
[2019-03-13] MEDS: METOPROLOL TARTRATE 50 MG TAB PO SCH ×2 (07:45→20:27)
--- NOTE | 2019-03-13 07:53 | Anesthesiology Progress Note ---
Date of Service March 13, 2019 Anesthesia Post Procedure Vital Signs Vital Signs: Temp Pulse Pulse Pulse Resp BP BP 03/13/19 04:05 36.6 C 80 18 145/68 H 03/12/19 23:20 36.2 C L 83 20 128/65 03/12/19 20:11 36.8 C 87 21 149/73 H 03/12/19 18:25 36.5 C 97 H 18 147/73 H 03/12/19 18:07 36.3 C L 70 19 139/55 L 03/12/19 17:50 36.5 C 82 18 144/69 H 03/12/19 17:40 86 17 138/57 L 03/12/19 17:30 78 18 138/57 L 03/12/19 17:22 37.6 C H 91 H 14 138/57 L 03/12/19 15:30 36.4 C L 88 16 165/71 H 03/12/19 15:00 73 03/12/19 11:07 36.9 C 73 20 141/64 H 03/12/19 08:12 37.0 C 83 20 144/69 H 03/12/19 08:00 73 Pulse Ox 03/13/19 04:05 100 03/12/19 23:20 100 03/12/19 20:11 98 03/12/19 18:25 03/12/19 18:07 94 03/12/19 17:50 95 03/12/19 17:40 96 03/12/19 17:30 98 03/12/19 17:22 96 03/12/19 15:30 93 03/12/19 15:00 03/12/19 11:07 93 03/12/19 08:12 93 03/12/19 08:00 Notes Mental Status: alert / awake / arousable and participated in evaluation Patient Amnestic to Procedure: Yes Nausea / Vomiting: adequately controlled Pain: adequately controlled Airway Patency, RR, SpO2: stable & adequate BP & HR: stable & adequate Hydration State: stable & adequate Neuraxial Anesthesia: was administered and sensory block resolved Anesthetic Complications: no major complications apparent and Pt Satisfied with anesthetic care
[2019-03-13] MEDS ORDERED: ERGOCALCIFEROL 50,000 UNITS CAP PO SCH (09:00)
--- NOTE | 2019-03-13 14:32 | Hospitalist Progress Note ---
Date of Service March 13, 2019 Assessment & Plan (1) Fracture of femoral neck, right: closed fracture right femoral neck s/p hemiarthroplasty of right hip on 03/12, tolerated well, go to surgical floor today will need PT/OT anticipate needing rehab DVT prophylaxis and pain control per orthopedic surgery Hb down to 8.4, repeat tomorrow plan for rehab after the weekend (2) Iron deficiency anemia: Acute on chronic blood loss iron deficiency anemia likely secondary to below Hb < 8 on admission transfused two units on admission, Hb up to 9.9 03/12 down to 8.4 this moring will repeat tomorrow patient not having any bright red bleeding from rectum with colon mass, certainly possible that she is having a slow bleed (3) Adenocarcinoma, colon: Worsening 3.5 x 2.7 cm irregular mass along the left aspect of proximal rectum since June 2018 consistent with neoplastic process. discussed with Dr. Jimenez this morning, he has been aware of mass as has patient for the past year she was offered biopsy and possible chemo she has stated in the past and confirms today that she would NOT want any type of chemotherapy would only intervene on the mass if it causes obstruction or GI bleeding can follow up with Dr. Jimenez in a few months (4) HTN (hypertension): Continue metoprolol, BP stable today Hydralazine IV as needed systolic pressure more than 180 (5) Osteoporosis: likely osteoporosis with pathological fracture due to ground level fall will treat with vitamin D 50,000mg given on 03/12 should have this dose once a week for 8 weeks then maintenance therapy Subjective patient doing great this morning, minimal pain in right hip after surgery feels ready for therapy breathing well, no cough, no chest pain, no fever/chills reviewed labs, Hb dropped slightly to 8.4, WBC normal, BUN/Cr stable ate all of her breakfast will move to medical floor Review of Systems Review of Systems: All systems reviewed & are unremarkable except as noted in HPI & below Constitutional: + weakness; no fever, no chills, no sweats and no fatigue Respiratory: no cough and no dyspnea Cardiovascular: no chest pain, no syncope and no edema Gastrointestinal: no abdominal pain, no nausea, no vomiting, no constipation and no diarrhea/loose stools Musculoskeletal: + joint pain (right hip, minimal); no back pain Physical Exam Constitutional: WD/WN, vitals as above Eyes: PERRL, conjunctivae normal, anicteric sclerae ENMT: external ear and nose normal, oropharynx normal Neck: trachea midline, no thyromegaly Respiratory: normal respiratory effort, lungs clear to auscultation Cardiovascular: RRR, no murmur, no edema Gastrointestinal (Abdomen): normal bowel sounds, soft, nontender, no hepatosplenomegaly Musculoskeletal: Head/Neck/Chest: normocephalic and head atraumatic Extremities: extremities normal to inspection, + limited ROM of extremities (slightly limited right hip but better than yesterday) and strength 5/5 throughout Skin: no rashes, warm and dry Neurologic: patellar DTR's 2+ bilat, sensation intact and PERRL, EOMI, accommodation nl, no face palsy, no dysarthria Psychiatric: A+Ox3, euthymic affect Lymphatic: no cervical or axillary lymphadenopathy Results & Data Vital Signs (Past 12 Hours) Vital Signs Temp Pulse Pulse Pulse Resp BP Pulse Ox 03/13/19 12:50 03/13/19 11:28 36.9 C 77 18 138/57 L 93 03/13/19 08:00 87 03/13/19 07:00 36.8 C 82 20 145/67 H 100 03/13/19 04:05 36.6 C 80 18 145/68 H 100 Pulse Ox Pulse Ox Pulse Ox 03/13/19 12:50 91 96 86 L 03/13/19 11:28 03/13/19 08:00 03/13/19 07:00 03/13/19 04:05 Laboratory Results Laboratory Results - last 24 hr 03/13/19 03/13/19 06:15 06:15 WBC 5.71 RBC 3.04 L Hgb 8.4 L Hct 26.2 L MCV 86.2 MCH 27.6 MCHC 32.1 RDW Std Deviation 46.3 RDW Coeff of Ashwin 14.9 H Plt Count 96 L MPV 9.7 Immature Gran % (Auto) 0.4 Neut % (Auto) 86.1 Lymph % (Auto) 4.9 [place] % (Auto) 8.4 Eos % (Auto) 0.2 Baso % (Auto) 0.0 Immature Gran # (Auto) 0.02 Neut # (Auto) 4.92 Lymph # (Auto) 0.28 L [place] # (Auto) 0.48 Eos # (Auto) 0.01 Baso # (Auto) 0.00 Platelet Estimate Decreased L Tear Drop Cells 1+ Ovalocytes 1+ Sodium 138 Potassium 4.0 Chloride 110 H Carbon Dioxide 24 Anion Gap 4.0 BUN 16 Creatinine 0.75 Est Cr Clr Drug Dosing 47.4 Est GFR ( Amer) 84.2 Est GFR (Non-Af Amer) 72.7 BUN/Creatinine Ratio 21.7 H Glucose 136 H Calcium 8.5 Medications Administered Current Inpatient Medications Acetaminophen (Tylenol) 650 mg PO Q4H PRN PRN Reason: Pain or Fever Stop: 04/10/19 15:41 Last Admin: 03/13/19 07:45 Dose: 650 mg Documented by: Al Hydrox/Mg Hydrox/Simethicone (Maalox) 15 ml PO Q4H PRN PRN Reason: Dyspepsia Stop: 04/10/19 15:41 Aspirin (Ecotrin Ectab) 81 mg PO BID FOR[facility]LY [facility], [facility]1983 Stop: 04/11/19 20:59 Last Admin: 03/13/19 07:45 Dose: 81 mg Documented by: Bisacodyl (Dulcolax) 10 mg ME DAILY PRN PRN Reason: Constipation Stop: 04/10/19 15:41 Hydralazine HCl (Hydralazine Hcl) 10 mg IV Q8H PRN PRN Reason: SBP > 180 Stop: 04/10/19 17:03 Hydromorphone HCl (Dilaudid) 0.25 - 0.5 mg IV Q20M PRN PRN Reason: Moderate/Severe Pain Stop: 03/25/19 15:41 Ioversol (Optiray 320 100ml) 94 ml IV ONCE PRN PRN Reason: Interaction Checking Stop: 03/15/19 13:35 Last Admin: 03/11/19 13:36 Dose: 94 ml Documented by: Magnesium Hydroxide (Milk Of Magnesia) 30 ml PO Q12H PRN PRN Reason: Constipation Stop: 04/10/19 15:41 Metoprolol Tartrate (Lopressor) 50 mg PO BID [facility], [facility]1983 Stop: 04/10/19 20:59 Last Admin: 03/13/19 07:45 Dose: 50 mg Documented by: Naloxone HCl (Narcan) 0.1 mg IV UD PRN PRN Reason: Opiate Overdose Stop: 04/10/19 15:41 Naloxone HCl (Narcan) 0.1 mg IV UD PRN PRN Reason: Opioid Overdose Stop: 04/11/19 18:34 Ondansetron HCl (Zofran) 4 mg IV Q6H PRN PRN Reason: Nausea Stop: 04/10/19 15:41 Oxycodone HCl (Roxicodone Immediate Rel) 5 mg PO Q4H PRN PRN Reason: MODERATE Pain (Scale 4,5,6) Stop: 03/25/19 15:41 Pantoprazole Sodium (Protonix) 40 mg PO DAILY [facility] Stop: 04/10/19 15:59 Last Admin: 03/13/19 07:45 Dose: 40 mg Documented by: Polyethylene Glycol (Miralax Powder Packet) 17 gm PO DAILY PRN PRN Reason: Constipation Stop: 04/10/19 15:41 Senna/Docusate Sodium (Senokot S) 2 tab PO HS RAN Stop: 04/10/19 20:59 Last Admin: 03/12/19 20:56 Dose: Not Given Documented by: Zolpidem Tartrate (Ambien) 5 mg PO HS PRN PRN Reason: Sleep Stop: 04/10/19 15:41 PG Care Time/CCT Total # of Minutes Spent Total Time Spent with Patient: Total time spent is greater than 50% in coordination of care (as documented) at patient's floor/unit and/or counseling patient:
--- NOTE | 2019-03-13 17:12 | Orthopedic Progress Note ---
Date of Service March 13, 2019 Assessment & Plan (1) Fracture of femoral neck, right: So far she is doing very well. She is not having much pain in the right hip. She will be seen by physical therapy today for ambulation and range of motion exercises. She will be on aspirin 81 mg twice a day for DVT prophylaxis. She can be weightbearing as tolerated. Discharge instructions were already placed in the discharge summary. She can follow-up with orthopedics in 2 weeks. Present on Admission?: Yes Subjective Sofiya was seen and examined at bedside this morning. Overall she is doing very well. She is not having much pain in the hip. She has not been ambulating yet. She has no complaints. Physical Exam Musculoskeletal: On physical examination of the right hip, the Helen VAC dressing is to suction. Her leg lengths are equal. She has active dorsiflexion and plantarflexion of her right ankle. Sensation is intact throughout. Results & Data Vital Signs (Past 12 Hours) Vital Signs Temp Pulse Pulse Pulse Resp BP BP 03/13/19 15:07 36.8 C 88 18 136/63 03/13/19 14:37 03/13/19 12:50 03/13/19 11:28 36.9 C 77 18 138/57 L 03/13/19 08:00 87 03/13/19 07:00 36.8 C 82 20 145/67 H Pulse Ox Pulse Ox Pulse Ox Pulse Ox 03/13/19 15:07 93 03/13/19 14:37 90 03/13/19 12:50 91 96 86 L 03/13/19 11:28 93 03/13/19 08:00 03/13/19 07:00 100 Laboratory Results H & H 03/11/19 03/12/19 03/13/19 Range/Units 11:46 06:34 06:15 Hgb 7.4 L 9.9 L 8.4 L (12.0-16.0) g/dL Hct 24.4 L 30.8 L 26.2 L (37-47) % Coagulation 03/11/19 Range/Units 11:46 INR 1.1 (0.9-1.1) Diagnostic Findings Postoperative x-rays of the right hip show the prosthesis to be in anatomic alignment without any evidence of fracture, dislocation, or loosening. PG Care Time/CCT Total # of Minutes Spent Total Time Spent with Patient: Total time spent is greater than 50% in coordination of care (as documented) at patient's floor/unit and/or counseling patient:
[2019-03-13] MEDS: DOCUSATE SODIUM/SENNA 50/8.6MG TAB PO SCH (20:27)
[2019-03-14 07:57] LABS: Hematocrit (blood only) 22.2 % (37-47); Hemoglobin 7.1 g/dL (12.0-16.0); Mean Corpuscular Hemoglobin 27.6 pg (25-34); Mean Corpuscular Volume 86.4 fL (80-100); RDW Coefficient of Variation 14.6 % (11.5-14.5); RDW Standard Deviation 45.9 fL (36.4-46.3); Red Blood Count 2.57 M/uL (4.2-5.4); White Blood Count 4.58 K/uL (4.8-10.8)
[2019-03-14 08:04] LABS: Mean Platelet Volume 9.3 fL (7.4-10.4); Platelet Count 98 K/uL (130-400)
[2019-03-14 08:21] LABS: Eosinophils # (auto) 0.07 K/uL (0-0.5); Eosinophils % (auto) 1.5 %; Immature Granulocytes # (auto) 0.01 K/uL (0.00-0.02); Immature Granulocytes % (auto) 0.2 %; Lymphocytes # (auto) 0.35 K/uL (1.2-3.4); Lymphocytes % (auto) 7.6 %; Monocytes # (auto) 0.35 K/uL (0.11-0.59); Monocytes % (auto) 7.6 %; Neutrophils % (auto) 83.1 %; Spherocytes 1+
[2019-03-14] MEDS: PANTOprazole 40 MG TAB PO SCH (08:54)
[2019-03-14] MEDS: ASPIRIN 81 MG ECTAB PO SCH ×2 (08:55→20:16)
[2019-03-14] MEDS: METOPROLOL TARTRATE 50 MG TAB PO SCH ×2 (08:58→20:16)
[2019-03-14] MEDS ORDERED: SODIUM CHLORIDE 0.9% 250 ML IV PRN (09:46)
[2019-03-14] MEDS: ACETAMINOPHEN 325 MG TAB PO PRN (09:51)
--- NOTE | 2019-03-14 17:50 | Hospitalist Progress Note ---
Date of Service March 14, 2019 Assessment & Plan (1) Fracture of femoral neck, right: Closed fracture right femoral neck-stable s/p hemiarthroplasty of right hip on 03/12, tolerated well, go to surgical floor today Continue PT/OT Placement to SNF when clinically stable DVT prophylaxis and pain control per orthopedic surgery Hemoglobin/hematocrit 7.1/22.2, decision was made to give 2 units of blood for symptomatic anemia DVT prophylaxis as per Ortho. (2) Iron deficiency anemia: Plan to transfuse 2 units of blood today . Not clear reason for acute on chronic anemia. Could be related to recent surgery. Hb < 8 on admission transfused two units on admission, Hb up to 9.9 03/12 Follow closely hemoglobin/hematocrit. Serial fecal occult blood. Could be related to colon cancer. (3) Adenocarcinoma, colon: Worsening 3.5 x 2.7 cm irregular mass along the left aspect of proximal rectum since June 2018 consistent with neoplastic process. discussed with Dr. Jimenez this morning, he has been aware of mass as has patient for the past year she was offered biopsy and possible chemo she has stated in the past and confirms today that she would NOT want any type of chemotherapy would only intervene on the mass if it causes obstruction or GI bleeding can follow up with Dr. Jimenez in a few months (4) HTN (hypertension): Continue metoprolol, BP stable today Hydralazine IV as needed systolic pressure more than 180 (5) Osteoporosis: likely osteoporosis with pathological fracture due to ground level fall will treat with vitamin D 50,000mg given on 03/12 should have this dose once a week for 8 weeks then maintenance therapy Subjective Patient is seen and examined at the bedside. This morning she was trying to cooperate with physical therapy , but she was unable to due to shortness of breath. Patient denies fever, chills, chest pain, abdominal pain, frequency, urgency, melena. Review of Systems Review of Systems: All systems reviewed & are unremarkable except as noted in HPI & below Physical Exam Constitutional: WD/WN, vitals as above + thin and + frail appearing; no acu te distress Eyes: PERRL, conjunctivae normal, anicteric sclerae ENMT: Mouth: + dentures Mallampati Class: II Neck: trachea midline, no thyromegaly normal visual inspection Respiratory: normal respiratory effort, lungs clear to auscultation normal respiratory effort Auscultation: lungs clear to auscultation bilaterally Cardiovascular: RRR, no murmur, no edema Rate/Rhythm: regular rate and regular rhythm Gastrointestinal (Abdomen): normal bowel sounds, soft, nontender, no hepatosplenomegaly Inspection/Auscultation: normal bowel sounds; abdomen not distended Percussion/Palpation: abdomen soft; abdomen nontender Musculoskeletal: Head/Neck/Chest: normocephalic and head atraumatic Spine: no pain with cervical ROM Extremities: extremities normal to inspection, + limited ROM of extremities (slightly limited right hip but better than yesterday) and strength 5/5 throughout Hip: + ecchymosis, + limited ROM of hip, + joint line tenderness and + log roll test positive Skin: no rashes, warm and dry Neurologic: patellar DTR's 2+ bilat, sensation intact and PERRL, EOMI, accommodation nl, no face palsy, no dysarthria moves all extremities Psychiatric: A+Ox3, euthymic affect Orientation: alert and oriented x 3 Lymphatic: no cervical or axillary lymphadenopathy Results & Data Vital Signs (Past 12 Hours) Vital Signs Temp Pulse Pulse Pulse Resp BP BP 03/14/19 16:59 37.0 C 90 18 150/73 H 03/14/19 16:28 36.9 C 86 18 149/72 H 03/14/19 16:01 37 C 84 18 127/58 L 03/14/19 15:46 36.7 C 81 20 146/73 H 03/14/19 15:27 36.9 C 86 18 131/81 03/14/19 15:06 36.6 C 83 18 137/69 03/14/19 14:15 36.6 C 85 18 134/64 03/14/19 13:15 36.8 C 83 18 138/68 03/14/19 12:45 36.6 C 86 18 146/74 H 03/14/19 12:30 36.6 C 76 119/54 L 03/14/19 12:11 36.7 C 75 18 03/14/19 08:57 99 H 132/69 03/14/19 08:00 36.6 C 97 H 18 139/61 Pulse Ox 03/14/19 16:59 96 03/14/19 16:28 94 03/14/19 16:01 03/14/19 15:46 03/14/19 15:27 03/14/19 15:06 96 03/14/19 14:15 96 03/14/19 13:15 98 03/14/19 12:45 97 03/14/19 12:30 98 03/14/19 12:11 97 03/14/19 08:57 03/14/19 08:00 94 PG Care Time/CCT Total # of Minutes Spent Total Time Spent with Patient: Total time spent is greater than 50% in coordination of care (as documented) at patient's floor/unit and/or counseling patient:
[2019-03-14] MEDS: DOCUSATE SODIUM/SENNA 50/8.6MG TAB PO SCH (20:16)
[2019-03-14 20:21] LABS: Eosinophils # (auto) 0.09 K/uL (0-0.5); Eosinophils % (auto) 1.6 %; Hematocrit (blood only) 29.9 % (37-47); Hemoglobin 9.7 g/dL (12.0-16.0); Immature Granulocytes # (auto) 0.03 K/uL (0.00-0.02); Immature Granulocytes % (auto) 0.5 %; Lymphocytes # (auto) 0.49 K/uL (1.2-3.4); Lymphocytes % (auto) 8.5 %; Mean Corpuscular Volume 86.2 fL (80-100); Mean Platelet Volume 9.4 fL (7.4-10.4); Monocytes # (auto) 0.38 K/uL (0.11-0.59); Monocytes % (auto) 6.6 %; Neutrophils # (auto) 4.79 K/uL (1.4-6.5); Neutrophils % (auto) 82.8 %; Platelet Count 111 K/uL (130-400); RDW Coefficient of Variation 14.2 % (11.5-14.5); RDW Standard Deviation 44.4 fL (36.4-46.3); Red Blood Count 3.47 M/uL (4.2-5.4); White Blood Count 5.78 K/uL (4.8-10.8)
[2019-03-14 20:37] LABS: Mean Corpuscular Hgb Conc 32.4 g/dL (32-36)
[2019-03-15] MEDS: METOPROLOL TARTRATE 50 MG TAB PO SCH ×2 (08:54→20:58)
[2019-03-15] MEDS: PANTOprazole 40 MG TAB PO SCH (08:54)
[2019-03-15] MEDS: ASPIRIN 81 MG ECTAB PO SCH ×2 (08:56→20:58)
--- NOTE | 2019-03-15 14:21 | Hospitalist Progress Note ---
Date of Service March 15, 2019 Assessment & Plan (1) Fracture of femoral neck, right: Closed fracture right femoral neck-stable s/p hemiarthroplasty of right hip on 03/12, tolerated well, go to surgical floor today Continue PT/OT Placement to SNF when clinically stable DVT prophylaxis and pain control per orthopedic surgery Pt received 2 PRBC yesterday and her H/H is stable. Continue monitoring. DVT prophylaxis as per Ortho. (2) Iron deficiency anemia: Status post transfusion of 2 units of blood today .H/H stable now. Not clear reason for acute on chronic anemia. Could be related to recent surgery. Hb < 8 on admission transfused two units on admission, Hb up to 9.9 03/12 Follow closely hemoglobin/hematocrit. Serial fecal occult blood. Could be related to colon cancer. (3) Adenocarcinoma, colon: Worsening 3.5 x 2.7 cm irregular mass along the left aspect of proximal rectum since June 2018 consistent with neoplastic process. discussed with Dr. Jimenez this morning, he has been aware of mass as has patient for the past year she was offered biopsy and possible chemo she has stated in the past and confirms today that she would NOT want any type of chemotherapy would only intervene on the mass if it causes obstruction or GI bleeding can follow up with Dr. Jimenez in a few months (4) HTN (hypertension): Continue metoprolol, BP stable today Hydralazine IV as needed systolic pressure more than 180 (5) Osteoporosis: likely osteoporosis with pathological fracture due to ground level fall will treat with vitamin D 50,000mg given on 03/12 should have this dose once a week for 8 weeks then maintenance therapy (6) Bleeding nose: Moderate bleeding from both nostrils, stopped on its own without requesting any intervention.Rhino rockets x2 available at the bed side since pt said she has chronic nose bleeding. Present on Admission?: Yes Subjective Patient is seen and examined at the bedside. Patient had a significant nosebleed this morning and lost mild to moderate amount of blood but it stopped on its own.Patient denies fever, chills, chest pain, abdominal pain, frequency, urgency, melena. Review of Systems Review of Systems: All systems reviewed & are unremarkable except as noted in HPI & below Physical Exam Constitutional: WD/WN, vitals as above + thin and + frail appearing Eyes: PERRL, conjunctivae normal, anicteric sclerae ENMT: Mouth: + dentures Mallampati Class: II Neck: trachea midline, no thyromegaly normal visual inspection Respiratory: normal respiratory effort, lungs clear to auscultation Cardiovascular: RRR, no murmur, no edema Gastrointestinal (Abdomen): normal bowel sounds, soft, nontender, no hepatosplenomegaly Musculoskeletal: Head/Neck/Chest: normocephalic and head atraumatic Extremities: extremities normal to inspection, + limited ROM of extremities (slightly limited right hip but better than yesterday) and strength 5/5 throughout Hip: + ecchymosis, + limited ROM of hip, + joint line tenderness and + log roll test positive Skin: no rashes, warm and dry Neurologic: patellar DTR's 2+ bilat, sensation intact and PERRL, EOMI, accommodation nl, no face palsy, no dysarthria moves all extremities Psychiatric: A+Ox3, euthymic affect Lymphatic: no cervical or axillary lymphadenopathy Results & Data Vital Signs (Past 12 Hours) Vital Signs Temp Pulse Resp BP BP Pulse Ox 03/15/19 11:00 77 144/68 H 03/15/19 07:45 36.5 C 102 H 20 169/80 H 93 PG Care Time/CCT Total # of Minutes Spent Total Time Spent with Patient: Total time spent is greater than 50% in coordination of care (as documented) at patient's floor/unit and/or counseling patient:
[2019-03-15] MEDS: ACETAMINOPHEN 325 MG TAB PO PRN (20:57)
[2019-03-15] MEDS: DOCUSATE SODIUM/SENNA 50/8.6MG TAB PO SCH (21:00)
[2019-03-16 00:07] VITALS: O2SAT 92
[2019-03-16 05:57] LABS: Basophils # (auto) 0.01 K/uL (0-0.2); Basophils % (auto) 0.2 %; Eosinophils % (auto) 2.2 %; Hematocrit (blood only) 29.8 % (37-47); Hemoglobin 9.6 g/dL (12.0-16.0); Immature Granulocytes # (auto) 0.03 K/uL (0.00-0.02); Immature Granulocytes % (auto) 0.7 %; Lymphocytes # (auto) 0.54 K/uL (1.2-3.4); Mean Corpuscular Hemoglobin 27.7 pg (25-34); Mean Corpuscular Hgb Conc 32.2 g/dL (32-36); Mean Corpuscular Volume 86.1 fL (80-100); Mean Platelet Volume 9.7 fL (7.4-10.4); Monocytes # (auto) 0.37 K/uL (0.11-0.59); Monocytes % (auto) 8.2 %; Neutrophils # (auto) 3.44 K/uL (1.4-6.5); Neutrophils % (auto) 76.7 %; Platelet Count 131 K/uL (130-400); RDW Coefficient of Variation 14.5 % (11.5-14.5); RDW Standard Deviation 45.2 fL (36.4-46.3); Red Blood Count 3.46 M/uL (4.2-5.4); White Blood Count 4.49 K/uL (4.8-10.8)
[2019-03-16 06:25] LABS: Albumin Level 2.2 gm/dl (3.4-5.0); BUN Creatinine Ratio 19.9 (10-20); Calcium 9.3 mg/dl (8.5-10.1); Creatinine Clr Calc Pharmacy 58.2 ml/min; Est GFR (African American) 95.8; Est GFR (Non-African American) 82.7; Potassium 3.6 mmol/L (3.5-5.1)
[2019-03-16 06:28] LABS: Albumin Globulin Ratio 0.7 (0.9-2); Bilirubin,Total 0.7 mg/dl (0.2-1); Globulin 3.3 gm/dl (2.5-4.0); Total Protein 5.5 gm/dl (6.4-8.2)
[2019-03-16 07:19] VITALS: BP 174/77; TEMP 98.1
--- NOTE | 2019-03-16 08:45 | Hospitalist Progress Note ---
Date of Service March 16, 2019 Assessment & Plan (1) Fracture of femoral neck, right: Closed fracture right femoral neck-stable s/p hemiarthroplasty of right hip on 03/12, tolerated well, go to surgical floor today Continue PT/OT--. pt if going to be discharged today to SNF. Placement to SNF when clinically stable DVT prophylaxis and pain control per orthopedic surgery Pt received 2 PRBC yesterday and her H/H is stable. Continue monitoring. DVT prophylaxis as per Ortho. (2) Iron deficiency anemia: Status post transfusion of 2 units of blood today .H/H stable now. Not clear reason for acute on chronic anemia. Could be related to recent surgery. Hb < 8 on admission transfused two units on admission, Hb up to 9.9 03/12 Follow closely hemoglobin/hematocrit. Serial fecal occult blood. Could be related to colon cancer. (3) Adenocarcinoma, colon: Worsening 3.5 x 2.7 cm irregular mass along the left aspect of proximal rectum since June 2018 consistent with neoplastic process. discussed with Dr. Jimenez this morning, he has been aware of mass as has patient for the past year she was offered biopsy and possible chemo she has stated in the past and confirms today that she would NOT want any type of chemotherapy would only intervene on the mass if it causes obstruction or GI bleeding can follow up with Dr. Jimenez in a few months (4) HTN (hypertension): Continue metoprolol, BP stable today Hydralazine IV as needed systolic pressure more than 180 (5) Osteoporosis: likely osteoporosis with pathological fracture due to ground level fall will treat with vitamin D 50,000mg given on 03/12 should have this dose once a week for 8 weeks then maintenance therapy (6) Bleeding nose: Moderate bleeding from both nostrils, stopped on its own without requesting any intervention.Rhino rockets x2 available at the bed side since pt said she has chronic nose bleeding. Subjective Patient is seen and examined at the bedside. Pt ie eager to go to SNF.Patient denies fever, chills, chest pain, abdominal pain, frequency, urgency, melena. Review of Systems Review of Systems: All systems reviewed & are unremarkable except as noted in HPI & below Physical Exam Constitutional: WD/WN, vitals as above + thin and + frail appearing Eyes: PERRL, conjunctivae normal, anicteric sclerae ENMT: Mouth: + dentures Mallampati Class: II Neck: trachea midline, no thyromegaly normal visual inspection Respiratory: normal respiratory effort, lungs clear to auscultation normal respiratory effort Auscultation: lungs clear to auscultation bilaterally Cardiovascular: RRR, no murmur, no edema Rate/Rhythm: regular rate and regular rhythm Gastrointestinal (Abdomen): normal bowel sounds, soft, nontender, no hepatosplenomegaly Inspection/Auscultation: normal bowel sounds; abdomen not distended Percussion/Palpation: abdomen soft; abdomen nontender Musculoskeletal: Head/Neck/Chest: normocephalic and head atraumatic Spine: no pain with cervical ROM Extremities: extremities normal to inspection, + limited ROM of extremities (slightly limited right hip but better than yesterday) and strength 5/5 throughout Hip: + ecchymosis, + limited ROM of hip, + joint line tenderness and + log roll test positive Skin: no rashes, warm and dry Neurologic: patellar DTR's 2+ bilat, sensation intact and PERRL, EOMI, accommodation nl, no face palsy, no dysarthria moves all extremities Psychiatric: A+Ox3, euthymic affect Orientation: alert and oriented x 3 Lymphatic: no cervical or axillary lymphadenopathy Results & Data Vital Signs (Past 12 Hours) Vital Signs Temp Pulse Pulse Resp BP Pulse Ox 03/16/19 07:18 36.7 C 97 H 18 174/77 H 92 03/16/19 05:53 86 174/84 H 03/15/19 23:32 37.1 C 85 16 150/75 H 92 03/15/19 20:56 108 H 160/78 H PG Care Time/CCT Total # of Minutes Spent Total Time Spent with Patient: Total time spent is greater than 50% in coordination of care (as documented) at patient's floor/unit and/or counseling patient:
[2019-03-16] MEDS: PANTOprazole 40 MG TAB PO SCH (09:27)
[2019-03-16] MEDS: ASPIRIN 81 MG ECTAB PO SCH (09:27)
[2019-03-16] MEDS: ACETAMINOPHEN 325 MG TAB PO PRN (09:33)
[2019-03-16] MEDS: METOPROLOL TARTRATE 50 MG TAB PO SCH (09:34)
[2019-03-16] MEDS ORDERED: POLYETHYLENE (MIRALAX) 17 GM PACK PO SCH (11:00)
[2019-03-16] MEDS ORDERED: DOCUSATE SODIUM 100 MG CAP PO ONE (11:00)
[2019-03-16 14:40] VITALS: PULSE 85
--- NOTE | 2019-03-16 18:26 | Discharge Summary ---
Date of Service March 16, 2019 Admission HPI Per Admitting Provider 83 years old female with past medical history of essential hypertension, colon cancer in 2016 status post resection with clear margins, she did not require any chemotherapy or radiation at that time, she did have a small lung nodule and liver lesion at that time, lung nodule was biopsied and was not cancer, liver lesion was followed up and was stable, thought to be hemangioma. Patient was in her regular state of health until today she got severely dizzy and fell on the chair. She did not hit her head but hit the right side of her hip at the edge of the chair. Presented to the hospital with right hip pain and right lower extremity decreased range of motion. Imaging showed right hip fracture. But also her blood work showed severe anemia hemoglobin of 7.4, last hemoglobin was 12.2, 8 months ago. Occult blood in stool was positive in the ED, she had a CT scan abdomen and pelvis that showed, increase in size of a 3.5 x 2.7 cm irregular mass along the left aspect of the proximal rectum, it was shown p reviously on CT scan on July 24/2019 report stated as follow at that time ; avidly enhancing irregular solid 2.2 cm nodule along the left superior pelvic sidewall with vague infiltration of the root of the small bowel mesentery likely mesenteric panniculitis. Clearly appears to be larger in size this time, not sure if it is the cause of her anemia, but certainly cannot rule out any recurrence of her colon cancer. Patient denies any chest pain or shortness of breath, stated that she has no cardiovascular disease. Patient can walk up to 2 blocks or go up to 2 flights of stairs was without havi ng any shortness of breath or chest pain Denies any blood in the stool or in the urine, denies any melena, denies any dizziness prior to today. Principal Diagnosis none Discharge Exam Constitutional WD/WN, vitals as above + thin and + frail appearing Eyes PERRL, conjunctivae normal, anicteric sclerae ENMT Mouth: + dentures Mallampati Class: II Neck trachea midline, no thyromegaly normal visual inspection Respiratory normal respiratory effort, lungs clear to auscultation normal respiratory effort Auscultation: lungs clear to auscultation bilaterally Cardiovascular RRR, no murmur, no edema Rate/Rhythm: regular rate and regular rhythm Gastrointestinal (Abdomen) normal bowel sounds, soft, nontender, no hepatosplenomegaly Inspection/Auscultation: normal bowel sounds; abdomen not distended Percussion/Palpation: abdomen soft; abdomen nontender Musculoskeletal Head/Neck/Chest: normocephalic and head atraumatic Spine: no pain with cervical ROM Extremities: extremities normal to inspection, + limited ROM of extremities (slightly limited right hip but better than yesterday) and strength 5/5 throughout Hip: + ecchymosis, + limited ROM of hip, + joint line tenderness and + log roll test positive Skin no rashes, warm and dry Neurologic patellar DTR's 2+ bilat, sensation intact and PERRL, EOMI, accommodation nl, no face palsy, no dysarthria moves all extremities Psychiatric A+Ox3, euthymic affect Orientation: alert and oriented x 3 Lymphatic no cervical or axillary lymphadenopathy Discharge Data Allergies Allergy/AdvReac Type Severity Reaction Status Date / Time No Known Allergies Allergy Verified 10/06/18 08:04 Consultations 03/11/19 12:11 Consult Case Management - Discharge Planning Routine 03/11/19 13:15 ED Decision to Admit Stat 03/11/19 15:45 Consult Case Management - Discharge Planning Routine Consult Orthopedic Surgery Routine 03/11/19 18:09 Consult Oncology Routine Procedures Performed Operation Date: 03/12/19 09:20 Actual Procedures p Right Hip Anterior Hemiarthroplasty(Right) - Aris Mitchell, Ordered Studies 03/11/19 12:57 CT abd pelvis IV con only Stat 03/12/19 15:00 FL fluoroscopy <1hr Routine FL hip RT 1V Routine Hospital Course (1) Fracture of femoral neck, right: Closed fracture right femoral neck-stable s/p hemiarthroplasty of right hip on 03/12, tolerated well, go to surgical floor today Continue PT/OT--. pt if going to be discharged today to SNF. Placement to SNF when clinically stable DVT prophylaxis and pain control per orthopedic surgery Pt received 2 PRBC yesterday and her H/H is stable. Continue monitoring. DVT prophylaxis as per Ortho. (2) Iron deficiency anemia: Status post transfusion of 2 units of blood today .H/H stable now. Not clear reason for acute on chronic anemia. Could be related to recent surgery. Hb < 8 on admission transfused two units on admission, Hb up to 9.9 03/12 Follow closely hemoglobin/hematocrit. Serial fecal occult blood. Could be related to colon cancer. (3) Adenocarcinoma, colon: Worsening 3.5 x 2.7 cm irregular mass along the left aspect of proximal rectum since June 2018 consistent with neoplastic process. discussed with Dr. Jimenez this morning, he has been aware of mass as has patient for the past year she was offered biopsy and possible chemo she has stated in the past and confirms today that she would NOT want any type of chemotherapy would only intervene on the mass if it causes obstruction or GI bleeding can follow up with Dr. Jimenez in a few months (4) HTN (hypertension): Continue metoprolol, BP stable today Hydralazine IV as needed systolic pressure more than 180 (5) Osteoporosis: likely osteoporosis with pathological fracture due to ground level fall will treat with vitamin D 50,000mg given on 03/12 should have this dose once a week for 8 weeks then maintenance therapy (6) Bleeding nose: Moderate bleeding from both nostrils, stopped on its own without requesting any intervention.Rhino rockets x2 available at the bed side since pt said she has chronic nose bleeding. Total Time Total Time Spent Total Time Spent (In Minutes): over 30 min Discharge Plan Discharge Items Patient Disposition: Transfer Residential Fac Reason For Visit: HIP FRACTURE Discharge Diagnosis: hip fracture Condition on Discharge: Good Goals: to be able to walk Activity: Resume your previous activity Non-emergency contact: Primary Care Provider Call non-emergency contact if: you have any medication questions, your symptoms worsen, your pain is not controlled, your pain is worsening, your pain is unusual for you, your pain is concerning for you, you have a fever, your temperature is above 101 and your temperature is above 101.5 Follow-up/Referrals: Shayy Hardin, DO [Primary Care Provider] - Diet: Heart Healthy Addtl Attending Provider Instructions: ORTHOPEDIC INSTRUCTIONS Hip Hemiarthroplasty Activity and Therapy Recommendations: 1. You were shown a series of exercises in the hospital. Do these exercises three times each day if you are able. 2. Get up and walk several times each day if you are capable. Make sure you have assistance is needed. For the first four weeks, try not to stand or walk for more than one hour at a time. If you do stand or walk for more than one hour, you will not hurt anything, but your leg will likely swell. 3. As you feel comfortable, you may change from the walker or crutches to a cane and then to independent walking if you are able. Please be safe. Medications: 1. Narcotic You will likely be sent from the hospital with the narcotic pain medication that worked best throughout your stay. 2. Aspirin You will be required to take Aspirin 81mg twice a day for 6 weeks after surgery to prevent blood clots. 3. Other medications may be given for specific circumstances. If you have any questions, please call the office at [phone]. 4. Resume previous home medications unless otherwise instructed TEDs/Elastic Stockings: The white elastic stockings help limit swelling and prevent blood clots from forming in your legs. The more you wear them, the more they work. Wear them for six weeks. Dressing Care: You will likely have a purple VAC dressing after surgery. This dressing will keep the incision dry and promote early healing. After about 8 days the batteries will wear out and the VAC will lose suction. Simply remove the dressing at that time and throw everything away, including the small suction machine. Then, you may leave the beata open to air or cover them with a dry dressing so they do not rub on your pants. The beata will be removed at your 2 week follow-up appointment. Showering: You may shower immediately with the purple VAC dressing. Let the shower spray hit your opposite side and slowly pat the plastic dry. Do not soak the dressing. After the dressing is removed you may shower normally with the beata exposed. Let soapy water run over the beata and pat them dry. Things To Watch For: 1. Drainage from the incision site that occurs more than one week after your surgery. 2. Increased redness at the incision site. 3. Fever above 102 degrees Fahrenheit. 4. Unusual chest pain or shortness of breath. 5. Call [facility] at with any of the above problems Follow-Up Visit: Follow-up with Dr. Mitchell 2 weeks after your day of surgery. Please call to make an appointment or be sure your rehab facility has made one. If you have any questions call Follow up PCP within 7 days with labs CBC. Pending Studies at Discharge: No Stand-Alone Forms: My [facility], Opioid Pain Management Skilled Items Patient informed of condition?: Yes DNR: No Discharge Level of Care: Skilled Communicable Disease: No Discharge Prognosis: Stable Lines: None Urinary Catheter: No Medications and DC Order Prescriptions: New acetaminophen [Mapap (acetaminophen)] 325 mg Tablet 650 mg PO Q8H PRN (Reason: fever or pain) Qty: 30 RF: 0 sennosides-docusate sodium [Senokot-S] 8.6-50 mg Tablet 2 tab PO HS Qty: 60 RF: 0 aspirin [Ecotrin Low Strength] 81 mg Tablet,Delayed Release (Dr/Ec) 81 mg PO BID Qty: 30 RF: 0 calcitonin (salmon) 200 unit/actuation spray,non-aerosol 1 sprays intranasal (ALT) .QD Qty: 3.7 RF: 0 Continued meclizine 25 mg tablet 25 mg PO TID PRN (Reason: vertigo) Qty: 30 RF: 0 metoprolol tartrate 50 mg tablet 50 mg PO BID Qty: 180 RF: 1 metoprolol succinate 25 mg tablet extended release 24 hr 25 mg PO QAM Qty: 90 RF: 1 Discharge Orders: Discharge Order (Routine); Ordered 03/16/19 Ordered By: Elisa Davis Admission Data Admit Date/Time: 03/11/19 15:43 Attending Provider: Elisa Davis Admit Provider: Myriam High Primary Care Provider: Shayy Hardin Other Providers: [facility] ; Myriam High ; Aris Mitchell ; Bang Jimenez Other Interventions: Discharge Summary Assessment (RN) Last Done: 03/16/19 14:47 DC Date/Time DO NOT enter until pt leaves facility: 03/16/19 15:49
== END 2019-03-16 15:49 | DRG 470 ==
LOC: ED 11:32 → SUATTDRO 15:43 → 2E 15:43 → 3N 03-13 11:07